=== PATIENT | male | born 1935 | race Caucasian/White ===

== ENCOUNTER 2018-07-09 02:19 | Observation (INO) | payer MEDICARE, SELFPAY ==
[2018-07-09] VITALS (10 sets, daily range): BP systolic 135–204; BP diastolic 61–99; PULSE 63–78; RESP 15–20; TEMP 36.3–36.6; O2SAT 95–98; BMI 25.8
--- NOTE | 2018-07-09 02:23 | DI.RAD.S_ITS ---
PROCEDURE: XR CHEST 1V INDICATIONS: chest pain TECHNIQUE: One view of the chest was acquired. COMPARISON: [facility], , CHEST 2 VIEW, 03/12/2016, 10:52. FINDINGS: Surgical changes and devices: Multiple surgical clips are again seen in left lower neck soft tissue in the region of thyroid bed. Lungs and pleura: No pleural effusions or pneumothorax. Lungs are clear. Mediastinum: Mediastinal contours appear normal. Heart size is normal. Bones and chest wall: No suspicious bony lesions. Overlying soft tissues appear unremarkable. IMPRESSION: No acute cardiopulmonary pathology. No significant changes from previous study. Dictated by: Ranjit Sims M.D. on 07/09/2018 at 8:16 Approved by: Ranjit Sims M.D. on 07/09/2018 at 8:17
--- NOTE | 2018-07-09 02:25 | ED_ITS ---
HPI - Chest Pain General Chief Complaint: Chest Pain Stated Complaint: Chest Pain Time Seen by Provider: 07/09/18 02:23 Source: patient Mode of arrival: ambulatory Limitations: no limitations History of Present Illness HPI narrative: 82-year-old male with history of hypertension hyperlipidemia here for evaluation of left axillary pain. Patient states that it woke him from his sleep approximately 2.5 hr prior to arrival here in the emergency department. Has improved since then but is still having the pain. states that he also did feel the pain in his back. He states that was sent achy pain. Not worse with palpation or movement or deep breaths. No prior cardiac history. Has not tried anything for prior to arrival. Related Data Home Medications Medication Instructions Recorded Confirmed hydrochlorothiazide 25 mg PO Q DAY #0 03/26/11 ASPIRIN (Aspirin) #0 01/29/12 Coenzyme Q10 (#COQ10) 30 mg PO Q DAY #0 01/29/12 Fish Oil (#FISH OIL) 1 iu PO Q DAY #0 01/29/12 atorvastatin [Lipitor] 40 mg PO HS #0 01/29/12 cyanocobalamin (vitamin B-12) 50 mcg PO Q DAY #0 01/29/12 [Vitamin B-12] ASCORBIC ACID (VITAMIN C) 1,000 mg PO QDAY #0 04/17/13 VITAMIN D (Vitamin D3) 1,000 unit PO QDAY #0 04/17/13 Previous Rx's Medication Instructions Recorded LEVOTHYROXINE SODIUM (LEVOTHROID) 0.2 mg PO QDAY #90 01/28/12 lisinopril [Prinivil] 20 mg PO Q DAY #30 07/25/12 Allergies Allergy/AdvReac Type Severity Reaction Status Date / Time INGREDIENT: NKDA - NO KNOWN Allergy Unknown Uncoded 02/05/18 12:07 DRUG ALLERGIES Review of Systems Constitutional Denies fatigue and Denies fever(s) ENT Ears, Nose, Mouth, and Throat: Denies vertigo and Denies dizziness Cardiovascular Reports chest pain, Denies diaphoresis, Denies rapid heart rate, Denies pedal edema, Denies edema and Denies dyspnea Respiratory Denies dyspnea Gastrointestinal Gastrointestinal: Denies diarrhea and Denies vomiting Genitourinary Denies dysuria Musculoskeletal Denies myalgias and Denies arthralgias Integumentary/Breasts Denies lesions and Denies rash Neurologic Denies vertigo and Denies dizziness Endocrine Denies fatigue Hematologic/Lymphatic Denies easy bleeding and Denies easy bruising [facility] Medical History Hyperlipidemia (Acute) Hypertension (Acute) Hypothyroid (Acute) Surgical History History of knee replacement History of thyroidectomy History of vasectomy Status post appendectomy Status post laminectomy Status post tonsillectomy and adenoidectomy Family History Father Family history of [place] (myocardial infarction) Mother Family history of cerebrovascular accident (CVA) Exam Initial Vital Signs Initial Vital Signs: Vital Signs Temperature 97.8 F 07/09/18 02:27 Pulse Rate 76 07/09/18 02:27 Respiratory Rate 20 07/09/18 02:27 Blood Pressure 204/98 H 07/09/18 02:27 Pulse Oximetry 98 07/09/18 02:27 Const General: cooperative, healthy appearing, comfortable, well developed, well groomed and No acute distress Orientation: alert, awake and oriented x3 HENMT Head: normal to inspection and normocephalic Resp Effort & Inspection: normal respiratory effort Auscultation: clear to auscultation bilaterally Cardio Rate: regular rate Rhythm: regular rhythm GI Inspection: non-distended Palpation: soft, No firm and No tender Skin Rashes: rash noted Wounds: wound noted Neuro General: alert, awake and oriented x3 Cognition: normal cognition Speech: speech normal Extrem General: normal to inspection and capillary refill normal Psych Appearance: grossly normal and well kempt Scores HEART Score Heart Score history: Moderately Suspicious Heart Score EKG: Non-Specific repolarization disturbance Heart Score Age: > or = 65 years old Heart Score risk factors: 1-2 risk factors Heart Score troponin: < or = to normal limit Heart Score Total: 5 Course Orders Ordered: ED Orders 07/09/18 02:23 XR chest 1V Stat EKG-12 Lead Stat 07/09/18 02:24 Complete Blood Count AUTO DIFF Stat Comprehensive Metabolic Panel Stat Lipase Stat Troponin & CK Cardiac Panel Stat 07/09/18 03:25 Consult to Physician Routine 07/09/18 06:00 Troponin I Stat Morphine Sulfate (Morphine) 2 mg IV Q4HR PRN PRN Reason: Pain, Mild (1-3) Nitroglycerin (Nitrostat) 0.4 mg SL [id number] PRN PRN Reason: Chest Pain Last Admin: 07/09/18 02:55 Dose: 0.4 mg Admin: 07/09/18 02:50 Dose: 0.4 mg Ondansetron HCl (Zofran) 4 mg IV Q4HR PRN PRN Reason: Nausea And Vomiting Discontinued Medications Aspirin (Aspirin Chew) 324 mg PO NOW ONE Stop: 07/09/18 02:24 Last Admin: 07/09/18 02:31 Dose: 324 mg Vital Signs - 8 hr 07/09/18 02:27 07/09/18 02:50 07/09/18 02:55 Temperature 97.8 F Pulse Rate 76 77 76 Respiratory Rate 20 Blood Pressure 204/98 H 168/99 H 196/97 H Blood Pressure [Right Arm] Pulse Oximetry 98 07/09/18 03:00 07/09/18 03:08 07/09/18 03:27 Temperature 97.8 F Pulse Rate 78 78 67 Respiratory Rate 16 16 18 Blood Pressure 196/97 H Blood Pressure [Right Arm] 135/77 137/88 Pulse Oximetry 95 95 98 MDM - Chest Pain Lab Data Attestation: I reviewed the patient's lab results. Result diagrams: 07/09/18 02:24 07/09/18 02:24 Lab Results 07/09/18 07/09/18 Range/Units 02:24 02:24 WBC 6.1 (4.5-11.0) X10^3/uL RBC 5.12 (4.5-5.9) X10^6/uL Hgb 15.6 (13.5-17.5) g/dL Hct 46.1 (41-53) % MCV 90.0 (80-100) fL MCH 30.4 (26-34) PG MCHC 33.8 (30-36) % RDW 13.5 (11.6-14.8) % Plt Count 158 (150-400) X10^3/uL Neut % (Auto) 68.4 (50-75) % Lymph % (Auto) 18.0 L (25-40) % [place] % (Auto) 8.4 (3-14) % Eos % (Auto) 4.7 H (2-4) % Baso % (Auto) 0.5 (0-2) % Neut # (Auto) 4100 (5138-1743) /uL Sodium 146 H (137-145) mmol/L Potassium 4.9 (3.4-5.1) mmol/L Chloride 110 H (98-107) mmol/L Carbon Dioxide 27 (22-32) mmol/L BUN 25 H (9-20) mg/dL Creatinine 0.90 (0.66-1.25) mg/dL Estimated GFR > 60.0 (>60) mL/min BUN/Creatinine Ratio 27.8 H (6-22) Glucose 93 (80-110) mg/dL Calcium 9.4 (8.4-10.2) mg/dL Total Bilirubin 0.9 (0.2-1.3) mg/dL AST 36 (17-59) IU/L ALT 25 (21-72) IU/L Alkaline Phosphatase 54 (38-126) U/L Total Creatine Kinase 62 (55-170) U/L Troponin I < 0.012 (0.01-0.034) ng/mL Total Protein 6.5 (6.3-8.2) g/dL Albumin 3.9 (3.5-5.0) g/dL Globulin 2.6 (1.7-4.1) g/dL Albumin/Globulin Ratio 1.5 (1.0-2.8) Lipase 69 (23-300) U/L Imaging Data Chest x-ray: Attestation: I personally reviewed and interpreted this imaging study as follows: My impression: No pneumonia no pneumothorax Bilateral patchy disease ECG Data Attestation: I personally reviewed and interpreted this ECG as follows: Prior ECG tracings: not available for review Interpretation: Sinus rhythm rate is 63 left axis deviation right bundle branch block Normal QTC No ST T wave changes MDM Narrative Medical decision making narrative: initial troponin was negative. Hypertension and chest pain resolved after 2 doses of nitroglycerin here in the emergency department. Chest x-ray is unremarkable. Nonischemic EKG. He was given aspirin here in the ER. Patient has a heart score of 5 which puts him at moderate risk. Had a discussion with him and his regarding his options to include being discharged now, staying here in the emergency department for another troponin in 3 hr or being admitted to the hospital. after this discussion the patient opted to be admitted to the hospital. I discussed the case with Dr. Osullivan who accepts the patient for observation for continued evaluation and treatment. Discharge Plan Departure Patient Disposition: Admitted as Observation Clinical Impression: Atypical chest pain, Hypertension
[2018-07-09] MEDS: ASPIRIN 81 MG TAB 324 MG PO (02:31)
[2018-07-09 02:41] LABS: Add Manual Diff / Slide Review NO; Basophils Percent Auto 0.5 % (0-2); Eosinophils Percent Auto 4.7 % (2-4); Hematocrit 46.1 % (41-53); Hemoglobin 15.6 g/dL (13.5-17.5); Mean Corpuscular HGB Conc 33.8 % (30-36); Mean Corpuscular Hemoglobin 30.4 PG (26-34); Monocytes Percent Auto 8.4 % (3-14); Neutrophils Absolute Auto 4100 /uL (3000-5900); Neutrophils Percent Auto 68.4 % (50-75); Platelet Count 158 X10^3/uL (150-400); Red Blood Cell Count 5.12 X10^6/uL (4.5-5.9); Red Cell Distribution Width 13.5 % (11.6-14.8); White Blood Cell Count 6.1 X10^3/uL (4.5-11.0)
[2018-07-09 02:46] LABS: Alanine Aminotransferase 25 IU/L (21-72); Albumin 3.9 g/dL (3.5-5.0); Albumin Globulin Ratio 1.5 (1.0-2.8); Alkaline Phosphatase 54 U/L (38-126); Aspartate Aminotransferase 36 IU/L (17-59); BUN Creatinine Ratio 27.8 (6-22); Bilirubin Total 0.9 mg/dL (0.2-1.3); Blood Urea Nitrogen 25 mg/dL (9-20); Calcium 9.4 mg/dL (8.4-10.2); Carbon Dioxide 27 mmol/L (22-32); Chloride 110 mmol/L (98-107); Creatine Kinase 62 U/L (55-170); Estimated Glomerular Filt Rate > 60.0 mL/min (>60); Globulin 2.6 g/dL (1.7-4.1); Glucose 93 mg/dL (80-110); Lipase 69 U/L (23-300); Sodium 146 mmol/L (137-145); Total Protein 6.5 g/dL (6.3-8.2)
[2018-07-09] MEDS: NITROGLYCERIN 0.4 MG SL TAB SL ×2 (02:50→02:55)
[2018-07-09 02:54] LABS: HEMOLYSIS 110 (0-50)
[2018-07-09 02:55] LABS: Potassium 4.9 mmol/L (3.4-5.1)
[2018-07-09 02:59] LABS: Troponin I < 0.012 ng/mL (0.01-0.034)
--- NOTE | 2018-07-09 04:13 | PC.ADMIT ---
[facility] Admission Note: The patient,Adolfo Gutierrez,82 y/o, was given written information regarding hospital policies, unit procedures and contact persons. Patient's smoking status: Never smoker. Vital Signs - 8 hr 07/09/18 02:27 07/09/18 02:50 07/09/18 02:55 Temperature 97.8 F Pulse Rate 76 77 76 Respiratory Rate 20 Blood Pressure 204/98 H 168/99 H 196/97 H Blood Pressure [Right Arm] Pulse Oximetry 98 07/09/18 03:00 07/09/18 03:08 07/09/18 03:27 Temperature 97.8 F Pulse Rate 78 78 67 Respiratory Rate 16 16 18 Blood Pressure 196/97 H Blood Pressure [Right Arm] 135/77 137/88 Pulse Oximetry 95 95 98 07/09/18 03:29 07/09/18 03:35 07/09/18 03:56 Temperature 97.8 F Pulse Rate 69 63 Respiratory Rate 15 18 Blood Pressure 137/88 168/99 H 159/61 H Blood Pressure [Right Arm] Pulse Oximetry 97 97 Pt arrived via WC in NAD. , Natty, accompanied him. Denies CP/SOB. VSS, afebrile. Tele SR. Sp02 98% RA. Oriented to room, call light and plan of care.
[2018-07-09 07:26] LABS: Troponin I < 0.012 ng/mL (0.01-0.034)
--- NOTE | 2018-07-09 09:23 | PM.HP.1 ---
History of Present Illness Date Patient Seen: 07/09/18 Time Patient Seen: 08:00 Chief complaint: Chest Pain Narrative: The pt is a 82yo man with hypertension, hyperlipidemia, and post-surgical hypothyroidism who presented with chest pain. The pt reports that around midnight last night he woke with left axillary chest pain that felt like a dull ache. It was very painful, 8/10 on the pain scale. At that point, it did radiate to his back. He got up and went to the bathroom, thinking it was due to laying on his left side while sleeping. The pain did not resolve. Gradually, the pain started to improved, however due to its severity he decided to come to the ED for evaluation. At the time of presentation to the ED, the pt states the pain had localized to his axilla without radiation. In the ER, the pt received Nitroglycerin which he states caused the pain to nearly stop. He continues to feel a slight ache in his left axilla. With the pain, the pt denies any associated SOB, nausea, radiation to the jaw or arm, palpitations. He has been in good health recently without any concerns. He denies any recent injury or straining with activity. The pt has never had similar symptoms in the past. Patient History Medical History Hyperlipidemia (Acute) Hypertension (Acute) Hypothyroid (Acute) Surgical History History of knee replacement History of thyroidectomy History of vasectomy Status post appendectomy Status post laminectomy Status post tonsillectomy and adenoidectomy Family & Social History Family History: Reviewed 07/09/18 by Pastora Ragland MD Social History: household members spouse Prior Living Arrangements House Safety & Behavioral: Feels Safe in Current Yes Environment Been Physically Hurt or No Threatened By a Person Suicidal Ideation Description None Suicide Plan Description No Plan Tobacco & Substance use: Smoking Status Never smoker alcohol intake current alcohol intake frequency 0-2 drinks per day Meds Home Medications Medication Instructions Recorded Confirmed Type hydrochlorothiazide 25 mg PO Q DAY #0 03/26/11 07/09/18 History LEVOTHYROXINE SODIUM (LEVOTHROID) 0.2 mg PO QDAY #90 01/28/12 07/09/18 Rx Coenzyme Q10 (#COQ10) 30 mg PO Q DAY #0 01/29/12 07/09/18 History Fish Oil (#FISH OIL) 1 iu PO Q DAY #0 01/29/12 07/09/18 History atorvastatin [Lipitor] 40 mg PO HS #0 01/29/12 07/09/18 History cyanocobalamin (vitamin B-12) 50 mcg PO Q DAY #0 01/29/12 07/09/18 History [Vitamin B-12] ASCORBIC ACID (VITAMIN C) 1,000 mg PO QDAY #0 04/17/13 07/09/18 History VITAMIN D (Vitamin D3) 1,000 unit PO QDAY #0 04/17/13 07/09/18 History fenofibrate micronized 134 mg PO DAILY 07/09/18 07/09/18 History lisinopril 40 mg PO DAILY #30 tab 07/09/18 Rx Allergies Allergy/AdvReac Type Severity Reaction Status Date / Time INGREDIENT: NKDA - NO KNOWN Allergy Unknown Uncoded 02/05/18 12:07 DRUG ALLERGIES Review of Systems Cardiovascular Cardiovascular: Reports chest pain, Denies fainting, Denies fast heart rate, Denies irregular heart rhythm, Denies leg swelling, Denies lightheadedness and Denies shortness of breath Respiratory Respiratory: Denies cough, Reports pain on inspiration and Denies dyspnea Gastrointestinal Gastrointestinal: Denies abdominal pain, Denies melena, Denies change in bowel habits and Denies heartburn Genitourinary Genitourinary: Denies hematuria and Denies dysuria Neurologic Neurologic: Denies syncope Exam Vital Signs (past 8 hours): - 07/09/18 02:27 07/09/18 02:50 07/09/18 02:55 Temperature 97.8 F Pulse Rate 76 77 76 Respiratory Rate 20 Blood Pressure 204/98 H 168/99 H 196/97 H Blood Pressure [Right Arm] Pulse Oximetry 98 07/09/18 03:00 07/09/18 03:08 07/09/18 03:27 Temperature 97.8 F Pulse Rate 78 78 67 Respiratory Rate 16 16 18 Blood Pressure 196/97 H Blood Pressure [Right Arm] 135/77 137/88 Pulse Oximetry 95 95 98 07/09/18 03:29 07/09/18 03:35 07/09/18 03:56 Temperature 97.8 F Pulse Rate 69 63 Respiratory Rate 15 18 Blood Pressure 137/88 168/99 H 159/61 H Blood Pressure [Right Arm] Pulse Oximetry 97 97 07/09/18 08:33 Temperature 97.3 F L Pulse Rate 68 Respiratory Rate 18 Blood Pressure 160/88 H Blood Pressure [Right Arm] Pulse Oximetry 98 Oxygen Delivery Method Room Air Narrative Exam Narrative: GEN - alert, cooperative and no distress HEENT - normocephalic and atraumatic, sclera white, moist mucus membranes, throat non-erythematous and tonsils not enlarged NECK - FROM, no adenopathy, no JVD HEART - RRR, S1, S2 normal, no S3 or S4, no murmurs LUNGS - symmetric chest rise, no accessory muscles, clear to auscultation bilaterally ABD - flat, nondistended, normal bowel sounds, soft, nontender and no hepatomegaly, splenomegaly or masses EXT - no cyanosis, clubbing or edema SKIN - no rashes or suspicious lesions NEURO - no gross deficits Objective Labs Result Diagrams: 07/09/18 02:24 07/09/18 02:24 Labs: Laboratory Results - last 24 hr 07/09/18 07/09/18 07/09/18 02:24 02:24 03:55 WBC 6.1 RBC 5.12 Hgb 15.6 Hct 46.1 MCV 90.0 MCH 30.4 MCHC 33.8 RDW 13.5 Plt Count 158 Neut % (Auto) 68.4 Lymph % (Auto) 18.0 L [place] % (Auto) 8.4 Eos % (Auto) 4.7 H Baso % (Auto) 0.5 Neut # (Auto) 4100 Sodium 146 H Potassium 4.9 Chloride 110 H Carbon Dioxide 27 BUN 25 H Creatinine 0.90 Estimated GFR > 60.0 BUN/Creatinine Ratio 27.8 H Glucose 93 Calcium 9.4 Total Bilirubin 0.9 AST 36 ALT 25 Alkaline Phosphatase 54 Total Creatine Kinase 62 Troponin I < 0.012 Total Protein 6.5 Albumin 3.9 Globulin 2.6 Albumin/Globulin Ratio 1.5 Lipase 69 Nasal Screen MRSA (PCR) Negative for mrsa 07/09/18 06:15 WBC RBC Hgb Hct MCV MCH MCHC RDW Plt Count Neut % (Auto) Lymph % (Auto) [place] % (Auto) Eos % (Auto) Baso % (Auto) Neut # (Auto) Sodium Potassium Chloride Carbon Dioxide BUN Creatinine Estimated GFR BUN/Creatinine Ratio Glucose Calcium Total Bilirubin AST ALT Alkaline Phosphatase Total Creatine Kinase Troponin I < 0.012 Total Protein Albumin Globulin Albumin/Globulin Ratio Lipase Nasal Screen MRSA (PCR) Assessment & Plan (1) Chest pain: Qualifiers: Chest pain type: unspecified Qualified Code(s): R07.9 - Chest pain, unspecified Current visit: No Status: Acute (2) Hypertension: Qualifiers: Hypertension type: unspecified Qualified Code(s): I10 - Essential (primary) hypertension Current visit: No Status: Acute Plan: Assessment/Plan Narrative: 82 year old man with hypertension, hyperlipidemia, and hypothyroidism who presented with chest pain. Pain is concerning for cardiac etiology due to description and relief with nitroglycerin, however negative EKG and troponins x2. Possibly due to hypertensive urgency with pt having significantly elevated BP at presentation. No recurrence of pain since in the hospital. 1) Chest pain with known HTN: BP improved, however remains elevated - Increase Losartan to 40mg daily - Pt to check BP regularly at home, will notify us if remaining elevated - Appt scheduled for outpatient stress test tomorrow, as unable to complete today in the hospital - Continue statin Dispo: Pt to discharge home today with plans for stress test tomorrow. Will have f/u with Dr Quintana within 2 weeks as well. Quality VTE Deep Vein Thrombosis/Pulmonary Embolism Present on Admission: No
[2018-07-09] MEDS: FENOFIBRATE 145 MG TABLET PO (09:42)
[2018-07-09] MEDS: LISINOPRIL 20 MG TABLET 40 MG PO (09:42)
[2018-07-09] MEDS: LEVOTHYROXINE 100 MCG TABLET 200 MCG PO (09:42)
[2018-07-09] MEDS: hydroCHLOROthiazide 25 MG TABLET PO (09:43)
--- NOTE | 2018-07-09 11:15 | CM.DANOTE ---
Discharge Planning/Care Management DCP: assessment: case received, EMR reviewed, conferred with HELEN Leach and then met with pt. Introduced self and role. Pt is an 82 year old male who is functionally independent and lives with . He admitted to care of [facility] early this morning. PCP: Dr. Quintana. [facility] pt this morning and will be returning later today to finalize the d/c. Pt expects to have further testing in the outpt setting. Says his will be picking him up. No d/c needs are identified at this time but will follow prn. CM Discharge Assessment Start: 07/09/18 11:13 Freq: Status: Active Protocol: Document 07/09/18 11:13 ITV (Rec: 07/09/18 11:15 ITV [id number]) Discharge Planning Assessment Advance Directives? No History Provided By Patient Medical Record Prior Living Arrangements House Household Members spouse Barriers to Discharge No Whiteboard Updated in Patient Room with Yes name and ext. # of Laser [employer]
== END 2018-07-09 11:31 | disposition home or self-care (01) ==
LOC: ED 03:24 → ICU 03:31
PROVIDERS: Admitting Provider Family Medicine; Emergency Provider Emergency Medicine; PCP Internal Medicine; Visit Provider Family Medicine
DX: R07.9 Chest pain, unspecified (principal); I10 Essential (primary) hypertension; E78.5 Hyperlipidemia, unspecified; E03.9 Hypothyroidism, unspecified
CPT/HCPCS: 71045; 80053; 82550; 82553; 83690; 84484; 85025; 87797; 93005; 99235; 99282; 99285; G0378

== ENCOUNTER 2019-09-24 14:26 | Emergency (ER) | payer MEDICARE, SELFPAY ==
[2019-02-12 13:45] VITALS: BMI 25.8
[2019-09-24 14:35] VITALS: BP 113/60; PULSE 68; RESP 19; TEMP 36.7; O2SAT 97; BMI 27.4
--- NOTE | 2019-09-24 14:37 | DI.RAD.S_ITS ---
PROCEDURE: XR CHEST 1V INDICATIONS: syncope TECHNIQUE: One view of the chest was acquired. COMPARISON: [facility], CR, XR CHEST 1V, 07/09/2018, 2:29. [facility], CR, CHEST 2 VIEW, 03/12/2016, 10:52. [facility], CR, CHEST 2 VIEW, 03/26/2011, 9:46. [facility], CT, PE STUDY (CTA CHEST), 03/25/2011, 11:38. FINDINGS: Surgical changes and devices: Neck several clips are seen. Lungs and pleura: Lungs are clear. No pleural effusions or pneumothorax. Mediastinum: The cardiac contours are within normal limits. The aorta demonstrates calcification and tortuosity. Bones and chest wall: Age-appropriate bony degenerative changes are seen. No suspicious bony lesions. Overlying soft tissues appear unremarkable. IMPRESSION: Unremarkable imaging examination for age. Postoperative and degenerative changes are seen. Dictated by: Carlos Mauricio M.D. on 09/24/2019 at 14:02 Approved by: Carlos Mauricio M.D. on 09/24/2019 at 14:03
[2019-09-24 14:59] LABS: Add Manual Diff / Slide Review NO; Basophils Absolute Auto 100 /uL (0-100); Basophils Percent Auto 1.4 % (0-2); Eosinophils Absolute Auto 200 /uL (0-450); Eosinophils Percent Auto 3.1 % (2-4); Hematocrit 44.3 % (41-53); Hemoglobin 15.1 g/dL (13.5-17.5); Lymphocytes Absolute Auto 800 /uL (1100-4500); Lymphocytes Percent Auto 14.9 % (25-40); Mean Corpuscular Hemoglobin 30.6 PG (26-34); Mean Corpuscular Volume 89.8 fL (80-100); Monocytes Absolute Auto 300 /uL (0-900); Neutrophils Absolute Auto 4200 /uL (1500-7000); Neutrophils Percent Auto 74.6 % (50-75); Platelet Count 160 X10^3/uL (150-400); Red Blood Cell Count 4.93 X10^6/uL (4.5-5.9); Red Cell Distribution Width 13.7 % (11.6-14.8); White Blood Cell Count 5.7 X10^3/uL (4.5-11.0)
[2019-09-24 15:04] LABS: INR 1.1 (0.9-1.3); Prothrombin Time 12.2 SECONDS (10.1-12.7)
[2019-09-24 15:08] LABS: Alanine Aminotransferase 16 IU/L (<50); Albumin 3.8 g/dL (3.5-5.0); Albumin Globulin Ratio 1.7 (1.0-2.8); Alkaline Phosphatase 53 U/L (38-126); Aspartate Aminotransferase 24 IU/L (17-59); BUN Creatinine Ratio 28.5 (6-22); Bilirubin Total 0.6 mg/dL (0.2-1.3); Blood Urea Nitrogen 37 mg/dL (9-20); Calcium 9.4 mg/dL (8.4-10.2); Carbon Dioxide 26 mmol/L (22-32); Chloride 107 mmol/L (98-107); Creatine Kinase 80 U/L (55-170); Estimated Glomerular Filt Rate 52.7 mL/min (>60); Globulin 2.3 g/dL (1.7-4.1); Glucose 119 mg/dL (80-110); HEMOLYSIS < 15 (0-50); Magnesium 1.9 mg/dL (1.6-2.3); Potassium 4.2 mmol/L (3.4-5.1); Sodium 140 mmol/L (137-145); Total Protein 6.1 g/dL (6.3-8.2)
[2019-09-24 15:10] VITALS: BP 127/60; BP 150/79
--- NOTE | 2019-09-24 15:13 | ED_ITS ---
HPI - Syncope General Chief Complaint: Syncope Stated Complaint: Syncope Time Seen by Provider: 09/24/19 14:26 Source: patient, family and EMS Mode of arrival: EMS Limitations: no limitations History of Present Illness HPI narrative: Patient is brought to the emergency department by EMS after experiencing a syncopal episode after eating Thanksgiving dinner this afternoon. Patient states that he had just finished eating was feeling fine but started to feel somewhat lightheaded. Patient states that he wanted to put his head down on the table, but his plate was in front of him and he did not want to get food in his face and hair. Patient's states that she looked over noticed that her 's head was slumped forward and so she in the family got him out of the chair in laid him down on the floor. Patient states he woke up and found himself on the floor and was not sure how he got there. states that the patient was unconscious for approximately 15 seconds. The patient states once he woke up he was feeling ?fine?. The patient does admit to not drinking very much water over the last few days. Patient denies any chest pain, shortness of breath, nausea, vomiting, abdominal pain, headache, or focal neurologic deficits either before or after the episode. He states he has never fainted before. Patient states he has not been ill with anything recently. No cough or fever. No other complaints at this time. Related Data Home Medications Medication Instructions Recorded Confirmed hydrochlorothiazide 25 mg PO Q DAY #0 03/26/11 02/12/19 Coenzyme Q10 (#COQ10) 30 mg PO Q DAY #0 01/29/12 02/12/19 Fish Oil (#FISH OIL) 1 iu PO Q DAY #0 01/29/12 02/12/19 cyanocobalamin (vitamin B-12) 50 mcg PO Q DAY #0 01/29/12 02/12/19 [Vitamin B-12] ASCORBIC ACID (VITAMIN C) 1,000 mg PO QDAY #0 04/17/13 02/12/19 VITAMIN D (Vitamin D3) 1,000 unit PO QDAY #0 04/17/13 02/12/19 fenofibrate micronized 134 mg PO DAILY 07/09/18 02/12/19 aspirin 81 mg tablet,delayed 81 mg PO 2XW tab 02/12/19 02/12/19 release atorvastatin 40 mg tablet 40 mg PO 2XW #0 tab 02/12/19 02/12/19 Previous Rx's Medication Instructions Recorded lisinopril 40 mg PO DAILY #30 tab 07/09/18 levothyroxine 175 mcg tablet 175 mcg PO DAILY #90 tab 02/12/19 Allergies Allergy/AdvReac Type Severity Reaction Status Date / Time INGREDIENT: NKDA - NO KNOWN Allergy Unknown Uncoded 02/12/19 15:29 DRUG ALLERGIES Review of Systems Constitutional Constitutional: Denies chills, Denies fatigue, Denies fever(s), Denies frequent falls, Denies lethargy and Denies weakness Eyes Eyes: Denies change in vision, Denies eye discharge, Denies irritation and Denies loss of vision ENT Ears, Nose, Mouth, and Throat: Denies change in voice, Denies dizziness, Denies neck pain, Denies sore throat and Denies throat swelling Cardiovascular Cardiovascular: Denies chest pain, Reports syncope, Denies irregular heart rhythm, Denies lightheadedness, Denies palpitations, Denies dyspnea, Denies dyspnea on exertion and Denies orthopnea Respiratory Respiratory: Denies cough, Denies dyspnea, Denies dyspnea on exertion and Denies wheezing Gastrointestinal Gastrointestinal: Denies abdominal pain, Denies change in bowel habits, Denies diarrhea, Denies nausea and Denies vomiting Genitourinary Genitourinary: Denies hematuria, Denies flank pain, Denies urinary incontinence and Denies urinary urgency Musculoskeletal Musculoskeletal: Denies back pain, Denies muscle weakness, Denies neck pain, Denies numbness and Denies tingling Integumentary/Breasts Skin/Breast: Denies pruritus, Denies erythema, Denies rash and Denies wounds Neurologic Neurologic: Denies behavioral changes, Denies confusion, Denies dizziness, Reports syncope, Denies frequent falls, Denies loss of vision, Denies numbness, Denies tingling and Denies weakness Psychiatric Psychiatric: Denies anxiety, Denies behavioral changes, Denies confusion, Denies depression, Denies homicidal ideation and Denies suicidal ideation Endocrine Endocrine: Denies fatigue, Denies flushing and Denies palpitations Hematologic/Lymphatic Hematologic/Lymphatic: Denies easy bruising Allergic/Immunologic Allergic/Immunologic: Denies urticaria, Denies throat swelling and Denies wheezing Patient History Medical History Hyperlipidemia, unspecified (Chronic 01/29/12) Hypertension (Chronic) Hypothyroidism (Chronic) LAFB (left anterior fascicular block) (Inactive) RBBB (Inactive) Surgical History History of knee replacement History of thyroidectomy History of vasectomy Status post appendectomy Status post laminectomy Status post tonsillectomy and adenoidectomy Family History Father Family history of [place] (myocardial infarction) Mother Family history of cerebrovascular accident (CVA) Social History household members: spouse Smoking Status: Never smoker alcohol intake: current alcohol intake frequency: 0-2 drinks per day Exam Initial Vital Signs Initial Vital Signs: Vital Signs Temperature 98.0 F 09/24/19 14:35 Pulse Rate 68 09/24/19 14:35 Respiratory Rate 19 09/24/19 14:35 Blood Pressure 113/60 09/24/19 14:35 Pulse Oximetry 97 09/24/19 14:35 Const General: cooperative and well developed Nutritional Appearance: well nourished Orientation: alert, awake, oriented x3 and not confused [facility] Head: normocephalic and atraumatic Ears: external ears normal Nose: external nose normal and No nasal discharge Face and sinus: face symmetric and No dry mucous membranes Mouth: oral mucosae normal and moist mucous membranes Teeth and gingiva: dentition normal Eyes General: appearance normal, both eyes and all related structures Eyelids: eyelids normal Conjunctivae: conjunctivae normal Sclera: sclerae normal Pupils: PERRL EOM: EOM intact bilaterally Neck Neck: normal visual inspection, trachea midline, No lymphadenopathy, No midline deformity and No JVD Lymphatic: No lymphedema Chest Chest: normal inspection of the chest Resp Effort & Inspection: normal respiratory effort, able to speak in complete sentences, no respiratory distress and no use of accessory muscles Auscultation: clear to auscultation bilaterally, no rales, no rhonchi and no wheezes Cardio Rate: regular rate Rhythm: regular rhythm Heart Sounds: no click, no gallops, no murmurs and no rubs Pulses: normal peripheral pulses GI Inspection: non-distended Palpation: soft, no hepatosplenomegaly, No guarding, No pulsatile mass and No tender Back/Spine/Pelvis Back: No CVA tenderness Cervical Spine: cervical ROM normal and No pain with cervical ROM Thoracic/Lumbar Spine: thoracic and lumbar spine normal to inspection Skin General: no rashes or lesions noted, No jaundice and No petechiae Neuro General: alert, awake, oriented x3, no focal motor deficits and CN's II-XI intact bilaterally Cognition: normal cognition Speech: speech normal Motor: muscle tone normal throughout and strength 5/5 throughout Sensory Exam: no sensory deficits noted Extrem General: full ROM, no clubbing, cyanosis or edema, no pedal edema and no calf tenderness Psych Appearance: well kempt Mental Status: mental status grossly normal Attitude: cooperative Thought Content: normal and suicidality Judgment: judgment good Course Course Course Narrative: The patient was very well-appearing in the emergency department, and his 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 His blood pressure, heart rate, and oxygen saturation were all normal, as well. His fingerstick glucose was 117. The patient was worked up with labs and EKG, and given a 1 L bolus 0.9 normal saline. Patient was found to be doing very well and was without complaints on re-evaluation. His workup was unremarkable. I felt he was stable for discharge home. We have discussed getting plenty of fluids to drink and having the rest for the remainder of the day. Patient's family is present and very supportive. Orders Ordered: Discontinued Medications Sodium Chloride (Normal Saline 0.9%) 1,000 mls @ 1,000 mls/hr IV BOLUS ONE Stop: 09/24/19 16:11 Vital Signs Vital signs: Vital Signs - 8 hr 09/24/19 14:35 Temperature 98.0 F Pulse Rate 68 Respiratory Rate 19 Blood Pressure 113/60 Pulse Oximetry 97 MDM - Syncope Medical Records Attestation: I reviewed the patient's medical records. Lab Data Attestation: I reviewed the patient's lab results. Result diagrams: 09/24/19 14:49 09/24/19 14:49 Labs: Lab Results 09/24/19 09/24/19 09/24/19 Range/Units 14:49 14:49 14:49 WBC 5.7 (4.5-11.0) X10^3/uL RBC 4.93 (4.5-5.9) X10^6/uL Hgb 15.1 (13.5-17.5) g/dL Hct 44.3 (41-53) % MCV 89.8 (80-100) fL MCH 30.6 (26-34) PG MCHC 34.0 (30-36) % RDW 13.7 (11.6-14.8) % Plt Count 160 (150-400) X10^3/uL Neut % (Auto) 74.6 (50-75) % Lymph % (Auto) 14.9 L (25-40) % [place] % (Auto) 6.0 (3-14) % Eos % (Auto) 3.1 (2-4) % Baso % (Auto) 1.4 (0-2) % Neut # (Auto) 4200 (1070-8075) /uL Lymph # (Auto) 800 L (0031-9686) /uL [place] # (Auto) 300 (0-900) /uL Eos # (Auto) 200 (0-450) /uL Baso # (Auto) 100 (0-100) /uL PT 12.2 (10.1-12.7) SECONDS INR 1.1 (0.9-1.3) Sodium 140 (137-145) mmol/L Potassium 4.2 (3.4-5.1) mmol/L Chloride 107 (98-107) mmol/L Carbon Dioxide 26 (22-32) mmol/L BUN 37 H (9-20) mg/dL Creatinine 1.30 H (0.66-1.25) mg/dL Estimated GFR 52.7 L (>60) mL/min BUN/Creatinine Ratio 28.5 H (6-22) Glucose 119 H (80-110) mg/dL Calcium 9.4 (8.4-10.2) mg/dL Magnesium 1.9 (1.6-2.3) mg/dL Total Bilirubin 0.6 (0.2-1.3) mg/dL AST 24 (17-59) IU/L ALT 16 (<50) IU/L Alkaline Phosphatase 53 (38-126) U/L Total Creatine Kinase 80 (55-170) U/L CK-MB (CK-2) TNP CK-MB (CK-2) Rel Index TNP Troponin I < 0.012 (0.01-0.034) ng/mL B-Natriuretic Peptide < 100 (<100) Total Protein 6.1 L (6.3-8.2) g/dL Albumin 3.8 (3.5-5.0) g/dL Globulin 2.3 (1.7-4.1) g/dL Albumin/Globulin Ratio 1.7 (1.0-2.8) Point of Care Testing Glucose POC 117 Imaging Data Chest x-ray: Radiologist's impression: PROCEDURE: XR CHEST 1V INDICATIONS: syncope TECHNIQUE: One view of the chest was acquired. COMPARISON: [facility], CR, XR CHEST 1V, 07/09/2018, 2:29. [facility], CR, CHEST 2 VIEW, 03/12/2016, 10:52. [facility], CR, CHEST 2 VIEW, 03/26/2011, 9:46. [facility], CT, PE STUDY (CTA CHEST), 03/25/2011, 11:38. FINDINGS: Surgical changes and devices: Neck several clips are seen. Lungs and pleura: Lungs are clear. No pleural effusions or pneumothorax. Mediastinum: The cardiac contours are within normal limits. The aorta demonstrates calcification and tortuosity. Bones and chest wall: Age-appropriate bony degenerative changes are seen. No suspicious bony lesions. Overlying soft tissues appear unremarkable. IMPRESSION: Unremarkable imaging examination for age. Postoperative and degenerative changes are seen. Dictated by: Carlos Mauricio M.D. on 09/24/2019 at 14:02 Approved by: Carlos Mauricio M.D. on 09/24/2019 at 14:03 ECG Data Attestation: I personally reviewed and interpreted this ECG as follows: (See below) Interpretation: Twelve lead EKG performed September 24, 2019 at 2:36 p.m., as follows: Irregular ventricular rhythm with a rate of 62 beats per minute QRS duration 149 millisecond WA interval 180 millisecond QTC interval [address] T wave changes No ectopy Interpretation: Normal sinus rhythm; marked left axis deviation; right bundle- branch block; no signs of acute ischemia; abnormal EKG as interpreted by ED MD. Discharge Plan Departure Patient Disposition: Home Clinical Impression: Syncope Qualifiers: Syncope type: unspecified Qualified Code(s): R55 - Syncope and collapse Discharge Date/Time: 09/24/19 16:42 Instructions: DI for Syncope in Adults (Fainting) Activity Restrictions/Additional Instructions: Your labs look good, overall. Your kidney labs do show evidence dehydration, for which you have been treated here the emergency department. This has almost certainly contributed at least impart to your fainting episode today. Be sure to drink plenty of water, especially with holiday meals which tend to be saltier. If you develop chest pain or shortness of breath, you will need to return immediately to the emergency department. If you have repeated fainting episodes, you will need to talk to her doctor about wearing an event monitor to figure out why you are having the recurrent fainting episodes. Prescriptions: No Action hydrochlorothiazide 25 MG tablet 25 mg PO Q DAY Qty: 0 RF: 0 Fish Oil (#FISH OIL) 1 iu PO Q DAY Qty: 0 RF: 0 cyanocobalamin (vitamin B-12) [Vitamin B-12] 50 MCG lozenge 50 mcg PO Q DAY Qty: 0 RF: 0 Coenzyme Q10 (#COQ10) 30 mg PO Q DAY Qty: 0 RF: 0 ASCORBIC ACID (VITAMIN C) 1,000 mg PO QDAY Qty: 0 RF: 0 VITAMIN D (Vitamin D3) 1,000 unit PO QDAY Qty: 0 RF: 0 atorvastatin [Lipitor] 40 mg tablet 40 mg PO 2XW Qty: 0 RF: 0 aspirin 81 mg tablet,delayed release (DR/EC) 81 mg PO 2XW RF: 0 levothyroxine 175 mcg tablet 175 mcg PO DAILY Qty: 90 RF: 3 fenofibrate micronized 134 mg capsule 134 mg PO DAILY RF: 0 lisinopril 20 mg Tablet 40 mg PO DAILY Qty: 30 RF: 0 Referrals: Carlos Quintana MD [Primary Care Provider] -
[2019-09-24 15:19] LABS: Troponin I < 0.012 ng/mL (0.01-0.034)
[2019-09-24 15:38] LABS: B Type Natriuretic Peptide < 100 (<100)
[2019-09-24 16:09] VITALS: BP 126/54; PULSE 65; RESP 12; O2SAT 98
--- NOTE | 2019-09-24 16:23 | PC.NURSE ---
patient not feeling lightheaded at all. Says earlier after eating his dinner he became lightheaded. Put his head down but then proceeded to pass out. Says he thinks he was dehydrated. Had had a small shot of alcohol. prior to dinner
[2019-09-24 16:39] VITALS: BP 139/65; PULSE 68; RESP 15
== END 2019-09-24 16:42 | disposition home or self-care (01) ==
PROVIDERS: Nurse Practitioner Family; Emergency Provider Emergency Medicine; PCP Internal Medicine
DX: R55 Syncope and collapse (principal); E86.0 Dehydration
CPT/HCPCS: 36415; 71045; 80053; 82550; 82962; 83735; 83880; 84484; 85025; 85610; 93005; 93041; 99283; 99285

== ENCOUNTER → 2020-01-29 10:01 | Outpatient (CLI) | payer MEDICARE, SELFPAY ==
[2019-02-12 13:45] VITALS: BMI 25.8
[2020-01-29 13:18] LABS: Free T4, Direct Thyroxine 1.79 ng/dL (0.78-2.19)
[2020-01-29 13:29] LABS: Alanine Aminotransferase 18 IU/L (<50); Albumin 4.2 g/dL (3.5-5.0); Albumin Globulin Ratio 1.6 (1.0-2.8); Alkaline Phosphatase 69 U/L (38-126); Aspartate Aminotransferase 26 IU/L (17-59); BUN Creatinine Ratio 23.8 (6-22); Bilirubin Total 0.6 mg/dL (0.2-1.3); Blood Urea Nitrogen 30 mg/dL (9-20); Calcium 10.3 mg/dL (8.4-10.2); Carbon Dioxide 27 mmol/L (22-32); Chloride 108 mmol/L (98-107); Estimated Glomerular Filt Rate 54.5 mL/min (>60); Globulin 2.7 g/dL (1.7-4.1); Glucose 76 mg/dL (80-110); HEMOLYSIS < 15 (0-50); Potassium 5.1 mmol/L (3.4-5.1); Sodium 143 mmol/L (137-145); Total Protein 6.9 g/dL (6.3-8.2)
[2020-01-29 13:32] LABS: Thyroid Stimulating Hormone 0.02 uIU/mL (0.47-4.68)
== END ==
PROVIDERS: PCP Internal Medicine; Referring Provider Internal Medicine; Visit Provider Internal Medicine
DX: E03.9 Hypothyroidism, unspecified (principal); I10 Essential (primary) hypertension
CPT/HCPCS: 36415; 80053; 84439; 84443

== ENCOUNTER 2020-04-24 23:59 | Emergency (ER) | payer MEDICARE, SELFPAY ==
[2019-02-12 13:45] VITALS: BMI 25.8
[2020-04-25 00:04] VITALS: BP 133/83; PULSE 85; RESP 20; TEMP 37; O2SAT 98
--- NOTE | 2020-04-25 00:06 | ED.ARRPALP ---
HPI - Arrhythmia/Palpitations General Chief Complaint: Arrhythmia/Palpitations Stated Complaint: heart palpitations skipping a beat hbp Time Seen by Provider: 04/25/20 00:00 Source: patient Mode of arrival: Ambulatory Limitations: no limitations History of Present Illness HPI narrative: 84-year-old male non smoker with history of hyperlipidemia and hypothyroidism presents with a chief complaint of palpitations and a sensation of skipped beats over the past day or 2. He denies any chest pain is not dizzy nor weak or lightheaded but does say the occasionally feels a bit short of breath when he is having frequent palpitations. He denies any changes medications or diet. He denies any recent illness such as nausea, vomiting or diarrhea. He denies any provocation or palliation. He denies any significant external stressors, use of caffeine, nicotine or alcohol. Related Data Home Medications Medication Instructions Recorded Confirmed Coenzyme Q10 (#COQ10) 30 mg PO Q DAY #0 01/29/12 01/29/20 Fish Oil (#FISH OIL) 1 iu PO Q DAY #0 01/29/12 01/29/20 cyanocobalamin (vitamin B-12) 50 mcg PO Q DAY #0 01/29/12 01/29/20 [Vitamin B-12] ASCORBIC ACID (VITAMIN C) 1,000 mg PO QDAY #0 04/17/13 01/29/20 VITAMIN D (Vitamin D3) 1,000 unit PO QDAY #0 04/17/13 01/29/20 fenofibrate micronized 134 mg PO DAILY 07/09/18 01/29/20 atorvastatin 40 mg tablet 40 mg PO 2XW #0 tab 02/12/19 01/29/20 Previous Rx's Medication Instructions Recorded lisinopril 40 mg PO DAILY #30 tab 07/09/18 hydrochlorothiazide 25 mg tablet 25 mg PO DAILY #90 tab 01/29/20 levothyroxine 175 mcg tablet 175 mcg PO DAILY #90 tab 01/29/20 Allergies Allergy/AdvReac Type Severity Reaction Status Date / Time INGREDIENT: NKDA - NO KNOWN Allergy Unknown Uncoded 01/29/20 09:32 DRUG ALLERGIES Review of Systems Constitutional Constitutional: Denies chills, Denies fatigue, Denies fever(s), Denies frequent falls, Denies lethargy and Denies weakness Eyes Eyes: Denies change in vision, Denies eye discharge, Denies irritation and Denies loss of vision ENT Ears, Nose, Mouth, and Throat: Denies change in voice, Denies dizziness, Denies neck pain, Denies sore throat and Denies throat swelling Cardiovascular Cardiovascular: Denies chest pain, Denies irregular heart rhythm, Denies lightheadedness, Denies palpitations, Denies dyspnea, Denies dyspnea on exertion and Denies orthopnea Comments: palpitations Respiratory Respiratory: Denies cough, Denies dyspnea, Denies dyspnea on exertion and Denies wheezing Gastrointestinal Gastrointestinal: Denies abdominal pain, Denies change in bowel habits, Denies diarrhea, Denies nausea and Denies vomiting Musculoskeletal Musculoskeletal: Denies neck pain and Denies numbness Integumentary/Breasts Skin/Breast: Denies pruritus, Denies erythema, Denies rash and Denies wounds Neurologic Neurologic: Denies behavioral changes, Denies confusion, Denies dizziness, Denies frequent falls, Denies loss of vision, Denies numbness and Denies weakness Psychiatric Psychiatric: Denies anxiety, Denies behavioral changes, Denies confusion, Denies depression, Denies homicidal ideation and Denies suicidal ideation Endocrine Endocrine: Denies fatigue, Denies flushing and Denies palpitations Hematologic/Lymphatic Hematologic/Lymphatic: Denies easy bruising Allergic/Immunologic Allergic/Immunologic: Denies urticaria, Denies throat swelling and Denies wheezing Patient History Medical History Hyperlipidemia, unspecified (Chronic 01/29/12) Hypertension (Chronic) Hypothyroidism (Chronic) LAFB (left anterior fascicular block) (Inactive) RBBB (Inactive) Surgical History History of knee replacement History of thyroidectomy History of vasectomy Status post appendectomy Status post laminectomy Status post tonsillectomy and adenoidectomy Family History Father Family history of [place] (myocardial infarction) Mother Family history of cerebrovascular accident (CVA) Social History household members: spouse Smoking Status: Never smoker alcohol intake: current Smoking Status: Never smoker alcohol intake frequency: 0-2 drinks per day Exam Narrative Exam Narrative: GENERAL: [84] year old patient appears stated age. Well-nourished, well-developed patient, in mild distress. HEAD: Atraumatic. Normocephalic. EYES: Pupils equal round and reactive. Extraocular motions intact. No scleral icterus. No injection or drainage. ENT: Nose without bleeding, purulent drainage. Throat without erythema, tonsillar hypertrophy or exudate. Airway patent. NECK: Trachea midline. Non tender CARDIOVASCULAR: Regular rate and rhythm without murmurs, gallops, or rubs. Occasional palpitation (PVC) RESPIRATORY: Clear to auscultation. Breath sounds equal bilaterally. No wheezes, rales, or rhonchi. GASTROINTESTINAL: Abdomen soft, non-tender, nondistended. EXTREMITIES: No edema or joint tenderness. BACK: Nontender without deformity or crepitance. No flank tenderness. NEURO: AOx3. SKIN: No rash or erythema of visible areas Initial Vital Signs Initial Vital Signs: Vital Signs Temperature 98.6 F 04/25/20 00:04 Pulse Rate 85 04/25/20 00:04 Respiratory Rate 20 04/25/20 00:04 Blood Pressure 133/83 04/25/20 00:04 Pulse Oximetry 98 04/25/20 00:04 Course Orders Ordered: ED Orders 04/25/20 00:07 EKG-12 Lead Stat 04/25/20 00:12 Basic Metabolic Panel Stat Complete Blood Count AUTO DIFF Stat D Dimer Stat Magnesium Stat Thyroid Stimulating Hormone Stat Troponin & CK Cardiac Panel Stat 04/25/20 01:24 CT angio chest PE protocol Stat Sodium Chloride (Normal Saline 0.9%) 1,000 mls @ 150 mls/hr IV CONT ANA Last Infusion: 04/25/20 02:49 Dose: 150 mls/hr Documented by: Admin: 04/25/20 02:07 Dose: 150 mls/hr Documented by: VIRY Vital Signs Vital signs: Vital Signs - 8 hr 04/25/20 00:04 04/25/20 02:02 04/25/20 02:35 Temperature 98.6 F Pulse Rate 85 87 90 Respiratory Rate 20 25 H 24 Blood Pressure 133/83 Blood Pressure [Right Arm] 133/83 147/86 H Pulse Oximetry 98 99 97 MDM - Arrhythmia/Palpitations Lab Data Result diagrams: 04/25/20 00:12 04/25/20 00:12 Labs: Lab Results 04/25/20 04/25/20 04/25/20 Range/Units 00:12 00:12 00:12 WBC 6.9 (4.5-11.0) X10^3/uL RBC 5.23 (4.5-5.9) X10^6/uL Hgb 16.2 (13.5-17.5) g/dL Hct 47.7 (41-53) % MCV 91.1 (80-100) fL MCH 31.0 (26-34) PG MCHC 34.0 (30-36) % RDW 13.6 (11.6-14.8) % Plt Count 169 (150-400) X10^3/uL Neut % (Auto) 69.4 (50-75) % Lymph % (Auto) 18.9 L (25-40) % [place] % (Auto) 7.4 (3-14) % Eos % (Auto) 3.6 (2-4) % Baso % (Auto) 0.7 (0-2) % Neut # (Auto) 4800 (1509-4107) /uL Lymph # (Auto) 1300 (3035-9237) /uL [place] # (Auto) 500 (0-900) /uL Eos # (Auto) 200 (0-450) /uL Baso # (Auto) 0 (0-100) /uL D-Dimer (<230) ng/mL Sodium 139 (137-145) mmol/L Potassium 3.9 (3.4-5.1) mmol/L Chloride 107 (98-107) mmol/L Carbon Dioxide 27 (22-32) mmol/L BUN 36 H (9-20) mg/dL Creatinine 1.07 (0.66-1.25) mg/dL Estimated GFR > 60.0 (>60) mL/min BUN/Creatinine Ratio 33.6 H (6-22) Glucose 107 (80-110) mg/dL Calcium 9.8 (8.4-10.2) mg/dL Magnesium 1.9 (1.6-2.3) mg/dL Total Creatine Kinase 67 (55-170) U/L CK-MB (CK-2) TNP CK-MB (CK-2) Rel Index TNP Troponin I < 0.012 (0.01-0.034) ng/mL TSH < 0.015 L (0.47-4.68) uIU/mL 04/25/20 Range/Units 00:12 WBC (4.5-11.0) X10^3/uL RBC (4.5-5.9) X10^6/uL Hgb (13.5-17.5) g/dL Hct (41-53) % MCV (80-100) fL MCH (26-34) PG MCHC (30-36) % RDW (11.6-14.8) % Plt Count (150-400) X10^3/uL Neut % (Auto) (50-75) % Lymph % (Auto) (25-40) % [place] % (Auto) (3-14) % Eos % (Auto) (2-4) % Baso % (Auto) (0-2) % Neut # (Auto) (1664-1846) /uL Lymph # (Auto) (6586-3373) /uL [place] # (Auto) (0-900) /uL Eos # (Auto) (0-450) /uL Baso # (Auto) (0-100) /uL D-Dimer 1774 H (<230) ng/mL Sodium (137-145) mmol/L Potassium (3.4-5.1) mmol/L Chloride (98-107) mmol/L Carbon Dioxide (22-32) mmol/L BUN (9-20) mg/dL Creatinine (0.66-1.25) mg/dL Estimated GFR (>60) mL/min BUN/Creatinine Ratio (6-22) Glucose (80-110) mg/dL Calcium (8.4-10.2) mg/dL Magnesium (1.6-2.3) mg/dL Total Creatine Kinase (55-170) U/L CK-MB (CK-2) CK-MB (CK-2) Rel Index Troponin I (0.01-0.034) ng/mL TSH (0.47-4.68) uIU/mL Imaging Data CT scan - chest: Radiologist's Impresson: CTA - No PE. No PNA. Cholelithiasis MDM Narrative Medical decision making narrative: Patient with frequent PVCs on monitor. Trigeminy on EKG. He is sensitive to the PVCs, no electrolyte abnormality. Non ischemic EKG. Normal troponin. Elevated D dimer, but no pE, no leg pain or swelling. No pain, pressure, fullness, at any point. Patient does mention some increased fatigue over weeks and will likely need echo and or stress test, but there is no indication that this needs to happen as an inpatient. Return precautions discussed with patient and his , all questions answered to their apparent satisfaction. They not only understand, but agree with the plan and will call Dr. Quintana' office later in the morning Discharge Plan Departure Patient Disposition: Home Clinical Impression: Palpitations Discharge Date/Time: 04/25/20 02:52 Instructions: Premature Ventricular Beats Activity Restrictions/Additional Instructions: *You have been diagnosed with [palpitations, likely frequent PVCs] *What to do: *Take medications as directed *Follow up with your primary care provider in 2-3 days, call for an appointment. Let them know you were seen in the Emergency Department and that we ask that you be seen in follow up *Return to ER if you should have any new, worsening or concerning symptoms Prescriptions: No Action Fish Oil (#FISH OIL) 1 iu PO Q DAY Qty: 0 RF: 0 cyanocobalamin (vitamin B-12) [Vitamin B-12] 50 MCG lozenge 50 mcg PO Q DAY Qty: 0 RF: 0 Coenzyme Q10 (#COQ10) 30 mg PO Q DAY Qty: 0 RF: 0 ASCORBIC ACID (VITAMIN C) 1,000 mg PO QDAY Qty: 0 RF: 0 VITAMIN D (Vitamin D3) 1,000 unit PO QDAY Qty: 0 RF: 0 atorvastatin [Lipitor] 40 mg tablet 40 mg PO 2XW Qty: 0 RF: 0 hydrochlorothiazide 25 mg tablet 25 mg PO DAILY Qty: 90 RF: 3 levothyroxine 175 mcg tablet 175 mcg PO DAILY Qty: 90 RF: 3 fenofibrate micronized 134 mg capsule 134 mg PO DAILY RF: 0 lisinopril 20 mg Tablet 40 mg PO DAILY Qty: 30 RF: 0 Referrals: Carlos Quintana MD [Primary Care Provider] -
[2020-04-25 00:22] LABS: Add Manual Diff / Slide Review NO; Basophils Absolute Auto 0 /uL (0-100); Basophils Percent Auto 0.7 % (0-2); Eosinophils Absolute Auto 200 /uL (0-450); Eosinophils Percent Auto 3.6 % (2-4); Hematocrit 47.7 % (41-53); Hemoglobin 16.2 g/dL (13.5-17.5); Lymphocytes Absolute Auto 1300 /uL (1100-4500); Lymphocytes Percent Auto 18.9 % (25-40); Mean Corpuscular Volume 91.1 fL (80-100); Monocytes Absolute Auto 500 /uL (0-900); Monocytes Percent Auto 7.4 % (3-14); Neutrophils Absolute Auto 4800 /uL (1500-7000); Neutrophils Percent Auto 69.4 % (50-75); Platelet Count 169 X10^3/uL (150-400); Red Blood Cell Count 5.23 X10^6/uL (4.5-5.9); Red Cell Distribution Width 13.6 % (11.6-14.8); White Blood Cell Count 6.9 X10^3/uL (4.5-11.0)
[2020-04-25 00:31] LABS: BUN Creatinine Ratio 33.6 (6-22); Blood Urea Nitrogen 36 mg/dL (9-20); Calcium 9.8 mg/dL (8.4-10.2); Carbon Dioxide 27 mmol/L (22-32); Chloride 107 mmol/L (98-107); Creatine Kinase 67 U/L (55-170); Estimated Glomerular Filt Rate > 60.0 mL/min (>60); Glucose 107 mg/dL (80-110); HEMOLYSIS 25 (0-50); Magnesium 1.9 mg/dL (1.6-2.3); Potassium 3.9 mmol/L (3.4-5.1); Sodium 139 mmol/L (137-145)
[2020-04-25 00:43] LABS: Troponin I < 0.012 ng/mL (0.01-0.034)
[2020-04-25 01:06] LABS: D Dimer 1774 ng/mL (<230)
[2020-04-25 01:14] LABS: Thyroid Stimulating Hormone < 0.015 uIU/mL (0.47-4.68)
--- NOTE | 2020-04-25 01:24 | DI.CT.S_ITS ---
PROCEDURE: CT ANGIO CHEST PE PROTOCOL INDICATIONS: SOB, increased fatigue, palpitations, critical D dimer TECHNIQUE: After the administration of intravenous contrast, 2 mm thick sections acquired from the pulmonary apices to the posterior costophrenic angles. 3-dimensional maximum intensity projection (MIP) coronal and sagittal reformats were then acquired through the thorax. For radiation dose reduction, the following was used: automated exposure control, adjustment of mA and/or kV according to patient size. COMPARISON: None. FINDINGS: Image quality: Excellent. Pulmonary arteries: Pulmonary arteries are normal in size, and demonstrate no intraluminal filling defects to suggest central pulmonary embolism. Lungs and pleura: Atelectasis noted in the dependent portion lung bases. No pleural effusions or pneumothorax. Central and peripheral airways are patent. Mediastinum: Heart size is normal, without pericardial effusion. Atherosclerotic calcifications are noted in the aorta, great vessels and the coronary vasculature. No mediastinal or hilar adenopathy. Thoracic aorta is normal in caliber and enhancement. Esophagus is normal in caliber, without hiatal hernia. Bones and chest wall: No suspicious bony lesions. Spine degenerative disc disease and facet arthropathy.Ribs and thoracic spine appear intact throughout. Thyroid gland is surgically absent. No axillary or supraclavicular adenopathy. Abdomen: Small hiatal hernia. Multiple gallstones noted in the gallbladder. Visualized upper abdominal solid organs appear normal in the early arterial phase of enhancement. IMPRESSION: 1. No pulmonary embolus. 2. No lung consolidation or pleural effusions. 3. Atherosclerosis including dense atherosclerotic calcifications in the left coronary vasculature. 4. Cholelithiasis. Dictated by: Patrica Oneill MD, PhD on 04/25/2020 at 7:26 Approved by: Patrica Oneill MD, PhD on 04/25/2020 at 7:29
[2020-04-25 02:02] VITALS: BP 133/83; PULSE 87; RESP 25; O2SAT 99
[2020-04-25] MEDS: SODIUM CHLORIDE 0.9% 1,000 ML 150 ML IV (02:07)
[2020-04-25 02:35] VITALS: BP 147/86; PULSE 90; RESP 24; O2SAT 97
== END 2020-04-25 02:52 | disposition home or self-care (01) ==
PROVIDERS: Emergency Provider Emergency Medicine; PCP Internal Medicine
DX: R00.2 Palpitations (principal); E78.5 Hyperlipidemia, unspecified; E03.9 Hypothyroidism, unspecified; R06.02 Shortness of breath
CPT/HCPCS: 36415; 71275; 80048; 82550; 83735; 84443; 84484; 85025; 85379; 93005; 96360; 99284; Q9967

== ENCOUNTER 2020-04-27 23:23 | Observation (INO) | payer MEDICARE, SELFPAY ==
[2019-02-12 13:45] VITALS: BMI 25.8
[2020-04-27 23:28] VITALS: BP 195/91; PULSE 89; RESP 19; O2SAT 97
[2020-04-27 23:30] VITALS: BP 175/92; BP 195/91; PULSE 83; PULSE 90; RESP 15; RESP 22; TEMP 36.6; O2SAT 97; O2SAT 98; BMI 25.8
--- NOTE | 2020-04-27 23:30 | DI.RAD.S_ITS ---
PROCEDURE: XR CHEST 1V INDICATIONS: chest pain TECHNIQUE: One view of the chest was acquired. COMPARISON: [facility], , XR CHEST 1V, 09/24/2019, 14:41. FINDINGS: Surgical changes and devices: Surgical clips in the lower neck redemonstrated. Lungs and pleura: Lungs are clear. No pleural effusions or pneumothorax. Mediastinum: Mediastinal contours appear normal. Heart size is normal. Bones and chest wall: No suspicious bony lesions. Overlying soft tissues appear unremarkable. IMPRESSION: Stable radiographic evaluation of the chest without acute cardiopulmonary abnormalities or focal airspace disease. Dictated by: Ruslan Ocasio M.D. on 04/28/2020 at 8:59 Approved by: Ruslan Ocasio M.D. on 04/28/2020 at 9:01
[2020-04-27 23:36] LABS: Add Manual Diff / Slide Review NO; Basophils Absolute Auto 0 /uL (0-100); Basophils Percent Auto 0.7 % (0-2); Eosinophils Absolute Auto 200 /uL (0-450); Eosinophils Percent Auto 2.9 % (2-4); Hematocrit 45.6 % (41-53); Hemoglobin 15.9 g/dL (13.5-17.5); Lymphocytes Absolute Auto 1300 /uL (1100-4500); Lymphocytes Percent Auto 22.2 % (25-40); Mean Corpuscular HGB Conc 34.8 % (30-36); Mean Corpuscular Hemoglobin 31.6 PG (26-34); Mean Corpuscular Volume 90.6 fL (80-100); Monocytes Absolute Auto 600 /uL (0-900); Monocytes Percent Auto 10.1 % (3-14); Neutrophils Absolute Auto 3700 /uL (1500-7000); Neutrophils Percent Auto 64.1 % (50-75); Platelet Count 150 X10^3/uL (150-400); Red Blood Cell Count 5.03 X10^6/uL (4.5-5.9); Red Cell Distribution Width 13.4 % (11.6-14.8); White Blood Cell Count 5.8 X10^3/uL (4.5-11.0)
[2020-04-27 23:40] LABS: INR 0.9 (0.9-1.3); Prothrombin Time 10.8 SECONDS (10.1-12.7)
--- NOTE | 2020-04-27 23:42 | ED_ITS ---
HPI - Chest Pain General Chief Complaint: Chest Pain Stated Complaint: Palpatations Time Seen by Provider: 04/27/20 23:26 Source: patient, family and EMS Mode of arrival: EMS Limitations: no limitations History of Present Illness HPI narrative: 84-year-old male nonsmoker with history of hypertension and hyperlipidemia presents by EMS for evaluation of chest pain. Patient went to bed in his normal state of health and awoke at about 10:30 p.m. and developed retrosternal chest pressure with minimal exertion, just walking to and from the bathroom. At maximum his pressure was an 8/10 and he denies any radiation. He denies associated symptoms such as dizziness, weakness or lightheadedness. Does state that it started improving with rest and by the time EMS arrived it got significantly better with the administration of nitro and aspirin. He states that over the past few weeks to months he has had decreased exercise tolerance but today seems to be the 1st time he has developed pain. He was seen a few days ago and had a full workup, for palpitations in the absence of any discomfort or shortness of breath. He did have an elevated D-dimer and a CTA of his chest was obtained which was negative for PE or other abnormal finding. MD complaint: chest pain Onset (ago): hour(s) Duration: now resolved Onset: during exertion Pain location: substernal Severity: moderate Quality: tightness Pain radiation: none Relieving factors: nitroglycerin and rest Exacerbating factors: exertion Treatments prior to arrival chest pain: aspirin and nitroglycerin Related Data Home Medications Medication Instructions Recorded Confirmed Coenzyme Q10 (#COQ10) 30 mg PO Q DAY #0 01/29/12 01/29/20 Fish Oil (#FISH OIL) 1 iu PO Q DAY #0 01/29/12 01/29/20 cyanocobalamin (vitamin B-12) 50 mcg PO Q DAY #0 01/29/12 01/29/20 [Vitamin B-12] ASCORBIC ACID (VITAMIN C) 1,000 mg PO QDAY #0 04/17/13 01/29/20 VITAMIN D (Vitamin D3) 1,000 unit PO QDAY #0 04/17/13 01/29/20 fenofibrate micronized 134 mg PO DAILY 07/09/18 01/29/20 atorvastatin 40 mg tablet 40 mg PO 2XW #0 tab 02/12/19 01/29/20 Previous Rx's Medication Instructions Recorded lisinopril 40 mg PO DAILY #30 tab 07/09/18 hydrochlorothiazide 25 mg tablet 25 mg PO DAILY #90 tab 01/29/20 levothyroxine 175 mcg tablet 175 mcg PO DAILY #90 tab 01/29/20 Allergies Allergy/AdvReac Type Severity Reaction Status Date / Time No Known Drug Allergies Allergy Verified 04/27/20 23:31 Review of Systems Constitutional Constitutional: Denies chills, Reports fatigue, Denies fever(s), Denies frequent falls, Denies lethargy and Reports weakness Eyes Eyes: Denies change in vision, Denies eye discharge, Denies irritation and Denies loss of vision ENT Ears, Nose, Mouth, and Throat: Denies change in voice, Denies dizziness, Denies neck pain, Denies sore throat and Denies throat swelling Cardiovascular Cardiovascular: Reports chest pain, Denies irregular heart rhythm, Denies lightheadedness, Denies palpitations, Denies dyspnea on exertion and Denies orthopnea Comments: palpitations Respiratory Respiratory: Denies dyspnea on exertion and Denies wheezing Gastrointestinal Gastrointestinal: Denies abdominal pain, Denies change in bowel habits, Denies diarrhea, Denies nausea and Denies vomiting Musculoskeletal Musculoskeletal: Denies neck pain and Denies numbness Integumentary/Breasts Skin/Breast: Denies pruritus, Denies erythema, Denies rash and Denies wounds Neurologic Neurologic: Denies behavioral changes, Denies confusion, Denies dizziness, Denies frequent falls, Denies loss of vision, Denies numbness and Reports weakness Psychiatric Psychiatric: Denies anxiety, Denies behavioral changes, Denies confusion, Denies depression, Denies homicidal ideation and Denies suicidal ideation Endocrine Endocrine: Reports fatigue, Denies flushing and Denies palpitations Hematologic/Lymphatic Hematologic/Lymphatic: Denies easy bruising Allergic/Immunologic Allergic/Immunologic: Denies urticaria, Denies throat swelling and Denies wheezing Patient History Medical History Hyperlipidemia, unspecified (Chronic 01/29/12) Hypertension (Chronic) Hypothyroidism (Chronic) LAFB (left anterior fascicular block) (Inactive) RBBB (Inactive) Surgical History History of knee replacement History of thyroidectomy History of vasectomy Status post appendectomy Status post laminectomy Status post tonsillectomy and adenoidectomy Family History Father Family history of RI (myocardial infarction) Mother Family history of cerebrovascular accident (CVA) Social History household members: spouse Smoking Status: Never smoker alcohol intake: current Smoking Status: Never smoker alcohol intake frequency: 0-2 drinks per day Exam Narrative Exam Narrative: GENERAL: [84] year old patient appears stated age. Well- nourished, well-developed patient, in mild distress. HEAD: Atraumatic. Normocephalic. EYES: Pupils equal round and reactive. Extraocular motions intact. No scleral icterus. No injection or drainage. ENT: Nose without bleeding, purulent drainage. Throat without erythema, tonsillar hypertrophy or exudate. Airway patent. NECK: Trachea midline. Non tender CARDIOVASCULAR: Regular rate and rhythm without murmurs, gallops, or rubs. RESPIRATORY: Clear to auscultation. Breath sounds equal bilaterally. No wheezes, rales, or rhonchi. GASTROINTESTINAL: Abdomen soft, non-tender, nondistended. EXTREMITIES: No edema or joint tenderness. BACK: Nontender without deformity or crepitance. No flank tenderness. NEURO: AOx3. SKIN: No rash or erythema of visible areas Initial Vital Signs Initial Vital Signs: Vital Signs Pulse Rate 89 04/27/20 23:28 Respiratory Rate 19 04/27/20 23:28 Blood Pressure 195/91 H 04/27/20 23:28 Pulse Oximetry 97 04/27/20 23:28 Course Course Course Narrative: patient with a few weeks of gradual difficulty with exertion, patient becomes more fatigued. First episode of pain tonight, troponin negative x2. Discussion with Dr. Ragland on behalf of Dr. Quintana, will admit here and likely get provocative testing . Orders Ordered: ED Orders 04/27/20 23:10 Complete Blood Count AUTO DIFF Stat Comprehensive Metabolic Panel Stat Lipase Stat NT-proBNP (BNP-Adult 18+) Stat Prothrombin Time INR Stat Troponin & CK Cardiac Panel Stat 04/27/20 23:30 XR chest 1V Stat 04/27/20 23:32 EKG-12 Lead Stat 04/28/20 01:18 Troponin I Stat Nitroglycerin (Nitrostat) 0.4 mg SL [id number] PRN PRN Reason: Chest Pain Discontinued Medications Aspirin (Aspirin Chew) 324 mg PO NOW ONE Stop: 04/27/20 23:31 Last Admin: 04/28/20 00:23 Dose: Not Given Documented by: PETRA Sodium Chloride (Normal Saline 0.9%) 1,000 mls @ 150 mls/hr IV CONT ANA Last Admin: 04/28/20 00:19 Dose: 150 mls/hr Documented by: PETRA Vital Signs Vital signs: Vital Signs - 8 hr 04/27/20 23:28 04/27/20 23:30 04/28/20 00:00 Temperature 98 F Pulse Rate 89 83 85 Respiratory Rate 19 15 22 Blood Pressure 195/91 H 175/92 H Pulse Oximetry 97 98 97 04/28/20 00:01 04/28/20 00:30 04/28/20 01:00 Temperature Pulse Rate 80 76 72 Respiratory Rate 23 19 16 Blood Pressure 143/73 H 140/77 141/77 H Pulse Oximetry 97 98 98 04/28/20 01:30 04/28/20 02:30 Temperature Pulse Rate 67 69 Respiratory Rate 15 15 Blood Pressure 141/73 H 177/91 H Pulse Oximetry 98 98 MDM - Chest Pain Lab Data Result diagrams: 04/27/20 23:10 04/27/20 23:10 Labs: Lab Results 04/27/20 04/27/20 04/27/20 Range/Units 23:10 23:10 23:10 WBC 5.8 (4.5-11.0) X10^3/uL RBC 5.03 (4.5-5.9) X10^6/uL Hgb 15.9 (13.5-17.5) g/dL Hct 45.6 (41-53) % MCV 90.6 (80-100) fL MCH 31.6 (26-34) PG MCHC 34.8 (30-36) % RDW 13.4 (11.6-14.8) % Plt Count 150 (150-400) X10^3/uL Neut % (Auto) 64.1 (50-75) % Lymph % (Auto) 22.2 L (25-40) % [place] % (Auto) 10.1 (3-14) % Eos % (Auto) 2.9 (2-4) % Baso % (Auto) 0.7 (0-2) % Neut # (Auto) 3700 (9103-5211) /uL Lymph # (Auto) 1300 (6031-8616) /uL [place] # (Auto) 600 (0-900) /uL Eos # (Auto) 200 (0-450) /uL Baso # (Auto) 0 (0-100) /uL PT 10.8 (10.1-12.7) SECONDS INR 0.9 (0.9-1.3) Sodium 138 (137-145) mmol/L Potassium 4.2 (3.4-5.1) mmol/L Chloride 109 H (98-107) mmol/L Carbon Dioxide 24 (22-32) mmol/L BUN 36 H (9-20) mg/dL Creatinine 0.86 (0.66-1.25) mg/dL Estimated GFR > 60.0 (>60) mL/min BUN/Creatinine Ratio 41.9 H (6-22) Glucose 126 H (80-110) mg/dL Calcium 9.6 (8.4-10.2) mg/dL Total Bilirubin 0.5 (0.2-1.3) mg/dL AST 23 (17-59) IU/L ALT 15 (<50) IU/L Alkaline Phosphatase 72 (38-126) U/L Total Creatine Kinase 70 (55-170) U/L CK-MB (CK-2) TNP CK-MB (CK-2) Rel Index TNP Troponin I < 0.012 (0.01-0.034) ng/mL NT-Pro-B Natriuret Pep 148 (<450) pg/mL Total Protein 6.6 (6.3-8.2) g/dL Albumin 4.0 (3.5-5.0) g/dL Globulin 2.6 (1.7-4.1) g/dL Albumin/Globulin Ratio 1.5 (1.0-2.8) Lipase 77 (23-300) U/L 04/28/20 Range/Units 01:18 WBC (4.5-11.0) X10^3/uL RBC (4.5-5.9) X10^6/uL Hgb (13.5-17.5) g/dL Hct (41-53) % MCV (80-100) fL MCH (26-34) PG MCHC (30-36) % RDW (11.6-14.8) % Plt Count (150-400) X10^3/uL Neut % (Auto) (50-75) % Lymph % (Auto) (25-40) % Columbia % (Auto) (3-14) % Eos % (Auto) (2-4) % Baso % (Auto) (0-2) % Neut # (Auto) (2767-6281) /uL Lymph # (Auto) (2980-7846) /uL Columbia # (Auto) (0-900) /uL Eos # (Auto) (0-450) /uL Baso # (Auto) (0-100) /uL PT (10.1-12.7) SECONDS INR (0.9-1.3) Sodium (137-145) mmol/L Potassium (3.4-5.1) mmol/L Chloride (98-107) mmol/L Carbon Dioxide (22-32) mmol/L BUN (9-20) mg/dL Creatinine (0.66-1.25) mg/dL Estimated GFR (>60) mL/min BUN/Creatinine Ratio (6-22) Glucose (80-110) mg/dL Calcium (8.4-10.2) mg/dL Total Bilirubin (0.2-1.3) mg/dL AST (17-59) IU/L ALT (<50) IU/L Alkaline Phosphatase (38-126) U/L Total Creatine Kinase (55-170) U/L CK-MB (CK-2) CK-MB (CK-2) Rel Index Troponin I < 0.012 (0.01-0.034) ng/mL NT-Pro-B Natriuret Pep (<450) pg/mL Total Protein (6.3-8.2) g/dL Albumin (3.5-5.0) g/dL Globulin (1.7-4.1) g/dL Albumin/Globulin Ratio (1.0-2.8) Lipase (23-300) U/L ECG Data Attestation: I personally reviewed and interpreted this ECG as follows: Interpretation: Normal sinus rhythm with frequent PVCs, rate 84 beats per minut e. No ST segmental elevations or depressions. No T-wave inversions Discharge Plan Departure Patient Disposition: Admitted as Observation Clinical Impression: Chest pain Qualifiers: Chest pain type: other chest pain Qualified Code(s): R07.89 - Other chest pain Referrals: Carlos Quintana MD [Primary Care Provider] - Admit Date/Time: 04/28/20 02:59 Admit Provider: Pastora Ragland
[2020-04-27 23:44] LABS: Alanine Aminotransferase 15 IU/L (<50); Albumin Globulin Ratio 1.5 (1.0-2.8); Alkaline Phosphatase 72 U/L (38-126); Aspartate Aminotransferase 23 IU/L (17-59); BUN Creatinine Ratio 41.9 (6-22); Bilirubin Total 0.5 mg/dL (0.2-1.3); Blood Urea Nitrogen 36 mg/dL (9-20); Calcium 9.6 mg/dL (8.4-10.2); Carbon Dioxide 24 mmol/L (22-32); Chloride 109 mmol/L (98-107); Creatine Kinase 70 U/L (55-170); Estimated Glomerular Filt Rate > 60.0 mL/min (>60); Globulin 2.6 g/dL (1.7-4.1); Glucose 126 mg/dL (80-110); HEMOLYSIS 23 (0-50); Lipase 77 U/L (23-300); Potassium 4.2 mmol/L (3.4-5.1); Sodium 138 mmol/L (137-145); Total Protein 6.6 g/dL (6.3-8.2)
[2020-04-27 23:56] LABS: NT-proBNP (BNP-Adult 18+) 148 pg/mL (<450); Troponin I < 0.012 ng/mL (0.01-0.034)
[2020-04-28] VITALS (11 sets, daily range): BP systolic 140–181; BP diastolic 67–97; PULSE 61–85; RESP 15–23; TEMP 36.2–36.8; O2SAT 96–99; BMI 25.8
--- NOTE | 2020-04-28 | DI.NM.S_ITS ---
PROCEDURE: NM MIESHA PERF SPECT REST & STR Rest and exercise myocardial perfusion SPECT with gated imaging and ejection fraction RADIOPHARMACEUTICAL: 25.8 mCi Tc-99m sestamibi IV at rest and 18.1 mCi Tc-99m sestamibi IV at peak exercise. A two day-protocol was performed. INDICATIONS: chest pain TECHNIQUE: Radiopharmaceutical was injected at peak stress test, and also at rest. SPECT images were obtained. SPECT myocardial perfusion images were displayed in short axis, horizontal long axis, and vertical long axis views. Gated images were reviewed using [employer] software. COMPARISON: None. CARDIAC STRESS: A standard Mendoza treadmill exercise tolerance test was performed by the patient under the supervision of an attending staff. The patient exercised for 3 minutes and 43 seconds; functional aerobic impairment (SÁNCHEZ) is +9%. Hemodynamic data: There is normal blood pressure and heart rate response to exercise stress. Patient achieved 103% of maximum predicted heart rate at peak exercise. Symptoms: Patient denied chest pain during exercise. EKG: No diagnostic EKG changes of ischemia. Frequent PVCs during exercise and recovery. FINDINGS: Raw data: There is good myocardial labeling by radiotracer. No significant motion artifacts. Zqmv-vq-fulki ratio is 0.3 (normal is less than 0.38 for sestamibi tracer, and less than 0.50 for thallium tracer). Left ventricle function: Gated images demonstrate normal left ventricle wall thickening. No segmental wall motion abnormality. No transient ischemic dilation; TID is 1.44 (normal less than 1.3). The left ventricle resting end-diastolic volume is 99 mL. Left ventricle stress ejection fraction is 65%; normal values are above 45%. Myocardial perfusion: There is a moderately intense reversible defect of the entire inferior wall consistent with ischemia. No infarction. SSS 6, SRS 0. IMPRESSION: Abnormal nuclear stress test concerning for ischemia. 1) There is a moderately intense reversible defect of the entire inferior wall consistent with ischemia. No infarction. SSS 6, SRS 0. 2) Elevated transient ischemic dilatation (tid) ratio of 1.44 that can be consistent with 3 vessel coronary artery disease. 3) Normal left ventricular size, wall motion, and systolic function (EF post stress 65%). 4) No ECG evidence of ischemia. 5) No angina during the study. 6) Hypertension at rest (170/90mmHg) and appropriate response to exercise. 7) Mildly reduced exercise tolerance (4.6 METs, SÁNCHEZ +9%). Target heart rate achieved. 8) No prior nuclear stress test available for comparison. Dictated by: Lashonda Phelps MD on 05/02/2020 at 12:42 Approved by: Lashonda Phelps MD on 05/02/2020 at 12:49
[2020-04-28] MEDS: SODIUM CHLORIDE 0.9% 1,000 ML 150 ML IV (00:19)
[2020-04-28 01:52] LABS: Troponin I < 0.012 ng/mL (0.01-0.034)
--- NOTE | 2020-04-28 06:03 | PC.ADMIT ---
[id number] Admission Note:Pt admitted at 0315, from ED. Safe hand off from Libra RN. Patient arrived via portable and was able to transfer to bed. Patient has no complaints of chest pain. Pt hypertensive. Tele was placed. Lung sounds clear. Patient is alert and oriented. Patient was educated about the use of call light, bed is low and locked and call light is within reach, bed alarm active. Patient does not know medication dosages, will bring in the morning. The patient,Adolfo Gutierrez,84 y/o, was given written information regarding hospital policies, unit procedures and contact persons. Patient's smoking status: Never smoker. Vital Signs - 8 hr 04/27/20 23:28 04/27/20 23:30 04/28/20 00:00 Temperature 98 F Pulse Rate 89 83 85 Respiratory Rate 19 15 22 Blood Pressure 195/91 H 175/92 H Pulse Oximetry 97 98 97 04/28/20 00:01 04/28/20 00:30 04/28/20 01:00 Temperature Pulse Rate 80 76 72 Respiratory Rate 23 19 16 Blood Pressure 143/73 H 140/77 141/77 H Pulse Oximetry 97 98 98 04/28/20 01:30 04/28/20 02:30 04/28/20 03:15 Temperature 97.5 F L Pulse Rate 67 69 71 Respiratory Rate 15 15 18 Blood Pressure 141/73 H 177/91 H 162/67 H Pulse Oximetry 98 98 99
--- NOTE | 2020-04-28 07:05 | P.HP_ITS ---
History of Present Illness History of Present Illness Date Patient Seen: 04/28/20 Chief complaint: Palpatations Narrative: Patient with several weeks of persistent chest pain. Was seen in the clinic in early January and was not felt to be ischemic based on nature of symptoms. However this is persisted and on day of admission awoke with retrosternal chest pressure that seem to increase with activity when he got up walk to the bathroom. Maximum he described at about 8/10. It seem to resolve with rest or at least began to period by time EMS arrived he was asymptomatic. Patient also reports there was dyspnea associated with this although no radiation of his pain. Did not get diaphoretic. He was transported to [facility] Emergency Department for evaluation where workup was essentially negative. Patient has baseline abnormal ECG with right bundle branch block and left anterior fascicular block Patient's risk factors include hyperlipidemia and hypertension. Has had a pr evious cardiac workup because of his right bundle branch block that was reportedly negative Patient History Medical History Hyperlipidemia, unspecified (Chronic 01/29/12) Hypertension (Chronic) Hypothyroidism (Chronic) LAFB (left anterior fascicular block) (Inactive) RBBB (Inactive) Surgical History History of knee replacement History of thyroidectomy History of vasectomy Status post appendectomy Status post laminectomy Status post tonsillectomy and adenoidectomy Family & Social History Family History Father Family history of NV (myocardial infarction) Mother Family history of cerebrovascular accident (CVA) Social History: household members spouse Prior Living Arrangements House Safety & Behavioral: Feels Safe in Current Yes Environment Been Physically Hurt or No Threatened By a Person Suicidal Ideation Description None Suicide Plan Description No Plan Tobacco & Substance use: Smoking Status Never smoker alcohol intake current alcohol intake frequency 0-2 drinks per day Substance Use Type does not use Meds Home Medications and Allergies Home Medications Medication Instructions Recorded Confirmed Type Coenzyme Q10 (#COQ10) 30 mg PO Q DAY #0 01/29/12 01/29/20 History Fish Oil (#FISH OIL) 1 iu PO Q DAY #0 01/29/12 01/29/20 History cyanocobalamin (vitamin B-12) 50 mcg PO Q DAY #0 01/29/12 01/29/20 History [Vitamin B-12] ASCORBIC ACID (VITAMIN C) 1,000 mg PO QDAY #0 04/17/13 01/29/20 History VITAMIN D (Vitamin D3) 1,000 unit PO QDAY #0 04/17/13 01/29/20 History fenofibrate micronized 134 mg PO DAILY 07/09/18 01/29/20 History lisinopril 40 mg PO DAILY #30 tab 07/09/18 01/29/20 Rx atorvastatin 40 mg tablet 40 mg PO 2XW #0 tab 02/12/19 01/29/20 History hydrochlorothiazide 25 mg tablet 25 mg PO DAILY #90 tab 01/29/20 01/29/20 Rx levothyroxine 175 mcg tablet 175 mcg PO DAILY #90 tab 01/29/20 01/29/20 Rx Allergies Allergy/AdvReac Type Severity Reaction Status Date / Time No Known Drug Allergies Allergy Verified 04/27/20 23:31 Review of Systems Constitutional Constitutional: Denies excessive sweating, Denies fever(s), Denies headache(s), Denies weakness, Denies weight gain and Denies weight loss Eyes Eyes: Denies change in vision, Denies itchy eyes, Denies loss of vision and Denies other visual disturbances ENT Ears, Nose, Mouth, and Throat: No change in voice, No dysphagia, No dizziness, No otalgia, No headache(s), No hoarseness, No lip swelling, No neck pain, No sore throat, No throat swelling and No tongue swelling Cardiovascular Cardiovascular: Denies syncope, Denies palpitations, Denies dyspnea and Denies dyspnea on exertion Respiratory Respiratory: Denies chest congestion, Denies cough, Denies hemoptysis, Denies dyspnea, Denies dyspnea on exertion, Denies stridor and Denies wheezing Gastrointestinal Gastrointestinal: Denies abdominal pain, Denies bloating, Denies change in bowel habits, Denies change in stool character, Denies dysphagia, Denies nausea, Denies vomiting and Denies hematemesis Genitourinary Genitourinary: Denies hematuria, Denies difficulty urinating and Denies urinary frequency Musculoskeletal Musculoskeletal: Denies abnormal gait, Denies myalgias, Denies arthralgias, Denies limited range of motion and Denies neck pain Integumentary/Breasts Skin/Breast: Denies bleeding lesions, Denies change in pigmentation, Denies changing lesions, Denies new lesions, Denies rash, Denies skin swelling, Denies sores and Denies jaundice Neurologic Neurologic: Denies abnormal speech, Denies abnormal gait, Denies behavioral changes, Denies confusion, Denies dizziness, Denies syncope, Denies headache(s), Denies loss of vision, Denies memory loss, Denies seizure-like activity, Denies paresthesias and Denies weakness Psychiatric Psychiatric: Denies behavioral changes, Denies change in appetite, Denies confusion, Denies difficulty concentrating, Denies auditory hallucinations, Denies memory loss, Denies mood swings and Denies suicidal ideation Endocrine Endocrine: Denies excessive sweating, Denies flushing, Denies polyuria and Denies palpitations Hematologic/Lymphatic Hematologic/Lymphatic: Denies easy bleeding, Denies easy bruising and Denies lymphadenopathy Allergic/Immunologic Allergic/Immunologic: Denies urticaria, Denies itchy eyes, Denies lip swelling, Denies throat swelling, Denies tongue swelling and Denies wheezing Exam Vital Signs (past 8 hours): - 04/27/20 23:28 04/27/20 23:30 04/28/20 00:00 Temperature 98 F Pulse Rate 89 83 85 Respiratory Rate 19 15 22 Blood Pressure 195/91 H 175/92 H Pulse Oximetry 97 98 97 04/28/20 00:01 04/28/20 00:30 04/28/20 01:00 Temperature Pulse Rate 80 76 72 Respiratory Rate 23 19 16 Blood Pressure 143/73 H 140/77 141/77 H Pulse Oximetry 97 98 98 04/28/20 01:30 04/28/20 02:30 04/28/20 03:15 Temperature 97.5 F L Pulse Rate 67 69 71 Respiratory Rate 15 15 18 Blood Pressure 141/73 H 177/91 H 162/67 H Pulse Oximetry 98 98 99 Oxygen Delivery Method Room Air Oxygen Flow Rate 0 Narrative Exam Narrative: HEENT-unremarkable, normocephalic atraumatic Neck-no lymphadenopathy no bruits Lungs-clear anteriorly and posteriorly no wheezes no crackles good breath sounds Heart-regular rate and rhythm, no murmur, rub, or gallop. normal S1-S2 Abdomen-positive bowel tones, soft, nontender, nondistended, no hepatosplenomegaly, no masses palpable Neuro-normal to screening exam, gait not tested Extremities-no cyanosis clubbing or edema Objective Labs Result Diagrams: 04/27/20 23:10 04/27/20 23:10 Labs: Laboratory Results - last 24 hr 04/27/20 04/27/20 04/27/20 23:10 23:10 23:10 WBC 5.8 RBC 5.03 Hgb 15.9 Hct 45.6 MCV 90.6 MCH 31.6 MCHC 34.8 RDW 13.4 Plt Count 150 Neut % (Auto) 64.1 Lymph % (Auto) 22.2 L [place] % (Auto) 10.1 Eos % (Auto) 2.9 Baso % (Auto) 0.7 Neut # (Auto) 3700 Lymph # (Auto) 1300 [place] # (Auto) 600 Eos # (Auto) 200 Baso # (Auto) 0 PT 10.8 INR 0.9 Sodium 138 Potassium 4.2 Chloride 109 H Carbon Dioxide 24 BUN 36 H Creatinine 0.86 Estimated GFR > 60.0 BUN/Creatinine Ratio 41.9 H Glucose 126 H Calcium 9.6 Total Bilirubin 0.5 AST 23 ALT 15 Alkaline Phosphatase 72 Total Creatine Kinase 70 CK-MB (CK-2) TNP CK-MB (CK-2) Rel Index TNP Troponin I < 0.012 NT-Pro-B Natriuret Pep 148 Total Protein 6.6 Albumin 4.0 Globulin 2.6 Albumin/Globulin Ratio 1.5 Lipase 77 04/28/20 01:18 WBC RBC Hgb Hct MCV MCH MCHC RDW Plt Count Neut % (Auto) Lymph % (Auto) [place] % (Auto) Eos % (Auto) Baso % (Auto) Neut # (Auto) Lymph # (Auto) [place] # (Auto) Eos # (Auto) Baso # (Auto) PT INR Sodium Potassium Chloride Carbon Dioxide BUN Creatinine Estimated GFR BUN/Creatinine Ratio Glucose Calcium Total Bilirubin AST ALT Alkaline Phosphatase Total Creatine Kinase CK-MB (CK-2) CK-MB (CK-2) Rel Index Troponin I < 0.012 NT-Pro-B Natriuret Pep Total Protein Albumin Globulin Albumin/Globulin Ratio Lipase Assessment & Plan Assessment & Plan narrative: 1. Chest pain-patient's symptoms now seem much more suspicious for ischemic based chest pain. Patient will need stress testing, with nuclear medicine perfusion imaging given the abnormal nature of his baseline ECG. Fortunately his troponins been negative x2 and there is no obvious evidence of ischemia on ECG. Patient's not convinced he can do exercise stress test but will start with that if need be we can convert this to a Lexiscan. 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 2. Hypertension-continue patient's usual medications here thus far will continue him on his lisinopril 3. Hyperlipidemia-continue atorvastatin 4. DVT prophylaxis-continue with sequential compression devices for now, will institute low molecular weight heparin if patient in hospital longer than 48 hours 5. Code status-patient should be full code in the event of a sudden cardiac event which is not anticipated of course. Quality VTE Deep Vein Thrombosis/Pulmonary Embolism Present on Admission: No
[2020-04-28] MEDS: LEVOTHYROXINE 150 MCG TABLET PO (08:28)
[2020-04-28] MEDS: LEVOTHYROXINE 25 MCG TABLET PO (08:28)
[2020-04-28] MEDS: lisinopriL 20 MG TABLET 40 MG PO (08:28)
[2020-04-28 09:03] LABS: Troponin I 0.015 ng/mL (0.01-0.034)
[2020-04-28 10:35] LABS: COVID19 -Nasal RAPID Negative (Negative)
--- NOTE | 2020-04-28 12:07 | PC.NURSE ---
Pt to Nuc. Med for stress test via w/c by [facility].
--- NOTE | 2020-04-28 14:08 | PC.NURSE ---
Pt's Spouse brought Pt's home meds in and Pt reports that he took his levothryoxine. Pt states he forgot that he took it this morning. Pt reminded that he is to have no home meds here at the hospital unless it is approved by his physician. Pt agreed to send meds back home with his Spouse. Will report dosage to Dr. Quintana-awaiting his return call.
--- NOTE | 2020-04-28 14:23 | CM.IDA ---
Initial DCP Assessment Note: Patient is an 84 yo male, resident of [place]. Patient is admitted observation after presenting w/chest pain, scheduled for a stress test today PCP: Carlos Quintana Payer: BASIM/WAQAR Reviewed chart. Met w/patient and his Natty. Patient is sitting up in bed, explains he is indp and active at baseline and so is his . Patient expects to have no needs from this [facility] but pleasant and appreciative for the visit. This [facility] will remain available in case DC needs or concerns arise. 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 Yes Advance Directives on File No History Provided By Patient,Significant Other Prior Living Arrangements House Household Members spouse Type of transporation used prior to Drives own vehicle admit Independent with ADL's Yes Is patient alert and oriented? Yes Barriers to Discharge No Discharge Plan Home Transportation Arrangement Family Referrals Initiated None needed
--- NOTE | 2020-04-28 16:07 | PM.DS.1 ---
History of Present Illness History of Present Illness Chief complaint: Palpatations Narrative: Patient with several weeks of persistent chest pain. Was seen in the clinic in early January and was not felt to be ischemic based on nature of symptoms. However this is persisted and on day of admission awoke with retrosternal chest pressure that seem to increase with activity when he got up walk to the bathroom. Maximum he described at about 8/10. It seem to resolve with rest or at least began to period by time EMS arrived he was asymptomatic. Patient also reports there was dyspnea associated with this although no radiation of his pain. Did not get diaphoretic. He was transported to [facility] Emergency Department for evaluation where workup was essentially negative. Patient has baseline abnormal ECG with right bundle branch block and left anterior fascicular block Patient's risk factors include hyperlipidemia and hypertension. Has had a previous cardiac workup because of his right bundle branch block that was reportedly negative {from H&P 04/28/20} Discharge Providers Provider Date of admission: 04/28/20 02:59 Discharge Date: 04/28/20 Primary care physician: Carlos Quintana MD Discharge provider: Carlos Quintana MD Summary Hospital Course Discharge Diagnosis: 1. Chest pain, etiology not determined 2. Hypertension 3. Right bundle branch block on EKG 4. Left anterior fascicular block on EKG 5. Hypothyroidism 6. Hypertension 7. PVCs Hospital Course: Patient had persistent chest pain at home was admitted to the hospital after presenting to the ED where he had no change in ECG although baseline ECGs quite abnormal with both left anterior fascicular block and right bundle branch block. Troponin was negative x2. He had no additional symptoms during his hospitalization. He was somewhat hypertensive. On the day of admission and discharge patient underwent cardiac stress testing with myocardial perfusion imaging. Stop the stress test portion was essentially unremarkable. Patient had modestly frequent PVCs that seem to diminished in frequency with exercise Perfusion imaging was not entirely normal did show small area of limited isotope uptake consistent with possible ischemia versus artifact verses scar. Resting study to was not performed prior to discharge given the relatively limited nature of the abnormality seen on active perfusion imaging Patient was started on beta-angel therapy in effort to reduce his hypertension as well as potentially treat possible ischemia. Patient will return for his resting study to help determine whether not the abnormality seen on his active study represents reversible ischemia or not Otherwise patient will continue all of his other usual medications without change Status at Discharge Cognitive/behavioral status at discharge: oriented Functional status at discharge: independent ambulation Overall status at discharge: patient is back to baseline Time Spent with Patient Time spent: Less than 30 minutes Exam Vital Signs (past 8 hours): - 04/28/20 08:28 04/28/20 11:30 Temperature 97.5 F L Pulse Rate 61 Respiratory Rate 16 Blood Pressure 181/87 H 155/97 H Pulse Oximetry 98 Oxygen Delivery Method Room Air Oxygen Flow Rate 0 Objective Labs Result Diagrams: 04/27/20 23:10 04/27/20 23:10 Labs: Laboratory Results - last 24 hr 04/27/20 04/27/20 04/27/20 23:10 23:10 23:10 WBC 5.8 RBC 5.03 Hgb 15.9 Hct 45.6 MCV 90.6 MCH 31.6 MCHC 34.8 RDW 13.4 Plt Count 150 Neut % (Auto) 64.1 Lymph % (Auto) 22.2 L [place] % (Auto) 10.1 Eos % (Auto) 2.9 Baso % (Auto) 0.7 Neut # (Auto) 3700 Lymph # (Auto) 1300 [place] # (Auto) 600 Eos # (Auto) 200 Baso # (Auto) 0 PT 10.8 INR 0.9 Sodium 138 Potassium 4.2 Chloride 109 H Carbon Dioxide 24 BUN 36 H Creatinine 0.86 Estimated GFR > 60.0 BUN/Creatinine Ratio 41.9 H Glucose 126 H Calcium 9.6 Total Bilirubin 0.5 AST 23 ALT 15 Alkaline Phosphatase 72 Total Creatine Kinase 70 CK-MB (CK-2) TNP CK-MB (CK-2) Rel Index TNP Troponin I < 0.012 NT-Pro-B Natriuret Pep 148 Total Protein 6.6 Albumin 4.0 Globulin 2.6 Albumin/Globulin Ratio 1.5 Lipase 77 COVID-19 PCR 04/28/20 04/28/20 04/28/20 01:18 08:30 09:10 WBC RBC Hgb Hct MCV MCH MCHC RDW Plt Count Neut % (Auto) Lymph % (Auto) [place] % (Auto) Eos % (Auto) Baso % (Auto) Neut # (Auto) Lymph # (Auto) [place] # (Auto) Eos # (Auto) Baso # (Auto) PT INR Sodium Potassium Chloride Carbon Dioxide BUN Creatinine Estimated GFR BUN/Creatinine Ratio Glucose Calcium Total Bilirubin AST ALT Alkaline Phosphatase Total Creatine Kinase CK-MB (CK-2) CK-MB (CK-2) Rel Index Troponin I < 0.012 0.015 NT-Pro-B Natriuret Pep Total Protein Albumin Globulin Albumin/Globulin Ratio Lipase COVID-19 PCR Negative Discharge Plan Discharge Plan Patient Disposition: Home Discharge comment: New Rx sent to [facility] Discharge orders & Medications Prescriptions: New metoprolol tartrate 25 mg tablet 25 mg PO BID Qty: 60 RF: 3 Continued Fish Oil (#FISH OIL) 1 iu PO Q DAY Qty: 0 RF: 0 Vitamin B-12 50 MCG lozenge 50 mcg PO Q DAY Qty: 0 RF: 0 Coenzyme Q10 (#COQ10) 30 mg PO PRN PRN (Reason: Muscle Pain) Qty: 0 RF: 0 ASCORBIC ACID (VITAMIN C) 1,000 mg PO QDAY Qty: 0 RF: 0 VITAMIN D (Vitamin D3) 1,000 unit PO QDAY Qty: 0 RF: 0 atorvastatin [Lipitor] 40 mg tablet 40 mg PO 2XW Qty: 0 RF: 0 hydrochlorothiazide 25 mg tablet 25 mg PO DAILY Qty: 90 RF: 3 levothyroxine 175 mcg tablet 175 mcg PO DAILY Qty: 90 RF: 3 fenofibrate micronized 134 mg capsule 134 mg PO DAILY RF: 0 lisinopril 20 mg Tablet 40 mg PO DAILY Qty: 30 RF: 0 Follow up/Referrals: Carlos Quintana MD [Primary Care Provider] - 1 Week Discharge Health Status Multidrug resistant organism: No MDRO Diet/Activity/Treatments Diet: Diet as Tolerated Visit Report/Discharge Packet Visit Report Forms: Patient Portal/API, Stroke Signs & Symptoms Discharge Data Primary Care Provider: Carlos Quintana Attending Provider: Carlos Quintana Admit Date/Time: 04/28/20 02:59 Discharges patient from system. Discharge Date/Time: 04/28/20 17:05 Quality VTE Deep Vein Thrombosis/Pulmonary Embolism Present on Admission: No
[2020-04-28 17:03] LABS: Troponin I 0.021 ng/mL (0.01-0.034)
--- NOTE | 2020-04-28 17:06 | PC.NURSE ---
Addendum entered by Desi Jarrell R.N. 04/28/20 17:08: IV and tele removed and Pt wheeled to private vehicle. Original Note: Nursing Assumed care of Pt @ 1500. Dr Quintana into see Pt and d/c home @ 1700. New rx, inadvertently sent to [facility]. Pt requesting [facility] in [place]. Call into [facility] and [facility] to remedy Rx.
== END 2020-04-28 17:05 | disposition home or self-care (01) ==
LOC: ED 04-28 02:59 → AC 04-28 03:00
PROVIDERS: Admitting Provider Family Medicine; Emergency Provider Emergency Medicine; PCP Internal Medicine; Referring Provider Emergency Medicine; Visit Provider Internal Medicine
DX: I45.10 Unspecified right bundle-branch block (principal); R07.9 Chest pain, unspecified; Z11.59 Encounter for screening for other viral diseases; E78.5 Hyperlipidemia, unspecified; I10 Essential (primary) hypertension; E03.9 Hypothyroidism, unspecified; I45.5 Other specified heart block
CPT/HCPCS: 36415; 71045; 78452; 80053; 82550; 83690; 83880; 84484; 85025; 85610; 87635; 93005; 93010; 93017; 99219; 99284; G0378; A9502

== ENCOUNTER → 2020-06-25 11:08 | Outpatient (CLI) | payer MEDICARE, SELFPAY ==
[2020-04-28 03:07] VITALS: BMI 25.8
[2020-06-26 09:32] LABS: COVID19 Sendout Not Detected (Not Detect)
== END ==
PROVIDERS: PCP Internal Medicine; Visit Provider Physician Assistant
DX: Z11.59 Encounter for screening for other viral diseases (principal)
CPT/HCPCS: 87635

== ENCOUNTER 2020-07-25 09:32 | Emergency (ER) | payer MEDICARE, SELFPAY ==
[2020-04-28 03:07] VITALS: BMI 25.8
[2020-07-25] VITALS (9 sets, daily range): BP systolic 107–141; BP diastolic 62–76; PULSE 68–81; RESP 19–37; O2SAT 97–100; BMI 25.1
--- NOTE | 2020-07-25 09:39 | DI.RAD.S_ITS ---
PROCEDURE: XR CHEST 1V INDICATIONS: syncope TECHNIQUE: One view of the chest was acquired. COMPARISON: [facility], CR, XR CHEST 1V, 04/27/2020, 23:37. FINDINGS: Surgical changes and devices: Surgical clips are noted in lower neck soft tissues bilaterally. Lungs and pleura: Lungs are clear. No pleural effusions or pneumothorax. Mediastinum: Mildly tortuous thoracic aorta with aortic arch calcification is seen. Heart size is enlarged. Bones and chest wall: No suspicious bony lesions. Overlying soft tissues appear unremarkable. IMPRESSION: No acute cardiopulmonary pathology. Dictated by: Ranjit Sims M.D. on 07/25/2020 at 8:54 Approved by: Ranjit Sims M.D. on 07/25/2020 at 8:55
[2020-07-25] MEDS: SODIUM CHLORIDE 0.9% 1,000 ML 1000 ML IV (09:41)
[2020-07-25 09:45] LABS: Add Manual Diff / Slide Review NO; Basophils Absolute Auto 100 /uL (0-100); Basophils Percent Auto 0.9 % (0-2); Eosinophils Absolute Auto 200 /uL (0-450); Eosinophils Percent Auto 3.4 % (2-4); Hematocrit 45.6 % (41-53); Hemoglobin 15.5 g/dL (13.5-17.5); Lymphocytes Absolute Auto 1300 /uL (1100-4500); Lymphocytes Percent Auto 19.5 % (25-40); Mean Corpuscular HGB Conc 33.9 % (30-36); Mean Corpuscular Hemoglobin 30.4 PG (26-34); Mean Corpuscular Volume 89.6 fL (80-100); Monocytes Absolute Auto 700 /uL (0-900); Monocytes Percent Auto 10.3 % (3-14); Neutrophils Absolute Auto 4300 /uL (1500-7000); Neutrophils Percent Auto 65.9 % (50-75); Platelet Count 182 X10^3/uL (150-400); Red Blood Cell Count 5.09 X10^6/uL (4.5-5.9); Red Cell Distribution Width 12.7 % (11.6-14.8); White Blood Cell Count 6.6 X10^3/uL (4.5-11.0)
[2020-07-25 09:56] LABS: Alanine Aminotransferase 28 IU/L (<50); Albumin 4.2 g/dL (3.5-5.0); Albumin Globulin Ratio 1.4 (1.0-2.8); Alkaline Phosphatase 68 U/L (38-126); Aspartate Aminotransferase 33 IU/L (17-59); BUN Creatinine Ratio 26.3 (6-22); Bilirubin Total 0.7 mg/dL (0.2-1.3); Blood Urea Nitrogen 35 mg/dL (9-20); Calcium 9.8 mg/dL (8.4-10.2); Carbon Dioxide 24 mmol/L (22-32); Chloride 109 mmol/L (98-107); Creatine Kinase 72 U/L (55-170); Estimated Glomerular Filt Rate 51.2 mL/min (>60); Globulin 2.9 g/dL (1.7-4.1); Glucose 96 mg/dL (80-110); HEMOLYSIS 22 (0-50); Potassium 4.5 mmol/L (3.4-5.1); Sodium 141 mmol/L (137-145); Total Protein 7.1 g/dL (6.3-8.2)
--- NOTE | 2020-07-25 09:56 | ED_ITS ---
HPI - Syncope General Chief Complaint: Syncope Stated Complaint: syncope Time Seen by Provider: 07/25/20 09:38 Source: patient Mode of arrival: other Limitations: no limitations History of Present Illness HPI narrative: Patient is an 84-year-old male who presents from cardiac rehab with a syncopal episode. He says he thinks he is dehydrated that he typically drinks a glass of water to before or during his exercise routine but did not do so today. He had just finished his exercise routine got extremely dizzy li ghtheaded he felt like he was going to pass out which he did briefly at that time his blood pressure was taken it was 80/40. He was immediately brought to the ER he is awake alert oriented now. He has no focal deficits. He is asking for something to drink feels like he is just dehydrated. He denies any chest pain or heart palpitations. MD complaint: collapsed Prodromal symptoms: lightheaded Related Data Home Medications Medication Instructions Recorded Confirmed Coenzyme Q10 (#COQ10) 30 mg PO PRN PRN #0 01/29/12 04/28/20 Fish Oil (#FISH OIL) 1 iu PO Q DAY #0 01/29/12 04/28/20 Vitamin B-12 50 mcg PO Q DAY #0 01/29/12 04/28/20 ASCORBIC ACID (VITAMIN C) 1,000 mg PO QDAY #0 04/17/13 04/28/20 VITAMIN D (Vitamin D3) 1,000 unit PO QDAY #0 04/17/13 04/28/20 fenofibrate micronized 134 mg PO DAILY 07/09/18 04/28/20 atorvastatin 40 mg tablet 40 mg PO 2XW #0 tab 02/12/19 04/28/20 Previous Rx's Medication Instructions Recorded lisinopril 40 mg PO DAILY #30 tab 07/09/18 hydrochlorothiazide 25 mg tablet 25 mg PO DAILY #90 tab 01/29/20 levothyroxine 175 mcg tablet 175 mcg PO DAILY #90 tab 01/29/20 metoprolol tartrate 25 mg tablet 25 mg PO BID #180 tab 05/19/20 Allergies Allergy/AdvReac Type Severity Reaction Status Date / Time No Known Drug Allergies Allergy Verified 07/25/20 10:02 Review of Systems Review of Systems ROS Unobtainable: All systems reviewed & are unremarkable except as noted in HPI and below Constitutional Constitutional: Denies chills, Denies fever(s), Denies lethargy and Denies weakness ENT Ears, Nose, Mouth, and Throat: Denies vertigo and Denies dizziness Cardiovascular Cardiovascular: Reports as per HPI, Denies chest pain, Reports syncope, Denies edema, Reports lightheadedness, Denies dyspnea and Denies dyspnea on exertion Respiratory Respiratory: Denies cough, Denies dyspnea, Denies dyspnea on exertion and Denies wheezing Gastrointestinal Gastrointestinal: Denies abdominal pain, Denies change in bowel habits, Denies diarrhea, Denies nausea and Denies vomiting Musculoskeletal Musculoskeletal: Denies back pain, Denies myalgias and Denies numbness Neurologic Neurologic: Denies abnormal speech, Denies confusion, Denies vertigo, Denies dizziness, Reports syncope, Denies memory loss, Denies numbness and Denies weakness Psychiatric Psychiatric: Denies confusion and Denies memory loss Allergic/Immunologic Allergic/Immunologic: Denies wheezing Patient History Medical History (Updated 07/25/20 @ 11:00 by Amy Hendrickson DO) Hyperlipidemia, unspecified (Chronic 01/29/12) Hypertension (Chronic) Hypothyroidism (Chronic) LAFB (left anterior fascicular block) (Inactive) RBBB (Inactive) Surgical History (System 07/25/20 @ 10:02 by Jigna Martino) History of knee replacement History of thyroidectomy History of vasectomy Status post appendectomy Status post laminectomy Status post tonsillectomy and adenoidectomy Family History (System 07/25/20 @ 10:02 by Jigna Martino) Father Family history of DC (myocardial infarction) Mother Family history of cerebrovascular accident (CVA) Social History (System 07/25/20 @ 10:02 by Jigna Martino) household members: spouse Smoking Status: Never smoker alcohol intake: current Smoking Status: Never smoker alcohol intake frequency: 0-2 drinks per day Substance Use Type: does not use Exam Initial Vital Signs Initial Vital Signs: Vital Signs Pulse Rate 73 07/25/20 09:34 Respiratory Rate 20 07/25/20 09:34 Blood Pressure 107/72 07/25/20 09:34 Pulse Oximetry 97 07/25/20 09:34 GENERAL: Alert well-appearing male appears younger than stated age and in no acute distress. HEENT: Head atraumatic,EOMI, pupils reactive, face symmetric, moist mucous membranes CARDIOVASCULAR: Regular rate and rhythm without murmurs, rubs or gallops. RESPIRATORY: Breath sounds equal bilaterally, no wheezes rales or rhonchi. ABDOMEN: Soft, nontender. Normoactive bowel sounds all 4 quadrants. No guarding or rebound. EXTREMITIES: Normal range of motion, no clubbing or edema. Neurovascularly intact NEUROLOGICAL: Alert and oriented x4.Normal gait and speech. Cranial nerves II through XII grossly intact. Good fwyayz-ya-nasr, good ntlj-pj-rkga, strength equal bilaterally, no dysarthria or aphasia, sensation in tact to soft touch bilaterally, no visual changes, no facial droop SKIN: Warm, dry, no laceration, no petechiae, no rashes or lesions. Scores NIH Stroke Scale Level of Conciousness: Alert, keenly responsive Ask month/age: Answers both questions correctly. Open/close eyes, close hand: Performs both tasks correctly Best gaze horizontal: Normal Visual casanova: No visual loss Facial palsy: Normal symetrical movement Left arm drift: No drift for full 10 sec Right arm drift: No drift for full 10 sec Left leg drift: No drift for full 5 sec Right leg drift: No drift for full 5 sec Limb ataxia: Absent Sensory on face/arms/legs: Normal, no sensory loss Best language: No aphasia, normal Dysarthria: Normal Extinction or inattention: No abnormality Total NIH Stroke scale score: 0 Course Orders Ordered: ED Orders 07/25/20 09:35 Complete Blood Count AUTO DIFF Stat Comprehensive Metabolic Panel Stat Troponin & CK Cardiac Panel Stat 07/25/20 09:38 EKG-12 Lead Stat 07/25/20 09:39 XR chest 1V Stat Discontinued Medications Sodium Chloride (Normal Saline 0.9%) 1,000 mls @ 1,000 mls/hr IV CONT ANA Last Infusion: 07/25/20 10:43 Dose: 0 mls/hr Documented by: Admin: 07/25/20 09:41 Dose: 1,000 mls/hr Documented by: PEARL Vital Signs Vital signs: Vital Signs - 8 hr 07/25/20 09:34 07/25/20 09:45 07/25/20 09:50 Pulse Rate 74 73 71 Pulse Rate [Orthostatic Lying] 72 Pulse Rate [Orthostatic Sitting] 77 Pulse Rate [Orthostatic Standing] 81 Respiratory Rate 26 H 28 H 28 H Blood Pressure 107/72 127/76 130/65 Blood Pressure [Orthostatic Lying] 130/65 Blood Pressure [Orthostatic Sitting] 130/69 Blood Pressure [Orthostatic Standing] 141/69 H Pulse Oximetry 98 97 98 07/25/20 09:52 07/25/20 09:53 07/25/20 10:00 Pulse Rate 79 81 76 Pulse Rate [Orthostatic Lying] Pulse Rate [Orthostatic Sitting] Pulse Rate [Orthostatic Standing] Respiratory Rate 32 H 34 H 37 H Blood Pressure 130/69 141/69 H Blood Pressure [Orthostatic Lying] Blood Pressure [Orthostatic Sitting] Blood Pressure [Orthostatic Standing] Pulse Oximetry 97 97 98 07/25/20 10:02 07/25/20 10:30 07/25/20 11:00 Pulse Rate 70 68 69 Pulse Rate [Orthostatic Lying] Pulse Rate [Orthostatic Sitting] Pulse Rate [Orthostatic Standing] Respiratory Rate 35 H 19 21 Blood Pressure 128/62 Blood Pressure [Orthostatic Lying] Blood Pressure [Orthostatic Sitting] Blood Pressure [Orthostatic Standing] Pulse Oximetry 98 100 100 MDM - Syncope Lab Data Attestation: I reviewed the patient's lab results. Result diagrams: 07/25/20 09:35 07/25/20 09:35 Labs: Lab Results 07/25/20 07/25/20 Range/Units 09:35 09:35 WBC 6.6 (4.5-11.0) X10^3/uL RBC 5.09 (4.5-5.9) X10^6/uL Hgb 15.5 (13.5-17.5) g/dL Hct 45.6 (41-53) % MCV 89.6 (80-100) fL MCH 30.4 (26-34) PG MCHC 33.9 (30-36) % RDW 12.7 (11.6-14.8) % Plt Count 182 (150-400) X10^3/uL Neut % (Auto) 65.9 (50-75) % Lymph % (Auto) 19.5 L (25-40) % [place] % (Auto) 10.3 (3-14) % Eos % (Auto) 3.4 (2-4) % Baso % (Auto) 0.9 (0-2) % Neut # (Auto) 4300 (8797-2744) /uL Lymph # (Auto) 1300 (4053-0406) /uL [place] # (Auto) 700 (0-900) /uL Eos # (Auto) 200 (0-450) /uL Baso # (Auto) 100 (0-100) /uL Sodium 141 (137-145) mmol/L Potassium 4.5 (3.4-5.1) mmol/L Chloride 109 H (98-107) mmol/L Carbon Dioxide 24 (22-32) mmol/L BUN 35 H (9-20) mg/dL Creatinine 1.33 H (0.66-1.25) mg/dL Estimated GFR 51.2 L (>60) mL/min BUN/Creatinine Ratio 26.3 H (6-22) Glucose 96 (80-110) mg/dL Calcium 9.8 (8.4-10.2) mg/dL Total Bilirubin 0.7 (0.2-1.3) mg/dL AST 33 (17-59) IU/L ALT 28 (<50) IU/L Alkaline Phosphatase 68 (38-126) U/L Total Creatine Kinase 72 (55-170) U/L CK-MB (CK-2) TNP CK-MB (CK-2) Rel Index TNP Troponin I < 0.012 (0.01-0.034) ng/mL Total Protein 7.1 (6.3-8.2) g/dL Albumin 4.2 (3.5-5.0) g/dL Globulin 2.9 (1.7-4.1) g/dL Albumin/Globulin Ratio 1.4 (1.0-2.8) ECG Data Attestation: I personally reviewed and interpreted this ECG as follows: Prior ECG tracings: available for review Interpretation: Normal sinus rhythm rate [address] changes p.r. interval 174 QRS 140 QTC 440 artifact noted no T-wave inversion or ischemic changes right bundle- branch block noted similar to previous EKG MDM Narrative Medical decision making narrative: The patient creatinine is a little elevated previously below 1. He is given 1 L of fluid tolerating oral fluids overall is feeling much better. Orthostatics are now negative. He likely vasovagal and had a near syncopal episode secondary to dehydration. He has no focal deficits, or chest pain. Discharge Plan Departure Patient Disposition: Home Clinical Impression: Dehydration, Vasovagal syncope Discharge Date/Time: 07/25/20 12:52 Instructions: DI for Syncope in Adults (Fainting) Activity Restrictions/Additional Instructions: *You have been diagnosed with fainting episode secondary to dehydration *What to do: Your labs do show that you are slightly dehydrated recommend you increase your water intake today. *Continue to take medications as directed *Follow up with your primary care provider in 2-3 days *Return to ER if you should have recurrent episode of passing out, dizziness, lightheadedness, shortness of breath or any new, worsening or concerning symptoms Prescriptions: No Action Fish Oil (#FISH OIL) 1 iu PO Q DAY Qty: 0 RF: 0 Vitamin B-12 50 MCG lozenge 50 mcg PO Q DAY Qty: 0 RF: 0 Coenzyme Q10 (#COQ10) 30 mg PO PRN PRN (Reason: Muscle Pain) Qty: 0 RF: 0 ASCORBIC ACID (VITAMIN C) 1,000 mg PO QDAY Qty: 0 RF: 0 VITAMIN D (Vitamin D3) 1,000 unit PO QDAY Qty: 0 RF: 0 atorvastatin [Lipitor] 40 mg tablet 40 mg PO 2XW Qty: 0 RF: 0 metoprolol tartrate 25 mg tablet 25 mg PO BID Qty: 180 RF: 1 hydrochlorothiazide 25 mg tablet 25 mg PO DAILY Qty: 90 RF: 3 levothyroxine 175 mcg tablet 175 mcg PO DAILY Qty: 90 RF: 3 fenofibrate micronized 134 mg capsule 134 mg PO DAILY RF: 0 lisinopril 20 mg Tablet 40 mg PO DAILY Qty: 30 RF: 0 Referrals: Carlos Quintana MD [Primary Care Provider] -
[2020-07-25 10:08] LABS: Troponin I < 0.012 ng/mL (0.01-0.034)
== END 2020-07-25 12:52 | disposition home or self-care (01) ==
PROVIDERS: Emergency Provider Emergency Medicine; PCP Internal Medicine
DX: E86.0 Dehydration (principal); R55 Syncope and collapse
CPT/HCPCS: 36415; 71045; 80053; 82550; 84484; 85025; 93005; 96360; 99284

== ENCOUNTER → 2020-09-06 07:55 | Outpatient (CLI) | payer MEDICARE, SELFPAY ==
[2020-04-28 03:07] VITALS: BMI 25.8
[2020-09-06 09:27] LABS: Add Manual Diff / Slide Review NO; Basophils Absolute Auto 0 /uL (0-100); Basophils Percent Auto 0.7 % (0-2); Eosinophils Absolute Auto 100 /uL (0-450); Eosinophils Percent Auto 2.5 % (2-4); Hematocrit 43.8 % (41-53); Hemoglobin 14.6 g/dL (13.5-17.5); Lymphocytes Absolute Auto 1200 /uL (1100-4500); Lymphocytes Percent Auto 20.3 % (25-40); Mean Corpuscular HGB Conc 33.3 % (30-36); Mean Corpuscular Hemoglobin 29.8 PG (26-34); Mean Corpuscular Volume 89.5 fL (80-100); Monocytes Absolute Auto 500 /uL (0-900); Monocytes Percent Auto 9.1 % (3-14); Neutrophils Absolute Auto 3900 /uL (1500-7000); Neutrophils Percent Auto 67.4 % (50-75); Platelet Count 170 X10^3/uL (150-400); Red Cell Distribution Width 13.4 % (11.6-14.8); White Blood Cell Count 5.7 X10^3/uL (4.5-11.0)
[2020-09-06 09:53] LABS: BUN Creatinine Ratio 35.7 (6-22); Blood Urea Nitrogen 45 mg/dL (9-20); Calcium 9.7 mg/dL (8.4-10.2); Carbon Dioxide 31 mmol/L (22-32); Chloride 106 mmol/L (98-107); Cholesterol 122 mg/dL (140-199); Estimated Glomerular Filt Rate 54.5 mL/min (>60); Glucose 85 mg/dL (80-110); HDL Cholesterol 31 mg/dL (40-60); HEMOLYSIS < 15 (0-50); LDL Cholesterol Calculated 69 mg/dL (<100); Potassium 4.2 mmol/L (3.4-5.1); Sodium 140 mmol/L (137-145); Triglycerides 108 mg/dL (35-150)
== END ==
PROVIDERS: Family Provider Internal Medicine Cardiovascular Disease; PCP Internal Medicine; Referring Provider Internal Medicine; Visit Provider Internal Medicine Cardiovascular Disease
DX: I25.10 Atherosclerotic heart disease of native coronary artery without angina pectoris (principal); E78.5 Hyperlipidemia, unspecified
CPT/HCPCS: 36415; 80048; 80061; 85025

== ENCOUNTER 2020-09-19 08:30 | Outpatient (RCR) | payer MEDICARE, SELFPAY ==
[2020-04-28 03:07] VITALS: BMI 25.8
== END 2020-09-19 10:30 ==
LOC: CAR 08:30
PROVIDERS: Family Provider Internal Medicine Cardiovascular Disease; PCP Internal Medicine; Referring Provider Internal Medicine Cardiovascular Disease; Visit Provider Internal Medicine Cardiovascular Disease
DX: Z95.5 Presence of coronary angioplasty implant and graft (principal)
CPT/HCPCS: 93798

== ENCOUNTER 2020-10-11 20:05 | Emergency (ER) | payer MEDICARE, SELFPAY ==
[2020-04-28 03:07] VITALS: BMI 25.8
[2020-10-11 20:13] VITALS: BP 187/88; PULSE 86; RESP 17; TEMP 36.9; O2SAT 98; BMI 25.8
--- NOTE | 2020-10-11 20:26 | ED.WOUNDLAC ---
HPI - Wound/Laceration General Chief Complaint: Wound/Laceration Stated Complaint: HIT LEFT ARM LACERATION ON BLOOD THINNERS Time Seen by Provider: 10/11/20 20:11 Source: patient Mode of arrival: Ambulatory Limitations: no limitations History of Present Illness HPI narrative: Who was on anticoagulation here for evaluation of a skin tear to his left arm. He states he was carrying an object in his arm trying to get something off a shelf when his arm was hit. He covered with a bandage but because it was oozing for several hours he decided to come the emergency department have it evaluated. He does not know when his last tetanus shot was. Related Data Home Medications Medication Instructions Recorded Confirmed Coenzyme Q10 (#COQ10) 30 mg PO PRN PRN #0 01/29/12 04/28/20 Fish Oil (#FISH OIL) 1 iu PO Q DAY #0 01/29/12 04/28/20 Vitamin B-12 50 mcg PO Q DAY #0 01/29/12 04/28/20 ASCORBIC ACID (VITAMIN C) 1,000 mg PO QDAY #0 04/17/13 04/28/20 VITAMIN D (Vitamin D3) 1,000 unit PO QDAY #0 04/17/13 04/28/20 fenofibrate micronized 134 mg PO DAILY 07/09/18 04/28/20 atorvastatin 40 mg tablet 40 mg PO 2XW #0 tab 02/12/19 04/28/20 Previous Rx's Medication Instructions Recorded lisinopril 40 mg PO DAILY #30 tab 07/09/18 hydrochlorothiazide 25 mg tablet 25 mg PO DAILY #90 tab 01/29/20 levothyroxine 175 mcg tablet 175 mcg PO DAILY #90 tab 01/29/20 metoprolol tartrate 25 mg tablet 25 mg PO BID #180 tab 05/19/20 Allergies Allergy/AdvReac Type Severity Reaction Status Date / Time No Known Drug Allergies Allergy Verified 07/25/20 10:02 Review of Systems Constitutional Constitutional: Denies fever(s) and Denies weakness Musculoskeletal Musculoskeletal: Denies arthralgias, Denies myalgias and Denies tingling Integumentary/Breasts Comments: Skin tear to left forearm Neurologic Neurologic: Denies tingling and Denies weakness Hematologic/Lymphatic Comments: On anticoagulation Allergic/Immunologic Allergic/Immunologic: Denies urticaria Patient History Medical History (Updated 10/11/20 @ 20:29 by Patricio Hines DO) Hyperlipidemia, unspecified (01/29/12) Hypertension Hypothyroidism LAFB (left anterior fascicular block) RBBB Surgical History (System 07/25/20 @ 10:02 by Jigna Martino) History of knee replacement History of thyroidectomy History of vasectomy Status post appendectomy Status post laminectomy Status post tonsillectomy and adenoidectomy Family History (System 07/25/20 @ 10:02 by Jigna Martino) Father Family history of [place] (myocardial infarction) Mother Family history of cerebrovascular accident (CVA) Social History (System 07/25/20 @ 10:02 by Jigna Martino) household members: spouse Smoking Status: Never smoker alcohol intake: current Smoking Status: Never smoker alcohol intake frequency: a few times a week Substance Use Type: does not use Exam Initial Vital Signs Initial Vital Signs: Vital Signs Temperature 98.5 F 10/11/20 20:13 Pulse Rate 86 10/11/20 20:13 Respiratory Rate 17 10/11/20 20:13 Blood Pressure 187/88 H 10/11/20 20:13 Pulse Oximetry 98 10/11/20 20:13 Cardio Pulses: radial pulses present on the left Skin Other: Patient with a irregular 4 cm total length skin tear to the left forearm. Losing but no active bleeding. Extrem Other: Full range of motion of left elbow left wrist. Able to pronate and supinate without problems left upper extremity. Course Orders Ordered: Discontinued Medications Bacitracin (Bacitracin Oint 0.9 Gm Pckt) 1 applic TOP NOW ONE Stop: 10/11/20 20:16 Last Admin: 10/11/20 20:43 Dose: Not Given Documented by: Diphtheria/Tetanus/Acell Pertussis (Tet,Diph,Pertuss(Acell),Vac/Pf 0.5 Ml Syringe) 0.5 ml IM .ONCE ONE Stop: 10/11/20 20:16 Last Admin: 10/11/20 20:32 Dose: 0.5 ml Documented by: Vital Signs Vital signs: Vital Signs - 8 hr 10/11/20 20:13 10/11/20 20:43 Temperature 98.5 F Pulse Rate 86 85 Respiratory Rate 17 16 Blood Pressure 187/88 H 137/65 Pulse Oximetry 98 98 MDM - Wound/Laceration MDM Narrative Medical decision making narrative: Patient's tetanus was updated. Unfortunately this skin tear was not amendable to suturing here in the ER. Steri-Strips were placed to try to approximate the edges as best as possible. He was covered with a pressure bandage. Patient was given care instructions and return precautions. He expressed understanding and agreement. Discharge Plan Departure Patient Disposition: Home Clinical Impression: Skin tear of forearm without complication Qualifiers: Encounter type: initial encounter Laterality: left Qualified Code(s): S51.812A - Laceration without foreign body of left forearm, initial encounter Instructions: Skin Wound Activity Restrictions/Additional Instructions: I would leave the bandage on until tomorrow morning. That you can change the outer bandage. Leave the Steri-Strips on for as long as they stick. Contact your primary provider for follow-up. Your tetanus shot was updated today. Return to the emergency department for any new or worsening symptoms Prescriptions: No Action Fish Oil (#FISH OIL) 1 iu PO Q DAY Qty: 0 RF: 0 Vitamin B-12 50 MCG lozenge 50 mcg PO Q DAY Qty: 0 RF: 0 Coenzyme Q10 (#COQ10) 30 mg PO PRN PRN (Reason: Muscle Pain) Qty: 0 RF: 0 ASCORBIC ACID (VITAMIN C) 1,000 mg PO QDAY Qty: 0 RF: 0 VITAMIN D (Vitamin D3) 1,000 unit PO QDAY Qty: 0 RF: 0 atorvastatin [Lipitor] 40 mg tablet 40 mg PO 2XW Qty: 0 RF: 0 metoprolol tartrate 25 mg tablet 25 mg PO BID Qty: 180 RF: 1 hydrochlorothiazide 25 mg tablet 25 mg PO DAILY Qty: 90 RF: 3 levothyroxine 175 mcg tablet 175 mcg PO DAILY Qty: 90 RF: 3 fenofibrate micronized 134 mg capsule 134 mg PO DAILY RF: 0 lisinopril 20 mg Tablet 40 mg PO DAILY Qty: 30 RF: 0 Referrals: Carlos Quintana MD [Primary Care Provider] -
[2020-10-11] MEDS: TET,DIPH,PERTUSS(ACELL),VAC/PF 0.5 ML SYRINGE IM (20:32)
[2020-10-11 20:43] VITALS: BP 137/65; PULSE 85; RESP 16; O2SAT 98
== END 2020-10-11 20:43 | disposition home or self-care (01) ==
PROVIDERS: Emergency Provider Emergency Medicine; Family Provider Internal Medicine Cardiovascular Disease; PCP Internal Medicine
DX: S51.812A Laceration without foreign body of left forearm, initial encounter (principal); W22.8XXA Striking against or struck by other objects, initial encounter; Z23 Encounter for immunization; Z79.01 Long term (current) use of anticoagulants; I10 Essential (primary) hypertension
CPT/HCPCS: 90471; 99282; 99283; 90715

== ENCOUNTER → 2020-11-18 10:24 | Outpatient (CLI) | payer MEDICARE, SELFPAY ==
[2020-04-28 03:07] VITALS: BMI 25.8
[2020-11-18 11:16] LABS: Alanine Aminotransferase 24 IU/L (<50); Albumin 4.2 g/dL (3.5-5.0); Albumin Globulin Ratio 1.6 (1.0-2.8); Alkaline Phosphatase 67 U/L (38-126); Aspartate Aminotransferase 31 IU/L (17-59); BUN Creatinine Ratio 19.3 (6-22); Bilirubin Total 0.5 mg/dL (0.2-1.3); Blood Urea Nitrogen 31 mg/dL (9-20); Calcium 9.6 mg/dL (8.4-10.2); Carbon Dioxide 30 mmol/L (22-32); Chloride 108 mmol/L (98-107); Globulin 2.7 g/dL (1.7-4.1); Glucose 92 mg/dL (80-110); HEMOLYSIS < 15 (0-50); Potassium 4.7 mmol/L (3.4-5.1); Sodium 141 mmol/L (137-145); Total Protein 6.9 g/dL (6.3-8.2)
[2020-11-18 12:11] LABS: Free T4, Direct Thyroxine 2.36 ng/dL (0.78-2.19)
[2020-11-18 12:25] LABS: Thyroid Stimulating Hormone < 0.015 uIU/mL (0.47-4.68)
== END ==
PROVIDERS: Family Provider Internal Medicine Cardiovascular Disease; PCP Internal Medicine; Referring Provider Internal Medicine; Visit Provider Internal Medicine
DX: E89.0 Postprocedural hypothyroidism (principal); I10 Essential (primary) hypertension; I25.10 Atherosclerotic heart disease of native coronary artery without angina pectoris
CPT/HCPCS: 36415; 80053; 84439; 84443

== ENCOUNTER → 2021-02-13 09:16 | Outpatient (CLI) | payer MEDICARE, SELFPAY ==
[2020-04-28 03:07] VITALS: BMI 25.8
--- NOTE | 2021-02-13 09:17 | DI.US.S_ITS ---
PROCEDURE: US RENAL COMPLETE INDICATIONS: Chronic kidney disease. TECHNIQUE: Real-time scanning was performed of the kidneys and bladder, with image documentation. COMPARISON: None. FINDINGS: Kidneys: Kidneys are normal in size. Right kidney measures 11.6 cm long; left kidney measures 12.4 cm long. Right renal cortical thickness is 1.6 cm; left renal cortical thickness is 1.3 cm. Renal cortical echotexture is normal. No hydronephrosis or nephrolithiasis on the left. There is a nonobstructive 7 mm stone at the middle 3rd collecting system of the right kidney. No suspicious solid mass lesions. Bladder: Pre-void bladder volume is 370 mL. Post-void residual is 39 mL. Pre-void images demonstrate no intraluminal masses or stones. On pre-void images, neither ureteral jets are noted with color Doppler interrogation. (Of note, ureteral jets may not be detectable in up to 25% of cases due to insufficient differences in specific gravity between ureteral and bladder urine). Miscellaneous: No free pelvic fluid. IMPRESSION: No hydronephrosis or nephrolithiasis is found. No renal lesion is identified. Normal bladder function. Dictated by: Rhett Gorman M.D. on 02/13/2021 at 14:36 Approved by: Rhett Gorman M.D. on 02/13/2021 at 14:38
== END ==
PROVIDERS: Family Provider Internal Medicine Cardiovascular Disease; PCP Internal Medicine; Referring Provider Specialist; Visit Provider Specialist
DX: N18.9 Chronic kidney disease, unspecified (principal)
CPT/HCPCS: 76770

== ENCOUNTER → 2021-04-20 09:03 | Outpatient (CLI) | payer MEDICARE, SELFPAY ==
[2020-04-28 03:07] VITALS: BMI 25.8
[2021-04-20 10:28] LABS: Add Manual Diff / Slide Review NO; Basophils Absolute Auto 0 /uL (0-100); Basophils Percent Auto 0.7 % (0-2); Eosinophils Absolute Auto 200 /uL (0-450); Eosinophils Percent Auto 3.4 % (2-4); Hematocrit 43.6 % (41-53); Hemoglobin 14.8 g/dL (13.5-17.5); Lymphocytes Absolute Auto 1000 /uL (1100-4500); Lymphocytes Percent Auto 19.7 % (25-40); Mean Corpuscular Hemoglobin 30.3 PG (26-34); Mean Corpuscular Volume 89.3 fL (80-100); Monocytes Absolute Auto 400 /uL (0-900); Monocytes Percent Auto 8.4 % (3-14); Neutrophils Absolute Auto 3500 /uL (1500-7000); Neutrophils Percent Auto 67.8 % (50-75); Platelet Count 194 X10^3/uL (150-400); Red Blood Cell Count 4.88 X10^6/uL (4.5-5.9); Red Cell Distribution Width 13.3 % (11.6-14.8); White Blood Cell Count 5.1 X10^3/uL (4.5-11.0)
[2021-04-20 11:33] LABS: BUN Creatinine Ratio 18.3 (6-22); Blood Urea Nitrogen 21 mg/dL (9-20); Calcium 9.9 mg/dL (8.4-10.2); Carbon Dioxide 29 mmol/L (22-32); Chloride 106 mmol/L (98-107); Cholesterol 141 mg/dL (140-199); Estimated Glomerular Filt Rate > 60.0 mL/min (>60); Glucose 84 mg/dL (80-110); HDL Cholesterol 34 mg/dL (40-60); HEMOLYSIS < 15 (0-50); LDL Cholesterol Calculated 73 mg/dL (<100); Potassium 4.7 mmol/L (3.4-5.1); Sodium 141 mmol/L (137-145); Triglycerides 169 mg/dL (35-150)
[2021-04-20 11:46] LABS: Free T4, Direct Thyroxine 2.06 ng/dL (0.78-2.19)
[2021-04-20 12:02] LABS: Thyroid Stimulating Hormone < 0.015 uIU/mL (0.47-4.68)
== END ==
PROVIDERS: Family Provider Internal Medicine Cardiovascular Disease; PCP Internal Medicine; Referring Provider Internal Medicine Cardiovascular Disease; Visit Provider Internal Medicine Cardiovascular Disease
DX: I10 Essential (primary) hypertension (principal); E89.0 Postprocedural hypothyroidism
CPT/HCPCS: 36415; 80048; 80061; 84439; 84443; 85025

== ENCOUNTER → 2021-05-17 09:20 | Outpatient (CLI) | payer MEDICARE, SELFPAY ==
[2020-04-28 03:07] VITALS: BMI 25.8
--- NOTE | 2021-05-17 09:21 | DI.RAD.S_ITS ---
PROCEDURE: XR ANKLE LT MIN 3V INDICATIONS: rolled L ankle, swelling/pain TECHNIQUE: 3 views of the ankle were acquired. COMPARISON: [facility], CR, XR ANKLE 3 VIEWS WEIGHT BEARING LEFT, 06/27/2018, 11:42. [facility], CR, XR ANKLE 3 VIEWS WEIGHT BEARING LEFT, 02/26/2019, 9:01. FINDINGS: Bones: No fractures or dislocations. Cortical ossicles around medial and lateral malleoli are likely sequelae of old injury. Ankle mortise is normally aligned. No suspicious bony lesions. Soft tissues: No tibiotalar joint effusion. Achilles tendon appears normal. IMPRESSION: No acute osseous abnormalities. Suspect old injuries. If clinical symptoms persist or clinical suspicion for internal derangement is high, follow-up MRI is suggested for further evaluation. Dictated by: Niki Arroyo M.D. on 05/17/2021 at 10:06 Approved by: Niki Arroyo M.D. on 05/17/2021 at 10:09
== END ==
PROVIDERS: Family Provider Internal Medicine Cardiovascular Disease; PCP Internal Medicine; Referring Provider Physician Assistant; Visit Provider Physician Assistant
DX: M25.572 Pain in left ankle and joints of left foot (principal)
CPT/HCPCS: 73610

== ENCOUNTER → 2021-10-02 08:35 | Outpatient (CLI) | payer MEDICARE, SELFPAY ==
[2020-04-28 03:07] VITALS: BMI 25.8
[2021-10-02 12:13] LABS: COVID19 -Nasal RAPID Negative (Negative)
== END ==
PROVIDERS: Family Provider Internal Medicine Cardiovascular Disease; PCP Internal Medicine; Visit Provider Nurse Practitioner Family
DX: Z20.822 Contact with and (suspected) exposure to COVID-19 (principal)
CPT/HCPCS: 87635; C9803

== ENCOUNTER 2021-10-04 12:11 | Day surgery (SDC) | payer MEDICARE, SELFPAY ==
[2020-04-28 03:07] VITALS: BMI 25.8
--- NOTE | 2021-10-03 19:48 | PM.PREOP ---
Pre-operative Note COVID-19 COVID-19 status: Negative Interval Note History & Physical reviewed/Exam performed by Physician: Yes Changes to H&P: No
--- NOTE | 2021-10-03 19:49 | PM.OP.1 ---
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 Postoperative diagnosis: Status post ectropion repair with horizontal lid shortening and punctal surgery. Removal of a right lateral canthal cyst which was sent for pathology. Appeared benign. 3. Anesthesia local with monitored standby. 4. Blood loss: Less than 3 cc 5. Specimen: None Operative summary: Patient presents with excessive irritation and tearing from exposure due to bilateral lower lid laxity malposition the of the lacrimal puncta which were are also closed left eye and narrowed right eye. The patient has failed conservative measures including lubrication and antibiotic ointment and desires surgery to improve these symptoms. The patient is taken to the operating room and positioned. Monitoring is performed. Local anesthetic consisting 1% xylocaine mixed with BSS and 1 cc of hyulronidase is placed through the inferior lid both medial inferior and laterally. To have cc is given to each lid. This is then supplemented with 2% xylocaine with epinephrine mixed half and half with 0.5% Marcaine with 1 cc of hyulronidase for pain relief and hemostasis. Good anesthesia was obtained. Attention was placed to the right lower lid. A punctal dilator was used to enlarge the punctum. It was then probed to the nose. the provcedure was repteated left eye and a Tenotomy scissors was used to make a 3 snip procedure to enlarge the punctum permanently. Attention was placed to the lateral canthus. A 15. Bard-Valerio blade was used to make an incision for 1 cm. On the right a granulomatous type lesion was found at the canthus. It was excised and is there was no previous surgery he desired to be sent to the lab for analysis. The periosteum was then exposed. Cautery was used as needed. The inferior canthal tendon was lysed with scissors. A tarsal strip was formed with clearance of the anterior and posterior lamella and any exposed lashes. Minimal shortening was performed. The strip was then transected with 4.0 Mersilene type suture which was placed double-armed through the periosteum and tied with multiple knots at the orbital rim. The outer tarsus and lid was then closed with 6 0 interrupted sutures. The procedure was repeated on the left side in identical fashion. However, on this side 3 additional quicker style sutures were placed through full-thickness through the lower lid due to more severe entropion. There was minimal bleeding. The patient returned to the recovery room in good condition. Sutures will be removed in the office in approximately 10 days. The specimen of incidental granulomatous type cyst in the right lateral canthus was then sent to the laboratory. Same procedure as scheduled: No
--- NOTE | 2021-10-04 | PATH_ITS ---
[facility] Accession Number: [id number] . 01 Material submitted: . canthus - RIGHT LOWER LATERAL CANTHUS GRANULOMA . 01 Diagnosis: Right Lower Lateral Canthus, Biopsy: Hidrocystoma. . Note: Granulomatous inflammation is not identified in initial and deeper levels examined in an effort to better define this process. Clinicopathological correlation is advised. [facility] 10/10/2021 1652 Local . 01 Electronically signed: . Anh Gupta MD, Dermatopathologist NPI- [id number] . 01 Gross description: . The specimen is received in formalin labeled granuloma right lower lateral canthus and consists of a 0.2 x 0.2 x 0.2 cm cochran skin. The margin is inked blue. The specimen is entirely submitted in cassette A1. ([id number]) /[facility] 10/05/2021 1836 Local . 01 Pathologist provided ICD-10: D23.9 . 01 CPT . 684867 Performed at: 01 [facility] [address] [place] [address], [place], [place] [id number] MD Eddie Duke MD Phone: [phone]
[2021-10-04 12:31] VITALS: BP 152/79; PULSE 61; RESP 14; TEMP 36.2; O2SAT 99
[2021-10-04 12:33] VITALS: BMI 25.1
[2021-10-04] MEDS: LIDOCAINE 1% W/EPI 3 ML, SODIUM CHLORIDE 0.9% 2 ML, HYALURONIDASE 150 UNIT INJ (13:50)
[2021-10-04] MEDS: PROPARACAINE 0.5% OPHTH SOL 2 DROPS EYE-LEFT (14:30)
[2021-10-04] MEDS: LIDOCAINE 1% W/EPI 20 ML INJ (14:32)
[2021-10-04] MEDS: HYALURONIDASE INJ (14:55)
[2021-10-04] MEDS: BUPIVACAINE 0.5% INJ (14:55)
[2021-10-04] MEDS: LIDOCAINE 2% INJ (14:55)
[2021-10-04] MEDS: NEOMYCIN/POLY/DEX OPHTH OINT 1 APPLIC EYE-BOTH (15:09)
[2021-10-04 15:16] VITALS: BP 146/76; PULSE 71; TEMP 36.3; O2SAT 98
[2021-10-04 15:31] VITALS: BP 140/80; PULSE 85; RESP 14; TEMP 36.5; O2SAT 97
--- NOTE | 2021-10-04 15:57 | SUR.PHASEII ---
Phase 2: 1511-Recieved from OR via wheelchair. vss. denied pain. light eye pack bilateral eyes applied with light cloth between ice/eyes. no dressings. no drainage. mild blurry vision from eye ointment. denies nausea. given po fluids. 1520-Reinforced discharge home care instructions ,especially specific home instruction sheet given to patient by Dr Mackey, and stressed protecting skin from ice/cold compresses. Highlighted emergency phone number of Dr Mackey if needed. addition information reguarding aspirin written-no aspirin for one week added to paperwork. Patient verbalized understanding of information and readyh to go home. 1535-iv discontinued. Dressed self without problem. 1540- located and moving car now. 1545-Discharged by wheelchair home to 's care/car with all paperwork, belongings and ointment from Dr Mackey. no changes with pain level or with appearence of eyes.
== END 2021-10-04 15:45 | disposition home or self-care (01) ==
LOC: OR 12:12
PROVIDERS: Family Provider Internal Medicine Cardiovascular Disease; PCP Internal Medicine; Referring Provider Ophthalmology; Visit Provider Ophthalmology
PROC: (CPT 67924; principal; 2021-10-04 13:15)
DX: H02.005 Unspecified entropion of left lower eyelid (principal); H02.002 Unspecified entropion of right lower eyelid; D23.9 Other benign neoplasm of skin, unspecified
CPT/HCPCS: 67924; J2704; J3470

== ENCOUNTER → 2022-04-12 16:32 | Outpatient (CLI) | payer MEDICARE, SELFPAY ==
[2020-04-28 03:07] VITALS: BMI 25.8
== END ==
PROVIDERS: Family Provider Internal Medicine Cardiovascular Disease; PCP Family Medicine; Visit Provider Nurse Practitioner Family
DX: R10.9 Unspecified abdominal pain (principal)
CPT/HCPCS: 87086

== ENCOUNTER → 2022-04-23 08:00 | Outpatient (CLI) | payer MEDICARE, SELFPAY ==
[2020-04-28 03:07] VITALS: BMI 25.8
[2022-04-23 09:22] LABS: Add Manual Diff / Slide Review NO; Basophils Absolute Auto 0 /uL (0-100); Basophils Percent Auto 0.5 % (0-2); Eosinophils Absolute Auto 300 /uL (0-450); Eosinophils Percent Auto 4.2 % (2-4); Hematocrit 46.9 % (41-53); Hemoglobin 16.1 g/dL (13.5-17.5); Lymphocytes Absolute Auto 1300 /uL (1100-4500); Lymphocytes Percent Auto 19.9 % (25-40); Mean Corpuscular HGB Conc 34.4 % (30-36); Mean Corpuscular Hemoglobin 30.5 PG (26-34); Mean Corpuscular Volume 88.4 fL (80-100); Monocytes Absolute Auto 400 /uL (0-900); Monocytes Percent Auto 6.8 % (3-14); Neutrophils Absolute Auto 4400 /uL (1500-7000); Neutrophils Percent Auto 68.6 % (50-75); Platelet Count 160 X10^3/uL (150-400); Red Cell Distribution Width 13.8 % (11.6-14.8); White Blood Cell Count 6.4 X10^3/uL (4.5-11.0)
[2022-04-23 09:41] LABS: Alanine Aminotransferase 31 IU/L (<50); Albumin 4.4 g/dL (3.5-5.0); Albumin Globulin Ratio 1.8 (1.0-2.8); Alkaline Phosphatase 67 U/L (38-126); Aspartate Aminotransferase 35 IU/L (17-59); BUN Creatinine Ratio 26.6 (6-22); Bilirubin Total 0.9 mg/dL (0.2-1.3); Blood Urea Nitrogen 29 mg/dL (9-20); Calcium 9.8 mg/dL (8.4-10.2); Carbon Dioxide 27 mmol/L (22-32); Chloride 108 mmol/L (98-107); Cholesterol 161 mg/dL (140-199); Estimated Glomerular Filt Rate > 60 mL/min (>60); Globulin 2.5 g/dL (1.7-4.1); Glucose 97 mg/dL (80-110); HDL Cholesterol 43 mg/dL (40-60); HEMOLYSIS < 15 (0-50); LDL Cholesterol Calculated 91 mg/dL (<100); Potassium 4.3 mmol/L (3.4-5.1); Sodium 144 mmol/L (137-145); Total Protein 6.9 g/dL (6.3-8.2); Triglycerides 135 mg/dL (35-150)
[2022-04-23 10:12] LABS: TSH w/ Reflex to FT4 < 0.02 uIU/mL (0.47-4.68)
[2022-04-23 11:32] LABS: Creatinine Urine Random 59.4 mg/dL
[2022-04-23 11:36] LABS: Microalbumi Creatinin Ratio Ur 21.8 ug/mg CR (<30); Microalbumin Urine Random 1.3 mg/dL (0-1.6)
== END ==
PROVIDERS: Family Provider Internal Medicine Cardiovascular Disease; PCP Family Medicine; Referring Provider Family Medicine; Visit Provider Family Medicine
DX: E78.2 Mixed hyperlipidemia (principal); E89.0 Postprocedural hypothyroidism; G89.29 Other chronic pain; I10 Essential (primary) hypertension; I25.10 Atherosclerotic heart disease of native coronary artery without angina pectoris; M54.50 Low back pain, unspecified
CPT/HCPCS: 36415; 80053; 80061; 82043; 82570; 84439; 84443; 85025

== ENCOUNTER → 2022-05-25 07:42 | Outpatient (CLI) | payer MEDICARE, SELFPAY ==
[2020-04-28 03:07] VITALS: BMI 25.8
[2022-05-25 08:34] LABS: Add Manual Diff / Slide Review NO; Basophils Absolute Auto 0 /uL (0-100); Basophils Percent Auto 0.5 % (0-2); Eosinophils Absolute Auto 200 /uL (0-450); Eosinophils Percent Auto 2.7 % (2-4); Hemoglobin 15.2 g/dL (13.5-17.5); Lymphocytes Absolute Auto 1100 /uL (1100-4500); Lymphocytes Percent Auto 14.8 % (25-40); Mean Corpuscular HGB Conc 33.8 % (30-36); Mean Corpuscular Hemoglobin 30.2 PG (26-34); Mean Corpuscular Volume 89.3 fL (80-100); Monocytes Absolute Auto 500 /uL (0-900); Monocytes Percent Auto 7.5 % (3-14); Neutrophils Absolute Auto 5500 /uL (1500-7000); Neutrophils Percent Auto 74.5 % (50-75); Platelet Count 147 X10^3/uL (150-400); Red Blood Cell Count 5.04 X10^6/uL (4.5-5.9); Red Cell Distribution Width 13.5 % (11.6-14.8); White Blood Cell Count 7.4 X10^3/uL (4.5-11.0)
[2022-05-25 09:29] LABS: BUN Creatinine Ratio 28.8 (6-22); Blood Urea Nitrogen 32 mg/dL (9-20); Calcium 9.1 mg/dL (8.4-10.2); Carbon Dioxide 27 mmol/L (22-32); Chloride 105 mmol/L (98-107); Cholesterol 120 mg/dL (140-199); Estimated Glomerular Filt Rate > 60 mL/min (>60); Glucose 117 mg/dL (80-110); HDL Cholesterol 33 mg/dL (40-60); HEMOLYSIS < 15 (0-50); LDL Cholesterol Calculated 69 mg/dL (<100); Sodium 142 mmol/L (137-145); Triglycerides 90 mg/dL (35-150)
== END ==
PROVIDERS: Family Provider Internal Medicine Cardiovascular Disease; PCP Family Medicine; Referring Provider Internal Medicine Cardiovascular Disease; Visit Provider Internal Medicine Cardiovascular Disease
DX: E78.5 Hyperlipidemia, unspecified (principal); I25.10 Atherosclerotic heart disease of native coronary artery without angina pectoris
CPT/HCPCS: 36415; 80048; 80061; 85025

== ENCOUNTER → 2023-01-14 09:41 | Outpatient (CLI) | payer MEDICARE, SELFPAY ==
[2020-04-28 03:07] VITALS: BMI 25.8
[2023-01-14 12:06] LABS: TSH w/ Reflex to FT4 < 0.02 uIU/mL (0.47-4.68)
[2023-01-14 16:57] LABS: Free T4, Direct Thyroxine 2.71 ng/dL (0.78-2.19)
== END ==
PROVIDERS: Family Provider Internal Medicine Cardiovascular Disease; PCP Family Medicine; Referring Provider Family Medicine; Visit Provider Family Medicine
DX: E04.1 Nontoxic single thyroid nodule (principal); E89.0 Postprocedural hypothyroidism
CPT/HCPCS: 36415; 84439; 84443

== ENCOUNTER → 2023-06-14 10:19 | Outpatient (CLI) | payer MEDICARE, SELFPAY ==
[2020-04-28 03:07] VITALS: BMI 25.8
[2023-06-14 10:58] LABS: BUN Creatinine Ratio 27.3 (6-22); Blood Urea Nitrogen 33 mg/dL (9-20); Calcium 9.5 mg/dL (8.4-10.2); Carbon Dioxide 25 mmol/L (22-32); Chloride 108 mmol/L (98-107); Estimated Glomerular Filt Rate 58 mL/min (>60); Glucose 97 mg/dL (80-110); HEMOLYSIS < 15 (0-50); Potassium 4.7 mmol/L (3.4-5.1); Sodium 140 mmol/L (137-145)
[2023-06-14 11:28] LABS: TSH w/ Reflex to FT4 < 0.02 uIU/mL (0.47-4.68)
[2023-06-14 11:52] LABS: Free T4, Direct Thyroxine 2.65 ng/dL (0.78-2.19)
== END ==
PROVIDERS: Family Provider Internal Medicine Cardiovascular Disease; PCP Family Medicine; Referring Provider Internal Medicine Cardiovascular Disease; Visit Provider Internal Medicine Cardiovascular Disease
DX: E78.5 Hyperlipidemia, unspecified (principal); E03.9 Hypothyroidism, unspecified; E04.1 Nontoxic single thyroid nodule; I10 Essential (primary) hypertension
CPT/HCPCS: 36415; 80048; 84439; 84443

== ENCOUNTER 2023-07-07 20:55 | Emergency (ER) | payer MEDICARE, SELFPAY ==
[2020-04-28 03:07] VITALS: BMI 25.8
[2023-07-07 21:00] VITALS: BP 176/86; PULSE 91; RESP 18; TEMP 36.9; O2SAT 98; BMI 23.6
[2023-07-07 21:03] VITALS: PULSE 91; RESP 25; O2SAT 96
--- NOTE | 2023-07-07 21:03 | DI.RAD.S_ITS ---
PROCEDURE: XR CHEST 1V INDICATIONS: Chest pain. TECHNIQUE: One view of the chest was acquired. COMPARISON: [facility], CR, XR CHEST 1V, 04/27/2020, 23:37. FINDINGS: Surgical changes and devices: There are surgical clips redemonstrated in the neck. Lungs and pleura: Lungs are clear. No pleural effusions or pneumothorax. Mediastinum: Mediastinal contours appear normal. Heart size is normal. Bones and chest wall: No suspicious bony lesions. Overlying soft tissues appear unremarkable. IMPRESSION: 1. No acute cardiopulmonary disease. Dictated by: Eddie Mauricio M.D. on 07/07/2023 at 22:20 Approved by: Eddie Mauricio M.D. on 07/07/2023 at 22:21
[2023-07-07 21:30] VITALS: PULSE 90; O2SAT 95
--- NOTE | 2023-07-07 21:33 | ED.ARRPALP ---
HPI - Arrhythmia/Palpitations General Chief Complaint: Arrhythmia/Palpitations Stated Complaint: Irregular BPM Time Seen by Provider: 07/07/23 21:05 Source: patient and family Mode of arrival: Ambulatory History of Present Illness HPI narrative: 87-year-old male. Does have a history of coronary artery disease. Is here for evaluation of episodes that he was having this evening when he lays down to go to sleep. He states that he felt like his heart was skipping beats. He was not having any chest pain. Some mild shortness of breath but that particularly is not new for him. No headache or lightheadedness. Has never felt anything like this before. He states that his symptoms have greatly improved since the onset. He took his pulse at home and it stated that it was irregular. He is never had an irregular heartbeat in the past. Related Data Home Medications Medication Instructions Recorded Confirmed Coenzyme Q10 (#COQ10) 30 mg PO PRN PRN Muscle Pain ##0 01/29/12 01/31/23 Fish Oil (#FISH OIL) 1 iu PO Q DAY ##0 01/29/12 01/31/23 cyanocobalamin (vitamin B-12) 50 50 mcg PO Q DAY ##0 01/29/12 01/31/23 mcg lozenges (Vitamin B-12) ASCORBIC ACID (VITAMIN C) 1,000 mg PO QDAY ##0 04/17/13 01/31/23 VITAMIN D (Vitamin D3) 1,000 unit PO QDAY ##0 04/17/13 01/31/23 fenofibrate micronized 134 mg 134 mg PO DAILY 07/09/18 01/31/23 capsule amlodipine 10 mg tablet 10 mg PO .QOTHERDAY 11/18/20 01/31/23 aspirin 81 mg chewable tablet 81 mg PO DAILY 11/18/20 01/31/23 clopidogrel 75 mg tablet 75 mg PO DAILY 11/18/20 01/31/23 cyclobenzaprine 5 mg tablet 5 mg PO .daily - bid 11/18/20 01/31/23 lisinopril 20 mg tablet 20 mg PO DAILY 11/18/20 01/31/23 metoprolol tartrate 25 mg tablet 12.5 mg PO DAILY 11/18/20 01/31/23 rosuvastatin 40 mg tablet 40 mg PO BEDTIME 11/18/20 01/31/23 Previous Rx's Medication Instructions Recorded hydrochlorothiazide 25 mg tablet 25 mg PO DAILY #90 tabs 01/29/20 levothyroxine 125 mcg tablet 125 mcg PO DAILY #90 tabs 01/31/23 Allergies Allergy/AdvReac Type Severity Reaction Status Date / Time No Known Drug Allergies Allergy Verified 07/07/23 21:00 Review of Systems Cardiovascular Cardiovascular: Reports system reviewed and no additional complaints, except as documented Respiratory Respiratory: Reports system reviewed and no additional complaints, except as documented Integumentary/Breasts Skin/Breast: Reports system reviewed and no additional complaints, except as documented Neurologic Neurologic: Reports system reviewed and no additional complaints, except as documented Hematologic/Lymphatic On Anticoagulants: No Patient History Medical History BPH without obstruction/lower urinary tract symptoms Chronic back pain (~1958) Coronary artery disease Hyperlipidemia, unspecified (01/29/12) Hypertension Hypothyroidism LAFB (left anterior fascicular block) RBBB Subconjunctival hemorrhage of left eye Thyroid cancer (~1964) Thyroid nodule Surgical History (Updated 02/11/22 @ 20:48 by Dulce Morin) Anesthesia History of knee replacement History of thyroidectomy (~1964) History of vasectomy S/P coronary artery stent placement (~05/2020) Status post appendectomy (~1969) Status post laminectomy Status post tonsillectomy and adenoidectomy Family History (Updated 02/11/22 @ 20:49 by Dulce Morin) Father Family history of AR (myocardial infarction) Hypertension Mother Family history of cerebrovascular accident (CVA) History of heart disease Hypertension Social History marital status: number of children: 2 household members: spouse occupational status: previously employed Smoking Status: Never smoker alcohol intake: current caffeine: No Smoking Status: Never smoker alcohol intake frequency: 0-2 drinks per day Alcohol type: hard liquor Substance Use Type: does not use Exam Initial Vital Signs Initial Vital Signs: Vital Signs Temperature 98.4 F 07/07/23 21:00 Pulse Rate 91 H 07/07/23 21:00 Respiratory Rate 18 07/07/23 21:00 Blood Pressure 176/86 H 07/07/23 21:00 Pulse Oximetry 98 07/07/23 21:00 Oxygen Delivery Method Room Air 07/07/23 21:00 HENMT Head: normal to inspection and normocephalic Eyes General: Yes appearance normal, both eyes and all related structures Resp Effort & Inspection: normal respiratory effort Auscultation: clear to auscultation bilaterally Cardio Rate: regular rate Rhythm: abnormal rhythm GI Inspection: normal to inspection Palpation: soft Skin General: no rashes or lesions noted Neuro General: patient alert and moves all extremities Course Orders Ordered: ED Orders 07/07/23 21:03 XR chest 1V Stat Complete Blood Count AUTO DIFF Stat Comprehensive Metabolic Panel Stat Lipase Stat Magnesium Stat PTT Partial Thromboplastin Donald Stat Prothrombin Time INR Stat Troponin & CK Cardiac Panel Stat EKG-12 Lead Stat Discontinued Medications Aspirin (Aspirin 81 Mg Chew Tab) 324 mg PO NOW ONE Stop: 07/07/23 21:04 Last Admin: 07/07/23 21:35 Dose: Not Given Vital Signs Vital signs: Vital Signs - 8 hr 07/07/23 21:00 07/07/23 21:03 07/07/23 21:30 Temperature 98.4 F Pulse Rate 91 H 91 H 90 Respiratory Rate 18 25 H Blood Pressure 176/86 H Pulse Oximetry 98 96 95 Oxygen Delivery Method Room Air Room Air MDM - Arrhythmia/Palpitations Lab Data 07/07/23 21:30 07/07/23 21:30 Labs: Lab Results 07/07/23 07/07/23 07/07/23 Range/Units 21:30 21:30 21:30 WBC 6.7 (4.5-11.0) X10^3/uL RBC 4.83 (4.5-5.9) X10^6/uL Hgb 14.8 (13.5-17.5) g/dL Hct 43.7 (41-53) % MCV 90.4 (80-100) fL MCH 30.6 (26-34) PG MCHC 33.8 (30-36) % RDW 13.9 (11.6-14.8) % Plt Count 169 (150-400) X10^3/uL Neut % (Auto) 65.7 (50-75) % Lymph % (Auto) 20.3 L (25-40) % [place] % (Auto) 7.9 (3-14) % Eos % (Auto) 5.6 H (2-4) % Baso % (Auto) 0.5 (0-2) % Neut # (Auto) 4400 (3440-0688) /uL Lymph # (Auto) 1400 (7035-5564) /uL [place] # (Auto) 500 (0-900) /uL Eos # (Auto) 400 (0-450) /uL Baso # (Auto) 0 (0-100) /uL PT 11.1 (10.1-12.7) SECONDS INR 1.0 (0.9-1.3) APTT 29 (26-36) SECONDS Sodium 139 (137-145) mmol/L Potassium 4.1 (3.4-5.1) mmol/L Chloride 109 H (98-107) mmol/L Carbon Dioxide 22 (22-32) mmol/L BUN 38 H (9-20) mg/dL Creatinine 1.30 H (0.66-1.25) mg/dL Estimated GFR 53 L (>60) mL/min BUN/Creatinine Ratio 29.2 H (6-22) Glucose 145 H (80-110) mg/dL Calcium 8.9 (8.4-10.2) mg/dL Magnesium 1.8 (1.6-2.3) mg/dL Total Bilirubin 0.6 (0.2-1.3) mg/dL AST 26 (17-59) IU/L ALT 18 (<50) IU/L Alkaline Phosphatase 72 (38-126) U/L Total Creatine Kinase 57 (55-170) U/L Troponin I < 0.012 (0.01-0.034) ng/mL Total Protein 6.5 (6.3-8.2) g/dL Albumin 3.7 (3.5-5.0) g/dL Globulin 2.8 (1.7-4.1) g/dL Albumin/Globulin Ratio 1.3 (1.0-2.8) Lipase 80 (23-300) U/L Imaging Data Chest x-ray: My Impression: No acute changes ECG Data Attestation: I personally reviewed and interpreted this ECG as follows: Interpretation: Sinus rhythm Ventricular rate 86 Frequent PVCs in a trigeminy pattern Right bundle-branch block Normal QTC No ST T wave changes MDM Narrative Medical decision making narrative: Patient is not having chest pain no lightheadedness. He is having frequent PVCs on the monitor which I suspect is the cause of his symptoms. His blood work is unremarkable. Clinic does not have pneumonia. Not in heart failure. Low suspicion for ACS. Discussed all this with the patient. Will have him contact his farmer vegetable to discuss the indications for a Holter monitor. He was given return precautions. He expressed understanding and agreement. Discharge Plan Departure Patient Disposition: Home Clinical Impression: Frequent PVCs Instructions: Premature Ventricular Beats Activity Restrictions/Additional Instructions: I recommend that you continue to take all of your medications as directed. Has a recommend you contact your primary doctor and also your farmer vegetable to discuss the indications for a Holter monitor. Return in the emergency department for new or worsening symptoms. Prescriptions: No Action Fish Oil (#FISH OIL) 1 iu PO Q DAY Qty: 0 Vitamin B-12 50 MCG lozenge 50 mcg PO Q DAY Qty: 0 Coenzyme Q10 (#COQ10) 30 mg PO PRN PRN (Reason: Muscle Pain) Qty: 0 ASCORBIC ACID (VITAMIN C) 1,000 mg PO QDAY Qty: 0 VITAMIN D (Vitamin D3) 1,000 unit PO QDAY Qty: 0 hydrochlorothiazide 25 mg tablet 25 mg PO DAILY Qty: 90 3RF aspirin 81 mg tablet,chewable 81 mg PO DAILY rosuvastatin 40 mg tablet 40 mg PO BEDTIME clopidogrel 75 mg tablet 75 mg PO DAILY lisinopril 20 mg tablet 20 mg PO DAILY metoprolol tartrate 25 mg tablet 12.5 mg PO DAILY Patient Comments: thinks it may be yesterday or today cyclobenzaprine 5 mg tablet 5 mg PO .daily - bid amlodipine 10 mg tablet 10 mg PO .QOTHERDAY Rx Instructions: at bedtime levothyroxine 125 mcg tablet 125 mcg PO DAILY Qty: 90 1RF fenofibrate micronized 134 mg capsule 134 mg PO DAILY Referrals: Ulices Wallace MD [Primary Care Provider] - Stand Alone Forms: Patient Portal/API
[2023-07-07 21:45] LABS: Prothrombin Time 11.1 SECONDS (10.1-12.7)
[2023-07-07 21:48] LABS: PTT Partial Thromboplastin Tim 29 SECONDS (26-36)
[2023-07-07 21:51] LABS: Add Manual Diff / Slide Review NO; Alanine Aminotransferase 18 IU/L (<50); Albumin 3.7 g/dL (3.5-5.0); Albumin Globulin Ratio 1.3 (1.0-2.8); Alkaline Phosphatase 72 U/L (38-126); Aspartate Aminotransferase 26 IU/L (17-59); BUN Creatinine Ratio 29.2 (6-22); Basophils Absolute Auto 0 /uL (0-100); Basophils Percent Auto 0.5 % (0-2); Bilirubin Total 0.6 mg/dL (0.2-1.3); Blood Urea Nitrogen 38 mg/dL (9-20); Calcium 8.9 mg/dL (8.4-10.2); Carbon Dioxide 22 mmol/L (22-32); Chloride 109 mmol/L (98-107); Creatine Kinase 57 U/L (55-170); Eosinophils Absolute Auto 400 /uL (0-450); Eosinophils Percent Auto 5.6 % (2-4); Estimated Glomerular Filt Rate 53 mL/min (>60); Globulin 2.8 g/dL (1.7-4.1); Glucose 145 mg/dL (80-110); HEMOLYSIS 28 (0-50); Hematocrit 43.7 % (41-53); Hemoglobin 14.8 g/dL (13.5-17.5); Lipase 80 U/L (23-300); Lymphocytes Absolute Auto 1400 /uL (1100-4500); Lymphocytes Percent Auto 20.3 % (25-40); Magnesium 1.8 mg/dL (1.6-2.3); Mean Corpuscular HGB Conc 33.8 % (30-36); Mean Corpuscular Hemoglobin 30.6 PG (26-34); Mean Corpuscular Volume 90.4 fL (80-100); Monocytes Absolute Auto 500 /uL (0-900); Monocytes Percent Auto 7.9 % (3-14); Neutrophils Absolute Auto 4400 /uL (1500-7000); Neutrophils Percent Auto 65.7 % (50-75); Platelet Count 169 X10^3/uL (150-400); Potassium 4.1 mmol/L (3.4-5.1); Red Blood Cell Count 4.83 X10^6/uL (4.5-5.9); Red Cell Distribution Width 13.9 % (11.6-14.8); Sodium 139 mmol/L (137-145); Total Protein 6.5 g/dL (6.3-8.2); White Blood Cell Count 6.7 X10^3/uL (4.5-11.0)
[2023-07-07 22:00] VITALS: PULSE 84; RESP 30; O2SAT 94
[2023-07-07 22:01] VITALS: BP 130/62; PULSE 83; RESP 21; O2SAT 94
[2023-07-07 22:03] LABS: Troponin I < 0.012 ng/mL (0.01-0.034)
== END 2023-07-07 22:22 | disposition home or self-care (01) ==
PROVIDERS: Emergency Provider Emergency Medicine; Family Provider Internal Medicine Cardiovascular Disease; PCP Family Medicine
DX: I49.3 Ventricular premature depolarization (principal)
CPT/HCPCS: 36415; 71045; 80053; 82550; 83690; 83735; 84484; 85025; 85610; 85730; 93005; 93010; 99283; 99284

== ENCOUNTER 2023-11-01 21:24 | Observation (INO) | payer MEDICARE, SELFPAY ==
[2020-04-28 03:07] VITALS: BMI 25.8
[2023-11-01] VITALS (10 sets, daily range): BP systolic 121–163; BP diastolic 60–87; PULSE 77–89; RESP 13–27; TEMP 36.9; O2SAT 87–97; BMI 25.1
--- NOTE | 2023-11-01 21:26 | DI.CT.S_ITS ---
PROCEDURE: CT HEAD/BRAIN WO CON INDICATIONS: Syncope TECHNIQUE: Noncontrast 4.5 mm thick angled axial sections acquired from the foramen magnum to the vertex, with coronal and sagittal reformats. For radiation dose reduction, the following was used: automated exposure control, adjustment of mA and/or kV according to patient size. COMPARISON: None. FINDINGS: Image quality: Diagnostic. CSF spaces: Basal cisterns are patent. No extra-axial fluid collections. The ventricles are symmetric in size and shape. Brain: No intracranial bleeds or masses. There is cerebral volume loss for age, with resultant ventricular and sulcal prominence. There are periventricular and deep white matter chronic small vessel ischemic changes. There is intracranial internal carotid artery atherosclerosis. Skull and face: Calvarium and visualized facial bones appear intact, without suspicious lesions. Sinuses: Visualized sinuses and mastoids are clear. IMPRESSION: No acute intracranial pathology. Dictated by: Srinivasa Hebert M.D. on 11/01/2023 at 22:09 Approved by: Srinivasa Hebert M.D. on 11/01/2023 at 22:10
[2023-11-01 21:38] LABS: Add Manual Diff / Slide Review NO; Basophils Absolute Auto 100 /uL (0-100); Basophils Percent Auto 0.6 % (0-2); Eosinophils Absolute Auto 200 /uL (0-450); Hematocrit 47.4 % (41-53); Lymphocytes Absolute Auto 1000 /uL (1100-4500); Lymphocytes Percent Auto 11.4 % (25-40); Mean Corpuscular HGB Conc 33.7 % (30-36); Mean Corpuscular Hemoglobin 30.4 PG (26-34); Mean Corpuscular Volume 90.1 fL (80-100); Monocytes Absolute Auto 200 /uL (0-900); Monocytes Percent Auto 2.3 % (3-14); Neutrophils Absolute Auto 7600 /uL (1500-7000); Neutrophils Percent Auto 83.7 % (50-75); Platelet Count 167 X10^3/uL (150-400); Red Blood Cell Count 5.26 X10^6/uL (4.5-5.9); Red Cell Distribution Width 13.9 % (11.6-14.8); White Blood Cell Count 9.1 X10^3/uL (4.5-11.0)
--- NOTE | 2023-11-01 21:39 | ED.SYNCOPE ---
HPI - Syncope General Chief Complaint: Syncope Stated Complaint: syncope Time Seen by Provider: 11/01/23 21:26 Source: patient Mode of arrival: EMS History of Present Illness HPI narrative: 87-year-old male who presents with unwitnessed fall occurring just prior to arrival after returning to bed after urinating. Patient reports feeling lightheaded and collapsed to the ground. Patient denies loss of consciousness and head injury. No acute complaints or other injuries reported. Patient's reports that patient was unable to stand without significant assistance, prompting her to contact EMS. Patient was asymptomatic upon arrival per EMS that showed significant orthostatic hypotension imported systolic blood pressure of 55. Patient arrives via ambulance awake, alert, in no apparent distress and maintaining his own airway. Related Data Home Medications Medication Instructions Recorded Confirmed Coenzyme Q10 (#COQ10) 30 mg PO PRN PRN Muscle Pain ##0 01/29/12 10/05/23 Fish Oil (#FISH OIL) 1 iu PO Q DAY ##0 01/29/12 10/05/23 cyanocobalamin (vitamin B-12) 50 50 mcg PO Q DAY ##0 01/29/12 10/05/23 mcg lozenges (Vitamin B-12) ASCORBIC ACID (VITAMIN C) 1,000 mg PO QDAY ##0 04/17/13 10/05/23 VITAMIN D (Vitamin D3) 1,000 unit PO QDAY ##0 04/17/13 10/05/23 fenofibrate micronized 134 mg 134 mg PO DAILY 07/09/18 10/05/23 capsule amlodipine 10 mg tablet 10 mg PO .QOTHERDAY 11/18/20 10/05/23 aspirin 81 mg chewable tablet 81 mg PO DAILY 11/18/20 10/05/23 clopidogrel 75 mg tablet 75 mg PO DAILY 11/18/20 10/05/23 cyclobenzaprine 5 mg tablet 5 mg PO .daily - bid 11/18/20 10/05/23 metoprolol tartrate 25 mg tablet 12.5 mg PO DAILY 11/18/20 10/05/23 rosuvastatin 40 mg tablet 40 mg PO BEDTIME 11/18/20 10/05/23 Previous Rx's Medication Instructions Recorded hydrochlorothiazide 25 mg tablet 25 mg PO DAILY #90 tabs 01/29/20 lisinopril 20 mg tablet 20 mg PO DAILY #90 tabs 07/08/23 levothyroxine 125 mcg tablet 125 mcg PO DAILY #90 tabs 08/12/23 Allergies Allergy/AdvReac Type Severity Reaction Status Date / Time No Known Drug Allergies Allergy Verified 10/05/23 12:34 Patient History Medical History Chronic back pain (~1958) Thyroid nodule Thyroid cancer (~1964) BPH without obstruction/lower urinary tract symptoms Subconjunctival hemorrhage of left eye Coronary artery disease LAFB (left anterior fascicular block) RBBB Hyperlipidemia, unspecified (01/29/12) Hypothyroidism Hypertension Surgical History Anesthesia S/P coronary artery stent placement (~05/2020) History of vasectomy History of thyroidectomy (~1964) Status post laminectomy Status post tonsillectomy and adenoidectomy History of knee replacement Status post appendectomy (~1969) Family History Father Family history of MS (myocardial infarction) Hypertension Mother Family history of cerebrovascular accident (CVA) History of heart disease Hypertension Social History marital status: number of children: 2 household members: spouse occupational status: previously employed Smoking Status: Never smoker alcohol intake: current caffeine: No Smoking Status: Never smoker alcohol intake frequency: 0-2 drinks per day Alcohol type: hard liquor Substance Use Type: does not use Exam Initial Vital Signs Initial Vital Signs: Vital Signs Pulse Rate 80 11/01/23 21:20 Respiratory Rate 27 H 11/01/23 21:20 Blood Pressure 137/74 11/01/23 21:20 Pulse Oximetry 87 L 11/01/23 21:20 Oxygen Delivery Method Room Air 11/01/23 21:20 Course Course Course Narrative: See MDM Decision to Admit Date: 11/01/23 Decision to Admit time: 23:16 Orders Ordered: ED Orders 11/01/23 21:26 CT head/brain wo con Stat Urinalysis and Microscopic Stat EKG-12 Lead Stat 11/01/23 21:30 CBC Auto Diff [Complete Blood Count AUTO DIFF] Stat 11/01/23 22:07 CMP [Comprehensive Metabolic Panel] Stat NT-proBNP (BNP-Adult 18+) Stat Troponin I Stat 11/01/23 22:16 XR clavicle RT Stat XR shoulder RT 1V Stat Sodium Chloride (Normal Saline 0.9%) 1,000 mls @ 1,000 mls/hr IV BOLUS PRN PRN Reason: Fluid replacement Vital Signs Vital signs: Vital Signs - 8 hr 11/01/23 21:20 11/01/23 21:20 11/01/23 21:25 Temperature 98.5 F Pulse Rate 80 78 Respiratory Rate 27 H 18 Blood Pressure 137/74 137/74 Pulse Oximetry 87 L 96 Oxygen Delivery Method Room Air Room Air 11/01/23 21:30 11/01/23 21:30 11/01/23 22:00 Temperature Pulse Rate 77 80 Respiratory Rate 25 H 15 Blood Pressure 121/60 157/76 H Pulse Oximetry 95 97 Oxygen Delivery Method Room Air 11/01/23 22:15 11/01/23 22:53 11/01/23 22:59 Temperature Pulse Rate 78 85 80 Respiratory Rate 14 Blood Pressure 129/60 157/76 H Pulse Oximetry 94 97 Oxygen Delivery Method Room Air Room Air 11/01/23 23:00 11/01/23 23:00 11/01/23 23:07 Temperature Pulse Rate 87 79 Respiratory Rate 13 27 H Blood Pressure 163/87 H 157/66 H Pulse Oximetry 96 97 Oxygen Delivery Method Room Air 11/01/23 23:30 11/01/23 23:30 Temperature Pulse Rate 89 Respiratory Rate 15 Blood Pressure 152/74 H Pulse Oximetry 97 Oxygen Delivery Method MDM - Syncope Differential Diagnosis Differential diagnosis: Likely syncope due to orthostatic hypotension, vasovagal syncope, complete atrioventricular block, subarachnoid hemorrhage, dehydration and other (CVA, dysrhythmia) Lab Data Lab results narrative: BUN elevated, but consistent with prior findings, otherwise diagnostic laboratory testing within normal limits/non actionable. 11/01/23 21:30 11/01/23 22:07 Labs: Lab Results 11/01/23 11/01/23 Range/Units 21:30 22:07 WBC 9.1 (4.5-11.0) X10^3/uL RBC 5.26 (4.5-5.9) X10^6/uL Hgb 16.0 (13.5-17.5) g/dL Hct 47.4 (41-53) % MCV 90.1 (80-100) fL MCH 30.4 (26-34) PG MCHC 33.7 (30-36) % RDW 13.9 (11.6-14.8) % Plt Count 167 (150-400) X10^3/uL Neut % (Auto) 83.7 H (50-75) % Lymph % (Auto) 11.4 L (25-40) % [place] % (Auto) 2.3 L (3-14) % Eos % (Auto) 2.0 (2-4) % Baso % (Auto) 0.6 (0-2) % Neut # (Auto) 7600 H (5192-4958) /uL Lymph # (Auto) 1000 L (4561-7589) /uL [place] # (Auto) 200 (0-900) /uL Eos # (Auto) 200 (0-450) /uL Baso # (Auto) 100 (0-100) /uL Sodium 141 (137-145) mmol/L Potassium 4.7 (3.4-5.1) mmol/L Chloride 107 (98-107) mmol/L Carbon Dioxide 27 (22-32) mmol/L BUN 34 H (9-20) mg/dL Creatinine 1.12 (0.66-1.25) mg/dL Estimated GFR > 60 (>60) mL/min BUN/Creatinine Ratio 30.4 H (6-22) Glucose 110 (80-110) mg/dL Calcium 9.7 (8.4-10.2) mg/dL Total Bilirubin 0.8 (0.2-1.3) mg/dL AST 31 (17-59) IU/L ALT 30 (<50) IU/L Alkaline Phosphatase 68 (38-126) U/L Troponin I < 0.012 (0.01-0.034) ng/mL NT-Pro-B Natriuret Pep 109 (<450) pg/mL Total Protein 6.6 (6.3-8.2) g/dL Albumin 3.9 (3.5-5.0) g/dL Globulin 2.7 (1.7-4.1) g/dL Albumin/Globulin Ratio 1.4 (1.0-2.8) ECG Data Interpretation: at 21:25: Normal sinus rhythm at 81 beats per minute, left axis deviation, NM interval 192 milliseconds, no acute ST changes. Left anterior fascicular block, right bundle-branch block, abnormal EKG MDM Narrative Medical decision making narrative: Patient presents with unwitnessed fall/collapse at home with orthostatic hypotension noted by EMS. Patient arrives awake, alert and normotensive. Patient is afebrile and pulse oximetry within normal limits/non actionable. Diagnostic laboratory testing within normal limits/non actionable. EKG not suggestive of ACS or significant conduction disturbance. IV fluids given. CT head without contrast is not suggestive of acute disease, calvarium fracture, intracerebral hemorrhage mass or midline shift. Patient began having diarrhea here in the emergency department with presyncopal episode after being taken to the bathroom. Patient complaining of right shoulder pain with injury likely occurring at home. Imaging shows no acute fracture but shows right AC separation. Patient stable but warrants admission for observation patient stable at the time of transfer to the floor. Discharge Plan Departure Patient Disposition: Admitted as Observation Clinical Impression: Syncope and collapse, Orthostatic hypotension Acromioclavicular separation Qualifiers: Encounter type: initial encounter Laterality: right Qualified Code(s): S43.101A - Unspecified dislocation of right acromioclavicular joint, initial encounter Diarrhea Qualifiers: Diarrhea type: unspecified type Qualified Code(s): R19.7 - Diarrhea, unspecified Admit Date/Time: 11/01/23 23:43 Admit Provider: Xander Aviles
--- NOTE | 2023-11-01 22:16 | DI.RAD.S_ITS ---
PROCEDURE: XR SHOULDER RT 1V INDICATIONS: fall with deformity to right shoulder TECHNIQUE: 2 views of the shoulder were acquired. COMPARISON: None. FINDINGS: Bones: No acute fractures. Superior elevation of the clavicle with regard to the coracoid, consistent with AC separation. No suspicious bony lesions. Visualized ribs appear intact. Soft tissues: No suspicious soft tissue calcifications. IMPRESSION: No acute fractures. Acromioclavicular separation consistent with [place]imfield classification type 3. Dictated by: Srinivasa Hebert M.D. on 11/01/2023 at 23:19 Approved by: Srinivasa Hebert M.D. on 11/01/2023 at 23:20
--- NOTE | 2023-11-01 22:16 | DI.RAD.S_ITS ---
PROCEDURE: XR CLAVICLE RT INDICATIONS: fall with deformity to right shoulder TECHNIQUE: 2 views of the clavicle were acquired. COMPARISON: None. FINDINGS: Bones: No acute fracture seen. Redemonstration of AC separation. No suspicious bony lesions. Soft tissues: No suspicious soft tissue calcifications. IMPRESSION: AC separation consistent with rocker classification type 3. No acute fractures are seen. Dictated by: Srinivasa Hebert M.D. on 11/01/2023 at 23:21 Approved by: Srinivasa Hebert M.D. on 11/01/2023 at 23:21
[2023-11-01 22:26] LABS: Alanine Aminotransferase 30 IU/L (<50); Albumin 3.9 g/dL (3.5-5.0); Albumin Globulin Ratio 1.4 (1.0-2.8); Alkaline Phosphatase 68 U/L (38-126); Aspartate Aminotransferase 31 IU/L (17-59); BUN Creatinine Ratio 30.4 (6-22); Bilirubin Total 0.8 mg/dL (0.2-1.3); Blood Urea Nitrogen 34 mg/dL (9-20); Calcium 9.7 mg/dL (8.4-10.2); Carbon Dioxide 27 mmol/L (22-32); Chloride 107 mmol/L (98-107); Estimated Glomerular Filt Rate > 60 mL/min (>60); Globulin 2.7 g/dL (1.7-4.1); Glucose 110 mg/dL (80-110); HEMOLYSIS 28 (0-50); Potassium 4.7 mmol/L (3.4-5.1); Sodium 141 mmol/L (137-145); Total Protein 6.6 g/dL (6.3-8.2)
[2023-11-01 22:37] LABS: NT-proBNP (BNP-Adult 18+) 109 pg/mL (<450); Troponin I < 0.012 ng/mL (0.01-0.034)
--- NOTE | 2023-11-01 22:51 | PC.NURSE ---
Pt was assisted to the BR for a BM, was unable to get to toilet due to decreased LOC while in the BR, taken back to his room and he was incont. of liquid stool while being assisted back to bed. Pt also c/o of rt shoulder pain with visible deformity when getting up from bed. It took pt about 15 min to return to baseline mentation.
[2023-11-02] VITALS: BP 158/71; PULSE 95; RESP 18; TEMP 36.9; O2SAT 97
[2023-11-02 00:08] VITALS: BMI 25.4
--- NOTE | 2023-11-02 00:18 | PM.HP.1 ---
History of Present Illness History of Present Illness Chief complaint: syncope Narrative: 87 y/o with PMH of CAD, LAD LIBIA, PVCs, HTN, felt lightheaded after he urinated and collapsed to the ground. He did not lose consciousness. His reported that he was unable to stand without significant assistance, prompting her to contact EMS. Patient was asymptomatic upon arrival per EMS that showed significant orthostatic hypotension with systolic blood pressure of 55. In the ED his vital signs were were stable and labs were unremarkable. Then he had presyncopal episode in the bathroom, following 2 loose stools. Placed in observation [facility] Medical History Chronic back pain (~1958) Thyroid nodule Thyroid cancer (~1964) BPH without obstruction/lower urinary tract symptoms Subconjunctival hemorrhage of left eye Coronary artery disease LAFB (left anterior fascicular block) RBBB Hyperlipidemia, unspecified (01/29/12) Hypothyroidism Hypertension Surgical History Anesthesia S/P coronary artery stent placement (~05/2020) History of vasectomy History of thyroidectomy (~1964) Status post laminectomy Status post tonsillectomy and adenoidectomy History of knee replacement Status post appendectomy (~1969) Family History Father Family history of IA (myocardial infarction) Hypertension Mother Family history of cerebrovascular accident (CVA) History of heart disease Hypertension Social History marital status: number of children: 2 household members: spouse occupational status: previously employed Smoking Status: Former smoker alcohol intake: current caffeine: No Meds Home Medications and Allergies Home Medications Medication Instructions Recorded Confirmed Type Coenzyme Q10 (#COQ10) 30 mg PO PRN PRN Muscle Pain ##0 01/29/12 10/05/23 History Fish Oil (#FISH OIL) 1 iu PO Q DAY ##0 01/29/12 10/05/23 History cyanocobalamin (vitamin B-12) 50 50 mcg PO Q DAY ##0 01/29/12 10/05/23 History mcg lozenges (Vitamin B-12) ASCORBIC ACID (VITAMIN C) 1,000 mg PO QDAY ##0 04/17/13 10/05/23 History VITAMIN D (Vitamin D3) 1,000 unit PO QDAY ##0 04/17/13 10/05/23 History fenofibrate micronized 134 mg 134 mg PO DAILY 07/09/18 10/05/23 History capsule hydrochlorothiazide 25 mg tablet 25 mg PO DAILY #90 tabs 01/29/20 10/05/23 Rx amlodipine 10 mg tablet 10 mg PO .QOTHERDAY 11/18/20 10/05/23 History aspirin 81 mg chewable tablet 81 mg PO DAILY 11/18/20 10/05/23 History clopidogrel 75 mg tablet 75 mg PO DAILY 11/18/20 10/05/23 History cyclobenzaprine 5 mg tablet 5 mg PO .daily - bid 11/18/20 10/05/23 History metoprolol tartrate 25 mg tablet 12.5 mg PO DAILY 11/18/20 10/05/23 History rosuvastatin 40 mg tablet 40 mg PO BEDTIME 11/18/20 10/05/23 History lisinopril 20 mg tablet 20 mg PO DAILY #90 tabs 07/08/23 10/05/23 Rx levothyroxine 125 mcg tablet 125 mcg PO DAILY #90 tabs 08/12/23 10/05/23 Rx Allergies Allergy/AdvReac Type Severity Reaction Status Date / Time No Known Drug Allergies Allergy Verified 10/05/23 12:34 Review of Systems Constitutional Comments: Denies fever, chills, night swats, generalized weakness Eyes Comments: w/o recent vision changes ENT Comments: w/o nasal congestion, hearing loss, vertigo Cardiovascular Comments: w/o palpitations or chest pain Respiratory Comments: w/o shortness of breath Gastrointestinal Comments: he was constipated and took laxative yesterday He thinks 2 loose BMs in the ED are result of that Denies nausea, vomiting, dark or bloody stool, heartburn, dyspepsia Genitourinary Comments: Denies voiding difficulties Neurologic Comments: w/o headache, muscle weakness or numbness Exam Vital Signs (past 8 hours): - 11/01/23 21:20 11/01/23 21:20 11/01/23 21:25 Temperature 98.5 F Pulse Rate 80 78 Respiratory Rate 27 H 18 Blood Pressure 137/74 137/74 Pulse Oximetry 87 L 96 Oxygen Delivery Method Room Air Room Air Oxygen Flow Rate 11/01/23 21:30 11/01/23 21:30 11/01/23 22:00 Temperature Pulse Rate 77 80 Respiratory Rate 25 H 15 Blood Pressure 121/60 157/76 H Pulse Oximetry 95 97 Oxygen Delivery Method Room Air Oxygen Flow Rate 11/01/23 22:15 11/01/23 22:53 11/01/23 22:59 Temperature Pulse Rate 78 85 80 Respiratory Rate 14 Blood Pressure 129/60 157/76 H Pulse Oximetry 94 97 Oxygen Delivery Method Room Air Room Air Oxygen Flow Rate 11/01/23 23:00 11/01/23 23:00 11/01/23 23:07 Temperature Pulse Rate 87 79 Respiratory Rate 13 27 H Blood Pressure 163/87 H 157/66 H Pulse Oximetry 96 97 Oxygen Delivery Method Room Air Oxygen Flow Rate 11/01/23 23:30 11/01/23 23:30 11/02/23 00:00 Temperature 98.5 F Pulse Rate 89 95 H Respiratory Rate 15 18 Blood Pressure 152/74 H 158/71 H Pulse Oximetry 97 97 Oxygen Delivery Method Oxygen Flow Rate 0 Oxygen Delivery Method Room Air Oxygen Flow Rate 0 Const Other: Sitting in bed in no distress HENMT Other: Normocephalic, atraumatic Eyes Other: Glasses, EOMI Neck Other: supple Resp Other: Normal respiratory effort Cardio Other: RRR GI Other: abdomen not distended Skin Other: w/o rashes Neuro Other: w/o deficits Extrem Other: Rt ACJ separation Objective Labs 11/01/23 21:30 11/01/23 22:07 Labs: Laboratory Results - last 24 hr 11/01/23 11/01/23 21:30 22:07 WBC 9.1 RBC 5.26 Hgb 16.0 Hct 47.4 MCV 90.1 MCH 30.4 MCHC 33.7 RDW 13.9 Plt Count 167 Neut % (Auto) 83.7 H Lymph % (Auto) 11.4 L [place] % (Auto) 2.3 L Eos % (Auto) 2.0 Baso % (Auto) 0.6 Neut # (Auto) 7600 H Lymph # (Auto) 1000 L [place] # (Auto) 200 Eos # (Auto) 200 Baso # (Auto) 100 Sodium 141 Potassium 4.7 Chloride 107 Carbon Dioxide 27 BUN 34 H Creatinine 1.12 Estimated GFR > 60 BUN/Creatinine Ratio 30.4 H Glucose 110 Calcium 9.7 Total Bilirubin 0.8 AST 31 ALT 30 Alkaline Phosphatase 68 Troponin I < 0.012 NT-Pro-B Natriuret Pep 109 Total Protein 6.6 Albumin 3.9 Globulin 2.7 Albumin/Globulin Ratio 1.4 Assessment & Plan Assessment and plan (1) Syncope and collapse: Status: Acute Plan: He only felt lightheaded prior to fall. Denied difficulties with voiding, preceding the fall and recent palpitations. Denied chest pain or any other symptom. 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 Without chest pain. Initial w/u negative for ACS. Monitored on telemetry. (2) Orthostatic hypotension: Status: Acute Plan: At home, by EMS, SBP was 55 Not repeated in the ED Not dehydrated Monitored on telemetry (3) Acromioclavicular separation: Qualifiers: Encounter type: initial encounter Laterality: right Qualified Code(s): S43.101A - Unspecified dislocation of right acromioclavicular joint, initial encounter Status: Acute Plan: Acute, after the GLF at home earlier today Grade 3 separation Sling, pain management, hot/cold compresses - Referral to ortho if not improved in couple of weeks - PT, OT evaluation (4) Diarrhea: Qualifiers: Diarrhea type: unspecified type Qualified Code(s): R19.7 - Diarrhea, unspecified Status: Acute Plan: Just happened in the ED, x 2 He thinks it's a result of laxative he took yesterday DD - viral gastroenteritis - repeating CBC and BMP in am (5) Chronic back pain: Qualifiers: Back pain location: low back pain Back pain laterality: unspecified Sciatica presence: unspecified whether sciatica present Qualified Code(s): M54.50 - Low back pain, unspecified; G89.29 - Other chronic pain Status: Acute Plan: Takes prn Flexeril Apparently did not take it today (6) BPH without obstruction/lower urinary tract symptoms: Status: Acute (7) Coronary artery disease: Qualifiers: Coronary Disease-Associated Artery/Lesion type: [place] artery [place] vs. transplanted heart: [place] heart Associated angina: without angina Qualified Code(s): I25.10 - Atherosclerotic heart disease of [place] coronary artery without angina pectoris Status: Chronic Plan: Follows with Dr Phelps. Without angina or exertional dyspnea. LIBIA in LAD. ASA, Plavix, statin, fenofibrate, BB (8) Hypertension: Qualifiers: Hypertension type: unspecified Qualified Code(s): I10 - Essential (primary) hypertension Status: Chronic Plan: Lisinopril 20 mg daily, metoprolol 12.5 mg daily, holding HCTZ (had 2 loose BMs) (9) Hypothyroidism: Qualifiers: Hypothyroidism type: postoperative Qualified Code(s): E89.0 - Postprocedural hypothyroidism Status: Chronic Plan: levothyroxine (10) Hyperlipidemia, unspecified: Qualifiers: Hyperlipidemia type: mixed hyperlipidemia Qualified Code(s): E78.2 - Mixed hyperlipidemia Status: Chronic Plan: statin, fenofibrate
--- NOTE | 2023-11-02 01:29 | PC.NURSE ---
Addendum entered by Natty Bell R.N. 11/02/23 05:56: Patient continuing to have frequent episodes of diarrhea. Stool sample sent to lab, cdiff detected. MD Pretty notified, new orders placed. 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 Patient is alert and accurately stated name, birthday, place, month/year; however had no recollection of falling or why he is being hospitalized. Difficult to obtain answers regarding home medications d/t confusion. Vital signs are stable, lungs are CTA. Denies chest pain, nausea, SOB. Has complaints of mild dizziness & 1/10 right shoulder pain. Right arm placed in sling per order, patient declining pain medications currently. IV in right wrist is saline locked. Tele placed. Patient experiencing frequent loose stools & is incontinent of stool currently. Denies incontinence at baseline. Patient stated he took 2 laxatives yesterday after 3 days of constipation. Denies abdominal pain. MD Pretty aware. Patient is oriented to room & call-light, fall precautions in place.
[2023-11-02 03:59] LABS: Appearance Urine UA CLEAR; Bilirubin Urine UA NEGATIVE (NEGATIVE); Color Urine UA YELLOW; Glucose Urine UA NEGATIVE (Negative); Ketones Urine UA TRACE (NEGATIVE); Leukocyte Esterase Urine UA NEGATIVE (NEGATIVE); Nitrite Urine UA NEGATIVE (Negative); Occult Blood Urine UA TRACE-INTACT (Negative); Protein Urine UA 1+ (Negative); Specific Gravity Urine UA 1.015 (1.000-1.035); pH Urine UA 6.5 (4.5-8.0)
[2023-11-02 04:00] VITALS: BP 125/66; PULSE 91; RESP 17; TEMP 36.9; O2SAT 95
[2023-11-02 04:10] LABS: Bacteria Urine Moderate (10-30); Culture Indicated Urine Cult Not Indicated; RBC Urine 0-1/HPF (0-5/HPF); Squamous Epithelial Cell Urine 0-1 /HPF (0-5/HPF); WBC Urine None Seen (0-5/HPF)
[2023-11-02 05:16] LABS: Adenovirus F 40/41 Not Detected (Not Detect); Astrovirus Not Detected (Not Detect); Campylobacter Not Detected (Not Detect); Clostridium difficile toxin AB Detected (Not Detect); Cryptosporidium Not Detected (Not Detect); Cyclospora cayetanensis Not Detected (Not Detect); Entamoeba histolytica Not Detected (Not Detect); Enteroaggregative E.coli Not Detected (Not Detect); Enteropathogenic E.coli Not Detected (Not Detect); Enterotoxigenic E.coli It/st Not Detected (Not Detect); Giardia lamblia Not Detected (Not Detect); Norovirus GI/GII Not Detected (Not Detect); Plesiomonsa shigelloides Not Detected (Not Detect); Rotavirus A Not Detected (Not Detect); Salmonella Not Detected (Not Detect); Sapovirus Not Detected (Not Detect); Shiga-like toxin-prod E.coli Not Detected (Not Detect); Shigella/Enteroinvasive E.coli Not Detected (Not Detect); Vibrio Not Detected (Not Detect); Vibrio cholerae Not Detected (Not Detect); Yersinia enterocolitica Not Detected (Not Detect)
[2023-11-02] MEDS: VANCOMYCIN 125 MG CAPSULE PO ×2 (06:12→13:17)
[2023-11-02 08:30] VITALS: BP 132/62; PULSE 82; RESP 16; TEMP 37.3; O2SAT 95
[2023-11-02 08:31] VITALS: BP 132/62; PULSE 82
[2023-11-02] MEDS: lisinopriL 20 MG TABLET PO (08:31)
[2023-11-02] MEDS: ASPIRIN 81 MG CHEW TAB PO (08:31)
[2023-11-02] MEDS: FENOFIBRATE, MICRONIZED 67 MG CAPSULE 134 MG PO (08:31)
[2023-11-02] MEDS: METOPROLOL IR 25 MG TABLET 12.5 MG PO (08:33)
[2023-11-02] MEDS: LEVOTHYROXINE 125 MCG TABLET PO (08:33)
[2023-11-02] MEDS: CLOPIDOGREL 75 MG TABLET PO (08:34)
[2023-11-02] MEDS: SODIUM CHLORIDE 0.9% FLUSH 10 ML IV (08:34)
[2023-11-02 08:39] LABS: Add Manual Diff / Slide Review NO; Basophils Absolute Auto 0 /uL (0-100); Basophils Percent Auto 0.6 % (0-2); Eosinophils Absolute Auto 100 /uL (0-450); Hematocrit 41.9 % (41-53); Hemoglobin 14.2 g/dL (13.5-17.5); Lymphocytes Absolute Auto 1000 /uL (1100-4500); Lymphocytes Percent Auto 13.8 % (25-40); Mean Corpuscular Hemoglobin 30.4 PG (26-34); Mean Corpuscular Volume 89.4 fL (80-100); Monocytes Absolute Auto 600 /uL (0-900); Neutrophils Absolute Auto 5700 /uL (1500-7000); Neutrophils Percent Auto 76.6 % (50-75); Platelet Count 141 X10^3/uL (150-400); Red Blood Cell Count 4.69 X10^6/uL (4.5-5.9); Red Cell Distribution Width 13.8 % (11.6-14.8); White Blood Cell Count 7.5 X10^3/uL (4.5-11.0)
[2023-11-02 08:50] LABS: Chloride 108 mmol/L (98-107); HEMOLYSIS < 15 (0-50)
[2023-11-02 08:52] LABS: BUN Creatinine Ratio 32.3 (6-22); Blood Urea Nitrogen 30 mg/dL (9-20); Calcium 9.4 mg/dL (8.4-10.2); Carbon Dioxide 24 mmol/L (22-32); Estimated Glomerular Filt Rate > 60 mL/min (>60); Glucose 95 mg/dL (80-110); Potassium 4.1 mmol/L (3.4-5.1); Sodium 137 mmol/L (137-145)
--- NOTE | 2023-11-02 09:32 | CM.DANOTE ---
Initial DCP Assessment Note Pt is a 87 yo male, resident [facility], arrives after syncopal event at home. Patient found to be Cdiff+ PCP: Ulices Wallace Payer: MCR/GEORGEP Reviewed chart, met w/patient to introduce self, role and review discharge plan. Patient lives w/spouse, indp in all aspects, drives, no use of AD. Patient denies hx of HH or SNF. Patient has two adult sons that live in [facility]. Patient denies needs from this CM team currently, appreciative for the visit. No barriers identified at this time to patient's safe discharge home w/family to assist; close outpatient f/u recommended. CM team will plan to follow closely in case any DC needs or concerns arise. TANIA Fraser Discharge Planning/Care Management CM Discharge Assessment Start: 11/02/23 09:29 Freq: Status: Active Protocol: Document 11/02/23 09:29 KERRIE (Rec: 11/02/23 09:32 KERRIE [id number]) Discharge Planning Assessment Assigned Senior Research Fellow TANIA Nation DPOA/Assigned Designee Name Natty Gutierrez, spouse Contact Information [phone] Advance Directives? Yes Advance Directives on File No History Provided By Patient,Medical Record Prior Living Arrangements House Household Members spouse Type of transporation used prior to Drives own vehicle admit Independent with ADL's Yes Is patient alert and oriented? Yes Barriers to Discharge No Comment Anticipate return home w/ spouse upon discharge Discharge Plan Home Transportation Arrangement Family Referrals Initiated None needed
--- NOTE | 2023-11-02 10:51 | PT.IIE ---
Current Diagnoses Mixed hyperlipidemia (11/01/23) Postprocedural hypothyroidism (11/01/23) Other chronic pain (11/01/23) Essential (primary) hypertension (11/01/23) Atherosclerotic heart disease of [place] coronary artery without angina pectoris (11/01/23) Orthostatic hypotension (11/01/23) Low back pain, unspecified (11/01/23) Benign prostatic hyperplasia without lower urinary tract symptoms (11/01/23) Diarrhea, unspecified (11/01/23) Syncope and collapse (11/01/23) Unspecified dislocation of right acromioclavicular joint, initial encounter (11/01/23) Surgical History (Last Reviewed 10/05/23 @ 12:50 by RUEL Knott) Anesthesia History of knee replacement History of thyroidectomy (~1964) History of vasectomy S/P coronary artery stent placement (~05/2020) Status post appendectomy (~1969) Status post laminectomy Status post tonsillectomy and adenoidectomy Medical History (Last Reviewed 10/05/23 @ 12:50 by RUEL Knott) BPH without obstruction/lower urinary tract symptoms Chronic back pain (~1958) Coronary artery disease Hyperlipidemia, unspecified (01/29/12) Hypertension Hypothyroidism LAFB (left anterior fascicular block) RBBB Subconjunctival hemorrhage of left eye Thyroid cancer (~1964) Thyroid nodule Physical Therapy Inpatient Evaluation/Re-Eval M1 PT/OT-IP Prior Functional Status Start: 11/02/23 12:44 Freq: NEEDED Status: Active Protocol: Document 11/02/23 10:51 AB (Rec: 11/02/23 13:02 AB [id number]) Medical Review Prior Functional Status Medical History Reviewed Yes Communication able to tanmay eneeds known Mobility and Gait pt stated that he s indpeendent with all mobilties and ambulation without AD Social History Household Members spouse Living Arrangements House Number of Floors (Floors) Two Floors Number of Stairs To Enter/Railing? has 12 steps wide B rails to get to bedroom level: but if needed, pt can stay on main level bedroom no steps to enter the house Home Environment Standard Height Toilet,Walk in Shower,Built-In Shower Seat Home Equipment Straight Cane,Hand Held Shower ,Grab Bars In Shower M2 PT-IP Current Condition Start: 11/02/23 12:44 Freq: NEEDED Status: Active Protocol: Document 11/02/23 10:51 AB (Rec: 11/02/23 13:02 AB [email or web address]) Physical Therapy Current Condition Current Condition Evaluation Date 11/02/23 Treatment Diagnosis syncope; s/p fall; acromioclavicular separation; difficulty in walking Onset Date 11/01/22 M3 PT-IP Subjective Start: 11/02/23 12:44 Freq: NEEDED Status: Active Protocol: Document 11/02/23 10:51 AB (Rec: 11/02/23 13:02 AB [email or web address]) Subjective Physical Therapy Visit Type Type Initial Evaluation Visit Start Time 10:51 Visit Stop Time 11:37 Total Visit Minutes 46 Number of BILLET CUTTER Visits 0 Physical Therapy Visit Comments Patient Comments pt is agreeable to do PT Therapy Pain Assessment Pain Present Pain Present Denied Pain M4 PT-IP Mobility and Gait Start: 11/02/23 12:44 Freq: NEEDED Status: Active Protocol: Document 11/02/23 10:51 AB (Rec: 11/02/23 13:02 AB [id number]) PT-Bed Mobility Assessment Supine to Sit Supine to Sit Maximum Assistance,1 Person Assistance PT-Transfer Assessment Sit to and From Stand Sit to and from Stand Standby Assistance,Contact Guard Assistance,1 Person Assistance,Use of Upper Extremities Equipment Transfer Assistive Device None,Gait Belt Orthotic/Prosthetic Devices or Brace: Yes Transfers Transfer Destination Chair Transfer Technique ambulated Transfer Ability Level of Assist Standby Assistance,Contact Guard Assistance,1 Person Assistance,Use of Upper Extremities Comments Mobility Comments pt supine in bed and agreeable to do PT. obtained PLOF and home set up info. Orthostatics conducted. BP in supine: 128/71 O2 sat: 96% CO: 70 bpm. pt completed supine to sit max A and max cues. able to sit on EOB SBA. no c/o dizziness. BP: 134/63. assisted pt with sling management and educated on R shoulder precautions and NWB. pt sat on EOB for a minutes and BP checked again: 125/58. checked BP again after 2 more mintues of sittin/60. pt completed sit to stand SBA to CGA. BP in standin/65. no c/o dizziness. pt agreed to ambulate and completed ~ 40 ft in room without AD SBA to CGA . pt presents with an antalgic gait with forward head posture but without LOB. pt agreed to sit up on the chair. postioned on the chair . BP checked after ambulation : 118/61. call light and table placed within pt's reach . Gait Assessment Gait Gait Assistance Required: Standby Assistance,Contact Guard Assist Distance (Feet) 40 Able to Maintain Weight Bearing Status Yes During Gait Assistive Devices Assistive Device None,Gait Belt Orthotic/Prosthetic Devices or Brace: Yes Gait Deviations General Gait Pattern Antalgic,Decreased Stride Length,Decreased Feet Clearance Factors Limiting Gait Function Factors Limiting Gait Function Decreased Activity Tolerance, Decreased Strength,Limited Range of Motion,Pain,Poor Balance,Poor Safety Awareness PT-Balance Assessment Sitting Balance and Reactions Static Sitting Balance Ability Normal Dynamic Sitting Balance Ability Good Standing Balance and Reactions Static Standing Balance Ability Good Dynamic Standing Balance Ability Fair Device Used without AD M5 PT-IP Objective Assessments Start: 11/02/23 12:44 Freq: NEEDED Status: Active Protocol: Document 11/02/23 10:51 AB (Rec: 11/02/23 13:02 AB [id number]) Orientation Orientation/Cognition Level of Alertness Alert Orientation Name,Place,Situation Language Function Ability No Deficits Noted Safety Awareness Decreased Safety Awareness Memory Description No Deficits Noted Gross Range of Motion Lower Extremity ROM Assessment Within Functional Limits Strength Lower Extremity Strength Assessment Within Functional Limits Sensation Assessment Sensation Gross Sensation WNL Muscle Tone Muscle Tone WNL Yes M6 PT-IP Treatment Start: 11/02/23 12:44 Freq: NEEDED Status: Active Protocol: Document 11/02/23 10:51 AB (Rec: 11/02/23 13:02 AB [email or web address]) Physical Therapy Treatment Education Education Provided Precautions,Weight Bearing Status,Safety M7 PT-IP Assessment and Plan Start: 11/02/23 12:44 Freq: NEEDED Status: Active Protocol: Document 11/02/23 10:51 AB (Rec: 11/02/23 13:02 AB [email or web address]) PT Summary Assessment and Plan Potential Rehabilitation Potential Fair Status of Condition at Evaluation Evolving Summary Impairments Pain,ROM,Strength,Balance, Coordination,Sensation,Tone, Cognition,Bed Mobility, Transfers,Gait,Activity Tolerance Assessment Summary pt is an 87 y/o M who presented to the ED after a fall. pt also has syncopal episodes in the ED. pt found to have a R acromioclavicular separation stage III per imaging and now has sling on. pt also tested (+) for C-diff colitis and has contact precautions. pt requiring max A for supine to sit, SBA to CGA for transfers and ambulation without AD. pt stated that his spouse will be able to assist him if needed. pt may go home when medically stable. will continue to assess. Goals Bed Mobility Goal Independent Transfer Goal Independent Gait Goal Independent Gait Distance 200 Other Goals up/down 12 steps 1 rail SBA Days to Meet Goals 10 Frequency of Treatment Frequency Of Treatment Once a Day Treatment Plan Physical Therapy Treatment Plan Bed Mobility Training,Transfer Training,Gait Training, Therapeutic Exercise,Balance Retraining,Discharge Planning, Hot or Cold Pack,Neuromuscular Re-ed,Coordination Retraining Precautions Shoulder Precautions Sling Other Precautions BP; contact precautions: C- diff Weight Bearing Status Weight Bearing Status Non-Weight Bearing Allowed Weight Bearing Amount (enter % RUE NWB or #) (%) Recommendations To Nursing Amount of Assist Needed 1 Person Assist Discharge Recommendations PT Discharge Recommendations Home with Assistance,Home Health Transportation Needs at Discharge Private Vehicle
[2023-11-02 12:00] VITALS: BP 118/61; PULSE 82; RESP 18; TEMP 36.7; O2SAT 96
--- NOTE | 2023-11-02 12:44 | P.DS_ITS ---
History of Present Illness History of Present Illness Date Patient Seen: 11/02/23 Time Patient Seen: 12:45 Chief complaint: syncope Narrative: Per admitting provider, 87 y/o with PMH of CAD, LAD LIBIA, PVCs, HTN, felt lightheaded after he urinated and collapsed to the ground. He did not lose consciousness. His reported that he was unable to stand without significant assistance, prompting her to contact EMS. Patient was asymptomatic upon arrival per EMS that showed significant orthostatic hypotension with systolic blood pressure of 55. In the ED his vital signs were were stable and labs were unremarkable. Then he had presyncopal episode in the bathroom, following 2 loose stools. Placed in observation Discharge Providers Provider Date of admission: 11/01/23 23:43 Discharge Date: 11/02/23 Primary care physician: Ulices Wallace MD Consults: 11/02/23 00:07 Consult to Occupational Therapy Evaluate & Treat Comment: Rt AC separation Physician Instructions: Evaluate and treat Consult to Physical Therapy Evaluate & Treat Comment: 2 falls Physician Instructions: Evaluate and Treat Discharge provider: Milton Barrett DO Summary Hospital Course Discharge Diagnosis: #C. diff colitis, present on admission, acute #Orthostatic hypotension: # Acromioclavicular separation: #Chronic back pain: #BPH without obstruction/lower urinary tract symptoms: #Coronary artery disease: #Hypertension: #Hypothyroidism: #Hyperlipidemia, unspecified: Hospital Course: This is an 87 year old male who presented after a fall in his bathroom. He was orthostatic with EMS with a SBP in the 50s. He was asymptomatic in the ER, but did have another episode of presyncope in the bathroom with some loose stools and was admitted for further evaluation. He was noted to have an AC joint separation, grade 3 per radiology, and outpatient follow up is recommended with orthopedics in 2 weeks should symptoms persist. C. diff testing was positive. He was started on oral vancomycin. He was seen by therapies the following morning, and had no further orthostasis. He was discharged home with complete course of oral vancomycin (10 days) and given precautions for orthostatic hypotension. His home BP medications were recommended to be held until his SBP is >160 at home or if all of his diarrhea has resolved. Time Spent with Patient Time spent: Greater than 30 minutes Exam Vital Signs (past 8 hours): - 11/02/23 07:45 11/02/23 08:30 11/02/23 08:31 Temperature 99.1 F Pulse Rate 82 82 Respiratory Rate 16 Blood Pressure 132/62 132/62 Pulse Oximetry 95 Oxygen Delivery Method Room Air Oxygen Delivery Method Room Air Oxygen Flow Rate 0 Const Other: Sitting in bed in no distress HENMT Other: Normocephalic, atraumatic Eyes Other: Glasses, EOMI Neck Other: supple Resp Other: Normal respiratory effort Cardio Other: RRR GI Other: abdomen not distended Skin Other: w/o rashes Neuro Other: w/o deficits Extrem Other: Rt ACJ separation Objective Labs 11/02/23 08:30 11/02/23 08:30 Labs: Laboratory Results - last 24 hr 11/01/23 11/01/23 11/02/23 21:30 22:07 03:15 WBC 9.1 RBC 5.26 Hgb 16.0 Hct 47.4 MCV 90.1 MCH 30.4 MCHC 33.7 RDW 13.9 Plt Count 167 Neut % (Auto) 83.7 H Lymph % (Auto) 11.4 L Ocean % (Auto) 2.3 L Eos % (Auto) 2.0 Baso % (Auto) 0.6 Neut # (Auto) 7600 H Lymph # (Auto) 1000 L Ocean # (Auto) 200 Eos # (Auto) 200 Baso # (Auto) 100 Sodium 141 Potassium 4.7 Chloride 107 Carbon Dioxide 27 BUN 34 H Creatinine 1.12 Estimated GFR > 60 BUN/Creatinine Ratio 30.4 H Glucose 110 Calcium 9.7 Total Bilirubin 0.8 AST 31 ALT 30 Alkaline Phosphatase 68 Troponin I < 0.012 NT-Pro-B Natriuret Pep 109 Total Protein 6.6 Albumin 3.9 Globulin 2.7 Albumin/Globulin Ratio 1.4 Urine Color Urine Appearance Urine pH Ur Specific [place] Urine Protein Urine Glucose (UA) Urine Ketones Urine Occult Blood Urine Nitrate Urine Bilirubin Urine Urobilinogen Ur Leukocyte Esterase Urine RBC Urine WBC Ur Squamous Epith Cells Urine Bacteria Ur Culture Indicated? Stl C. cayetanensis PCR Not detected Stool Rotavirus (PCR) Not detected Stool Adenovirus (PCR) Not detected Stool Astrovirus (PCR) Not detected Stool Cryptosporidium PCR Not detected Stl E.coli Shiga Tox PCR Not detected St Sh/Enteroin Ecoli PCR Not detected Stl Enterotoxigenic E PCR Not detected Stool EPEC (PCR) Not detected Stl E. histolytica PCR Not detected Stool Giardia Lamblia PCR Not detected Stool Sapovirus (PCR) Not detected Stl P. shigelloides PCR Not detected St Y.enterocolitica PCR Not detected Stool Vibrio (PCR) Not detected Stl Vibrio cholerae PCR Not detected Stl Enteroaggr Ecoli PCR Not detected Stl Norovirus GI/GII PCR Not detected Campylobacter (PCR) Not detected C. difficile Tox (PCR) Detected Salmonella (PCR) Not detected 11/02/23 11/02/23 03:45 08:30 WBC 7.5 RBC 4.69 Hgb 14.2 Hct 41.9 MCV 89.4 MCH 30.4 MCHC 34.0 RDW 13.8 Plt Count 141 L Neut % (Auto) 76.6 H Lymph % (Auto) 13.8 L Ocean % (Auto) 8.0 Eos % (Auto) 1.0 L Baso % (Auto) 0.6 Neut # (Auto) 5700 Lymph # (Auto) 1000 L Ocean # (Auto) 600 Eos # (Auto) 100 Baso # (Auto) 0 Sodium 137 Potassium 4.1 Chloride 108 H Carbon Dioxide 24 BUN 30 H Creatinine 0.93 Estimated GFR > 60 BUN/Creatinine Ratio 32.3 H Glucose 95 Calcium 9.4 Total Bilirubin AST ALT Alkaline Phosphatase Troponin I NT-Pro-B Natriuret Pep Total Protein Albumin Globulin Albumin/Globulin Ratio Urine Color Yellow Urine Appearance Clear Urine pH 6.5 Ur Specific [place] 1.015 Urine Protein 1+ H Urine Glucose (UA) Negative Urine Ketones Trace H Urine Occult Blood Trace-intact Urine Nitrate Negative Urine Bilirubin Negative Urine Urobilinogen 1.0 Ur Leukocyte Esterase Negative Urine RBC 0-1/hpf Urine WBC None seen Ur Squamous Epith Cells 0-1 /hpf Urine Bacteria Moderate (10-30) H Ur Culture Indicated? Cult not indicated Stl C. cayetanensis PCR Stool Rotavirus (PCR) Stool Adenovirus (PCR) Stool Astrovirus (PCR) Stool Cryptosporidium PCR Stl E.coli Shiga Tox PCR St Sh/Enteroin Ecoli PCR Stl Enterotoxigenic E PCR Stool EPEC (PCR) Stl E. histolytica PCR Stool Giardia Lamblia PCR Stool Sapovirus (PCR) Stl P. shigelloides PCR St Y.enterocolitica PCR Stool Vibrio (PCR) Stl Vibrio cholerae PCR Stl Enteroaggr Ecoli PCR Stl Norovirus GI/GII PCR Campylobacter (PCR) C. difficile Tox (PCR) Salmonella (PCR) PFSH Medical History Chronic back pain (~1958) Thyroid nodule Thyroid cancer (~1964) BPH without obstruction/lower urinary tract symptoms Subconjunctival hemorrhage of left eye Coronary artery disease LAFB (left anterior fascicular block) RBBB Hyperlipidemia, unspecified (01/29/12) Hypothyroidism Hypertension Surgical History Anesthesia S/P coronary artery stent placement (~05/2020) History of vasectomy History of thyroidectomy (~1964) Status post laminectomy Status post tonsillectomy and adenoidectomy History of knee replacement Status post appendectomy (~1969) Family History Father Family history of OR (myocardial infarction) Hypertension Mother Family history of cerebrovascular accident (CVA) History of heart disease Hypertension Social History marital status: number of children: 2 household members: spouse occupational status: previously employed Smoking Status: Former smoker alcohol intake: current caffeine: No Discharge Plan Discharge Plan Patient Disposition: Home Provider Discharge Comment: You were admitted to the hospital with orthostasis (drop in BP with standing). This was likely due to diarrhea and you were found to have C. difficile. This is easily treated with oral antibiotics. Seen by therapy and returned to normal. Please complete the entire course of antibiotics at home. I recommend holding your BP medications at home until diarrhea resolves, or if at home your SBP is >160 at home. Please check BP at least daily for the time being until resolved when you can resume all of your usual medications. If your AC (shoulder joint) joint continues to bother you in a couple of weeks, referral to orthopedic surgery recommended at that time. Discharge orders & Medications Prescriptions: New vancomycin 125 mg capsule 125 mg PO QID 10 Days Qty: 40 0RF Continued Fish Oil (#FISH OIL) 1 iu PO Q DAY Qty: 0 Vitamin B-12 50 MCG lozenge 50 mcg PO Q DAY Qty: 0 Coenzyme Q10 (#COQ10) 30 mg PO PRN PRN (Reason: Muscle Pain) Qty: 0 ASCORBIC ACID (VITAMIN C) 1,000 mg PO QDAY Qty: 0 VITAMIN D (Vitamin D3) 1,000 unit PO QDAY Qty: 0 lisinopril 20 mg tablet 20 mg PO DAILY Qty: 90 3RF levothyroxine 125 mcg tablet 125 mcg PO DAILY Qty: 90 1RF aspirin 81 mg tablet,chewable 81 mg PO DAILY rosuvastatin 40 mg tablet 40 mg PO BEDTIME clopidogrel 75 mg tablet 75 mg PO DAILY metoprolol tartrate 25 mg tablet 12.5 mg PO DAILY Patient Comments: thinks it may be yesterday or today cyclobenzaprine 5 mg tablet 5 mg PO .daily - bid amlodipine 10 mg tablet 10 mg PO .QOTHERDAY Rx Instructions: at bedtime fenofibrate micronized 134 mg capsule 134 mg PO DAILY Discontinued hydrochlorothiazide 25 mg tablet 25 mg PO DAILY Qty: 90 3RF Follow up/Referrals: Ulices Wallace MD [Primary Care Provider] - Diet/Activity/Treatments Diet: Diet as Tolerated and Regular Activity: As tolerated, no restrictions. Visit Report/Discharge Packet Instructions: DI for Orthostatic Hypotension Stand Alone Forms: Patient Portal/API, Stroke Signs & Symptoms Discharge Data Primary Care Provider: Ulices Wallace Attending Provider: Xander Aviles Admit Date/Time: 11/01/23 23:43
--- NOTE | 2023-11-02 13:28 | CM.DPNOTE ---
DC Note Patient discharge home today w/spouse, close outpatient follow up recommended. Dr Barrett has prescribed po vancomycin. Patient back to functional baseline. Fax received from Amando Mckeon asking that DR Barrett sign in to covermymeds to complete prior authorization. Placed call to [facility] pharmacy, urged them to send any prior auth requests to patient's PCP Dr Wallace. Pharmacist tech explains they cannot manually send a prior auth request to a provider that did not write the Rx. Patient's Rx coverage is through [employer]. Out of pocket cost of vanco would be $939 This GROUT MACHINE OPERATOR attempted login to covermymeds, not available to this GROUT MACHINE OPERATOR. Discussed above with Dr Barrett who kindly agreed to follow the faxed instructions from Mike to send prior auth request to [employer] for this medication. KERRIE
--- NOTE | 2023-11-02 14:38 | PC.NURSE ---
Pt discharged home at 1210, escorted off floor in wheelchair accompanied by spouse and hospital staff. IV removed, tele d/c'd, discharge teaching completed including C-diff education, worsening symptoms, and new medications. All belongings left with patient.
[2023-11-05 13:37] LABS: C difficie Toxins A and B, EIA Negative (Negative)
== END 2023-11-02 14:42 | disposition home or self-care (01) ==
LOC: ED 23:23 → AC 23:45
PROVIDERS: Admitting Provider Internal Medicine; Emergency Provider Emergency Medicine; Family Provider Internal Medicine Cardiovascular Disease; PCP Family Medicine; Visit Provider Internal Medicine
DX: I95.1 Orthostatic hypotension (principal); A04.72 Enterocolitis due to Clostridium difficile, not specified as recurrent; S43.101A Unspecified dislocation of right acromioclavicular joint, initial encounter; W18.30XA Fall on same level, unspecified, initial encounter; Y92.003 Bedroom of unspecified non-institutional (private) residence as the place of occurrence of the external cause; M54.50 Low back pain, unspecified; G89.29 Other chronic pain; N40.0 Benign prostatic hyperplasia without lower urinary tract symptoms; I25.10 Atherosclerotic heart disease of native coronary artery without angina pectoris; I10 Essential (primary) hypertension; E89.0 Postprocedural hypothyroidism; E78.2 Mixed hyperlipidemia
CPT/HCPCS: 36415; 70450; 73000; 73020; 80048; 80053; 81001; 83880; 84484; 85025; 87324; 87507; 93005; 97162; 99284; G0378

== ENCOUNTER → 2023-12-06 16:20 | Outpatient (CLI) | payer MEDICARE, SELFPAY ==
[2023-12-06 18:02] LABS: TSH w/ Reflex to FT4 0.09 uIU/mL (0.47-4.68)
[2023-12-06 18:59] LABS: Free T4, Direct Thyroxine 2.73 ng/dL (0.78-2.19)
== END ==
LOC: LAB 16:23
PROVIDERS: Family Provider Internal Medicine Cardiovascular Disease; PCP Family Medicine; Referring Provider Family Medicine; Visit Provider Family Medicine
DX: E78.5 Hyperlipidemia, unspecified (principal); R55 Syncope and collapse; I10 Essential (primary) hypertension; E03.9 Hypothyroidism, unspecified
CPT/HCPCS: 36415; 84439; 84443

== ENCOUNTER → 2023-12-11 06:34 | Outpatient (CLI) | payer MEDICARE, SELFPAY ==
--- NOTE | 2023-12-11 06:36 | DI.US.S_ITS ---
PROCEDURE: US CAROTID DOPPLER BI INDICATIONS: Stenosis TECHNIQUE: Color and pulse Doppler interrogation was performed of both carotid systems, with image documentation and velocity measurements. COMPARISON: None. FINDINGS: Stenosis calculations are based on SRU (Society of Radiologists in Ultrasound) criteria. Right side: Brachial blood pressure: 141/71 mm Hg. Common carotid artery peak systolic velocity: 67 cm/sec. Internal carotid artery peak systolic velocity: 74 cm/sec. Internal carotid artery end diastolic velocity: 9 cm/sec. External carotid artery peak systolic velocity: 119 cm/sec. ICA/CCA peak systolic ratio: 1.1. Vo scale imaging description: There are moderate calcified plaques at the bifurcation. Percent internal carotid artery stenosis: Less than 50%. Vertebral artery: Flow direction is antegrade. Left side: Brachial blood pressure: 127/73 mm Hg. Common carotid artery peak systolic velocity: 77 cm/sec. Internal carotid artery peak systolic velocity: 69 cm/sec. Internal carotid artery end diastolic velocity: 16 cm/sec. External carotid artery peak systolic velocity: 78 cm/sec. ICA/CCA peak systolic ratio: 0.9. Vo scale imaging description: Moderate calcified plaques at the bifurcation. Percent internal carotid artery stenosis: Less than 50%. Vertebral artery: Flow direction is antegrade. IMPRESSION: 1. Less than 50% internal carotid artery stenosis bilaterally. 2. Antegrade vertebral artery flow bilaterally. Dictated by: Niki Arroyo M.D. on 12/11/2023 at 12:30 Approved by: Niki Arroyo M.D. on 12/11/2023 at 12:34
== END ==
PROVIDERS: Family Provider Internal Medicine Cardiovascular Disease; PCP Family Medicine; Referring Provider Family Medicine; Visit Provider Family Medicine
DX: I65.23 Occlusion and stenosis of bilateral carotid arteries (principal); I25.10 Atherosclerotic heart disease of native coronary artery without angina pectoris; R55 Syncope and collapse; I10 Essential (primary) hypertension; E78.5 Hyperlipidemia, unspecified; E03.9 Hypothyroidism, unspecified
CPT/HCPCS: 93880

== ENCOUNTER → 2024-06-01 15:11 | Outpatient (CLI) | payer MEDICARE, SELFPAY ==
--- NOTE | 2024-06-01 15:12 | DI.RAD.S_ITS ---
PROCEDURE: XR HIP W PEL IF DONE RT 2V INDICATIONS: fall and right groin pain TECHNIQUE: AP pelvis with lateral view(s) of the right hip(s). COMPARISON: None. FINDINGS: Bones: No fractures or dislocations. Pelvic ring appears intact. No suspicious bony lesions. Moderate right hip osteoarthritis. Soft tissues: The visualized bowel gas pattern is normal. No suspicious soft tissue calcifications. IMPRESSION: No acute bony abnormality. Dictated by: Patrica Oneill MD, PhD on 06/01/2024 at 16:20 Approved by: Patrica Oneill MD, PhD on 06/01/2024 at 16:21
== END ==
PROVIDERS: Family Provider Internal Medicine Cardiovascular Disease; PCP Family Medicine; Referring Provider Family Medicine; Visit Provider Family Medicine
DX: R10.31 Right lower quadrant pain (principal)
CPT/HCPCS: 73502

== ENCOUNTER → 2024-07-28 16:58 | Outpatient (CLI) | payer MEDICARE, SELFPAY ==
[2024-06-01 21:09] VITALS: BMI 22.9
== END ==
PROVIDERS: Family Provider Internal Medicine Cardiovascular Disease; PCP Family Medicine; Visit Provider Physician Assistant Surgical
DX: R32 Unspecified urinary incontinence (principal)
CPT/HCPCS: 87086

== ENCOUNTER 2024-07-30 16:52 | Emergency (ER) | payer MEDICARE, SELFPAY ==
[2024-06-01 21:09] VITALS: BMI 22.9
[2024-07-30] VITALS (11 sets, daily range): BP systolic 129–175; BP diastolic 66–84; PULSE 60–68; RESP 14–18; TEMP 36.5; O2SAT 95–98; BMI 22.9
--- NOTE | 2024-07-30 17:01 | DI.RAD.S_ITS ---
PROCEDURE: XR CHEST 1V INDICATIONS: chest pain TECHNIQUE: One view of the chest was acquired. COMPARISON: [facility], CR, XR CHEST 1V, 07/07/2023, 21:00. FINDINGS: Surgical changes and devices: Surgical clips in the lower neck. Lungs and pleura: Chronic scarring in the left lower lung. No focal consolidation, effusion, or pneumothorax. Mediastinum: Mediastinal contours appear normal. Heart size is normal. Bones and chest wall: No suspicious bony lesions. Overlying soft tissues appear unremarkable. IMPRESSION: No acute cardiopulmonary abnormality is seen. Dictated by: Amena Hopkins M.D. on 07/30/2024 at 17:47 Approved by: Amena Hopkins M.D. on 07/30/2024 at 17:52
[2024-07-30 17:45] LABS: Add Manual Diff / Slide Review NO; Basophils Absolute Auto 0 /uL (0-100); Basophils Percent Auto 0.7 % (0-2); Eosinophils Absolute Auto 300 /uL (0-450); Eosinophils Percent Auto 6.1 % (2-4); Hemoglobin 13.4 g/dL (13.5-17.5); Lymphocytes Absolute Auto 900 /uL (1100-4500); Lymphocytes Percent Auto 16.9 % (25-40); Mean Corpuscular HGB Conc 32.8 % (30-36); Mean Corpuscular Hemoglobin 30.6 PG (26-34); Mean Corpuscular Volume 93.3 fL (80-100); Monocytes Absolute Auto 400 /uL (0-900); Monocytes Percent Auto 8.2 % (3-14); Neutrophils Absolute Auto 3600 /uL (1500-7000); Neutrophils Percent Auto 68.1 % (50-75); Platelet Count 210 X10^3/uL (150-400); Red Blood Cell Count 4.39 X10^6/uL (4.5-5.9); Red Cell Distribution Width 14.3 % (11.6-14.8); White Blood Cell Count 5.3 X10^3/uL (4.5-11.0)
[2024-07-30 17:54] LABS: Prothrombin Time 11.6 SECONDS (9.4-12.5)
[2024-07-30 17:56] LABS: PTT Partial Thromboplastin Tim 31 SECONDS (25.1-36.5)
[2024-07-30 17:59] LABS: Alanine Aminotransferase 5 IU/L (<50); Albumin 3.8 g/dL (3.5-5.0); Albumin Globulin Ratio 1.5 (1.0-2.8); Alkaline Phosphatase 85 U/L (38-126); Aspartate Aminotransferase 21 IU/L (17-59); BUN Creatinine Ratio 22.9 (6-22); Bilirubin Total 0.6 mg/dL (0.2-1.3); Blood Urea Nitrogen 25 mg/dL (9-20); Calcium 9.2 mg/dL (8.4-10.2); Carbon Dioxide 26 mmol/L (22-32); Chloride 107 mmol/L (98-107); Creatine Kinase 54 U/L (55-170); Estimated Glomerular Filt Rate > 60 mL/min (>60); Globulin 2.6 g/dL (1.7-4.1); Glucose 94 mg/dL (80-110); HEMOLYSIS < 15 (0-50); Lipase 42 U/L (23-300); Magnesium 1.7 mg/dL (1.6-2.3); Potassium 4.2 mmol/L (3.4-5.1); Sodium 137 mmol/L (137-145); Total Protein 6.4 g/dL (6.3-8.2)
[2024-07-30 18:09] LABS: NT-proBNP (BNP-Adult 18+) 229 pg/mL (<450); Troponin I < 0.012 ng/mL (0.01-0.034)
--- NOTE | 2024-07-30 19:13 | ED.SYNCOPE ---
HPI - Syncope General Chief Complaint: Syncope Stated Complaint: heart problem Time Seen by Provider: 07/30/24 17:59 Source: patient and family Mode of arrival: Ambulatory Limitations: no limitations History of Present Illness HPI narrative: 88-year-old male with history Parkinson's disease, hypertension, coronary disease, BPH presents by private vehicle from home for medical evaluation. Most history obtained from at bedside as patient has poor recollection of the events. states that over the last 6 months patient has had increased falling, reporting approximately 10 falls in the last 6 months. This morning while the patient was urinating she heard a thump and found the patient on the floor. Patient states he does not remember what happened when he fell. Patient was in the process of undergoing physical therapy following right hip replacement after femoral neck fracture Patient takes a daily baby aspirin, denies use of other blood thinners. No other blood thinners per . Related Data Home Medications Medication Instructions Recorded Confirmed ascorbic acid (vitamin C) 1,000 mg 1,000 mg PO DAILY ##0 04/17/13 07/30/24 tablet cholecalciferol (vitamin D3) 25 25 mcg PO DAILY ##0 04/17/13 07/30/24 mcg (1,000 unit) tablet rosuvastatin 40 mg tablet 40 mg PO BEDTIME 11/18/20 07/30/24 cyanocobalamin (vitamin B-12) 50 50 mcg PO DAILY 11/02/23 07/30/24 mcg tablet amlodipine 10 mg tablet 5 mg PO BEDTIME 05/05/24 07/30/24 carbidopa 25 mg-levodopa 100 mg 1 tab PO TID 05/05/24 07/30/24 tablet metoprolol tartrate 25 mg tablet 25 mg PO BID 05/05/24 07/30/24 cyclobenzaprine 5 mg tablet 5 mg PO BID 06/01/24 07/30/24 aspirin 81 mg tablet,delayed 81 mg PO QAM 07/30/24 07/30/24 release fenofibrate micronized 134 mg 134 mg PO QAM 07/30/24 07/30/24 capsule levothyroxine 112 mcg tablet 112 mcg PO QAM 07/30/24 07/30/24 Previous Rx's Medication Instructions Recorded lisinopril 20 mg tablet 20 mg PO DAILY #90 tabs 07/08/23 acetaminophen 325 mg tablet 650 mg (2 x 325 mg) PO Q6H PRN 06/05/24 Fever/Mild Pain (1-3) #30 tabs Allergies Allergy/AdvReac Type Severity Reaction Status Date / Time No Known Drug Allergies Allergy Verified 07/28/24 16:19 Patient History Medical History Dementia Carotid artery stenosis Chronic back pain (~1958) Thyroid nodule Thyroid cancer (~1964) BPH without obstruction/lower urinary tract symptoms Subconjunctival hemorrhage of left eye Coronary artery disease LAFB (left anterior fascicular block) RBBB Hyperlipidemia, unspecified (01/29/12) Hypothyroidism Hypertension Surgical History Anesthesia S/P coronary artery stent placement (~05/2020) History of vasectomy History of thyroidectomy (~1964) Status post laminectomy Status post tonsillectomy and adenoidectomy History of knee replacement Status post appendectomy (~1969) Family History Father Family history of [place] (myocardial infarction) Hypertension Mother Family history of cerebrovascular accident (CVA) History of heart disease Hypertension Social History marital status: number of children: 2 household members: spouse occupational status: previously employed Smoking Status: Former smoker alcohol intake: current caffeine: No Smoking Status: Former smoker alcohol intake frequency: 0-2 drinks per day Alcohol type: hard liquor Substance Use Type: does not use Exam Initial Vital Signs Initial Vital Signs: Vital Signs Temperature 97.7 F 07/30/24 16:56 Pulse Rate 64 07/30/24 16:56 Respiratory Rate 18 07/30/24 16:56 Blood Pressure 161/74 H 07/30/24 16:56 Pulse Oximetry 98 07/30/24 16:56 Oxygen Delivery Method Room Air 07/30/24 16:56 Const: Awake, alert, no acute distress, debilitated, frail Cardiac: regular rate, regular rhythm RESP: unlabored, clear bilaterally, no wheezing Skin: Warm, Dry, intact, no rashes Neuro: AO x2, CN II-XII grossly intact, moves all extremities, at baseline per at bedside Course Orders Ordered: ED Orders 07/30/24 17:01 XR chest 1V Stat EKG-12 Lead Stat 07/30/24 17:36 Complete Blood Count AUTO DIFF Stat Comprehensive Metabolic Panel Stat Lipase Stat Magnesium Stat NT-proBNP (BNP-Adult 18+) Stat PTT Partial Thromboplastin Donald Stat Prothrombin Time INR Stat Troponin & CK Cardiac Panel Stat 07/30/24 19:14 CT head/brain wo con Stat Discontinued Medications Labetalol HCl (Labetalol 20 Mg/4 Ml Syringe) 5 mg IV NOW ONE Stop: 07/30/24 19:53 Last Admin: 07/30/24 20:04 Dose: 5 mg Documented By: JASEN Vital Signs Vital signs: Vital Signs - 8 hr 07/30/24 16:56 07/30/24 18:02 07/30/24 18:30 Temperature 97.7 F Pulse Rate 64 61 60 Respiratory Rate 18 15 15 Blood Pressure 161/74 H Pulse Oximetry 98 97 97 Oxygen Delivery Method Room Air 07/30/24 18:30 07/30/24 19:00 07/30/24 19:00 Temperature Pulse Rate 63 Respiratory Rate Blood Pressure 129/74 170/78 H Pulse Oximetry 98 Oxygen Delivery Method 07/30/24 20:04 07/30/24 20:05 07/30/24 20:07 Temperature Pulse Rate 64 68 65 Respiratory Rate 18 Blood Pressure 175/84 H Pulse Oximetry 95 97 Oxygen Delivery Method 07/30/24 20:07 07/30/24 20:15 07/30/24 20:15 Temperature Pulse Rate 66 Respiratory Rate 15 Blood Pressure 175/84 H 146/67 H Pulse Oximetry 98 Oxygen Delivery Method 07/30/24 20:20 07/30/24 20:20 07/30/24 20:25 Temperature Pulse Rate 66 Respiratory Rate 17 Blood Pressure 140/67 135/66 Pulse Oximetry 96 Oxygen Delivery Method 07/30/24 20:25 07/30/24 20:30 07/30/24 20:30 Temperature Pulse Rate 66 66 Respiratory Rate 14 15 Blood Pressure 138/72 Pulse Oximetry 96 95 Oxygen Delivery Method MDM - Syncope Differential Diagnosis Differential diagnosis: Likely syncope due to orthostatic hypotension, vasovagal syncope and dehydration Lab Data 07/30/24 17:36 07/30/24 17:36 Labs: Lab Results 07/30/24 Range/Units 17:36 WBC 5.3 (4.5-11.0) X10^3/uL RBC 4.39 L (4.5-5.9) X10^6/uL Hgb 13.4 L (13.5-17.5) g/dL Hct 41.0 (41-53) % MCV 93.3 (80-100) fL MCH 30.6 (26-34) PG MCHC 32.8 (30-36) % RDW 14.3 (11.6-14.8) % Plt Count 210 (150-400) X10^3/uL Neut % (Auto) 68.1 (50-75) % Lymph % (Auto) 16.9 L (25-40) % Jess[place] % (Auto) 8.2 (3-14) % Eos % (Auto) 6.1 H (2-4) % Baso % (Auto) 0.7 (0-2) % Neut # (Auto) 3600 (0256-3462) /uL Lymph # (Auto) 900 L (4437-8805) /uL Jess[place] # (Auto) 400 (0-900) /uL Eos # (Auto) 300 (0-450) /uL Baso # (Auto) 0 (0-100) /uL PT 11.6 (9.4-12.5) SECONDS INR 1.0 (0.9-1.3) APTT 31 (25.1-36.5) SECONDS Sodium 137 (137-145) mmol/L Potassium 4.2 (3.4-5.1) mmol/L Chloride 107 (98-107) mmol/L Carbon Dioxide 26 (22-32) mmol/L BUN 25 H (9-20) mg/dL Creatinine 1.09 (0.66-1.25) mg/dL Estimated GFR > 60 (>60) mL/min BUN/Creatinine Ratio 22.9 H (6-22) Glucose 94 (80-110) mg/dL Calcium 9.2 (8.4-10.2) mg/dL Magnesium 1.7 (1.6-2.3) mg/dL Total Bilirubin 0.6 (0.2-1.3) mg/dL AST 21 (17-59) IU/L ALT 5 (<50) IU/L Alkaline Phosphatase 85 (38-126) U/L Total Creatine Kinase 54 L (55-170) U/L Troponin I < 0.012 (0.01-0.034) ng/mL NT-Pro-B Natriuret Pep 229 (<450) pg/mL Total Protein 6.4 (6.3-8.2) g/dL Albumin 3.8 (3.5-5.0) g/dL Globulin 2.6 (1.7-4.1) g/dL Albumin/Globulin Ratio 1.5 (1.0-2.8) Lipase 42 (23-300) U/L Imaging Data CT scan - head: Radiologist's Impression: PROCEDURE: CT HEAD/BRAIN WO CON INDICATIONS: GLF, HEAD INJURY TECHNIQUE: Noncontrast 4.5 mm thick angled axial sections acquired from the foramen magnum to the vertex, with coronal and sagittal reformats. For radiation dose reduction, the following was used: automated exposure control, adjustment of mA and/or kV according to patient size. COMPARISON: [facility], CT, CT HEAD/BRAIN WO CON, 03/24/2024, 12:19. FINDINGS: Image quality: Diagnostic. CSF spaces: Basal cisterns are patent. No extra-axial fluid collections. There is effacement of the right frontal ventricular horn. Brain: Isodense collection is present measuring 2.4 cm in transverse dimension. Portions particularly along the posterior medial aspect demonstrate superimposed hyperdensity. It is producing right to left midline shift measuring 3 mm. There is cerebral volume loss for age, with resultant ventricular and sulcal prominence. There are periventricular and deep white matter chronic small vessel ischemic changes. There is intracranial internal carotid artery atherosclerosis. Skull and face: Calvarium and visualized facial bones appear intact, without suspicious lesions. Sinuses: Visualized sinuses and mastoids are clear. IMPRESSION: Acute on subacute right frontal subdural hematoma with minimal mass effect and effacement of the right ventricular frontal horn. The above findings were discussed with Dr. Celia Stewart on 07/30/2024 at 7:42 p.m. Dictated by: Indira Serra M.D. on 07/30/2024 at 19:42 Approved by: Indira Serra M.D. on 07/30/2024 at 19:47 MDM Narrative Medical decision making narrative: Patient with fall while urinating. Possible syncopal episode. Patient was not remember the event. Possible micturition syncope. Patient currently does not have any complaints, resting comfortably in bed. brings patient in for general evaluation. Laboratory work reviewed, WBC count 5.3, hemoglobin 13.4, platelets 210, sodium 137, potassium 4.2, creatinine 1.09, troponin undetectable, BNP 229. Chest x-ray negative for acute findings. CT brain shows acute on subacute right frontal subdural hematoma with 3 mm of midline shift. The amount of acute subdural seems very minimal. Images pushed to [facility] neurosurgery. Discussed patient's case with Dr. Maier of neurosurgical services. She reviewed case. Since patient has no deficits and is at his baseline, based on age and history of rather severe Parkinson's disease the risk of surgery is quite great and should be avoided if possible. She recommends stopping aspirin, following up with primary care doctor for repeat head CT in 2 weeks. If there is a large change then neurosurgery could be possibly reconsulted to see if intervention is needed at that time, however observation is preferable. Neurosurgery recommendations discussed with patient and at bedside. They state that they would not want to undergo brain surgery unless absolutely necessary and they prefer to go home at this time. Patient was strongly advised to stop taking aspirin, if he falls again or has a change in his mental status then he should come back for repeat evaluation, otherwise he should follow up in 2 weeks with his primary care doctor for repeat imaging. Discharge Plan Departure Patient Disposition: Home Clinical Impression: Acute subdural hematoma Instructions: DI for Subdural Hematoma Activity Restrictions/Additional Instructions: Your blood work today is normal. On CT, however you do have blood on the right side of your brain called a ?subdural hematoma?. Neurosurgery at [facility] reviewed your images in case, they are saying that since you have no new deficits or changes in mental status the risks of surgery far outweigh the risks of observation. Stop taking aspirin. They recommend following up with your primary care doctor in 2 weeks for a repeat head CT scan. If there are changes at that next scan then neurosurgery should be reconsulted for their advice. If you have another fall or if you notice a change in your mental status please come back to the emergency department immediately for repeat evaluation. Prescriptions: No Action ascorbic acid (vitamin C) 1,000 mg Tablet 1,000 mg PO DAILY Qty: 0 cholecalciferol (vitamin D3) 25 mcg (1,000 unit) Tablet 25 mcg PO DAILY Qty: 0 lisinopril 20 mg tablet 20 mg PO DAILY Qty: 90 3RF rosuvastatin 40 mg tablet 40 mg PO BEDTIME metoprolol tartrate 25 mg tablet 25 mg PO BID Patient Comments: Takes at 0900 and 1500 amlodipine 10 mg tablet 5 mg PO BEDTIME carbidopa-levodopa 25-100 mg tablet 1 tab PO TID Patient Comments: Takes at 0900, 1500, 2100 cyanocobalamin (vitamin B-12) 50 mcg Tablet 50 mcg PO DAILY cyclobenzaprine 5 mg tablet 5 mg PO BID Patient Comments: Takes at 0900 and 1500 acetaminophen 325 mg Tablet 650 mg PO Q6H PRN (Reason: Fever/Mild Pain (1-3)) Qty: 30 0RF aspirin 81 mg tablet,delayed release (DR/EC) 81 mg PO QAM fenofibrate micronized 134 mg capsule 134 mg PO QAM levothyroxine 112 mcg tablet 112 mcg PO QAM Referrals: Ulices Wallace MD [Primary Care Provider] - Stand Alone Forms: Patient Portal/API
[2024-07-30] MEDS: LABETALOL 20 MG/4 ML SYRINGE 5 MG IV (20:04)
== END 2024-07-30 21:01 | disposition home or self-care (01) ==
PROVIDERS: Student in an Organized Health Care Education/Training Program; Emergency Provider Emergency Medicine; Family Provider Internal Medicine Cardiovascular Disease; PCP Family Medicine
DX: S06.5X9A Traumatic subdural hemorrhage with loss of consciousness of unspecified duration, initial encounter (principal); R55 Syncope and collapse; G20.A1 Parkinson's disease without dyskinesia, without mention of fluctuations; R29.6 Repeated falls; I10 Essential (primary) hypertension; I25.10 Atherosclerotic heart disease of native coronary artery without angina pectoris; Z79.82 Long term (current) use of aspirin
CPT/HCPCS: 36415; 70450; 71045; 80053; 82550; 83690; 83735; 83880; 84484; 85025; 85610; 85730; 96374; 99284

== ENCOUNTER 2024-08-01 16:16 | Emergency (ER) | payer MEDICARE, SELFPAY ==
[2024-06-01 21:09] VITALS: BMI 22.9
[2024-08-01] VITALS (14 sets, daily range): BP systolic 142–189; BP diastolic 65–88; PULSE 91–104; RESP 12–29; TEMP 37.6–39.3; O2SAT 95–98; BMI 23.6
--- NOTE | 2024-08-01 16:29 | DI.RAD.S_ITS ---
PROCEDURE: XR CHEST 1V INDICATIONS: suspected sepsis TECHNIQUE: One view of the chest was acquired. COMPARISON: [facility], , XR CHEST 1V, 07/30/2024, 17:11. FINDINGS: Surgical changes and devices: Surgical clips in the thyroid bed Lungs and pleura: Lungs are clear. No pleural effusions or pneumothorax. Mediastinum: Mediastinal contours appear normal. Heart size is normal. Atherosclerotic vascular calcification noted in the aortic arch. Bones and chest wall: No suspicious bony lesions. Overlying soft tissues appear unremarkable. IMPRESSION: No acute cardiopulmonary abnormality is seen. Approved by: Abraham Michaels M.D. on 08/01/2024 at 16:21
--- NOTE | 2024-08-01 16:32 | DI.CT.S_ITS ---
PROCEDURE: CT HEAD/BRAIN WO CON INDICATIONS: subdural hematoma TECHNIQUE: Noncontrast 4.5 mm thick angled axial sections acquired from the foramen magnum to the vertex, with coronal and sagittal reformats. For radiation dose reduction, the following was used: automated exposure control, adjustment of mA and/or kV according to patient size. COMPARISON: [facility], CT, CT HEAD/BRAIN WO CON, 07/30/2024, 19:20. FINDINGS: CSF spaces: No hydrocephalus Brain: Right-sided subdural hematoma remains unchanged from the prior exam. Minimal 2-3 mm midline shift. Underlying atrophy and white matter chronic ischemic change. Atherosclerotic vascular calcification noted in the cavernous segments of both internal carotid arteries Skull and face: Normal Sinuses: Visualized sinuses and mastoids are clear. IMPRESSION: Stable right frontal subdural hematoma Approved by: Abraham Michaels M.D. on 08/01/2024 at 16:24
--- NOTE | 2024-08-01 16:35 | EKG_ITS ---
[facility] [id number] [place] [address] Test Date: 2024-08-01 Pat Name: Adolfo s Department: [facility] Room: Gender: Male Wad Lubricator: GENO : 1935 Requested By: Order Number: [id number] Reading MD: Carlos Quintana MD Measurements Intervals [place] Rate: 102 P: 56 [place]: 204 QRS: -68 QRSD: 142 T: 53 QT: 352 QTc: 458 Interpretive Statements Sinus tachycardia Right bundle branch block Left anterior fascicular block Bifascicular block Minimal voltage criteria for LVH, may be normal variant ( R in aVL ) Septal infarct , age undetermined NO SIGNIFICANT CHANGE FROM PRIOR TRACING Electronically Signed On 08-02-2024 8:35:51 PDT by Carlos Quintana MD
[2024-08-01] MEDS: SODIUM CHLORIDE 0.9% 1,000 ML 1000 ML IV (16:58)
[2024-08-01] MEDS: ACETAMINOPHEN 325 MG TABLET 975 MG PO (16:58)
[2024-08-01 17:00] LABS: Add Manual Diff / Slide Review NO; Basophils Absolute Auto 100 /uL (0-100); Basophils Percent Auto 0.5 % (0-2); Eosinophils Absolute Auto 100 /uL (0-450); Eosinophils Percent Auto 0.6 % (2-4); Hematocrit 41.2 % (41-53); Hemoglobin 13.6 g/dL (13.5-17.5); Lymphocytes Absolute Auto 700 /uL (1100-4500); Lymphocytes Percent Auto 4.8 % (25-40); Mean Corpuscular HGB Conc 33.1 % (30-36); Mean Corpuscular Hemoglobin 30.8 PG (26-34); Monocytes Absolute Auto 700 /uL (0-900); Neutrophils Absolute Auto 12600 /uL (1500-7000); Neutrophils Percent Auto 89.1 % (50-75); Platelet Count 233 X10^3/uL (150-400); Red Blood Cell Count 4.43 X10^6/uL (4.5-5.9); Red Cell Distribution Width 14.1 % (11.6-14.8); White Blood Cell Count 14.2 X10^3/uL (4.5-11.0)
[2024-08-01 17:07] LABS: Lactate (Lactic Acid) 1.1 mmol/L (0.7-2.1)
[2024-08-01 17:30] LABS: Adenovirus Not Detected (Not Detect); B. parapertussis Not Detected (Not Detecte); Bordetella pertussis Not Detected (Not Detect); Chlamydophila pneumoniae Not Detected (Not Detect); Coronavirus 229E Not Detected (Not Detect); Coronavirus HKU1 Not Detected (Not Detect); Coronavirus NL 63 Not Detected (Not Detect); Coronavirus OC43 Not Detected (Not Detect); Human Metapneumovirus Not Detected (Not Detect); Human Rhinovirus/Enterovirus Not Detected (Not Detect); Influenza A Not Detected (Not Detect); Influenza B Not Detected (Not Detect); Mycoplasma pneumoniae Not Detected (Not Detect); Parainfluenza Virus 1 Not Detected (Not Detect); Parainfluenza Virus 2 Not Detected (Not Detect); Parainfluenza Virus 3 Not Detected (Not Detect); Parainfluenza Virus 4 Not Detected (Not Detect); Respiratory Syncytial Virus Not Detected (Not Detect); SARS- CoV-2 Not Detected (Not Detecte)
[2024-08-01 17:36] LABS: INR 1.1 (0.9-1.3); Prothrombin Time 12.3 SECONDS (9.4-12.5)
[2024-08-01 17:38] LABS: PTT Partial Thromboplastin Tim 32 SECONDS (25.1-36.5)
[2024-08-01 17:40] LABS: Alanine Aminotransferase 9 IU/L (<50); Albumin 3.9 g/dL (3.5-5.0); Albumin Globulin Ratio 1.5 (1.0-2.8); Alkaline Phosphatase 86 U/L (38-126); Aspartate Aminotransferase 20 IU/L (17-59); Bilirubin Total 0.8 mg/dL (0.2-1.3); Blood Urea Nitrogen 25 mg/dL (9-20); Calcium 9.3 mg/dL (8.4-10.2); Carbon Dioxide 24 mmol/L (22-32); Chloride 106 mmol/L (98-107); Estimated Glomerular Filt Rate 59 mL/min (>60); Globulin 2.6 g/dL (1.7-4.1); Glucose 117 mg/dL (80-110); HEMOLYSIS < 15 (0-50); Lipase 30 U/L (23-300); Potassium 3.8 mmol/L (3.4-5.1); Sodium 137 mmol/L (137-145); Total Protein 6.5 g/dL (6.3-8.2)
[2024-08-01] MEDS: cefTRIAXone 1,000 MG in SODIUM CHLORIDE 0.9% 100 ML 200 MG IV ×2 (19:07→21:24)
--- NOTE | 2024-08-01 19:35 | PC.NURSE ---
Persistent generalized weakness; recently seen in ER and d/c. states pt has not moved around much today. Pt somewhat incontinent at baseline. Condom cath placed around 1800 w/ DISABILITY AIDE help. Pt alert and oriented x3. Pt states he did not know he had a fever today. Pt does not states nausea or vomiting--pt states main complaint is generalized weakness. Recent fall this past week x3.
[2024-08-01] MEDS: CARBIDOPA-LEVODOPA 25/100 TABLET 1 EACH PO (19:41)
[2024-08-01 20:00] LABS: Bacteria Urine Moderate (10-30); Culture Indicated Urine Specimen Cultured; RBC Urine 1-5/HPF (0-5/HPF); Squamous Epithelial Cell Urine 0-1 /HPF (0-5/HPF); Urine Volume 10mL (spun); WBC Urine 10-30/HPF (0-5/HPF)
--- NOTE | 2024-08-01 20:24 | ED.GENADULT ---
HPI - General Adult General Chief complaint: Weakness Stated complaint: weakness Time Seen by Provider: 08/01/24 16:31 Source: patient, family and EMS Mode of arrival: EMS History of Present Illness HPI narrative: Patient is an 80-year-old male. Has a history of Parkinson's disease. Has had several falls over the past several days. He was actually seen here in the emergency department a couple days ago after having a fall and was diagnosed with a subdural hematoma. Was subsequently discharged home. He was here with his . Apparently the patient was at his normal state of health. He was not to eat with his son. After they returned home he went to go lay down. He stated that he then developed a fairly sudden generalized weakness. His states that she thought that he was very stiff and could not get up and move and could not move on his own. He denies headache, chest pain, shortness of breath, sore throat, sinus congestion, cough, abdominal pain, diarrhea, skin rashes. He does urinate frequently but this is baseline apparently has become more frequent over the past couple days. No reported fevers. At the time of my evaluation he stated that he was feeling much better than what he was earlier today. Related Data Home Medications Medication Instructions Recorded Confirmed ascorbic acid (vitamin C) 1,000 mg 1,000 mg PO DAILY ##0 04/17/13 07/30/24 tablet cholecalciferol (vitamin D3) 25 25 mcg PO DAILY ##0 04/17/13 07/30/24 mcg (1,000 unit) tablet rosuvastatin 40 mg tablet 40 mg PO BEDTIME 11/18/20 07/30/24 cyanocobalamin (vitamin B-12) 50 50 mcg PO DAILY 11/02/23 07/30/24 mcg tablet amlodipine 10 mg tablet 5 mg PO BEDTIME 05/05/24 07/30/24 carbidopa 25 mg-levodopa 100 mg 1 tab PO TID 05/05/24 07/30/24 tablet metoprolol tartrate 25 mg tablet 25 mg PO BID 05/05/24 07/30/24 cyclobenzaprine 5 mg tablet 5 mg PO BID 06/01/24 07/30/24 aspirin 81 mg tablet,delayed 81 mg PO QAM 07/30/24 07/30/24 release fenofibrate micronized 134 mg 134 mg PO QAM 07/30/24 07/30/24 capsule levothyroxine 112 mcg tablet 112 mcg PO QAM 07/30/24 07/30/24 Previous Rx's Medication Instructions Recorded lisinopril 20 mg tablet 20 mg PO DAILY #90 tabs 07/08/23 acetaminophen 325 mg tablet 650 mg (2 x 325 mg) PO Q6H PRN 06/05/24 Fever/Mild Pain (1-3) #30 tabs cephalexin 500 mg capsule 500 mg PO BID 7 days #14 caps 08/01/24 Allergies Allergy/AdvReac Type Severity Reaction Status Date / Time No Known Drug Allergies Allergy Verified 08/01/24 16:26 Review of Systems Review of Systems ROS Unobtainable: All systems reviewed & are unremarkable except as noted in HPI and below Patient History Medical History Dementia Carotid artery stenosis Chronic back pain (~1958) Thyroid nodule Thyroid cancer (~1964) BPH without obstruction/lower urinary tract symptoms Subconjunctival hemorrhage of left eye Coronary artery disease LAFB (left anterior fascicular block) RBBB Hyperlipidemia, unspecified (01/29/12) Hypothyroidism Hypertension Surgical History Anesthesia S/P coronary artery stent placement (~05/2020) History of vasectomy History of thyroidectomy (~1964) Status post laminectomy Status post tonsillectomy and adenoidectomy History of knee replacement Status post appendectomy (~1969) Family History Father Family history of [place] (myocardial infarction) Hypertension Mother Family history of cerebrovascular accident (CVA) History of heart disease Hypertension Social History marital status: number of children: 2 household members: spouse occupational status: previously employed Smoking Status: Former smoker alcohol intake: current caffeine: No Smoking Status: Former smoker alcohol intake frequency: 0-2 drinks per day Alcohol type: hard liquor Substance Use Type: does not use Exam Initial Vital Signs Initial Vital Signs: Vital Signs Temperature 102.8 F H 08/01/24 16:26 Pulse Rate 102 H 08/01/24 16:26 Respiratory Rate 20 08/01/24 16:26 Blood Pressure 167/74 H 10/05/24 16:26 Pulse Oximetry 97 08/01/24 16:26 Oxygen Delivery Method Room Air 08/01/24 16:26 Const General: cooperative, comfortable and No ill appearing HENNV Head: normal to inspection and normocephalic Resp Effort & Inspection: normal respiratory effort Auscultation: clear to auscultation bilaterally Cardio Rate: regular rate Rhythm: regular rhythm GI Inspection: normal to inspection and non-distended Skin General: no rashes or lesions noted Neuro General: patient alert, patient awake and moves all extremities Extrem General: normal to inspection and capillary refill normal Course Orders Ordered: ED Orders 08/01/24 16:29 XR chest 1V Stat EKG-12 Lead Stat RT Consult Eval and Treat NOW 08/01/24 16:32 CT head/brain wo con Stat 08/01/24 16:37 Respiratory Panel (Film Array) Stat 08/01/24 16:45 Complete Blood Count AUTO DIFF Stat Lactate (Lactic Acid) Stat 08/01/24 17:15 Blood Culture Stat Comprehensive Metabolic Panel Stat Lipase Stat PTT Partial Thromboplastin Donald Stat Procalcitonin Stat Prothrombin Time INR Stat 08/01/24 19:11 Urine Culture Stat Urine Microscopic Stat Discontinued Medications Acetaminophen (Acetaminophen 325 Mg Tablet) 975 mg PO NOW ONE Stop: 08/01/24 16:54 Last Admin: 08/01/24 16:58 Dose: 975 mg Documented By: JJ Acetaminophen (Acetaminophen 650 Mg Supp) 650 mg CO NOW ONE Stop: 08/01/24 16:54 Last Admin: 08/01/24 16:58 Dose: Not Given Documented By: JJ Carbidopa/Levodopa (Carbidopa-Levodopa 25/100 Tablet) 1 each PO NOW ONE Stop: 08/01/24 19:12 Last Admin: 08/01/24 19:41 Dose: 1 each Documented By: JJ Sodium Chloride (Normal Saline 0.9%) 1,000 mls @ 1,000 mls/hr IV BOLUS ONE Stop: 08/01/24 17:28 Last Infusion: 08/01/24 19:14 Dose: Infused Documented By: Admin: 08/01/24 16:58 Dose: 1,000 mls/hr Documented By: JJ Ceftriaxone Sodium 1,000 mg/ (Sodium Chloride) 100 mls @ 200 mls/hr IV NOW ONE Stop: 08/01/24 18:11 Last Infusion: 08/01/24 19:41 Dose: Infused Documented By: Admin: 08/01/24 19:07 Dose: 200 mls/hr Documented By: JJ Ceftriaxone Sodium 1,000 mg/ (Sodium Chloride) 100 mls @ 200 mls/hr IV NOW ONE Stop: 08/01/24 21:16 Last Infusion: 08/01/24 22:02 Dose: Infused Documented By: Admin: 08/01/24 21:24 Dose: 200 mls/hr Documented By: ADAM Ibuprofen (Ibuprofen 400 Mg Tablet) 800 mg PO NOW ONE Stop: 08/01/24 16:54 Last Admin: 08/01/24 19:07 Dose: Not Given Documented By: JJ Ondansetron HCl (Ondansetron 4 Mg/2 Ml Inj) 4 mg IV NOW PRN PRN Reason: Nausea And Vomiting Ondansetron HCl (Ondansetron 4 Mg Odt) 4 mg SL NOW PRN PRN Reason: Nausea And Vomiting Vital Signs Vital signs: Vital Signs - 8 hr 08/01/24 16:55 08/01/24 16:55 08/01/24 17:00 Temperature Pulse Rate 103 H 101 H Respiratory Rate 12 22 Blood Pressure 178/81 H Pulse Oximetry 96 97 Oxygen Delivery Method 08/01/24 17:00 08/01/24 17:30 08/01/24 17:30 Temperature Pulse Rate 104 H Respiratory Rate 21 Blood Pressure 170/78 H 189/88 H Pulse Oximetry 98 Oxygen Delivery Method 08/01/24 17:39 08/01/24 17:39 08/01/24 18:00 Temperature Pulse Rate 103 H 101 H Respiratory Rate 19 29 H Blood Pressure 177/83 H Pulse Oximetry 97 96 Oxygen Delivery Method 08/01/24 18:01 08/01/24 18:01 08/01/24 19:01 Temperature 99.6 F Pulse Rate 101 H Respiratory Rate 15 Blood Pressure 178/72 H Pulse Oximetry 96 Oxygen Delivery Method 08/01/24 19:30 08/01/24 20:00 08/01/24 20:30 Temperature Pulse Rate 93 H 91 H 96 H Respiratory Rate 15 13 24 Blood Pressure Pulse Oximetry 96 96 95 Oxygen Delivery Method 08/01/24 20:46 Temperature Pulse Rate 92 H Respiratory Rate 15 Blood Pressure 142/65 H Pulse Oximetry 96 Oxygen Delivery Method Room Air Medical Decision Making Medical Records Medical records reviewed: Yes I reviewed the patient's medical records. Lab Data Lab results reviewed: Yes I reviewed the patient's lab results. 08/01/24 16:45 08/01/24 17:15 Labs: Lab Results 08/01/24 08/01/24 08/01/24 Range/Units 16:37 16:45 17:15 WBC 14.2 H D (4.5-11.0) X10^3/uL RBC 4.43 L (4.5-5.9) X10^6/uL Hgb 13.6 (13.5-17.5) g/dL Hct 41.2 (41-53) % MCV 93.0 (80-100) fL MCH 30.8 (26-34) PG MCHC 33.1 (30-36) % RDW 14.1 (11.6-14.8) % Plt Count 233 (150-400) X10^3/uL Neut % (Auto) 89.1 H D (50-75) % Lymph % (Auto) 4.8 L (25-40) % [place] % (Auto) 5.0 (3-14) % Eos % (Auto) 0.6 L (2-4) % Baso % (Auto) 0.5 (0-2) % Neut # (Auto) 78102 H (6056-9315) /uL Lymph # (Auto) 700 L (4233-8109) /uL [place] # (Auto) 700 (0-900) /uL Eos # (Auto) 100 (0-450) /uL Baso # (Auto) 100 (0-100) /uL PT 12.3 (9.4-12.5) SECONDS INR 1.1 (0.9-1.3) APTT 32 (25.1-36.5) SECONDS Sodium 137 (137-145) mmol/L Potassium 3.8 (3.4-5.1) mmol/L Chloride 106 (98-107) mmol/L Carbon Dioxide 24 (22-32) mmol/L BUN 25 H (9-20) mg/dL Creatinine 1.19 (0.66-1.25) mg/dL Estimated GFR 59 L (>60) mL/min BUN/Creatinine Ratio 21.0 (6-22) Glucose 117 H (80-110) mg/dL Lactate 1.1 (0.7-2.1) mmol/L Calcium 9.3 (8.4-10.2) mg/dL Total Bilirubin 0.8 (0.2-1.3) mg/dL AST 20 (17-59) IU/L ALT 9 (<50) IU/L Alkaline Phosphatase 86 (38-126) U/L Total Protein 6.5 (6.3-8.2) g/dL Albumin 3.9 (3.5-5.0) g/dL Globulin 2.6 (1.7-4.1) g/dL Albumin/Globulin Ratio 1.5 (1.0-2.8) Lipase 30 (23-300) U/L Procalcitonin 0.120 (<0.5) ng/mL Urine RBC (0-5/HPF) Urine WBC (0-5/HPF) Ur Squamous Epith Cells (0-5/HPF) Urine Bacteria (None) Ur Culture Indicated? Vol Urine Centrifuged Chlamy pneumoniae PCR Not detected (Not Detect) Adenovirus (PCR) Not detected (Not Detect) B. pertussis DNA (PCR) Not detected (Not Detect) B.parapertussis DNA PCR Not detected (Not Detecte) Coronavirus OC43 (PCR) Not detected (Not Detect) Coronavirus HKU1 (PCR) Not detected (Not Detect) Coronavirus 229E (PCR) Not detected (Not Detect) SARS-CoV-2 (PCR) Not detected (Not Detecte) Coronavirus NL63 (PCR) Not detected (Not Detect) Human Metapneumovir PCR Not detected (Not Detect) Influenza Type A (PCR) Not detected (Not Detect) Influenza Type B (PCR) Not detected (Not Detect) M. pneumoniae (PCR) Not detected (Not Detect) Parainfluenza 1 (PCR) Not detected (Not Detect) Parainfluenza 2 (PCR) Not detected (Not Detect) Parainfluenza 3 (PCR) Not detected (Not Detect) Parainfluenza 4 (PCR) Not detected (Not Detect) RSV (PCR) Not detected (Not Detect) Entero/Rhino (PCR) Not detected (Not Detect) 08/01/24 Range/Units 19:11 WBC (4.5-11.0) X10^3/uL RBC (4.5-5.9) X10^6/uL Hgb (13.5-17.5) g/dL Hct (41-53) % MCV (80-100) fL MCH (26-34) PG MCHC (30-36) % RDW (11.6-14.8) % Plt Count (150-400) X10^3/uL Neut % (Auto) (50-75) % Lymph % (Auto) (25-40) % [place] % (Auto) (3-14) % Eos % (Auto) (2-4) % Baso % (Auto) (0-2) % Neut # (Auto) (9785-0726) /uL Lymph # (Auto) (1030-5710) /uL [place] # (Auto) (0-900) /uL Eos # (Auto) (0-450) /uL Baso # (Auto) (0-100) /uL PT (9.4-12.5) SECONDS INR (0.9-1.3) APTT (25.1-36.5) SECONDS Sodium (137-145) mmol/L Potassium (3.4-5.1) mmol/L Chloride (98-107) mmol/L Carbon Dioxide (22-32) mmol/L BUN (9-20) mg/dL Creatinine (0.66-1.25) mg/dL Estimated GFR (>60) mL/min BUN/Creatinine Ratio (6-22) Glucose (80-110) mg/dL Lactate (0.7-2.1) mmol/L Calcium (8.4-10.2) mg/dL Total Bilirubin (0.2-1.3) mg/dL AST (17-59) IU/L ALT (<50) IU/L Alkaline Phosphatase (38-126) U/L Total Protein (6.3-8.2) g/dL Albumin (3.5-5.0) g/dL Globulin (1.7-4.1) g/dL Albumin/Globulin Ratio (1.0-2.8) Lipase (23-300) U/L Procalcitonin (<0.5) ng/mL Urine RBC 1-5/hpf (0-5/HPF) Urine WBC 10-30/hpf H (0-5/HPF) Ur Squamous Epith Cells 0-1 /hpf (0-5/HPF) Urine Bacteria Moderate (10-30) H (None) Ur Culture Indicated? Specimen cultured Vol Urine Centrifuged 10ml (spun) Chlamy pneumoniae PCR (Not Detect) Adenovirus (PCR) (Not Detect) B. pertussis DNA (PCR) (Not Detect) B.parapertussis DNA PCR (Not Detecte) Coronavirus OC43 (PCR) (Not Detect) Coronavirus HKU1 (PCR) (Not Detect) Coronavirus 229E (PCR) (Not Detect) SARS-CoV-2 (PCR) (Not Detecte) Coronavirus NL63 (PCR) (Not Detect) Human Metapneumovir PCR (Not Detect) Influenza Type A (PCR) (Not Detect) Influenza Type B (PCR) (Not Detect) M. pneumoniae (PCR) (Not Detect) Parainfluenza 1 (PCR) (Not Detect) Parainfluenza 2 (PCR) (Not Detect) Parainfluenza 3 (PCR) (Not Detect) Parainfluenza 4 (PCR) (Not Detect) RSV (PCR) (Not Detect) Entero/Rhino (PCR) (Not Detect) Urine Dip Bedside Urine Glucose Negative Bedside Urine Bilirubin - Negative Bedside Urine Ketone - Negative Urine Specific [place] 1.015 Bedside Urine Occult Blood ++ Bedside Urine pH 6.0 Bedside Urine Protein + 30 Bedside Urine Urobilinogen - Negative Bedside Urine Nitrite - Negative Bedside Urine Leukocytes ++ 125 Esterase Point of care testing: Urine Dip Bedside Urine Glucose Negative Bedside Urine Bilirubin - Negative Bedside Urine Ketone - Negative Urine Specific [place] 1.015 Bedside Urine Occult Blood ++ Bedside Urine pH 6.0 Bedside Urine Protein + 30 Bedside Urine Urobilinogen - Negative Bedside Urine Nitrite - Negative Bedside Urine Leukocytes ++ 125 Esterase Imaging Data Chest x-ray: Radiologist's Impression: PROCEDURE: XR CHEST 1V INDICATIONS: suspected sepsis TECHNIQUE: One view of the chest was acquired. COMPARISON: [facility], , XR CHEST 1V, 07/30/2024, 17:11. FINDINGS: Surgical changes and devices: Surgical clips in the thyroid bed Lungs and pleura: Lungs are clear. No pleural effusions or pneumothorax. Mediastinum: Mediastinal contours appear normal. Heart size is normal. Atherosclerotic vascular calcification noted in the aortic arch. Bones and chest wall: No suspicious bony lesions. Overlying soft tissues appear unremarkable. IMPRESSION: No acute cardiopulmonary abnormality is seen. CT scan - head: Radiologist's Impression: PROCEDURE: CT HEAD/BRAIN WO CON INDICATIONS: subdural hematoma TECHNIQUE: Noncontrast 4.5 mm thick angled axial sections acquired from the foramen magnum to the vertex, with coronal and sagittal reformats. For radiation dose reduction, the following was used: automated exposure control, adjustment of mA and/or kV according to patient size. COMPARISON: [facility], CT, CT HEAD/BRAIN WO CON, 07/30/2024, 19:20. FINDINGS: CSF spaces: No hydrocephalus Brain: Right-sided subdural hematoma remains unchanged from the prior exam. Minimal 2-3 mm midline shift. Underlying atrophy and white matter chronic ischemic change. Atherosclerotic vascular calcification noted in the cavernous segments of both internal carotid arteries Skull and face: Normal Sinuses: Visualized sinuses and mastoids are clear. IMPRESSION: Stable right frontal subdural hematoma ECG Data Attestation: I personally reviewed and interpreted this ECG as follows: Interpretation: Sinus tachycardia Ventricular rate of 102 Left axis deviation LVH No ST T wave changes MDM Narrative Medical decision making narrative: Patient is now it is baseline mental status. He states he was feeling much better than what he did earlier. He was febrile upon arrival. Tachycardic. This improved with antipyretics and fluids. He was tolerating oral intake. He is baseline urinary frequency but states this is potentially more than what it has been. His urinalysis today is somewhat consistent with a urinary tract infection. I do not have another source of infection found. He was given antibiotics through the IV. Patient was able to stand and ambulate at baseline with a walker here in the emergency department. Had a discussion with the family regarding options to include admission to the hospital versus discharge home. After this discussion will discharge patient home with oral antibiotics. Urine culture was pending at the time of his discharged in informed him that we would contact if we need to make any changes based on the results of this. Also informed him that there was a possibility that his blood cultures would be positive and if he receives a call from us in a couple days would be to see how his symptoms are improving. He was given very strict return precautions. Both he and his expressed understanding and agreement with the plan. The subdural hematoma from a couple days ago is stable. Discharge Plan Departure Patient Disposition: Home Clinical Impression: Urinary tract infection Instructions: DI for Urinary Tract Infection (UTI) Activity Restrictions/Additional Instructions: There were blood cultures and a urine culture pending at the time of your discharge. We will contact you if we need to change any treatments based on this. Be sure that you were increasing your fluid intake. You can take Tylenol for any fevers. Return to the emergency department for new or worsening symptoms. Prescriptions: New cephalexin 500 mg capsule 500 mg PO BID 7 Days Qty: 14 0RF No Action ascorbic acid (vitamin C) 1,000 mg Tablet 1,000 mg PO DAILY Qty: 0 cholecalciferol (vitamin D3) 25 mcg (1,000 unit) Tablet 25 mcg PO DAILY Qty: 0 lisinopril 20 mg tablet 20 mg PO DAILY Qty: 90 3RF rosuvastatin 40 mg tablet 40 mg PO BEDTIME metoprolol tartrate 25 mg tablet 25 mg PO BID Patient Comments: Takes at 0900 and 1500 amlodipine 10 mg tablet 5 mg PO BEDTIME carbidopa-levodopa 25-100 mg tablet 1 tab PO TID Patient Comments: Takes at 0900, 1500, 2100 cyanocobalamin (vitamin B-12) 50 mcg Tablet 50 mcg PO DAILY cyclobenzaprine 5 mg tablet 5 mg PO BID Patient Comments: Takes at 0900 and 1500 acetaminophen 325 mg Tablet 650 mg PO Q6H PRN (Reason: Fever/Mild Pain (1-3)) Qty: 30 0RF aspirin 81 mg tablet,delayed release (DR/EC) 81 mg PO QAM fenofibrate micronized 134 mg capsule 134 mg PO QAM levothyroxine 112 mcg tablet 112 mcg PO QAM Referrals: Ulices Wallace MD [Primary Care Provider] - Stand Alone Forms: Patient Portal/API
== END 2024-08-01 22:07 | disposition home or self-care (01) ==
PROVIDERS: Emergency Medicine; Emergency Provider Emergency Medicine; Family Provider Internal Medicine Cardiovascular Disease; PCP Family Medicine
DX: N39.0 Urinary tract infection, site not specified (principal); R00.0 Tachycardia, unspecified; S06.5XAD Traumatic subdural hemorrhage with loss of consciousness status unknown, subsequent encounter
CPT/HCPCS: 36415; 70450; 71045; 80053; 81003; 81015; 83605; 83690; 84145; 85025; 85610; 85730; 87040; 87077; 87086; 87186; 87633; 93005; 96361; 96365; 99284; J0696

== ENCOUNTER → 2024-08-13 12:33 | Outpatient (CLI) | payer MEDICARE, SELFPAY ==
[2024-08-04 14:04] VITALS: BMI 27.2
[2024-08-13 13:18] LABS: Add Manual Diff / Slide Review NO; Basophils Absolute Auto 0 /uL (0-100); Basophils Percent Auto 0.7 % (0-2); Eosinophils Absolute Auto 200 /uL (0-450); Eosinophils Percent Auto 3.6 % (2-4); Hematocrit 42.3 % (41-53); Hemoglobin 14.2 g/dL (13.5-17.5); Lymphocytes Absolute Auto 1000 /uL (1100-4500); Lymphocytes Percent Auto 17.3 % (25-40); Mean Corpuscular HGB Conc 33.6 % (30-36); Mean Corpuscular Hemoglobin 30.9 PG (26-34); Mean Corpuscular Volume 92.2 fL (80-100); Monocytes Absolute Auto 400 /uL (0-900); Monocytes Percent Auto 6.1 % (3-14); Neutrophils Absolute Auto 4400 /uL (1500-7000); Neutrophils Percent Auto 72.3 % (50-75); Platelet Count 305 X10^3/uL (150-400); Red Blood Cell Count 4.58 X10^6/uL (4.5-5.9); Red Cell Distribution Width 13.7 % (11.6-14.8); White Blood Cell Count 6.1 X10^3/uL (4.5-11.0)
[2024-08-13 14:22] LABS: Vitamin B12 Reflex MMA if <400 > 1000 pg/mL (239-931)
== END ==
LOC: LAB 12:34
PROVIDERS: Family Provider Internal Medicine Cardiovascular Disease; PCP Family Medicine; Referring Provider Family Medicine; Visit Provider Family Medicine
DX: R53.1 Weakness (principal); I65.29 Occlusion and stenosis of unspecified carotid artery; I25.10 Atherosclerotic heart disease of native coronary artery without angina pectoris; I10 Essential (primary) hypertension; E03.9 Hypothyroidism, unspecified; F03.90 Unspecified dementia, unspecified severity, without behavioral disturbance, psychotic disturbance, mood disturbance, and anxiety; D58.2 Other hemoglobinopathies
CPT/HCPCS: 36415; 82607; 84443; 85025

== ENCOUNTER 2024-10-17 12:51 | Emergency (ER) | payer MEDICARE, SELFPAY ==
[2024-08-04 14:04] VITALS: BMI 27.2
[2024-10-17 12:55] VITALS: BP 137/78; PULSE 76; RESP 18; TEMP 36.9; O2SAT 98; BMI 24.3
--- NOTE | 2024-10-17 13:03 | DI.CT.S_ITS ---
PROCEDURE: CT CERVICAL SPINE WO CON INDICATIONS: fall/head injury/no thinners TECHNIQUE: Noncontrast 3 mm thick sections acquired from the skull base to the T4 level. Sagittal and coronal reformats were then constructed. For radiation dose reduction, the following was used: automated exposure control, adjustment of mA and/or kV according to patient size. COMPARISON: Located [facility], CT, CT ANGIO CHEST PE PROTOCOL, 04/25/2020, 1:35. Located [facility], CT, CT HEAD/BRAIN WO CON, 10/17/2024, 13:13. FINDINGS: Image quality: Excellent. Bones: No fractures or dislocations. Visualized superior ribs are intact. Advanced multilevel degenerative change can be seen throughout the cervical spine. Focal degenerative change is seen involving the C1-C2 interface anteriorly. Anterior bridging anterior osteophytes can be seen at C2-C3 and C3-C4. There is at least moderate disc space narrowing seen at C3-C4, C4-C5, C5-C6, C6-C7, and C7-T1. Multiple levels of facet hypertrophy can be seen. Incidental note is made of a T4 level hemangioma, which is stable from 2019. Soft tissues: Prevertebral soft tissues are normal in thickness. No paravertebral hematomas. No apical pneumothoraces. Postoperative changes are seen of the anterior inferior neck, with prior thyroidectomy. Atherosclerotic calcification is noted. IMPRESSION: No displaced fracture or traumatic subluxation. Advanced multilevel cervical spine degenerative change can be seen. Dictated by: Carlos Mauricio M.D. on 10/17/2024 at 12:52 Approved by: Carlos Mauricio M.D. on 10/17/2024 at 12:59
--- NOTE | 2024-10-17 13:03 | DI.CT.S_ITS ---
PROCEDURE: CT HEAD/BRAIN WO CON INDICATIONS: fall/head injury/no thinners TECHNIQUE: Noncontrast 4.5 mm thick angled axial sections acquired from the foramen magnum to the vertex, with coronal and sagittal reformats. For radiation dose reduction, the following was used: automated exposure control, adjustment of mA and/or kV according to patient size. COMPARISON: [facility], CT, CT CERVICAL SPINE WO CON, 10/17/2024, 13:13. [facility], MR, MR BRAIN WITHOUT CONTRAST, 04/09/2024, 14:29. [facility], CT, CT HEAD/BRAIN WO CON, 07/30/2024, 19:20. [facility], CT, CT HEAD/BRAIN WO CON, 08/01/2024, 16:37. FINDINGS: Image quality: Diagnostic. CSF spaces: Basal cisterns are patent. The ventricles are asymmetric and decreased in size on the right. However, the degree of asymmetry is improved compared to the prior. 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 This is clearly improved compared to the 08/01/2024 examination. No acute component is seen. No intracranial masses. There is cerebral volume loss for age, with resultant ventricular and sulcal prominence. There are periventricular and deep white matter chronic small vessel ischemic changes. There is intracranial internal carotid artery atherosclerosis. Skull and face: Calvarium and visualized facial bones appear intact, without suspicious lesions. Sinuses: Visualized sinuses and mastoids are clear. IMPRESSION: There is a right-sided subdural hematoma seen, which has improved compared to the prior examination and without acute component. Decreased mass effect seen, with improved size of the right lateral ventricle. Dictated by: Carlos Mauricio M.D. on 10/17/2024 at 12:49 Approved by: Carlos Mauricio M.D. on 10/17/2024 at 12:52
--- NOTE | 2024-10-17 14:15 | ED_ITS ---
HPI - Fall <Loraine Coats PA-C - Last Filed: 10/17/24 18:15> General Chief Complaint: Fall Stated Complaint: Had a fall Time Seen by Provider: 10/17/24 13:41 Source: patient Mode of arrival: Ambulatory History of Present Illness HPI Narrative: Mr. Gutierrez is a very pleasant 88-year-old male with a past medical history of 10/3 subdural hematoma managed by neurology, dementia, Parkinson's, hypertension, CAD, BPH who presents to the emergency department with his for a fall versus syncope that occurred at 2:00 a.m. this morning. Patient's reports that she heard a loud thump at 2:00 a.m. and immediately ran to her 's room and found him lying on the ground next to his bed. The back of his head was bleeding. Patient was not unconscious but he did not recall the events of the fall. She subsequently put him back into bed and he went back to sleep however this morning they present to the ER for further evaluation of the event and also the injury. This time patient denies any pain or concerns except for the laceration on the back of his scalp. Of note, the states that yesterday was his last day taking carbidopa-levodopa. Denies any other medication changes recently. Denies dysuria, chest pain, shortness of breath, fevers, chills, abdominal pain, nausea, vomiting, diarrhea. He is often incontinent of urine. Related Data Home Medications Medication Instructions Recorded Confirmed ascorbic acid (vitamin C) 1,000 mg 1,000 mg PO DAILY ##0 04/17/13 09/01/24 tablet cholecalciferol (vitamin D3) 25 25 mcg PO DAILY ##0 04/17/13 09/01/24 mcg (1,000 unit) tablet rosuvastatin 40 mg tablet 40 mg PO BEDTIME 11/18/20 09/01/24 cyanocobalamin (vitamin B-12) 50 50 mcg PO DAILY 11/02/23 09/01/24 mcg tablet amlodipine 10 mg tablet 5 mg PO BEDTIME 05/05/24 09/01/24 carbidopa 25 mg-levodopa 100 mg 1 tab PO TID 05/05/24 09/01/24 tablet metoprolol tartrate 25 mg tablet 25 mg PO BID 05/05/24 09/01/24 cyclobenzaprine 5 mg tablet 5 mg PO BID 06/01/24 09/01/24 fenofibrate micronized 134 mg 134 mg PO QAM 07/30/24 09/01/24 capsule levothyroxine 112 mcg tablet 112 mcg PO QAM 07/30/24 09/01/24 Previous Rx's Medication Instructions Recorded lisinopril 20 mg tablet 20 mg PO DAILY #90 tabs 07/08/23 acetaminophen 325 mg tablet 650 mg (2 x 325 mg) PO Q6H PRN 06/05/24 Fever/Mild Pain (1-3) #30 tabs quetiapine 25 mg tablet (Seroquel) 12.5 mg (1/2 x 25 mg) PO BEDTIME 08/22/24 #45 tabs Disabled Parking Permit #1 ea 09/01/24 Allergies Allergy/AdvReac Type Severity Reaction Status Date / Time No Known Drug Allergies Allergy Verified 09/01/24 10:50 Review of Systems <Loraine Coats PA-C - Last Filed: 10/17/24 18:15> Review of Systems ROS Unobtainable: All systems reviewed & are unremarkable except as noted in HPI and below Patient History <Loraine Coats PA-C - Last Filed: 10/17/24 18:15> Medical History SDH (subdural hematoma) Dementia Carotid artery stenosis Chronic back pain (~1958) Thyroid nodule Thyroid cancer (~1964) BPH without obstruction/lower urinary tract symptoms Subconjunctival hemorrhage of left eye Coronary artery disease LAFB (left anterior fascicular block) RBBB Hyperlipidemia, unspecified (01/29/12) Hypothyroidism Hypertension Surgical History Anesthesia S/P coronary artery stent placement (~05/2020) History of vasectomy History of thyroidectomy (~1964) Status post laminectomy Status post tonsillectomy and adenoidectomy History of knee replacement Status post appendectomy (~1969) Family History Father Family history of NC (myocardial infarction) Hypertension Mother Family history of cerebrovascular accident (CVA) History of heart disease Hypertension Social History marital status: number of children: 2 household members: spouse occupational status: previously employed Smoking Status: Former smoker alcohol intake: current caffeine: No Smoking Status: Former smoker alcohol intake frequency: 0-2 drinks per day Alcohol type: hard liquor Exam <Loraine Coats PA-C - Last Filed: 10/17/24 18:15> Narrative Exam Narrative: GENERAL: 88 year old patient appears stated age. Well-developed patient, in no acute distress. HEAD: Normocephalic. Approximately 1 cm laceration on the occipital scalp, no active bleeding at this time. EYES: PERRL. Extraocular motions intact. No scleral icterus. No injection or drainage. ENT: Nose without bleeding, purulent drainage. Throat without erythema, tonsillar hypertrophy or exudate. Airway patent. NECK: Trachea midline. Cervical ROM intact. No midline cervical tenderness. CARDIOVASCULAR: Regular rate and rhythm. RESPIRATORY: ?Nonlabored respirations. ?Speaking in clear, full sentences. ?Clear to auscultation. Breath sounds equal bilaterally. No wheezes. GASTROINTESTINAL: Abdomen soft, non-tender, nondistended. EXTREMITIES: No edema or joint tenderness. Chronic deformity of right shoulder. BACK: Nontender without deformity or crepitance. No flank tenderness. NEURO: AOx3. ?Clear speech. ?Moves all 4 extremities appropriately. No facial asymmetry. Initial Vital Signs Initial Vital Signs: Vital Signs Temperature 98.4 F 10/17/24 12:55 Pulse Rate 76 10/17/24 12:55 Respiratory Rate 18 10/17/24 12:55 Blood Pressure 137/78 10/17/24 12:55 Pulse Oximetry 98 10/17/24 12:55 Oxygen Delivery Method Room Air 10/17/24 12:55 <Matt Juárez MD - Last Filed: 10/17/24 20:50> Initial Vital Signs Initial Vital Signs: Vital Signs Temperature 98.4 F 10/17/24 12:55 Pulse Rate 76 10/17/24 12:55 Respiratory Rate 18 10/17/24 12:55 Blood Pressure 137/78 10/17/24 12:55 Pulse Oximetry 98 10/17/24 12:55 Oxygen Delivery Method Room Air 10/17/24 12:55 Procedures <Loraine Coats PA-C - Last Filed: 10/17/24 18:15> Laceration Repair Laceration 1: Time of procedure: 16:05 Site: scalp Size (cm): 1 Description: linear Depth: simple, single layer Skin layer closed with: dermabond Course <Loraine Coats PA-C - Last Filed: 10/17/24 18:15> Orders Ordered: ED Orders 10/17/24 13:03 CT cervical spine wo con Stat CT head/brain wo con Stat 10/17/24 14:30 XR chest 1V Stat 10/17/24 14:31 EKG-12 Lead Stat 10/17/24 14:57 COVID19 -Nasal RAPID Stat Complete Blood Count AUTO DIFF Stat Comprehensive Metabolic Panel Stat PTT Partial Thromboplastin Donald Stat Prothrombin Time INR Stat Troponin & CK Cardiac Panel Stat 10/17/24 16:58 Urinalysis and Microscopic Stat Urine Culture Stat Discontinued Medications Acetaminophen (Acetaminophen 325 Mg Tablet) 650 mg PO NOW ONE Stop: 10/17/24 14:31 Last Admin: 10/17/24 15:14 Dose: 650 mg Documented By: JASEN Vital Signs Vital signs: Vital Signs - 8 hr 10/17/24 12:55 Temperature 98.4 F Pulse Rate 76 Respiratory Rate 18 Blood Pressure 137/78 Pulse Oximetry 98 Oxygen Delivery Method Room Air <Matt Juárez MD - Last Filed: 10/17/24 20:50> Orders Ordered: ED Orders 10/17/24 13:03 CT cervical spine wo con Stat CT head/brain wo con Stat 10/17/24 14:30 XR chest 1V Stat 10/17/24 14:31 EKG-12 Lead Stat 10/17/24 14:57 COVID19 -Nasal RAPID Stat Complete Blood Count AUTO DIFF Stat Comprehensive Metabolic Panel Stat PTT Partial Thromboplastin Donald Stat Prothrombin Time INR Stat Troponin & CK Cardiac Panel Stat 10/17/24 16:58 Urinalysis and Microscopic Stat Urine Culture Stat Discontinued Medications Acetaminophen (Acetaminophen 325 Mg Tablet) 650 mg PO NOW ONE Stop: 10/17/24 14:31 Last Admin: 10/17/24 15:14 Dose: 650 mg Documented By: JASEN Vital Signs Vital signs: Vital Signs - 8 hr 10/17/24 12:55 Temperature 98.4 F Pulse Rate 76 Respiratory Rate 18 Blood Pressure 137/78 Pulse Oximetry 98 Oxygen Delivery Method Room Air MDM - Fall <Loraine Sarmientoco, PA-C - Last Filed: 10/17/24 18:15> Medical Records Attestation: I reviewed the patient's medical records. Lab Data 10/17/24 14:57 10/17/24 14:57 Labs: Lab Results 10/17/24 10/17/24 Range/Units 14:57 16:58 WBC 6.3 (4.5-11.0) X10^3/uL RBC 5.16 (4.5-5.9) X10^6/uL Hgb 15.4 (13.5-17.5) g/dL Hct 46.9 (41-53) % MCV 90.8 (80-100) fL MCH 29.8 (26-34) PG MCHC 32.8 (30-36) % RDW 14.6 (11.6-14.8) % Plt Count 151 (150-400) X10^3/uL Neut % (Auto) 72.0 (50-75) % Lymph % (Auto) 15.7 L (25-40) % Bibb % (Auto) 7.4 (3-14) % Eos % (Auto) 4.0 (2-4) % Baso % (Auto) 0.9 (0-2) % Neut # (Auto) 4500 (9604-6128) /uL Lymph # (Auto) 1000 L (7820-7035) /uL Bibb # (Auto) 500 (0-900) /uL Eos # (Auto) 300 (0-450) /uL Baso # (Auto) 100 (0-100) /uL PT 11.5 (9.4-12.5) SECONDS INR 1.0 (0.9-1.3) APTT 33 (25.1-36.5) SECONDS Sodium 142 (137-145) mmol/L Potassium 4.2 (3.4-5.1) mmol/L Chloride 109 H (98-107) mmol/L Carbon Dioxide 27 (22-32) mmol/L BUN 26 H (9-20) mg/dL Creatinine 0.98 (0.66-1.25) mg/dL Estimated GFR > 60 (>60) mL/min BUN/Creatinine Ratio 26.5 H (6-22) Glucose 92 (80-110) mg/dL Calcium 9.6 (8.4-10.2) mg/dL Total Bilirubin 0.8 (0.2-1.3) mg/dL AST 42 (17-59) IU/L ALT 34 (<50) IU/L Alkaline Phosphatase 66 (38-126) U/L Total Creatine Kinase 49 L (55-170) U/L Troponin I < 0.012 (0.01-0.034) ng/mL Total Protein 7.0 (6.3-8.2) g/dL Albumin 4.3 (3.5-5.0) g/dL Globulin 2.7 (1.7-4.1) g/dL Albumin/Globulin Ratio 1.6 (1.0-2.8) Urine Color Yellow Urine Appearance Clear Urine pH 6.0 (4.5-8.0) Ur Specific [place] >=1.030 H (1.000-1.035) Urine Protein Trace H (Negative) Urine Glucose (UA) Negative (Negative) g/dL Urine Ketones Negative (NEGATIVE) Urine Occult Blood Negative (Negative) Urine Nitrate Negative (Negative) Urine Bilirubin Negative (NEGATIVE) Urine Urobilinogen 1.0 (0.2) E.U./dL Ur Leukocyte Esterase Negative (NEGATIVE) Urine RBC None seen (0-5/HPF) Urine WBC 0-1/hpf (0-5/HPF) Ur Squamous Epith Cells 0-1 /hpf (0-5/HPF) Urine Bacteria Moderate (10-30) H (None) Urine Mucus 2+ H (Negative) Ur Culture Indicated? Cult not indicated Vol Urine Centrifuged 10ml (spun) SARS-CoV-2 (PCR) Negative (Negative) Imaging Data CT scan - head: Radiologist's Impression: PROCEDURE: CT HEAD/BRAIN WO CON INDICATIONS: fall/head injury/no thinners TECHNIQUE: Noncontrast 4.5 mm thick angled axial sections acquired from the foramen magnum to the vertex, with coronal and sagittal reformats. For radiation dose reduction, the following was used: automated exposure control, adjustment of mA and/or kV according to patient size. COMPARISON: [facility], CT, CT CERVICAL SPINE WO CON, 10/17/2024, 13:13. [facility], MR, MR BRAIN WITHOUT CONTRAST, 04/09/2024, 14:29. [facility], CT, CT HEAD/BRAIN WO CON, 07/30/2024, 19:20. [facility], CT, CT HEAD/BRAIN WO CON, 08/01/2024, 16:37. FINDINGS: Image quality: Diagnostic. CSF spaces: Basal cisterns are patent. The ventricles are asymmetric and decreased in size on the right. However, the degree of asymmetry is improved compared to the prior. 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 This is clearly improved compared to the 08/01/2024 examination. No acute component is seen. No intracranial masses. There is cerebral volume loss for age, with resultant ventricular and sulcal prominence. There are periventricular and deep white matter chronic small vessel ischemic changes. There is intracranial internal carotid artery atherosclerosis. Skull and face: Calvarium and visualized facial bones appear intact, without suspicious lesions. Sinuses: Visualized sinuses and mastoids are clear. IMPRESSION: There is a right-sided subdural hematoma seen, which has improved compared to the prior examination and without acute component. Decreased mass effect seen, with improved size of the right lateral ventricle. CT - cervical spine: Radiologist's Impression: PROCEDURE: CT CERVICAL SPINE WO CON INDICATIONS: fall/head injury/no thinners TECHNIQUE: Noncontrast 3 mm thick sections acquired from the skull base to the T4 level. Sagittal and coronal reformats were then constructed. For radiation dose reduction, the following was used: automated exposure control, adjustment of mA and/or kV according to patient size. COMPARISON: [facility], CT, CT ANGIO CHEST PE PROTOCOL, 04/25/2020, 1:35. [facility], CT, CT HEAD/BRAIN WO CON, 10/17/2024, 13:13. FINDINGS: Image quality: Excellent. Bones: No fractures or dislocations. Visualized superior ribs are intact. Advanced multilevel degenerative change can be seen throughout the cervical spine. Focal degenerative change is seen involving the C1-C2 interface anteriorly. Anterior bridging anterior osteophytes can be seen at C2-C3 and C3-C4. There is at least moderate disc space narrowing seen at C3-C4, C4-C5, C5-C6, C6-C7, and C7-T1. Multiple levels of facet hypertrophy can be seen. Incidental note is made of a T4 level hemangioma, which is stable from 2019. Soft tissues: Prevertebral soft tissues are normal in thickness. No paravertebral hematomas. No apical pneumothoraces. Postoperative changes are seen of the anterior inferior neck, with prior thyroidectomy. Atherosclerotic calcification is noted. IMPRESSION: No displaced fracture or traumatic subluxation. Advanced multilevel cervical spine degenerative change can be seen. MDM Narrative Medical decision making narrative: 88-year-old male with a past medical history of 07/30/24 subdural hematoma managed by neurology, dementia, Parkinson's, hypertension, CAD, BPH who presents to the emergency department with his for a fall versus syncope that occurred at 2:00 a.m. this morning. Differential diagnosis includes but is not limited to mechanical fall, laceration, syncope, electrolyte abnormality, intracranial abnormality, subdural, UTI, arrhythmia, polypharmacy, medication side effect etc. On exam the patient is in no acute distress, nontoxic-appearing, all vital signs within normal limits. Is alert and oriented at this time. No tremor. Laceration on the occipital scalp with no active bleeding. Otherwise no focal neurologic deficits. is at the bedside. Concern for syncope versus fall out of bed at 2:00 a.m. as it was unwitnessed and patient can not recall the details of the event. reports he is at his baseline mental status right now. She is worried fall was a result of discontinuation of his carbidopa levodopa as today was the 1st day without it. States that neurology discontinued it however they discontinued it once in the past and he had a subsequent fall as well Record review reveals patient's Tdap was updated in 2019. He was here in the ER 07/30/2024 with an acute subdural hematoma. He was also here on 08/04/2024 with an episode of syncope and was admitted to observation at that time and of note patient becomes agitated at night with no memory of these events. ECG at that time showed bifascicular block. He was subsequently discharged home on 08/05/2024 with treatment for UTI. Head and neck CT were ordered in the waiting room. Syncope labs including EKG, chest x-ray, troponin, CBC, CMP and UA ordered at this time. CT cervical spine reveals no displaced fracture or traumatic subluxation. He does have advanced multilevel cervical spine degenerative changes. CT head reveals there is a right-sided subdural hematoma which has improved compared to the prior examination and without acute component. There is decreased mass effect seen with improve size of the right lateral ventricle. Case was discussed with attending ER physician. ECG reviewed and compared with prior 08/04/2024 with no apparent acute changes. 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 Discussed this with the patient and his who understand the importance of following up with PCP for further evaluation however stable at this time. Chest x-ray reveals no acute cardiothoracic process. Labs reveal negative troponin. Fall occurred greater than 12 hours ago and patient is symptom free therefore no repeat troponin warranted. Normal WBC count 6.3, hemoglobin 15.4 hematocrit 46.9. Sodium 142 potassium 4.2. Chloride 109. BUN 26 and creatinine 0.98 much improved from prior however BUN creatinine ratio is slightly elevated at 26.5. Patient provided with water bottle encouraged hydrate. Negative COVID. UA with bacteria but no WBCs, leuks or nitrate. Patient without dysuria. Urine culture sent, we will not treat at this time. Patient remained stable during emergency department stay and him and his are requesting discharge home. They are concerned that his fall as a result of discontinuation of carbidopa levodopa. He was previously taking this 3 times a day. I recommended he call his neurologist for follow up appointment as soon as possible. In the meantime we did discuss that he may resume his carbidopa levodopa as he has only been off of it for 1 day. Recommend that he only take it once daily though rather than resuming full 3 times daily as he did do a taper down to once daily. Very superficial abrasion on posterior scalp was cleansed and repaired using Dermabond. Discussed prompt follow up with PCP, neurology. Discussed ER return precautions. Patient his verbalized understanding of all information. He is stable for discharge home. <Matt Juárez MD - Last Filed: 10/17/24 20:50> Lab Data Labs: Lab Results 10/17/24 10/17/24 Range/Units 14:57 16:58 WBC 6.3 (4.5-11.0) X10^3/uL RBC 5.16 (4.5-5.9) X10^6/uL Hgb 15.4 (13.5-17.5) g/dL Hct 46.9 (41-53) % MCV 90.8 (80-100) fL MCH 29.8 (26-34) PG MCHC 32.8 (30-36) % RDW 14.6 (11.6-14.8) % Plt Count 151 (150-400) X10^3/uL Neut % (Auto) 72.0 (50-75) % Lymph % (Auto) 15.7 L (25-40) % Bibb % (Auto) 7.4 (3-14) % Eos % (Auto) 4.0 (2-4) % Baso % (Auto) 0.9 (0-2) % Neut # (Auto) 4500 (3895-6395) /uL Lymph # (Auto) 1000 L (2345-9362) /uL Bibb # (Auto) 500 (0-900) /uL Eos # (Auto) 300 (0-450) /uL Baso # (Auto) 100 (0-100) /uL PT 11.5 (9.4-12.5) SECONDS INR 1.0 (0.9-1.3) APTT 33 (25.1-36.5) SECONDS Sodium 142 (137-145) mmol/L Potassium 4.2 (3.4-5.1) mmol/L Chloride 109 H (98-107) mmol/L Carbon Dioxide 27 (22-32) mmol/L BUN 26 H (9-20) mg/dL Creatinine 0.98 (0.66-1.25) mg/dL Estimated GFR > 60 (>60) mL/min BUN/Creatinine Ratio 26.5 H (6-22) Glucose 92 (80-110) mg/dL Calcium 9.6 (8.4-10.2) mg/dL Total Bilirubin 0.8 (0.2-1.3) mg/dL AST 42 (17-59) IU/L ALT 34 (<50) IU/L Alkaline Phosphatase 66 (38-126) U/L Total Creatine Kinase 49 L (55-170) U/L Troponin I < 0.012 (0.01-0.034) ng/mL Total Protein 7.0 (6.3-8.2) g/dL Albumin 4.3 (3.5-5.0) g/dL Globulin 2.7 (1.7-4.1) g/dL Albumin/Globulin Ratio 1.6 (1.0-2.8) Urine Color Yellow Urine Appearance Clear Urine pH 6.0 (4.5-8.0) Ur Specific [place] >=1.030 H (1.000-1.035) Urine Protein Trace H (Negative) Urine Glucose (UA) Negative (Negative) g/dL Urine Ketones Negative (NEGATIVE) Urine Occult Blood Negative (Negative) Urine Nitrate Negative (Negative) Urine Bilirubin Negative (NEGATIVE) Urine Urobilinogen 1.0 (0.2) E.U./dL Ur Leukocyte Esterase Negative (NEGATIVE) Urine RBC None seen (0-5/HPF) Urine WBC 0-1/hpf (0-5/HPF) Ur Squamous Epith Cells 0-1 /hpf (0-5/HPF) Urine Bacteria Moderate (10-30) H (None) Urine Mucus 2+ H (Negative) Ur Culture Indicated? Cult not indicated Vol Urine Centrifuged 10ml (spun) SARS-CoV-2 (PCR) Negative (Negative) Discharge Plan Departure Patient Disposition: Home Clinical Impression: Unwitnessed fall, History of subdural hematoma, Bacteriuria Laceration of scalp Qualifiers: Encounter type: initial encounter Qualified Code(s): S01.01XA - Laceration without foreign body of scalp, initial encounter Instructions: DI for Laceration Repair of the Scalp Activity Restrictions/Additional Instructions: Today we completed a workup for an unwitnessed fall. Head CT revealed no new abnormalities. There is a prior subdural hematoma which has improved compared to priors. Lab work is overall reassuring with negative cardiac enzymes. Mr. Gutierrez does have some chronic abnormal EKG changes which it is important he follows up with his primary care doctor for. With a laceration on his scalp, Dermabond or skin glue was applied. Please keep this laceration clean and dry and avoid peeling off the glue. As discussed, please call your neurologist to discuss last night's fall and concernethat it may be related to his change in medication. Do not resume taking carbidopa-levodopa 3 times a day but you may resume taking it once daily until he can be evaluated by his neurologist. Please follow up with your primary care doctor within the next 2-3 days for ER follow-up. (If you do not have a PCP you can call [phone]. ?to schedule an appointment with an [facility] Primary Care Provider) IF YOU DEVELOP ANY NEW OR WORSENING SYMPTOMS, RETURN TO THE ER! Please read the attached instructions, they highlight more specific treatments and interventions for you at home. Thank you for letting me participate in your care, Loraine Coats PA-C Prescriptions: No Action ascorbic acid (vitamin C) 1,000 mg Tablet 1,000 mg PO DAILY Qty: 0 cholecalciferol (vitamin D3) 25 mcg (1,000 unit) Tablet 25 mcg PO DAILY Qty: 0 lisinopril 20 mg tablet 20 mg PO DAILY Qty: 90 3RF Rx Instructions: takes around 1500 quetiapine [Seroquel] 25 mg tablet 12.5 mg PO BEDTIME Qty: 45 1RF rosuvastatin 40 mg tablet 40 mg PO BEDTIME Hold Instructions: patients states shes not aware of this med metoprolol tartrate 25 mg tablet 25 mg PO BID Patient Comments: Takes at 0900 and 1500 amlodipine 10 mg tablet 5 mg PO BEDTIME carbidopa-levodopa 25-100 mg tablet 1 tab PO TID Patient Comments: Takes at 0900, 1500, 2100 (DME) Disabled Parking Permit See Rx Instructions .ROUTE .MEDSUPPLY Qty: 1 0RF Rx Instructions: I find this patient to be medically disabled and qualified for Disabled Parking as indicated and signed on the accompanying Disabled Parking Application for Individuals. cyanocobalamin (vitamin B-12) 50 mcg Tablet 50 mcg PO DAILY cyclobenzaprine 5 mg tablet 5 mg PO BID Patient Comments: Takes at 0900 and 1500 acetaminophen 325 mg Tablet 650 mg PO Q6H PRN (Reason: Fever/Mild Pain (1-3)) Qty: 30 0RF fenofibrate micronized 134 mg capsule 134 mg PO QAM levothyroxine 112 mcg tablet 112 mcg PO QAM Referrals: Ulices Wallace MD [Primary Care Provider] - Stand Alone Forms: Patient Portal/API/Survey ED Sign-out <Matt Juárez MD - Last Filed: 10/17/24 20:50> Cosign ED Attending Cosignature Attestation: I was immediately available in the department for consultation. This documentation has been reviewed and I agree with assessment and plan. Supervised by Matt Juárez MD
--- NOTE | 2024-10-17 14:30 | DI.RAD.S_ITS ---
PROCEDURE: XR CHEST 1V INDICATIONS: syncope TECHNIQUE: One view of the chest was acquired. COMPARISON: [facility], CR, XR CHEST 1V, 08/04/2024, 10:05. [facility], CR, XR CHEST 1V, 08/01/2024, 16:33. [facility], CR, XR CHEST 1V, 07/30/2024, 17:11. [facility], CR, XR CHEST 1V, 07/07/2023, 21:00. FINDINGS: Surgical changes and devices: Supraclavicular surgical clips. Lungs and pleura: Lungs are clear. No pleural effusions or pneumothorax. Mediastinum: Aortic arch calcifications. Mediastinal contours otherwise appear normal. Heart size is normal. Bones and chest wall: No suspicious bony lesions. Overlying soft tissues appear unremarkable. IMPRESSION: No acute cardiothoracic process. Dictated by: Edgar Capone M.D. on 10/17/2024 at 15:27 Approved by: Edgar Capone M.D. on 10/17/2024 at 15:28
--- NOTE | 2024-10-17 14:58 | EKG_ITS ---
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
[2024-10-17 15:10] LABS: Add Manual Diff / Slide Review NO; Basophils Absolute Auto 100 /uL (0-100); Basophils Percent Auto 0.9 % (0-2); Eosinophils Absolute Auto 300 /uL (0-450); Hematocrit 46.9 % (41-53); Hemoglobin 15.4 g/dL (13.5-17.5); Lymphocytes Absolute Auto 1000 /uL (1100-4500); Lymphocytes Percent Auto 15.7 % (25-40); Mean Corpuscular HGB Conc 32.8 % (30-36); Mean Corpuscular Hemoglobin 29.8 PG (26-34); Mean Corpuscular Volume 90.8 fL (80-100); Monocytes Absolute Auto 500 /uL (0-900); Monocytes Percent Auto 7.4 % (3-14); Neutrophils Absolute Auto 4500 /uL (1500-7000); Platelet Count 151 X10^3/uL (150-400); Red Blood Cell Count 5.16 X10^6/uL (4.5-5.9); Red Cell Distribution Width 14.6 % (11.6-14.8); White Blood Cell Count 6.3 X10^3/uL (4.5-11.0)
[2024-10-17] MEDS: ACETAMINOPHEN 325 MG TABLET 650 MG PO (15:14)
[2024-10-17 15:19] LABS: Prothrombin Time 11.5 SECONDS (9.4-12.5)
[2024-10-17 15:21] LABS: COVID19 -Nasal RAPID Negative (Negative); PTT Partial Thromboplastin Tim 33 SECONDS (25.1-36.5)
[2024-10-17 15:26] LABS: Alanine Aminotransferase 34 IU/L (<50); Albumin 4.3 g/dL (3.5-5.0); Albumin Globulin Ratio 1.6 (1.0-2.8); Alkaline Phosphatase 66 U/L (38-126); Aspartate Aminotransferase 42 IU/L (17-59); BUN Creatinine Ratio 26.5 (6-22); Bilirubin Total 0.8 mg/dL (0.2-1.3); Blood Urea Nitrogen 26 mg/dL (9-20); Calcium 9.6 mg/dL (8.4-10.2); Carbon Dioxide 27 mmol/L (22-32); Chloride 109 mmol/L (98-107); Creatine Kinase 49 U/L (55-170); Estimated Glomerular Filt Rate > 60 mL/min (>60); Globulin 2.7 g/dL (1.7-4.1); Glucose 92 mg/dL (80-110); HEMOLYSIS 25 (0-50); Potassium 4.2 mmol/L (3.4-5.1); Sodium 142 mmol/L (137-145)
[2024-10-17 15:37] LABS: Troponin I < 0.012 ng/mL (0.01-0.034)
[2024-10-17 17:13] LABS: Appearance Urine UA CLEAR; Bilirubin Urine UA NEGATIVE (NEGATIVE); Color Urine UA YELLOW; Glucose Urine UA NEGATIVE (Negative); Ketones Urine UA NEGATIVE (NEGATIVE); Leukocyte Esterase Urine UA NEGATIVE (NEGATIVE); Nitrite Urine UA NEGATIVE (Negative); Occult Blood Urine UA NEGATIVE (Negative); Protein Urine UA TRACE (Negative); Specific Gravity Urine UA >=1.030 (1.000-1.035)
[2024-10-17 17:32] LABS: Bacteria Urine Moderate (10-30); Culture Indicated Urine Cult Not Indicated; Mucus Urine 2+ (Negative); RBC Urine None Seen (0-5/HPF); Squamous Epithelial Cell Urine 0-1 /HPF (0-5/HPF); Urine Volume 10mL (spun); WBC Urine 0-1/HPF (0-5/HPF)
== END 2024-10-17 17:54 | disposition home or self-care (01) ==
PROVIDERS: Emergency Provider Physician Assistant; Family Provider Internal Medicine Cardiovascular Disease; PCP Family Medicine
DX: S01.01XA Laceration without foreign body of scalp, initial encounter (principal); W18.30XA Fall on same level, unspecified, initial encounter; R82.71 Bacteriuria; Z86.79 Personal history of other diseases of the circulatory system; Z79.899 Other long term (current) drug therapy
CPT/HCPCS: 12001; 70450; 71045; 72125; 80053; 81001; 82550; 84484; 85025; 85610; 85730; 87086; 87635; 93005; 99283; 99284

== ENCOUNTER → 2024-10-30 12:04 | Outpatient (CLI) | payer MEDICARE, SELFPAY ==
[2024-08-04 14:04] VITALS: BMI 27.2
[2024-10-30 14:27] LABS: Alanine Aminotransferase 31 IU/L (<50); Albumin Globulin Ratio 1.7 (1.0-2.8); Alkaline Phosphatase 52 U/L (38-126); Aspartate Aminotransferase 46 IU/L (17-59); BUN Creatinine Ratio 22.4 (6-22); Bilirubin Total 0.8 mg/dL (0.2-1.3); Blood Urea Nitrogen 32 mg/dL (9-20); Calcium 9.6 mg/dL (8.4-10.2); Carbon Dioxide 22 mmol/L (22-32); Chloride 109 mmol/L (98-107); Estimated Glomerular Filt Rate 47 mL/min (>60); Globulin 2.4 g/dL (1.7-4.1); Glucose 93 mg/dL (80-110); Sodium 140 mmol/L (137-145); Total Protein 6.4 g/dL (6.3-8.2)
[2024-10-30 14:30] LABS: HEMOLYSIS 102 (0-50); Potassium 5.7 mmol/L (3.4-5.1)
[2024-10-30 14:54] LABS: TSH w/ Reflex to FT4 0.42 uIU/mL (0.47-4.68)
[2024-10-30 15:31] LABS: Free T4, Direct Thyroxine 1.61 ng/dL (0.78-2.19)
== END ==
PROVIDERS: Family Provider Internal Medicine Cardiovascular Disease; PCP Family Medicine; Referring Provider Family Medicine; Visit Provider Family Medicine
DX: I10 Essential (primary) hypertension (principal); G91.2 (Idiopathic) normal pressure hydrocephalus; E86.0 Dehydration
CPT/HCPCS: 36415; 80053; 84439; 84443

== ENCOUNTER → 2024-11-02 08:32 | Outpatient (CLI) | payer MEDICARE, SELFPAY ==
[2024-08-04 14:04] VITALS: BMI 27.2
[2024-11-02 10:51] LABS: Alanine Aminotransferase 26 IU/L (<50); Albumin 3.9 g/dL (3.5-5.0); Albumin Globulin Ratio 1.8 (1.0-2.8); Alkaline Phosphatase 58 U/L (38-126); Aspartate Aminotransferase 33 IU/L (17-59); Bilirubin Total 0.6 mg/dL (0.2-1.3); Blood Urea Nitrogen 30 mg/dL (9-20); Calcium 9.9 mg/dL (8.4-10.2); Carbon Dioxide 27 mmol/L (22-32); Chloride 106 mmol/L (98-107); Estimated Glomerular Filt Rate 58 mL/min (>60); Globulin 2.2 g/dL (1.7-4.1); Glucose 93 mg/dL (80-110); HEMOLYSIS < 15 (0-50); Potassium 4.4 mmol/L (3.4-5.1); Sodium 139 mmol/L (137-145); Total Protein 6.1 g/dL (6.3-8.2)
== END ==
PROVIDERS: Family Provider Internal Medicine Cardiovascular Disease; PCP Family Medicine; Referring Provider Family Medicine; Visit Provider Family Medicine
DX: E87.5 Hyperkalemia (principal)
CPT/HCPCS: 36415; 80053

== ENCOUNTER 2024-11-26 09:00 | Outpatient (RCR) | payer MEDICARE, SELFPAY ==
[2024-08-04 14:04] VITALS: BMI 27.2
--- NOTE | 2024-10-07 16:32 | PT.OIE ---
Current Diagnoses Parkinsonism, unspecified (10/07/24) Past Medical History (Last Updated 08/18/24 @ 10:26 by Ulices Wallace MD) BPH without obstruction/lower urinary tract symptoms Carotid artery stenosis Chronic back pain (~1958) Coronary artery disease Dementia Hyperlipidemia, unspecified (01/29/12) Hypertension Hypothyroidism LAFB (left anterior fascicular block) RBBB SDH (subdural hematoma) Subconjunctival hemorrhage of left eye Thyroid cancer (~1964) Thyroid nodule Past Surgical History (Last Reviewed 08/04/24 @ 14:24 by Jose Alas MD) Anesthesia History of knee replacement History of thyroidectomy (~1964) History of vasectomy S/P coronary artery stent placement (~05/2020) Status post appendectomy (~1969) Status post laminectomy Status post tonsillectomy and adenoidectomy Visit Care Team Role Provider Type Ulices Wallace MD Primary Care Provider Physician Specialty: Family Practice Address: [address] [place] [address], [id number] Email: [email or web address] Lashonda Phelps MD Family Provider Physician Specialty: Cardiology Address: [address] [place] [address], [address], [place], [address] Email: [email or web address] Reina Mohan MD Attending Provider Non-Staff Referring Provider Specialty: Psychiatry Address: [address] [place], [address] Fax: Email: Physical Therapy Initial Evaluation PT-OP-A Visit Information Start: 09/24/24 11:32 Freq: Status: Active Protocol: Document 10/07/24 13:45 MB (Rec: 10/07/24 14:23 MB [id number]) Out-Patient Physical Therapy Visit Information Visit Information Visit Type Initial Evaluation Visit Note Pt goes by Jeff is Natty Visit Start Time 13:45 Visit Stop Time 14:25 Visit Number 1 Number of DIRECTOR OF CASEWORK SERVICES Visits 0 Evaluation Information Evaluation Date 10/07/24 PT-OP-B Current Condition Start: 09/24/24 11:32 Freq: Status: Active Protocol: Document 10/07/24 13:45 MB (Rec: 10/07/24 14:23 MB [id number]) Current Condition History of Current Condition Onset Date 05/20, mobility issues for 6 months Current Complaints Cognitive and mobility challenges History of Current Condition provides all history and pt is very hypoverbal. Recent IMAN scan was negative with movement specialist stating pt does not have PD. Pt had a history of falls with several falls and d/c from PT in July of 2024. He was also orthostatic during that time. Pt and report that pt has only had no more falls since July. Pt had one evening of confusion in 09/20 when he was confused, got dressed and was ready to leave the house and called EMT . said HHPT was not that helpful. She no longer has caregiver assistance. She occ has caregivers come in to stay with pt when she goes out to meetings. At some point, pt hit his head and he had a hematoma on testing. This might have been the fall off the toilet. Pt also had fall and right posterior hip hemiarthroplasty after hip fracture. He was WBAT and took him home from the hospital. This was in May 2024. Pt is not using AD. PMH includes B TKRs. They see doctor over Telehealth on the and she will ask about con't carbidopa levodopa. 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 On the report that PT has access to, there is no mention of ventricular enlargement in the report. assists with ADLs. Treatment Goals Patient/Caregiver Goals To be able to walk and move better. PT-OP-C Subjective Start: 09/24/24 11:32 Freq: Status: Active Protocol: Document 10/07/24 13:45 MB (Rec: 10/07/24 14:23 MB [id number]) OP-PT Subjective Patient Comments Patient Comments See history of current condition PT-OP-D Balance Start: 09/24/24 11:32 Freq: Status: Active Protocol: Document 10/07/24 13:45 MB (Rec: 10/07/24 16:29 MB [id number]) Balance Tests Other Other Balance Tests Performed TUG: pt requires four attempts today d/t poor command- following and kicking the cone over, turning too sharply, LOB, or cutting distance short , finally 14 sec to complete test, indicating increased risk for falls PT-OP-G Mobility & Gait Start: 09/24/24 11:32 Freq: Status: Active Protocol: Document 10/07/24 13:45 MB (Rec: 10/07/24 16:29 MB [id number]) OP Gait Assessment Comments Gait Comments Gait without AD: decreased step-length and foot clearance and little arm swing and when cued, can swing arms more and exagerrates bigger steps/ picking up feet. Gait is more festinating and is NOT magnetic in nature at any point during assessment PT-OP-H Neuro Start: 09/24/24 11:32 Freq: Status: Active Protocol: Document 10/07/24 13:45 MB (Rec: 10/07/24 16:29 MB [id number]) Coordination Evaluation Upper Extremity Tests Left Finger to Nose Test Moderate Impairment Pronation/Supination Test Severe Impairment Right Finger to Nose Test Minimal Impairment Pronation/Supination Test Severe Impairment Lower Extremity Tests Left Heel on Arroyo Test Severe Impairment Right Heel on Arroyo Test Severe Impairment Comments Coordination Comments Poor command following ability PT-OP-Q Treatments Start: 09/24/24 11:32 Freq: Status: Active Protocol: Document 10/07/24 13:45 MB (Rec: 10/07/24 16:29 MB [id number]) Therapeutic Exercises Supine Exercises STS Supine Exercise Name 30 sec STS Comments 10 reps with cues for form, to stand up all the way Self-Care/Home Management Treatment Activities Self-Care/Home Management Activities PT discusses findings today and plan and BP and orthostasis, findings that pt has more cognitive changes that affect his ability to participate with testing, PT answers 's question PT-OP-T Assessment and Plan Start: 09/24/24 11:32 Freq: Status: Active Protocol: Document 10/07/24 13:45 MB (Rec: 10/07/24 14:23 MB [id number]) Physical Therapy Assessment Rehab Potential Rehabilitation Potential Fair Evaluation Complexity Number of Personal Factors/Comorbidities 1-2 Number of Body Systems Impaired 3 Clinical Presentation at Evaluation Evolving Impairments Impairments Activity Tolerance,Balance, Coordination,Functional Activities,Functional Mobility ,Gait,Posture,ROM,Soft Tissue Mobility,Transfers Goals 4 Impairment Lack of HEP Dishwasher Busser Goal (LTG) Pt will perform progressive HEP with I including flexiblity, balance, flexibility and gait activities to decrease falls and increase I. LTG Duration 8 weeks 3 Impairment Slow and imbalanced TUG Retirement Goal (LTG) Pt will perform TUG with or without AD in no more than 10 sec to decrease fall risk. LTG Duration 8 weeks 2 Impairment Poor gait Dishwasher Busser Goal (LTG) Pt will gait train at least 1251 feet in 6 minutes to improve community ambulation. LTG Duration 8 weeks 1 Impairment Evidence of imbalance and history of falls Retirement Goal (LTG) Pt will perform WNLs on Tinetti or Stoddard Balance Test to decrease fall risk. LTG Duration 8 weeks Assessment Summary Assessment Pt is am 88 y/o male returning to PT after seeing movement specialist. PT discharged pt from OPPT in July d/t multiple falls and severe orthostasis. Pt and report no falls since that time and that pt has not had any medication change or other change that they can think of . Orthostatic assessment today : BP and HR LUE: supine 165/93 , 78; standing 145/77, 89; standing 1' 154/80, 85. Although orthostatics are positive, pt is not symptomatic. It is possible that this is because BP starts high in supine and is still high with standing (as opposed to dropping to 70s/40s as previously observed by this PT ). His gait and transfers are markedly better than two months ago and if there has been no other change, PT feels this could be d/t his BP not bottoming out. Previously, his fall with likely head injury (hematoma per dxs) was when sitting on commode and it is possible it was syncopal in nature. PT reads PCP and movement specialist notes that there is a concern for NPH. MRI report that PT has access to does not say ventricular enlargement. Also, pt's gait is NOT magnetic. Further, it is much better than two months ago when he nearly fell with transfers and attempting to use AD in the clinic. Pt has not been using AD recently. Coordination testing is challenging as pt has cognitive impairment that make command-following difficult. He requires 4 attempts to perform TUG correctly and he has a poor time following commands for finger to nose, rapid supination and pronation , heel to arroyo and toe tapping tests. His coordination is mildly worse on the left, though he has some decreased right hip movement in setting of hip frature and surgery in May. Pt does have odor of urine and urinary incontinence is a problem, per . Pt is hypoverbal and provides all history today. Pt functional strength is good. His cognitive presentation is biggest deficit today and then balance and gait. He is [facility] but he does not know the name or type of clinic he is in. He is not alert to month, date, day of week or year. PT will perform SLUMS in future treatment and he may benefit from TUBE SKIVER consult. He will benefit from OPPT for balance and gait training. PT will send a copy of this evaluation to Dr. Wallace along with referring neurologist movement specialist. Physical Therapy Plan Frequency and Duration Frequency of Treatment 2x/Week Duration of treatment (weeks) 8 Plan of Care Start Date 10/07/24 Plan of Care End Date 12/08/24 Therapeutic Interventions Therapeutic Interventions Balance Training,Canalithic Repositioning,Coordination Training,Gait Training,Home Exercise Program,Joint Mobilizations,Manual Therapy, Neuromuscular Re-education, Patient/Caregiver Education, Self-Care/Home Management, Sensory Integration,Soft Tissue Mobilization,Taping, Therapeutic Activities, Therapeutic Exercises Modalities Cold Pack/Ice Massage,Electric Stimulation,Hot Packs, Ultrasound Other Referrals/Consults Referrals/Consults Recommended TUBE SKIVER consult Next Visit Focus/Plan Next Note Type Treatment Note Next Visit Plan SLUMS with primary PT With DIRECTOR OF CASEWORK SERVICES: Tinetti or Stoddard for baseline score Initiate HEP: [place] balance exercises For treatment: balance and gait activities around the gym , TUG Practice getting on and off the floor
--- NOTE | 2024-10-13 10:38 | PT.OTN ---
Current Diagnoses Parkinsonism, unspecified (10/13/24) Physical Therapy Treatment Note PT-OP-A Visit Information Start: 09/24/24 11:32 Freq: Status: Active Protocol: Document 10/13/24 09:05 MB (Rec: 10/13/24 10:15 MB [id number]) Out-Patient Physical Therapy Visit Information Visit Information Visit Type Treatment Note Visit Note Pt goes by Jeff is Natty Visit Start Time 09:05 Visit Stop Time 10:15 Visit Number 2 Number of CONCRETE MIXING TRUCK DRIVER Visits 0 Evaluation Information Evaluation Date 10/07/24 PT-OP-B Current Condition Start: 09/24/24 11:32 Freq: Status: Active Protocol: Document 10/07/24 13:45 MB (Rec: 10/07/24 14:23 MB [id number]) Current Condition History of Current Condition Onset Date 05/20, mobility issues for 6 months Current Complaints Cognitive and mobility challenges History of Current Condition provides all history and pt is very hypoverbal. Recent IMAN scan was negative with movement specialist stating pt does not have PD. Pt had a history of falls with several falls and d/c from PT in July of 2024. He was also orthostatic during that time. Pt and report that pt has only had no more falls since July. Pt had one evening of confusion in 09/20 when he was confused, got dressed and was ready to leave the house and called EMT . said HHPT was not that helpful. She no longer has caregiver assistance. She occ has caregivers come in to stay with pt when she goes out to meetings. At some point, pt hit his head and he had a hematoma on testing. This might have been the fall off the toilet. Pt also had fall and right posterior hip hemiarthroplasty after hip fracture. He was WBAT and took him home from the hospital. This was in May 2024. Pt is not using AD. PMH includes B TKRs. They see doctor over Telehealth on the and she will ask about con't carbidopa levodopa. 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 On the report that PT has access to, there is no mention of ventricular enlargement in the report. assists with ADLs. Treatment Goals Patient/Caregiver Goals To be able to walk and move better. PT-OP-C Subjective Start: 09/24/24 11:32 Freq: Status: Active Protocol: Document 10/13/24 09:05 MB (Rec: 10/13/24 10:15 MB [id number]) OP-PT Subjective Patient Comments Patient Comments Natty states that they have a Telehealth visit with Kimberlee tomorrow. They con't to deny falls. PT-OP-D Balance Start: 09/24/24 11:32 Freq: Status: Active Protocol: Document 10/07/24 13:45 MB (Rec: 10/07/24 16:29 MB [id number]) Balance Tests Other Other Balance Tests Performed TUG: pt requires four attempts today d/t poor command- following and kicking the cone over, turning too sharply, LOB, or cutting distance short , finally 14 sec to complete test, indicating increased risk for falls PT-OP-G Mobility & Gait Start: 09/24/24 11:32 Freq: Status: Active Protocol: Document 10/07/24 13:45 MB (Rec: 10/07/24 16:29 MB [id number]) OP Gait Assessment Comments Gait Comments Gait without AD: decreased step-length and foot clearance and little arm swing and when cued, can swing arms more and exagerrates bigger steps/ picking up feet. Gait is more festinating and is NOT magnetic in nature at any point during assessment PT-OP-H Neuro Start: 09/24/24 11:32 Freq: Status: Active Protocol: Document 10/07/24 13:45 MB (Rec: 10/07/24 16:29 MB [id number]) Coordination Evaluation Upper Extremity Tests Left Finger to Nose Test Moderate Impairment Pronation/Supination Test Severe Impairment Right Finger to Nose Test Minimal Impairment Pronation/Supination Test Severe Impairment Lower Extremity Tests Left Heel on Arroyo Test Severe Impairment Right Heel on Arroyo Test Severe Impairment Comments Coordination Comments Poor command following ability PT-OP-Q Treatments Start: 09/24/24 11:32 Freq: Status: Active Protocol: Document 10/13/24 09:05 MB (Rec: 10/13/24 10:15 MB [id number]) Therapeutic Activity Therapeutic Activity STS Comments LOB posteriorly with standing up from chair in lobby today and mod A to prevent fall, LOB posteriorly when moving to sitting today in room and mod A to prevent fall. Training today to ed pt in in safe transfers, stepping fully back to chair and reaching back for it and then leaning forward to push up from chair. Several transfers today during treatment and during UPDRS performance Gait Training Gait Activity Gait assessment with UPDRS Comments LOB with turning, no freezing but many small steps with turning, 10'x4 and CGA to prevent fall, will work on AD training during PT course and will bring in rollator and SPC next treatment date Neuro Re-Education Treatment Other Activities UPDRS Comments UPDRS testing performed today and pt does have dysmetria with B finger tap and opening fists and closing them and tapping feet. Gross movement with leg tapping okay, all scoring on form that will be scanned into chart. Pt has imbalance and mild bradykinesia with movement today, imbalance with activity , falls and requires assistance with pull test Self-Care/Home Management Treatment Activities Self-Care/Home Management Activities SLUMS today, pt with BA. Gave numbers to to share with Dr. Mohan tomorrow, request speech therapy consult MDS UPDRS performed today and score is on handouts that will be scanned in and PT also faxes to Dr. Mohan today PT-OP-T Assessment and Plan Start: 09/24/24 11:32 Freq: Status: Active Protocol: Document 10/13/24 09:05 MB (Rec: 10/13/24 10:15 MB [id number]) Physical Therapy Assessment Rehab Potential Rehabilitation Potential Fair Evaluation Complexity Number of Personal Factors/Comorbidities 1-2 Number of Body Systems Impaired 3 Clinical Presentation at Evaluation Evolving Impairments Impairments Activity Tolerance,Balance, Coordination,Functional Activities,Functional Mobility ,Gait,Posture,ROM,Soft Tissue Mobility,Transfers Goals 4 Impairment Lack of HEP Nursing Home Goal (LTG) Pt will perform progressive HEP with I including flexiblity, balance, flexibility and gait activities to decrease falls and increase I. LTG Duration 8 weeks 3 Impairment Slow and imbalanced TUG [employer] Goal (LTG) Pt will perform TUG with or without AD in no more than 10 sec to decrease fall risk. LTG Duration 8 weeks 2 Impairment Poor gait [employer] Goal (LTG) Pt will gait train at least 1251 feet in 6 minutes to improve community ambulation. LTG Duration 8 weeks 1 Impairment Evidence of imbalance and history of falls [employer] Goal (LTG) Pt will perform WNLs on Tinetti or Stoddard Balance Test to decrease fall risk. LTG Duration 8 weeks Assessment Summary Assessment UPDRS and SLUMS performed today and faxed to movement specialist neurologist. Initiate gait training with LRAD, 6MWT and further transfer training next treatmnet date focusing on BIG stepping and movement, hand placement. Physical Therapy Plan Frequency and Duration Frequency of Treatment 2x/Week Duration of treatment (weeks) 8 Plan of Care Start Date 10/07/24 Plan of Care End Date 12/08/24 Therapeutic Interventions Therapeutic Interventions Balance Training,Canalithic Repositioning,Coordination Training,Gait Training,Home Exercise Program,Joint Mobilizations,Manual Therapy, Neuromuscular Re-education, Patient/Caregiver Education, Self-Care/Home Management, Sensory Integration,Soft Tissue Mobilization,Taping, Therapeutic Activities, Therapeutic Exercises Modalities Cold Pack/Ice Massage,Electric Stimulation,Hot Packs, Ultrasound Other Referrals/Consults Referrals/Consults Recommended DRAGGER OUT consult Next Visit Focus/Plan Next Note Type Treatment Note Next Visit Plan Next treatment, AD training ( to bring in 4WRW and cane ), working on BIG stepping and hand placement for transfers, recommend best LRAD Tinetti or Stoddard for baseline score Initiate HEP: [place] balance exercises For treatment: balance and gait activities around the gym , TUG Practice getting on and off the floor
--- NOTE | 2024-10-15 10:17 | PT.OTN ---
Addendum entered and electronically signed by Susana Motley, PT 10/15/24 13:29: Send to Dr. Wallace Original Note: Current Diagnoses Parkinsonism, unspecified (10/15/24) Physical Therapy Treatment Note PT-OP-A Visit Information Start: 09/24/24 11:32 Freq: Status: Active Protocol: Document 10/15/24 08:59 MB (Rec: 10/15/24 09:45 MB [id number]) Out-Patient Physical Therapy Visit Information Visit Information Visit Type Treatment Note Visit Note Pt goes by Jeff is Natty Visit Start Time 08:59 Visit Stop Time 09:39 Visit Number 3 Number of LEADERSHIP PROGRAM INTERN Visits 0 Evaluation Information Evaluation Date 10/07/24 PT-OP-B Current Condition Start: 09/24/24 11:32 Freq: Status: Active Protocol: Document 10/07/24 13:45 MB (Rec: 10/07/24 14:23 MB [id number]) Current Condition History of Current Condition Onset Date 05/20, mobility issues for 6 months Current Complaints Cognitive and mobility challenges History of Current Condition provides all history and pt is very hypoverbal. Recent IMAN scan was negative with movement specialist stating pt does not have PD. Pt had a history of falls with several falls and d/c from PT in July of 2024. He was also orthostatic during that time. Pt and report that pt has only had no more falls since July. Pt had one evening of confusion in 09/20 when he was confused, got dressed and was ready to leave the house and called EMT . said HHPT was not that helpful. She no longer has caregiver assistance. She occ has caregivers come in to stay with pt when she goes out to meetings. At some point, pt hit his head and he had a hematoma on testing. This might have been the fall off the toilet. Pt also had fall and right posterior hip hemiarthroplasty after hip fracture. He was WBAT and took him home from the hospital. This was in May 2024. Pt is not using AD. PMH includes B TKRs. They see doctor over Telehealth on the and she will ask about con't carbidopa levodopa. 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 On the report that PT has access to, there is no mention of ventricular enlargement in the report. assists with ADLs. Treatment Goals Patient/Caregiver Goals To be able to walk and move better. PT-OP-C Subjective Start: 09/24/24 11:32 Freq: Status: Active Protocol: Document 10/15/24 08:59 MB (Rec: 10/15/24 09:45 MB [id number]) OP-PT Subjective Patient Comments Patient Comments The Telehealth visit with neurologist was quick yesterday. He is supposed to wean off the carbidopa levodopa in two days. PT-OP-D Balance Start: 09/24/24 11:32 Freq: Status: Active Protocol: Document 10/07/24 13:45 MB (Rec: 10/07/24 16:29 MB [id number]) Balance Tests Other Other Balance Tests Performed TUG: pt requires four attempts today d/t poor command- following and kicking the cone over, turning too sharply, LOB, or cutting distance short , finally 14 sec to complete test, indicating increased risk for falls PT-OP-G Mobility & Gait Start: 09/24/24 11:32 Freq: Status: Active Protocol: Document 10/07/24 13:45 MB (Rec: 10/07/24 16:29 MB [id number]) OP Gait Assessment Comments Gait Comments Gait without AD: decreased step-length and foot clearance and little arm swing and when cued, can swing arms more and exagerrates bigger steps/ picking up feet. Gait is more festinating and is NOT magnetic in nature at any point during assessment PT-OP-H Neuro Start: 09/24/24 11:32 Freq: Status: Active Protocol: Document 10/07/24 13:45 MB (Rec: 10/07/24 16:29 MB [id number]) Coordination Evaluation Upper Extremity Tests Left Finger to Nose Test Moderate Impairment Pronation/Supination Test Severe Impairment Right Finger to Nose Test Minimal Impairment Pronation/Supination Test Severe Impairment Lower Extremity Tests Left Heel on [place] Test Severe Impairment Right Heel on [place] Test Severe Impairment Comments Coordination Comments Poor command following ability PT-OP-Q Treatments Start: 09/24/24 11:32 Freq: Status: Active Protocol: Document 10/15/24 08:59 MB (Rec: 10/15/24 09:45 MB [id number]) Therapeutic Activity Therapeutic Activity STS Comments Practiced with 4WRW today, push agains wall and lock and then turn and sit, superv and cues, several reps today Also practiced transfers from BIG chair with arm rests. Here are the VCs pt and will practice: Push up from the chair Hands on walker Unlock walker Step forward Step backward Leg touch chair Lock walker Reach back for the chair Gait Training Gait Activity Gait training with LRAD Comments SPC R hand: demo and cues for gait pattern and pt with step- to pattern, slow dave and decreased foot clearance occ, shorter steps; next, tried gait with 4WRW gait and pt and and PT agree that this is the best option. 6MWT Comments With 4WRW, pt tends to have forward and flexed gait and stands far away from the walker, he has festinating gait and most trouble moving left around corners and he has some scuffing of feet. He gait trains 781 feet, superv to CGA and cues for gait with rollator Self-Care/Home Management Treatment Education Caregiver Education states that neurology office recommended a 2-day taper of carbidopa levodopa and pt has been on medication at least 6 months and had a bad response with tapering before. Encouraged her to contact pharmacist and PCP about this Discussion about various ADs and recommendation, ed how to set up his rollator at home PT-OP-T Assessment and Plan Start: 09/24/24 11:32 Freq: Status: Active Protocol: Document 10/15/24 08:59 MB (Rec: 10/15/24 09:45 MB [id number]) Physical Therapy Assessment Rehab Potential Rehabilitation Potential Fair Evaluation Complexity Number of Personal Factors/Comorbidities 1-2 Number of Body Systems Impaired 3 Clinical Presentation at Evaluation Evolving Impairments Impairments Activity Tolerance,Balance, Coordination,Functional Activities,Functional Mobility ,Gait,Posture,ROM,Soft Tissue Mobility,Transfers Goals 4 Impairment Lack of HEP Wire Wrapping Machine Operator Goal (LTG) Pt will perform progressive HEP with I including flexiblity, balance, flexibility and gait activities to decrease falls and increase I. LTG Duration 8 weeks 3 Impairment Slow and imbalanced TUG Wire Wrapping Machine Operator Goal (LTG) Pt will perform TUG with or without AD in no more than 10 sec to decrease fall risk. LTG Duration 8 weeks 2 Impairment Poor gait Wire Wrapping Machine Operator Goal (LTG) Pt will gait train at least 1251 feet in 6 minutes to improve community ambulation. LTG Duration 8 weeks 1 Impairment Evidence of imbalance and history of falls Wire Wrapping Machine Operator Goal (LTG) Pt will perform WNLs on Tinetti or Stoddard Balance Test to decrease fall risk. LTG Duration 8 weeks Assessment Summary Assessment Gait and transfer training today with pt and and chosen LRAD is 4WRW today as this allows best balance support and gait pattern for pt. Multiple transfer trials from rollator and chair to rollator and back and and pt instructed to practice this at home everyday, 5-10 reps from various surfaces with verbal cues as described above for to say and that therapists will con't in this setting to improve safe transfers, especially sit to stand and stand to sit after backing up. Will use BIG cues as well in treatment sessions. PT is concerned about the recommendation for pt to wean off carbidopa levodopa in 2-3 days and encouraged to talk with pharmacist and let Dr. Wallace know and PT will send this note to Dr. Wallace. and medical records reports one episode of acute confusion when pt tried weaning off the medication before. Physical Therapy Plan Frequency and Duration Frequency of Treatment 2x/Week Duration of treatment (weeks) 8 Plan of Care Start Date 10/07/24 Plan of Care End Date 12/08/24 Therapeutic Interventions Therapeutic Interventions Balance Training,Canalithic Repositioning,Coordination Training,Gait Training,Home Exercise Program,Joint Mobilizations,Manual Therapy, Neuromuscular Re-education, Patient/Caregiver Education, Self-Care/Home Management, Sensory Integration,Soft Tissue Mobilization,Taping, Therapeutic Activities, Therapeutic Exercises Modalities Cold Pack/Ice Massage,Electric Stimulation,Hot Packs, Ultrasound Other Referrals/Consults Referrals/Consults Recommended PRINCIPAL BIOINFORMATICS SPECIALIST consult Next Visit Focus/Plan Next Note Type Treatment Note Next Visit Plan Stoddard for baseline score Initiate further HEP: [place] balance exercises For treatment: balance and gait and transfer activities around the gym with 4WRW and cues for BIG movement as appropriate, TUG Practice getting on and off the floor
--- NOTE | 2024-10-27 08:09 | PT.OTN ---
Current Diagnoses Parkinsonism, unspecified (10/27/24) Physical Therapy Treatment Note PT-OP-A Visit Information Start: 09/24/24 11:32 Freq: Status: Active Protocol: Document 10/27/24 07:27 MB (Rec: 10/27/24 08:09 MB [id number]) Out-Patient Physical Therapy Visit Information Visit Information Visit Type Treatment Note Visit Note Pt goes by Jeff is Natty Visit Start Time 07:27 Visit Stop Time 08:07 Visit Number 4 Number of WATCHER LOOKOUT TOWER Visits 0 Evaluation Information Evaluation Date 10/07/24 PT-OP-B Current Condition Start: 09/24/24 11:32 Freq: Status: Active Protocol: Document 10/07/24 13:45 MB (Rec: 10/07/24 14:23 MB [id number]) Current Condition History of Current Condition Onset Date 05/20, mobility issues for 6 months Current Complaints Cognitive and mobility challenges History of Current Condition provides all history and pt is very hypoverbal. Recent IMAN scan was negative with movement specialist stating pt does not have PD. Pt had a history of falls with several falls and d/c from PT in July of 2024. He was also orthostatic during that time. Pt and report that pt has only had no more falls since July. Pt had one evening of confusion in 09/20 when he was confused, got dressed and was ready to leave the house and called EMT . said HHPT was not that helpful. She no longer has caregiver assistance. She occ has caregivers come in to stay with pt when she goes out to meetings. At some point, pt hit his head and he had a hematoma on testing. This might have been the fall off the toilet. Pt also had fall and right posterior hip hemiarthroplasty after hip fracture. He was WBAT and took him home from the hospital. This was in May 2024. Pt is not using AD. PMH includes B TKRs. They see doctor over Telehealth on the and she will ask about con't carbidopa levodopa. 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 On the report that PT has access to, there is no mention of ventricular enlargement in the report. assists with ADLs. Treatment Goals Patient/Caregiver Goals To be able to walk and move better. PT-OP-C Subjective Start: 09/24/24 11:32 Freq: Status: Active Protocol: Document 10/27/24 07:27 MB (Rec: 10/27/24 08:09 MB [id number]) OP-PT Subjective Patient Comments Patient Comments Pt and arrive without rollator. Natty states that they heard back from the neurologist and he will see Dr Suzanna Sanches at [facility] the beginning of November. They are thinking that fluid on the brain is the issue. Pt had a fall a couple of days after last treatment. Pt is fully off his carbidopa levadopa at this time and Natty feels that pt is more confused since being off medication. PT-OP-D Balance Start: 09/24/24 11:32 Freq: Status: Active Protocol: Document 10/07/24 13:45 MB (Rec: 10/07/24 16:29 [id number]) Balance Tests Other Other Balance Tests Performed TUG: pt requires four attempts today d/t poor command- following and kicking the cone over, turning too sharply, LOB, or cutting distance short , finally 14 sec to complete test, indicating increased risk for falls PT-OP-G Mobility & Gait Start: 09/24/24 11:32 Freq: Status: Active Protocol: Document 10/07/24 13:45 MB (Rec: 10/07/24 16:29 MB [id number]) OP Gait Assessment Comments Gait Comments Gait without AD: decreased step-length and foot clearance and little arm swing and when cued, can swing arms more and exagerrates bigger steps/ picking up feet. Gait is more festinating and is NOT magnetic in nature at any point during assessment PT-OP-H Neuro Start: 09/24/24 11:32 Freq: Status: Active Protocol: Document 10/07/24 13:45 MB (Rec: 10/07/24 16:29 MB [id number]) Coordination Evaluation Upper Extremity Tests Left Finger to Nose Test Moderate Impairment Pronation/Supination Test Severe Impairment Right Finger to Nose Test Minimal Impairment Pronation/Supination Test Severe Impairment Lower Extremity Tests Left Heel on Arroyo Test Severe Impairment Right Heel on Arroyo Test Severe Impairment Comments Coordination Comments Poor command following ability PT-OP-Q Treatments Start: 09/24/24 11:32 Freq: Status: Active Protocol: Document 10/27/24 07:27 MB (Rec: 10/27/24 08:09 MB [id number]) Therapeutic Activity Therapeutic Activity STS Comments Practiced with 4WRW today from chair to rollator and back: BIG chair with arm rests. Here are the VCs pt and will practice: Push up from the chair Hands on walker Unlock walker Step forward Step backward Leg touch chair Lock walker Reach back for the chair Pt requires mod to max A to prevent fall posteriorly x2 when he reaches the chair. Occ tactile assist and ongoing VCs for unlocking walker today Pt is not performing as well as last treatment date over a week ago Self-Care/Home Management Treatment Education Other Education Ongoing education about need to bring in rollator and to practice transfers at home and use rollator and need to practice that here to improve I mobility and to decrease falls. BP and HR right UE in sittin/73, 89; standing 122/68, 89; standing 1' 122/70, 92. Ed pt and in benefits of increasing non-caffeinated fluid intake. Provided handouts about orthostatic hypotension and what he can do to help (PT had provided previously during last PT course). PT-OP-T Assessment and Plan Start: 09/24/24 11:32 Freq: Status: Active Protocol: Document 10/27/24 07:27 MB (Rec: 10/27/24 08:09 MB [id number]) Physical Therapy Assessment Rehab Potential Rehabilitation Potential Fair Evaluation Complexity Number of Personal Factors/Comorbidities 1-2 Number of Body Systems Impaired 3 Clinical Presentation at Evaluation Evolving Impairments Impairments Activity Tolerance,Balance, Coordination,Functional Activities,Functional Mobility ,Gait,Posture,ROM,Soft Tissue Mobility,Transfers Goals 4 Impairment Lack of HEP Nursing Home Goal (LTG) Pt will perform progressive HEP with I including flexiblity, balance, flexibility and gait activities to decrease falls and increase I. LTG Duration 8 weeks 3 Impairment Slow and imbalanced TUG Nursing Home Goal (LTG) Pt will perform TUG with or without AD in no more than 10 sec to decrease fall risk. LTG Duration 8 weeks 2 Impairment Poor gait Inspector Glass Or Mirror Goal (LTG) Pt will gait train at least 1251 feet in 6 minutes to improve community ambulation. LTG Duration 8 weeks 1 Impairment Evidence of imbalance and history of falls Inspector Glass Or Mirror Goal (LTG) Pt will perform WNLs on Tinetti or Stoddard Balance Test to decrease fall risk. LTG Duration 8 weeks Assessment Summary Assessment PT re-ed pt and in need to come in to PT with rollator so that pt can practice with PT and and to decrease falls. PT reviews ED notes and fall was 10/20/24 and he had some changes in EKG: R BBB and left bifasicular block. Pt seeing PCP 10/29/24. PT will send this note to him, Dr. Wallace. Once again, from a functional standpoint, pt does not present as NPH. He does have cognitive changes and urinary incontinence but he does not present with magnetic gait. PT has sent PT eval to referring neurologist at [facility] and to Dr. Wallace. If pt con't falling and and pt do not use the rollator , may have to d/c OPPT again. PT re-ed pt and in need to progress along with LRAD training, mobility and strengthening. Systolic BP drops 11 mmHg sit to stand this morning and so he might be dropping more if arising from supine. Ed to speak with doctor about pt's increased confusion since he has been off carbidopa levadopa. does not appear to remember that PT cued her to speak with pharmacist and doctor about the quick weaning off the medication when re-tells the experience today. This is a bit concerning given that she and pt do not bring in rollator and previously, she stated she did not tell neurologist about PT findings during Telehealth visit (PT asked for TRAFFIC MAINTENANCE SUPERVISOR consult given his cognitive presentation and PT even wrote this down for ). Physical Therapy Plan Frequency and Duration Frequency of Treatment 2x/Week Duration of treatment (weeks) 8 Plan of Care Start Date 10/07/24 Plan of Care End Date 12/08/24 Therapeutic Interventions Therapeutic Interventions Balance Training,Canalithic Repositioning,Coordination Training,Gait Training,Home Exercise Program,Joint Mobilizations,Manual Therapy, Neuromuscular Re-education, Patient/Caregiver Education, Self-Care/Home Management, Sensory Integration,Soft Tissue Mobilization,Taping, Therapeutic Activities, Therapeutic Exercises Modalities Cold Pack/Ice Massage,Electric Stimulation,Hot Packs, Ultrasound Other Referrals/Consults Referrals/Consults Recommended TRAFFIC MAINTENANCE SUPERVISOR consult Next Visit Focus/Plan Next Note Type Treatment Note Next Visit Plan Stoddard for baseline score Initiate further HEP: [place] balance exercises For treatment: balance and gait and transfer activities around the gym with 4WRW and cues for BIG movement as appropriate, TUG Practice getting on and off the floor
--- NOTE | 2024-11-02 08:30 | PT.OTN ---
Current Diagnoses Parkinsonism, unspecified (11/02/24) Physical Therapy Treatment Note PT-OP-A Visit Information Start: 09/24/24 11:32 Freq: Status: Active Protocol: Document 11/02/24 07:28 MB (Rec: 11/02/24 08:30 MB [id number]) Out-Patient Physical Therapy Visit Information Visit Information Visit Type Progress Note Visit Note Pt goes by Jeff is Natty Visit Start Time 07:28 Visit Stop Time 08:08 Visit Number 5 Number of HELP DESK OPERATOR Visits 0 Evaluation Information Evaluation Date 10/07/24 PT-OP-B Current Condition Start: 09/24/24 11:32 Freq: Status: Active Protocol: Document 10/07/24 13:45 MB (Rec: 10/07/24 14:23 MB [id number]) Current Condition History of Current Condition Onset Date 05/20, mobility issues for 6 months Current Complaints Cognitive and mobility challenges History of Current Condition provides all history and pt is very hypoverbal. Recent IMAN scan was negative with movement specialist stating pt does not have PD. Pt had a history of falls with several falls and d/c from PT in July of 2024. He was also orthostatic during that time. Pt and report that pt has only had no more falls since July. Pt had one evening of confusion in 09/20 when he was confused, got dressed and was ready to leave the house and called EMT . said HHPT was not that helpful. She no longer has caregiver assistance. She occ has caregivers come in to stay with pt when she goes out to meetings. At some point, pt hit his head and he had a hematoma on testing. This might have been the fall off the toilet. Pt also had fall and right posterior hip hemiarthroplasty after hip fracture. He was WBAT and took him home from the hospital. This was in May 2024. Pt is not using AD. PMH includes B TKRs. They see doctor over Telehealth on the and she will ask about con't carbidopa levodopa. 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 On the report that PT has access to, there is no mention of ventricular enlargement in the report. assists with ADLs. Treatment Goals Patient/Caregiver Goals To be able to walk and move better. PT-OP-C Subjective Start: 09/24/24 11:32 Freq: Status: Active Protocol: Document 11/02/24 07:28 MB (Rec: 11/02/24 08:30 MB [id number]) OP-PT Subjective Patient Comments Patient Comments Pt is hypoverbal today and reports that he has high potassium and he will get more blood work. The appointment with Dr. Wallace went well. He will go to [facility] for ongoing work-up of NPH. PT-OP-D Balance Start: 09/24/24 11:32 Freq: Status: Active Protocol: Document 10/07/24 13:45 MB (Rec: 10/07/24 16:29 MB [id number]) Balance Tests Other Other Balance Tests Performed TUG: pt requires four attempts today d/t poor command- following and kicking the cone over, turning too sharply, LOB, or cutting distance short , finally 14 sec to complete test, indicating increased risk for falls PT-OP-G Mobility & Gait Start: 09/24/24 11:32 Freq: Status: Active Protocol: Document 10/07/24 13:45 MB (Rec: 10/07/24 16:29 [id number]) OP Gait Assessment Comments Gait Comments Gait without AD: decreased step-length and foot clearance and little arm swing and when cued, can swing arms more and exagerrates bigger steps/ picking up feet. Gait is more festinating and is NOT magnetic in nature at any point during assessment PT-OP-H Neuro Start: 09/24/24 11:32 Freq: Status: Active Protocol: Document 10/07/24 13:45 MB (Rec: 10/07/24 16:29 MB [id number]) Coordination Evaluation Upper Extremity Tests Left Finger to Nose Test Moderate Impairment Pronation/Supination Test Severe Impairment Right Finger to Nose Test Minimal Impairment Pronation/Supination Test Severe Impairment Lower Extremity Tests Left Heel on Arroyo Test Severe Impairment Right Heel on Arroyo Test Severe Impairment Comments Coordination Comments Poor command following ability PT-OP-Q Treatments Start: 09/24/24 11:32 Freq: Status: Active Protocol: Document 11/02/24 07:28 MB (Rec: 11/02/24 08:30 MB [id number]) Therapeutic Activity Therapeutic Activity STS Comments Practiced with 4WRW today from chair to rollator and back: BIG chair with arm rests. Here are the VCs pt and will practice: Push up from the chair Hands on walker Unlock walker Step forward Step backward Leg touch chair Lock walker Reach back for the chair Pt does not remember hand placement with TUG and is 22 sec with rollator Gait Training Gait Activity Gait training with LRAD Comments Gait with his new 4WRW today and pt with shuffling steps that are better with rollator compared to without 6MWT Comments Performed with rollator today: 836 feet and cues for standing up tall, staying close to the walker, picking up feet (BIG feet) and making sure he keeps feet inside walker with turning on the walker: wider turn Neuro Re-Education Treatment Balance Activities Stoddard Comments Score is 30/56, indicating increased risk for falls Tinetti Comments Tinetti balance section 08/12 Tinetti gait section with rollator 07/09 and 06/08 with rollator TUG Comments 22 sec with rollator and superv 16 sec without AD and pt CGA and increased unsteadiness Self-Care/Home Management Treatment Education Other Education Orthostatic assessment in LUE: supine: 163/87, 78 standin/61, 80 standing 1': 137/77, 80 PT-OP-T Assessment and Plan Start: 09/24/24 11:32 Freq: Status: Active Protocol: Document 11/02/24 07:28 MB (Rec: 11/02/24 08:30 MB [id number]) Physical Therapy Assessment Rehab Potential Rehabilitation Potential Fair Evaluation Complexity Number of Personal Factors/Comorbidities 1-2 Number of Body Systems Impaired 3 Clinical Presentation at Evaluation Evolving Impairments Impairments Activity Tolerance,Balance, Coordination,Functional Activities,Functional Mobility ,Gait,Posture,ROM,Soft Tissue Mobility,Transfers Goals 4 Impairment Lack of HEP Group Home Goal (LTG) Pt will perform progressive HEP with I including flexiblity, balance, flexibility and gait activities to decrease falls and increase I. 11/02/24: Pt and have bee working on transfer to rollator and stepping forward and back since he got the rollator last week. LTG Duration 8 weeks 3 Impairment Slow and imbalanced TUG Therapeutic Recreation Leader Goal (LTG) Pt will perform TUG with or without AD in no more than 10 sec to decrease fall risk. 11/02/24: 22 sec with rollator and superv 16 sec without AD and pt CGA and increased unsteadiness LTG Duration 8 weeks 2 Impairment Poor gait Group Home Goal (LTG) Pt will gait train at least 1251 feet in 6 minutes to improve community ambulation. 11/02/24: Performed with rollator today: 836 feet and cues for standing up tall, staying close to the walker, picking up feet (BIG feet) and making sure he keeps feet inside walker with turning on the walker: wider turn LTG Duration 8 weeks 1 Impairment Evidence of imbalance and history of falls Group Home Goal (LTG) Pt will perform WNLs on Tinetti or Stoddard Balance Test to decrease fall risk. 11/02/23: Tinetti balance section 08/12 Tinetti gait section with rollator 07/09 and 06/08 with rollator; Stoddard Score is 30/56, indicating increased risk for falls LTG Duration 8 weeks Assessment Summary Assessment Pt and arrive with rollator for the first visit and it is a good one borrowed from [facility]. Pt and state that they are finally practicing transfers and gait with rollator at home but not all the time and walker fits most places in home but not in all places. Pt presents with imbalance with TUG, Tinetti and Stoddard balance testing today . He is steadier with gait with rollator though his gait speed is not improved with TUG . Cognitive challenges to require him to have cues for locking walker and gait with walker. If he does have NPH that is treated, cognition and gait can improve and this may not be as much of an issue in the long-run, but currently, increased steadiness with rollator. He does require cues not to turn on a dime and to keep feet inside walker to step and turn. 6MWT is slow. Con't per POC as long as therapist, pt and feel pt is progressing. 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 Recommend PLY SPLICER consult for cognition. Physical Therapy Plan Frequency and Duration Frequency of Treatment 2x/Week Duration of treatment (weeks) 8 Plan of Care Start Date 11/02/24 Plan of Care End Date 02/01/25 Therapeutic Interventions Therapeutic Interventions Balance Training,Canalithic Repositioning,Coordination Training,Gait Training,Home Exercise Program,Joint Mobilizations,Manual Therapy, Neuromuscular Re-education, Patient/Caregiver Education, Self-Care/Home Management, Sensory Integration,Soft Tissue Mobilization,Taping, Therapeutic Activities, Therapeutic Exercises Modalities Cold Pack/Ice Massage,Electric Stimulation,Hot Packs, Ultrasound Other Referrals/Consults Referrals/Consults Recommended PLY SPLICER consult Next Visit Focus/Plan Next Note Type Treatment Note Next Visit Plan Initiate further HEP: Kait[place]nn balance exercises For treatment: balance and gait and transfer activities around the gym with 4WRW and cues for BIG movement as appropriate Practice getting on and off the floor if appropriate
--- NOTE | 2024-11-04 14:40 | PT.OTN ---
Current Diagnoses Parkinsonism, unspecified (11/04/24) Physical Therapy Treatment Note PT-OP-A Visit Information Start: 09/24/24 11:32 Freq: Status: Active Protocol: Document 11/04/24 13:37 TS (Rec: 11/04/24 14:40 TS [id number]) Out-Patient Physical Therapy Visit Information Visit Information Visit Type Progress Note Visit Note Pt goes by Jeff is Natty Visit Start Time 13:45 Visit Stop Time 14:30 Visit Number 6 Number of WELDING OPERATOR Visits 1 Evaluation Information Evaluation Date 10/07/24 PT-OP-B Current Condition Start: 09/24/24 11:32 Freq: Status: Active Protocol: Document 10/07/24 13:45 MB (Rec: 10/07/24 14:23 MB [id number]) Current Condition History of Current Condition Onset Date 05/20, mobility issues for 6 months Current Complaints Cognitive and mobility challenges History of Current Condition provides all history and pt is very hypoverbal. Recent IMAN scan was negative with movement specialist stating pt does not have PD. Pt had a history of falls with several falls and d/c from PT in July of 2024. He was also orthostatic during that time. Pt and report that pt has only had no more falls since July. Pt had one evening of confusion in 09/20 when he was confused, got dressed and was ready to leave the house and called EMT . said HHPT was not that helpful. She no longer has caregiver assistance. She occ has caregivers come in to stay with pt when she goes out to meetings. At some point, pt hit his head and he had a hematoma on testing. This might have been the fall off the toilet. Pt also had fall and right posterior hip hemiarthroplasty after hip fracture. He was WBAT and took him home from the hospital. This was in May 2024. Pt is not using AD. PMH includes B TKRs. They see doctor over Telehealth on the and she will ask about con't carbidopa levodopa. 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 On the report that PT has access to, there is no mention of ventricular enlargement in the report. assists with ADLs. Treatment Goals Patient/Caregiver Goals To be able to walk and move better. PT-OP-C Subjective Start: 09/24/24 11:32 Freq: Status: Active Protocol: Document 11/04/24 13:37 TS (Rec: 11/04/24 14:40 TS [id number]) OP-PT Subjective Patient Comments Patient Comments Pt reports having a good day, he is more verbal today. Pt also has cardiac rehab today. Pt is going to go to [facility] on the 4th. PT-OP-D Balance Start: 09/24/24 11:32 Freq: Status: Active Protocol: Document 10/07/24 13:45 MB (Rec: 10/07/24 16:29 MB [id number]) Balance Tests Other Other Balance Tests Performed TUG: pt requires four attempts today d/t poor command- following and kicking the cone over, turning too sharply, LOB, or cutting distance short , finally 14 sec to complete test, indicating increased risk for falls PT-OP-G Mobility & Gait Start: 09/24/24 11:32 Freq: Status: Active Protocol: Document 10/07/24 13:45 MB (Rec: 10/07/24 16:29 MB [id number]) OP Gait Assessment Comments Gait Comments Gait without AD: decreased step-length and foot clearance and little arm swing and when cued, can swing arms more and exagerrates bigger steps/ picking up feet. Gait is more festinating and is NOT magnetic in nature at any point during assessment PT-OP-H Neuro Start: 09/24/24 11:32 Freq: Status: Active Protocol: Document 10/07/24 13:45 MB (Rec: 10/07/24 16:29 MB [id number]) Coordination Evaluation Upper Extremity Tests Left Finger to Nose Test Moderate Impairment Pronation/Supination Test Severe Impairment Right Finger to Nose Test Minimal Impairment Pronation/Supination Test Severe Impairment Lower Extremity Tests Left Heel on Arroyo Test Severe Impairment Right Heel on Arroyo Test Severe Impairment Comments Coordination Comments Poor command following ability PT-OP-Q Treatments Start: 09/24/24 11:32 Freq: Status: Active Protocol: Document 11/04/24 13:37 TS (Rec: 11/04/24 14:40 TS [id number]) Therapeutic Exercises Supine Exercises STS Reps/Minutes x10 Comments cues provided for sequencing Sitting Exercises Hip ABD Side bilateral Resistance LVL 3 Reps/Minutes x20 Knee Ext Side bilateral Equipment Used #2 ankle weights Reps/Minutes x10 Standing Exercises HS Curl Side bilateral Reps/Minutes x10 Heel Raise Side bilateral Reps/Minutes 2x15 Gait Training Gait Activity Gait training with LRAD Comments ~200' with 4WW, requires cues for posture. Neuro Re-Education Treatment Balance Activities Hurdles Details FWD, Sidesteps Reps/Duration 4x10' Comments sidesteps more difficult to coordinate. BWD Walk Reps/Duration 4x10' Comments performs well Balance Details NBOS, NBOS EC, Tandem Stance Comments EC challenging at first, improved with cues for core and glute act. PT-OP-T Assessment and Plan Start: 09/24/24 11:32 Freq: Status: Active Protocol: Document 11/04/24 13:37 TS (Rec: 11/04/24 14:40 TS [id number]) Physical Therapy Assessment Goals 4 Impairment Lack of HEP Care Home Goal (LTG) Pt will perform progressive HEP with I including flexiblity, balance, flexibility and gait activities to decrease falls and increase I. 11/02/24: Pt and have bee working on transfer to rollator and stepping forward and back since he got the rollator last week. LTG Duration 8 weeks 3 Impairment Slow and imbalanced TUG Care Home Goal (LTG) Pt will perform TUG with or without AD in no more than 10 sec to decrease fall risk. 11/02/24: 22 sec with rollator and superv 16 sec without AD and pt CGA and increased unsteadiness LTG Duration 8 weeks 2 Impairment Poor gait Care Home Goal (LTG) Pt will gait train at least 1251 feet in 6 minutes to improve community ambulation. 11/02/24: Performed with rollator today: 836 feet and cues for standing up tall, staying close to the walker, picking up feet (BIG feet) and making sure he keeps feet inside walker with turning on the walker: wider turn LTG Duration 8 weeks 1 Impairment Evidence of imbalance and history of falls Plastic Sewer Goal (LTG) Pt will perform WNLs on Tinetti or Stoddard Balance Test to decrease fall risk. 11/02/23: Tinetti balance section 08/12 Tinetti gait section with rollator 07/09 and 06/08 with rollator; Stoddard Score is 30/56, indicating increased risk for falls LTG Duration 8 weeks Assessment Summary Assessment Progressed balance and ex acts this session. Pt does well with some balance acts, EC NBOS and tandem stance challenging for pt. He demonstrated poor posture with gait act, improved with cues. With increased reps with hurdles pt deonstrated ability to clear more easily. Overall thought pt did well with session today. Physical Therapy Plan Next Visit Focus/Plan Next Note Type Treatment Note Next Visit Plan Continue otago ex(handout was provided to spouse). Continue with gait training, balance and hurdles.
--- NOTE | 2024-11-09 09:05 | PT.OTN ---
Current Diagnoses Parkinsonism, unspecified (11/09/24) Physical Therapy Treatment Note PT-OP-A Visit Information Start: 09/24/24 11:32 Freq: Status: Active Protocol: Document 11/09/24 08:18 MB (Rec: 11/09/24 09:05 MB [id number]) Out-Patient Physical Therapy Visit Information Visit Information Visit Type Treatment Note Visit Note Pt goes by Jeff is Natty Next progress note by 12/08/24 Visit Start Time 08:18 Visit Stop Time 08:58 Visit Number 7 Number of CATERING ASSISTANT Visits 0 Evaluation Information Evaluation Date 10/07/24 Precautions Precautions Pt has orthostasis, , Natty, also has some memory challenges PT-OP-B Current Condition Start: 09/24/24 11:32 Freq: Status: Active Protocol: Document 10/07/24 13:45 MB (Rec: 10/07/24 14:23 MB [id number]) Current Condition History of Current Condition Onset Date 05/20, mobility issues for 6 months Current Complaints Cognitive and mobility challenges History of Current Condition provides all history and pt is very hypoverbal. Recent IMAN scan was negative with movement specialist stating pt does not have PD. Pt had a history of falls with several falls and d/c from PT in July of 2024. He was also orthostatic during that time. Pt and report that pt has only had no more falls since July. Pt had one evening of confusion in 09/20 when he was confused, got dressed and was ready to leave the house and called EMT . said HHPT was not that helpful. She no longer has caregiver assistance. She occ has caregivers come in to stay with pt when she goes out to meetings. At some point, pt hit his head and he had a hematoma on testing. This might have been the fall off the toilet. Pt also had fall and right posterior hip hemiarthroplasty after hip fracture. He was WBAT and took him home from the hospital. This was in May 2024. Pt is not using AD. PMH includes B TKRs. They see doctor over Telehealth on the and she will ask about con't carbidopa levodopa. 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 On the report that PT has access to, there is no mention of ventricular enlargement in the report. assists with ADLs. Treatment Goals Patient/Caregiver Goals To be able to walk and move better. PT-OP-C Subjective Start: 09/24/24 11:32 Freq: Status: Active Protocol: Document 11/09/24 08:18 MB (Rec: 11/09/24 09:05 MB [id number]) OP-PT Subjective Patient Comments Patient Comments PT asks about comment about cardiac rehab from last treatment and and pt do not think that pt is doing cardiac rehab. He sees the neurosurgeon, Dr. Sanches, on Jul 01. They deny falls and light-headedness over the past week. Natty brings up speech therapy and PT reminds her that PT wrote this down for her to ask Dr. Mohan in the past and also, that PT sent over in notes to Dr. Wallace. PT-OP-D Balance Start: 09/24/24 11:32 Freq: Status: Active Protocol: Document 10/07/24 13:45 MB (Rec: 10/07/24 16:29 MB [id number]) Balance Tests Other Other Balance Tests Performed TUG: pt requires four attempts today d/t poor command- following and kicking the cone over, turning too sharply, LOB, or cutting distance short , finally 14 sec to complete test, indicating increased risk for falls PT-OP-G Mobility & Gait Start: 09/24/24 11:32 Freq: Status: Active Protocol: Document 10/07/24 13:45 MB (Rec: 10/07/24 16:29 MB [id number]) OP Gait Assessment Comments Gait Comments Gait without AD: decreased step-length and foot clearance and little arm swing and when cued, can swing arms more and exagerrates bigger steps/ picking up feet. Gait is more festinating and is NOT magnetic in nature at any point during assessment PT-OP-H Neuro Start: 09/24/24 11:32 Freq: Status: Active Protocol: Document 10/07/24 13:45 MB (Rec: 10/07/24 16:29 MB [id number]) Coordination Evaluation Upper Extremity Tests Left Finger to Nose Test Moderate Impairment Pronation/Supination Test Severe Impairment Right Finger to Nose Test Minimal Impairment Pronation/Supination Test Severe Impairment Lower Extremity Tests Left Heel on Arroyo Test Severe Impairment Right Heel on Arroyo Test Severe Impairment Comments Coordination Comments Poor command following ability PT-OP-Q Treatments Start: 09/24/24 11:32 Freq: Status: Active Protocol: Document 11/09/24 08:18 MB (Rec: 11/09/24 09:05 MB [id number]) Therapeutic Exercises Sitting Exercises Knee Ext Sitting Exercise Name Otago knee extension, added to HEP and handout started Side bilateral Equipment Used 2# ankle weights, sit BIG chair Reps/Minutes 30 alternating reps x2 Standing Exercises [place] hip abduction Standing Exercise Name [place] hip abduction, added to HEP and handout started Side bilateral Equipment Used 2# ankle weights, stand behind BIG chair Reps/Minutes 30 alternating reps x2 HS Curl Standing Exercise Name [place] hamstring curl, added to HEP and handout started Side bilateral Equipment Used 2# ankle weights, stand behind BIG chair Reps/Minutes 30 alternating reps x2 Heel Raise Standing Exercise Name [place] heel raises with ankle weights, added to HEP and handout started Side bilateral Equipment Used 2# ankle weights, stand behind BIG chair Reps/Minutes 30 reps, once Therapeutic Activity Therapeutic Activity STS Comments Practiced with 4WRW today from chair to rollator and back: Waiting room chair and BIG chair with arm rests. Here are the VCs pt and will practice: Push up from the chair Hands on walker Unlock walker Step forward Step backward Leg touch chair Lock walker Reach back for the chair Pt con't to require verbal cues each transfer today and he does not have recall from previous treatment sessions Neuro Re-Education Treatment Balance Activities Otago balance Comments For patient, marked out tightrope walk, tightrope backward walk and heel and toe walking (did not give handout for this one) as these will be too hard for pt: would like to con't pushing walk with rollator at all times and he can try the static standing Otago exercises in future treatments PT-OP-T Assessment and Plan Start: 09/24/24 11:32 Freq: Status: Active Protocol: Document 11/09/24 08:18 MB (Rec: 11/09/24 09:05 MB [id number]) Physical Therapy Assessment Rehab Potential Rehabilitation Potential Fair Evaluation Complexity Number of Personal Factors/Comorbidities 1-2 Number of Body Systems Impaired 3 Clinical Presentation at Evaluation Evolving Impairments Impairments Activity Tolerance,Balance, Coordination,Functional Activities,Functional Mobility ,Gait,Posture,ROM,Soft Tissue Mobility,Transfers Goals 4 Impairment Lack of HEP Senior Care Goal (LTG) Pt will perform progressive HEP with I including flexiblity, balance, flexibility and gait activities to decrease falls and increase I. 11/02/24: Pt and have bee working on transfer to rollator and stepping forward and back since he got the rollator last week. LTG Duration 8 weeks 3 Impairment Slow and imbalanced TUG Special Effects Designer Goal (LTG) Pt will perform TUG with or without AD in no more than 10 sec to decrease fall risk. 11/02/24: 22 sec with rollator and superv 16 sec without AD and pt CGA and increased unsteadiness LTG Duration 8 weeks 2 Impairment Poor gait Special Effects Designer Goal (LTG) Pt will gait train at least 1251 feet in 6 minutes to improve community ambulation. 11/02/24: Performed with rollator today: 836 feet and cues for standing up tall, staying close to the walker, picking up feet (BIG feet) and making sure he keeps feet inside walker with turning on the walker: wider turn LTG Duration 8 weeks 1 Impairment Evidence of imbalance and history of falls Senior Care Goal (LTG) Pt will perform WNLs on Tinetti or Stoddard Balance Test to decrease fall risk. 11/02/23: Tinetti balance section 16 Tinetti gait section with rollator 9/12 and 8/ with rollator; Stoddard Score is 30/56, indicating increased risk for falls LTG Duration 8 weeks Assessment Summary Assessment Pt and con't with trouble remembering things discussed in previous treatment sessions (today, a repeated coversation about COAT ROOM ATTENDANT referral ) and pt does not demonstrate proper hand placement for transfers and lock and unlocking rollator and does not step in to remind him with practiced VCs and PT must do this. Extensive time, handout, demo and cues for first Otago exercises for strengthening and performed as well to allow something that she can do with pt at home to help with follow-through. Will monitor progress. Physical Therapy Plan Frequency and Duration Frequency of Treatment 2x/Week Duration of treatment (weeks) 8 Plan of Care Start Date 11/02/24 Plan of Care End Date 02/01/25 Therapeutic Interventions Therapeutic Interventions Balance Training,Canalithic Repositioning,Coordination Training,Gait Training,Home Exercise Program,Joint Mobilizations,Manual Therapy, Neuromuscular Re-education, Patient/Caregiver Education, Self-Care/Home Management, Sensory Integration,Soft Tissue Mobilization,Taping, Therapeutic Activities, Therapeutic Exercises Modalities Cold Pack/Ice Massage,Electric Stimulation,Hot Packs, Ultrasound Other Referrals/Consults Referrals/Consults Recommended COAT ROOM ATTENDANT consult Next Visit Focus/Plan Next Note Type Treatment Note Next Visit Plan Otago balance exercises and this should be the only home program for pt given his and 's cognition, ability to follow-through--don't add exercises like extension to program because will confuse . Remaining to try are STS , tightrope standing right and left, squat and SLS For treatment: balance and gait and transfer activities around the gym with 4WRW and cues for BIG movement as appropriate Practice getting on and off the floor if appropriate
--- NOTE | 2024-11-11 12:14 | PT.OTN ---
Current Diagnoses Parkinsonism, unspecified (11/11/24) Physical Therapy Treatment Note PT-OP-A Visit Information Start: 09/24/24 11:32 Freq: Status: Active Protocol: Document 11/11/24 11:32 MB (Rec: 11/11/24 12:14 MB [id number]) Out-Patient Physical Therapy Visit Information Visit Information Visit Type Treatment Note Visit Note Pt goes by Jeff is Natty Next progress note by 12/08/24 Visit Start Time 11:32 Visit Stop Time 12:12 Visit Number 8 Number of CENTRAL SUPPLY TECHNICIAN Visits 0 Evaluation Information Evaluation Date 10/07/24 Precautions Precautions Pt has orthostasis, , Natty, also has some memory challenges PT-OP-B Current Condition Start: 09/24/24 11:32 Freq: Status: Active Protocol: Document 10/07/24 13:45 MB (Rec: 10/07/24 14:23 MB [id number]) Current Condition History of Current Condition Onset Date 05/20, mobility issues for 6 months Current Complaints Cognitive and mobility challenges History of Current Condition provides all history and pt is very hypoverbal. Recent IMAN scan was negative with movement specialist stating pt does not have PD. Pt had a history of falls with several falls and d/c from PT in July of 2024. He was also orthostatic during that time. Pt and report that pt has only had no more falls since July. Pt had one evening of confusion in 09/20 when he was confused, got dressed and was ready to leave the house and called EMT . said HHPT was not that helpful. She no longer has caregiver assistance. She occ has caregivers come in to stay with pt when she goes out to meetings. At some point, pt hit his head and he had a hematoma on testing. This might have been the fall off the toilet. Pt also had fall and right posterior hip hemiarthroplasty after hip fracture. He was WBAT and took him home from the hospital. This was in May 2024. Pt is not using AD. PMH includes B TKRs. They see doctor over Telehealth on the and she will ask about con't carbidopa levodopa. 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 On the report that PT has access to, there is no mention of ventricular enlargement in the report. assists with ADLs. Treatment Goals Patient/Caregiver Goals To be able to walk and move better. PT-OP-C Subjective Start: 09/24/24 11:32 Freq: Status: Active Protocol: Document 11/11/24 11:32 MB (Rec: 11/11/24 12:14 MB [id number]) OP-PT Subjective Patient Comments Patient Comments Pt did not have any soreness after Otago strengthening exericses and forgets Otago handout. Pt is using walker from the wrong side on arrival. PT-OP-D Balance Start: 09/24/24 11:32 Freq: Status: Active Protocol: Document 10/07/24 13:45 MB (Rec: 10/07/24 16:29 MB [id number]) Balance Tests Other Other Balance Tests Performed TUG: pt requires four attempts today d/t poor command- following and kicking the cone over, turning too sharply, LOB, or cutting distance short , finally 14 sec to complete test, indicating increased risk for falls PT-OP-G Mobility & Gait Start: 09/24/24 11:32 Freq: Status: Active Protocol: Document 10/07/24 13:45 MB (Rec: 10/07/24 16:29 MB [id number]) OP Gait Assessment Comments Gait Comments Gait without AD: decreased step-length and foot clearance and little arm swing and when cued, can swing arms more and exagerrates bigger steps/ picking up feet. Gait is more festinating and is NOT magnetic in nature at any point during assessment PT-OP-H Neuro Start: 09/24/24 11:32 Freq: Status: Active Protocol: Document 10/07/24 13:45 MB (Rec: 10/07/24 16:29 MB [id number]) Coordination Evaluation Upper Extremity Tests Left Finger to Nose Test Moderate Impairment Pronation/Supination Test Severe Impairment Right Finger to Nose Test Minimal Impairment Pronation/Supination Test Severe Impairment Lower Extremity Tests Left Heel on Arroyo Test Severe Impairment Right Heel on Arroyo Test Severe Impairment Comments Coordination Comments Poor command following ability PT-OP-Q Treatments Start: 09/24/24 11:32 Freq: Status: Active Protocol: Document 11/11/24 11:32 MB (Rec: 11/11/24 12:14 MB [id number]) Therapeutic Activity Therapeutic Activity STS Comments Practiced with 4WRW today from chair to rollator and back: Waiting room chair and BIG chair with arm rests. Here are the VCs pt and will practice: Push up from the chair Hands on walker Unlock walker Step forward Step backward Leg touch chair Lock walker Reach back for the chair Pt con't to require verbal cues each transfer today and he does not have recall from previous treatment sessions Gait Training Gait Activity Gait with rollator Comments Performed gait outside today: forward and backwards walking on sidewalk and pt with festinating gait with retropulsion and poorer balance of control requiring min A x1 to prevent fall, worked on stopping and keeping balance from retropulsion and then walking forward, gait on grass. Overall SBA for forward gait and CGA for backwards gait Neuro Re-Education Treatment Balance Activities Otago STS Details Otago HEP Equipment BIG chair Comments Cues to squeeze buns and to stand up tall and pt can only perform 10 reps today and then stops Otago squat Details Otago HEP Equipment BIG chair Comments Both hands on chair and cues for feet apart, shoulders tall , butt back for squat Otago SLS Details Not adding to HEP Comments Pt with some LOB forward and unsafe, even with behind and so did not add to HEP Otago tighrope standing Details Ota HEP Equipment BIG chair Reps/Duration Tried several reps Comments will stand behind, belt donned, goal for 1 rep for 10 sec with each foot in front Otago balance Comments For patient, marked out SLS, tightrope walk, tightrope backward walk and heel and toe walking (did not give handout for last two) as these will be too hard for pt PT-OP-T Assessment and Plan Start: 09/24/24 11:32 Freq: Status: Active Protocol: Document 11/11/24 11:32 MB (Rec: 11/11/24 12:14 MB [id number]) Physical Therapy Assessment Rehab Potential Rehabilitation Potential Fair Evaluation Complexity Number of Personal Factors/Comorbidities 1-2 Number of Body Systems Impaired 3 Clinical Presentation at Evaluation Evolving Impairments Impairments Activity Tolerance,Balance, Coordination,Functional Activities,Functional Mobility ,Gait,Posture,ROM,Soft Tissue Mobility,Transfers Goals 4 Impairment Lack of HEP Skilled Nursing Goal (LTG) Pt will perform progressive HEP with I including flexiblity, balance, flexibility and gait activities to decrease falls and increase I. 11/02/24: Pt and have bee working on transfer to rollator and stepping forward and back since he got the rollator last week. LTG Duration 8 weeks 3 Impairment Slow and imbalanced TUG Marketing Systems Manager Goal (LTG) Pt will perform TUG with or without AD in no more than 10 sec to decrease fall risk. 11/02/24: 22 sec with rollator and superv 16 sec without AD and pt CGA and increased unsteadiness LTG Duration 8 weeks 2 Impairment Poor gait Marketing Systems Manager Goal (LTG) Pt will gait train at least 1251 feet in 6 minutes to improve community ambulation. 11/02/24: Performed with rollator today: 836 feet and cues for standing up tall, staying close to the walker, picking up feet (BIG feet) and making sure he keeps feet inside walker with turning on the walker: wider turn LTG Duration 8 weeks 1 Impairment Evidence of imbalance and history of falls Marketing Systems Manager Goal (LTG) Pt will perform WNLs on Tinetti or Stoddard Balance Test to decrease fall risk. 11/02/23: Tinetti balance section 08/12 Tinetti gait section with rollator 07/09 and 06/08 with rollator; Stoddard Score is 30/56, indicating increased risk for falls LTG Duration 8 weeks Assessment Summary Assessment forgot Otago handout and pt is using rollator from the wrong direction upon arrival to PT. Questionable compliance with instructions, HEP and memory of pt and have been barriers to progression. Pt has 7 or so treatments left and will spend revieweing his Otago HEP several times for safety and recall and ongoing transfer, balance and gait activities. See plan below. Physical Therapy Plan Frequency and Duration Frequency of Treatment 2x/Week Duration of treatment (weeks) 8 Plan of Care Start Date 11/02/24 Plan of Care End Date 02/01/25 Therapeutic Interventions Therapeutic Interventions Balance Training,Canalithic Repositioning,Coordination Training,Gait Training,Home Exercise Program,Joint Mobilizations,Manual Therapy, Neuromuscular Re-education, Patient/Caregiver Education, Self-Care/Home Management, Sensory Integration,Soft Tissue Mobilization,Taping, Therapeutic Activities, Therapeutic Exercises Modalities Cold Pack/Ice Massage,Electric Stimulation,Hot Packs, Ultrasound Other Referrals/Consults Referrals/Consults Recommended SENIOR CAREGIVER consult Next Visit Focus/Plan Next Note Type Treatment Note Next Visit Plan Pt has 7 or so more treatments and may consider to reduce number. Pt and with cognitive challenges so it is appropriate to review prescribed Otago exercises over a few treatments for imprinting and performance and for ongoing walking with rollator including 6MWT, balance tasks like walking backwards and picking things off floor, practicing transfers. Practice getting on and off the floor if appropriate
--- NOTE | 2024-11-17 09:03 | PT.OTN ---
Current Diagnoses Parkinsonism, unspecified (11/17/24) Physical Therapy Treatment Note PT-OP-A Visit Information Start: 09/24/24 11:32 Freq: Status: Active Protocol: Document 11/17/24 08:21 MB (Rec: 11/17/24 09:03 MB [id number]) Out-Patient Physical Therapy Visit Information Visit Information Visit Type Treatment Note Visit Note Pt goes by Jeff is Natty Next progress note by 12/08/24 Visit Start Time 08:21 Visit Stop Time 09:00 Visit Number 9 Number of WELDER APPRENTICE ARC Visits 0 Evaluation Information Evaluation Date 10/07/24 Precautions Precautions Pt has orthostasis, , Natty, also has some memory challenges PT-OP-B Current Condition Start: 09/24/24 11:32 Freq: Status: Active Protocol: Document 10/07/24 13:45 MB (Rec: 10/07/24 14:23 MB [id number]) Current Condition History of Current Condition Onset Date 05/20, mobility issues for 6 months Current Complaints Cognitive and mobility challenges History of Current Condition provides all history and pt is very hypoverbal. Recent IMAN scan was negative with movement specialist stating pt does not have PD. Pt had a history of falls with several falls and d/c from PT in July of 2024. He was also orthostatic during that time. Pt and report that pt has only had no more falls since July. Pt had one evening of confusion in 09/20 when he was confused, got dressed and was ready to leave the house and called EMT . said HHPT was not that helpful. She no longer has caregiver assistance. She occ has caregivers come in to stay with pt when she goes out to meetings. At some point, pt hit his head and he had a hematoma on testing. This might have been the fall off the toilet. Pt also had fall and right posterior hip hemiarthroplasty after hip fracture. He was WBAT and took him home from the hospital. This was in May 2024. Pt is not using AD. PMH includes B TKRs. They see doctor over Telehealth on the and she will ask about con't carbidopa levodopa. 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 On the report that PT has access to, there is no mention of ventricular enlargement in the report. assists with ADLs. Treatment Goals Patient/Caregiver Goals To be able to walk and move better. PT-OP-C Subjective Start: 09/24/24 11:32 Freq: Status: Active Protocol: Document 11/17/24 08:21 MB (Rec: 11/17/24 09:03 MB [id number]) OP-PT Subjective Patient Comments Patient Comments Pt and are late to appointment. Pt and went for a walk outside with rollator yesterday and it went well. Discussed plan and will cancel all appointments except 11/26 and 11/30 and will d /c 11/30. has not yet checked out about ankle weights online. PT-OP-D Balance Start: 09/24/24 11:32 Freq: Status: Active Protocol: Document 10/07/24 13:45 MB (Rec: 10/07/24 16:29 MB [id number]) Balance Tests Other Other Balance Tests Performed TUG: pt requires four attempts today d/t poor command- following and kicking the cone over, turning too sharply, LOB, or cutting distance short , finally 14 sec to complete test, indicating increased risk for falls PT-OP-G Mobility & Gait Start: 09/24/24 11:32 Freq: Status: Active Protocol: Document 10/07/24 13:45 MB (Rec: 10/07/24 16:29 MB [id number]) OP Gait Assessment Comments Gait Comments Gait without AD: decreased step-length and foot clearance and little arm swing and when cued, can swing arms more and exagerrates bigger steps/ picking up feet. Gait is more festinating and is NOT magnetic in nature at any point during assessment PT-OP-H Neuro Start: 09/24/24 11:32 Freq: Status: Active Protocol: Document 10/07/24 13:45 MB (Rec: 10/07/24 16:29 MB [id number]) Coordination Evaluation Upper Extremity Tests Left Finger to Nose Test Moderate Impairment Pronation/Supination Test Severe Impairment Right Finger to Nose Test Minimal Impairment Pronation/Supination Test Severe Impairment Lower Extremity Tests Left Heel on Arroyo Test Severe Impairment Right Heel on Arroyo Test Severe Impairment Comments Coordination Comments Poor command following ability PT-OP-Q Treatments Start: 09/24/24 11:32 Freq: Status: Active Protocol: Document 11/17/24 08:21 MB (Rec: 11/17/24 09:03 MB [id number]) Therapeutic Exercises Sitting Exercises Otago STS Sitting Exercise Name Reviewed from HEP Reps/Minutes 10 reps Comments Reviewed with handout today Knee Ext Sitting Exercise Name Otago HEP reviewed Side bilateral Equipment Used 2# ankle weights, sit BIG chair Reps/Minutes Several alternating reps for review Comments Reviewed with handout today Standing Exercises Otago hip abduction Standing Exercise Name Reviewed from HEP Side bilateral Equipment Used 2# ankle weights, stand behind BIG chair Reps/Minutes Many alternating reps Comments Reviewed with handout HS Curl Standing Exercise Name Reviewed from HEP Side bilateral Equipment Used 2# ankle weights, stand behind BIG chair Reps/Minutes Several alternating reps Comments Reviewed with handout Heel Raise Standing Exercise Name Reviewed for HEP Side bilateral Equipment Used 2# ankle weights, stand behind BIG chair Reps/Minutes 30 reps, once Comments Reviewed with handout Neuro Re-Education Treatment Balance Activities [place] tighrope standing Details Reviewed from handout today Comments beside pt, cues, several sec hold PT-OP-T Assessment and Plan Start: 09/24/24 11:32 Freq: Status: Active Protocol: Document 11/17/24 08:21 MB (Rec: 11/17/24 09:03 [id number]) Physical Therapy Assessment Rehab Potential Rehabilitation Potential Fair Evaluation Complexity Number of Personal Factors/Comorbidities 1-2 Number of Body Systems Impaired 3 Clinical Presentation at Evaluation Evolving Impairments Impairments Activity Tolerance,Balance, Coordination,Functional Activities,Functional Mobility ,Gait,Posture,ROM,Soft Tissue Mobility,Transfers Goals 4 Impairment Lack of HEP Swiss Machinist Goal (LTG) Pt will perform progressive HEP with I including flexiblity, balance, flexibility and gait activities to decrease falls and increase I. 11/02/24: Pt and have bee working on transfer to rollator and stepping forward and back since he got the rollator last week. LTG Duration 8 weeks 3 Impairment Slow and imbalanced TUG Swiss Machinist Goal (LTG) Pt will perform TUG with or without AD in no more than 10 sec to decrease fall risk. 11/02/24: 22 sec with rollator and superv 16 sec without AD and pt CGA and increased unsteadiness LTG Duration 8 weeks 2 Impairment Poor gait [facility] Goal (LTG) Pt will gait train at least 1251 feet in 6 minutes to improve community ambulation. 11/02/24: Performed with rollator today: 836 feet and cues for standing up tall, staying close to the walker, picking up feet (BIG feet) and making sure he keeps feet inside walker with turning on the walker: wider turn LTG Duration 8 weeks 1 Impairment Evidence of imbalance and history of falls [facility] Goal (LTG) Pt will perform WNLs on Tinetti or Stoddard Balance Test to decrease fall risk. 11/02/23: Tinetti balance section /16 Tinetti gait section with rollator / and 06/08 with rollator; Stoddard Score is 30/56, indicating increased risk for falls LTG Duration 8 weeks Assessment Summary Assessment Pt and late to appointment and pt has no follow-through with BIG walking, backing up with walker, locking walker and reaching back for chair. He con't to push walker from the wrong side. Made a sticky note and placed on walker to show him which side to stand on and canceled all appointments but two: will review [facility] exercise program and then d/c. and pt's cognitive challenges have made compliance and carryover challenging. Physical Therapy Plan Frequency and Duration Frequency of Treatment 2x/Week Duration of treatment (weeks) 8 Plan of Care Start Date 11/02/24 Plan of Care End Date 02/01/25 Therapeutic Interventions Therapeutic Interventions Balance Training,Canalithic Repositioning,Coordination Training,Gait Training,Home Exercise Program,Joint Mobilizations,Manual Therapy, Neuromuscular Re-education, Patient/Caregiver Education, Self-Care/Home Management, Sensory Integration,Soft Tissue Mobilization,Taping, Therapeutic Activities, Therapeutic Exercises Modalities Cold Pack/Ice Massage,Electric Stimulation,Hot Packs, Ultrasound Other Referrals/Consults Referrals/Consults Recommended MENTAL HYGIENIST consult Next Visit Focus/Plan Next Note Type Treatment Note Next Visit Plan 2 treatments left, review Otago program
--- NOTE | 2024-11-26 09:48 | PT.OTN ---
Current Diagnoses Parkinsonism, unspecified (11/26/24) Physical Therapy Treatment Note PT-OP-A Visit Information Start: 09/24/24 11:32 Freq: Status: Active Protocol: Document 11/26/24 09:07 SP (Rec: 11/26/24 09:50 SP [id number]) Out-Patient Physical Therapy Visit Information Visit Information Visit Type Treatment Note Visit Note Pt goes by Jeff is Natty and joined PT today with HEP. Next progress note by 12/08/24 Visit Start Time 09:07 Visit Stop Time 09:48 Visit Number 10 Number of STOVE MOUNTER Visits 1 Evaluation Information Evaluation Date 10/07/24 Precautions Precautions Pt has orthostasis, , Natty, also has some memory challenges PT-OP-B Current Condition Start: 09/24/24 11:32 Freq: Status: Active Protocol: Document 10/07/24 13:45 MB (Rec: 10/07/24 14:23 MB [id number]) Current Condition History of Current Condition Onset Date 05/20, mobility issues for 6 months Current Complaints Cognitive and mobility challenges History of Current Condition provides all history and pt is very hypoverbal. Recent IMAN scan was negative with movement specialist stating pt does not have PD. Pt had a history of falls with several falls and d/c from PT in July of 2024. He was also orthostatic during that time. Pt and report that pt has only had no more falls since July. Pt had one evening of confusion in 09/20 when he was confused, got dressed and was ready to leave the house and called EMT . said HHPT was not that helpful. She no longer has caregiver assistance. She occ has caregivers come in to stay with pt when she goes out to meetings. At some point, pt hit his head and he had a hematoma on testing. This might have been the fall off the toilet. Pt also had fall and right posterior hip hemiarthroplasty after hip fracture. He was WBAT and took him home from the hospital. This was in May 2024. Pt is not using AD. PMH includes B TKRs. They see doctor over Telehealth on the and she will ask about con't carbidopa levodopa. 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 On the report that PT has access to, there is no mention of ventricular enlargement in the report. assists with ADLs. Treatment Goals Patient/Caregiver Goals To be able to walk and move better. PT-OP-C Subjective Start: 09/24/24 11:32 Freq: Status: Active Protocol: Document 11/26/24 09:07 SP (Rec: 11/26/24 09:50 SP [id number]) OP-PT Subjective Patient Comments Patient Comments Pt nothing new to report, and pt can't report to doing HEP at home. PT-OP-D Balance Start: 09/24/24 11:32 Freq: Status: Active Protocol: Document 10/07/24 13:45 MB (Rec: 10/07/24 16:29 MB [id number]) Balance Tests Other Other Balance Tests Performed TUG: pt requires four attempts today d/t poor command- following and kicking the cone over, turning too sharply, LOB, or cutting distance short , finally 14 sec to complete test, indicating increased risk for falls PT-OP-G Mobility & Gait Start: 09/24/24 11:32 Freq: Status: Active Protocol: Document 10/07/24 13:45 MB (Rec: 10/07/24 16:29 MB [id number]) OP Gait Assessment Comments Gait Comments Gait without AD: decreased step-length and foot clearance and little arm swing and when cued, can swing arms more and exagerrates bigger steps/ picking up feet. Gait is more festinating and is NOT magnetic in nature at any point during assessment PT-OP-H Neuro Start: 09/24/24 11:32 Freq: Status: Active Protocol: Document 10/07/24 13:45 MB (Rec: 10/07/24 16:29 MB [id number]) Coordination Evaluation Upper Extremity Tests Left Finger to Nose Test Moderate Impairment Pronation/Supination Test Severe Impairment Right Finger to Nose Test Minimal Impairment Pronation/Supination Test Severe Impairment Lower Extremity Tests Left Heel on Arroyo Test Severe Impairment Right Heel on Arroyo Test Severe Impairment Comments Coordination Comments Poor command following ability PT-OP-Q Treatments Start: 09/24/24 11:32 Freq: Status: Active Protocol: Document 11/26/24 09:07 SP (Rec: 11/26/24 09:50 SP [id number]) Therapeutic Exercises Sitting Exercises Otago STS Sitting Exercise Name Reviewed from HEP Reps/Minutes 10 reps Comments Reviewed with handout today Knee Ext Sitting Exercise Name [place] HEP reviewed Side bilateral Equipment Used 2# ankle weights, sit BIG chair Reps/Minutes Several alternating reps for review Comments Reviewed with handout today Standing Exercises [place] hip abduction Standing Exercise Name Reviewed from HEP Side bilateral Equipment Used 2# ankle weights, stand behind BIG chair Reps/Minutes Many alternating reps Comments Reviewed with handout, cued tall posture HS Curl Standing Exercise Name Reviewed from HEP Side bilateral Equipment Used 2# ankle weights, stand behind BIG chair Reps/Minutes Several alternating reps Comments Reviewed with handout-cued tall Heel Raise Standing Exercise Name Reviewed for HEP Side bilateral Equipment Used 2# ankle weights, stand behind BIG chair Reps/Minutes 30 reps, once Comments Reviewed with handout Therapeutic Activity Therapeutic Activity STS Name provided index card help sequencing (STS and transfers) Reps/Minutes multiple reps between chairs Comments Practiced with 4WRW today from chair to rollator and back: Waiting room chair and BIG chair with arm rests. Here are the VCs pt and will practice: Push up from the chair Hands on walker Unlock walker Step forward Step backward Leg touch chair Lock walker Reach back for the chair Pt con't to require max verbal cues each transfer today and he does not have recall from previous treatment sessions Self-Care/Home Management Treatment Education Patient Education Home Exercise Program Caregiver Education Safety discussion with pt and , exchange 4WW from [employer] on Fri for improve brakes and back rest with proper height for pt. stated will stop on Fri and tell them current 4WW not safe brakes and missing/broke back rest confusing for pt sit on correctly. Other Education ed and pt leg wts online ALL Pro Controured foam 2lbs with progression up to 5lbs max, currently 2lbs. PT-OP-T Assessment and Plan Start: 09/24/24 11:32 Freq: Status: Active Protocol: Document 11/26/24 09:07 SP (Rec: 11/26/24 09:50 SP [id number]) Physical Therapy Assessment Goals 4 Impairment Lack of HEP Retirement Goal (LTG) Pt will perform progressive HEP with I including flexiblity, balance, flexibility and gait activities to decrease falls and increase I. 11/02/24: Pt and have bee working on transfer to rollator and stepping forward and back since he got the rollator last week. LTG Duration 8 weeks 3 Impairment Slow and imbalanced TUG Brush Or Broom Cutter Goal (LTG) Pt will perform TUG with or without AD in no more than 10 sec to decrease fall risk. 11/02/24: 22 sec with rollator and superv 16 sec without AD and pt CGA and increased unsteadiness LTG Duration 8 weeks 2 Impairment Poor gait Retirement Goal (LTG) Pt will gait train at least 1251 feet in 6 minutes to improve community ambulation. 11/02/24: Performed with rollator today: 836 feet and cues for standing up tall, staying close to the walker, picking up feet (BIG feet) and making sure he keeps feet inside walker with turning on the walker: wider turn LTG Duration 8 weeks 1 Impairment Evidence of imbalance and history of falls Retirement Goal (LTG) Pt will perform WNLs on Tinetti or Stoddard Balance Test to decrease fall risk. 11/02/23: Tinetti balance section 16 Tinetti gait section with rollator 07/09 and 06/08 with rollator; Stoddard Score is 30/56, indicating increased risk for falls LTG Duration 8 weeks Assessment Summary Assessment Pt has no carryover, time spent safety during transfers using 4WW locking mgt and hand placement on chair for standing and controlled sitting. Provided index card on 4WW for him and to read for potential self reminders. Progressed Otago HEP with 2# leg wts and provided screen shot of similar online can purchase for strengthening can help him get. Pt no adverse affects to, requires someone to count and need to follow. Ed to will need to provide this to pt, she stated can. She performed HEP with pt today while both followed HO. Physical Therapy Plan Frequency and Duration Frequency of Treatment 2x/Week Duration of treatment (weeks) 8 Plan of Care Start Date 11/02/24 Plan of Care End Date 02/01/25 Therapeutic Interventions Therapeutic Interventions Balance Training,Canalithic Repositioning,Coordination Training,Gait Training,Home Exercise Program,Joint Mobilizations,Manual Therapy, Neuromuscular Re-education, Patient/Caregiver Education, Self-Care/Home Management, Sensory Integration,Soft Tissue Mobilization,Taping, Therapeutic Activities, Therapeutic Exercises Modalities Cold Pack/Ice Massage,Electric Stimulation,Hot Packs, Ultrasound Other Referrals/Consults Referrals/Consults Recommended ASSISTANT EDITOR consult Next Visit Focus/Plan Next Note Type Treatment Note Next Visit Plan 1 treatments left plan to DC, review Otago program and check if got new 4WW from [employer] back rest and tall enough.
--- NOTE | 2024-11-30 09:12 | PT.OPDS ---
Current Diagnoses Parkinsonism, unspecified (11/26/24) Visit Care Team Role Provider Type Ulices Wallace MD Primary Care Provider Physician Specialty: Family Practice Address: [address] [place] [address], [id number] Email: [email or web address] Lashonda Phelps MD Family Provider Physician Specialty: Cardiology Address: [address] [place] [address], [address], [place], [address] Email: [email or web address] Reina Mohan MD Attending Provider Non-Staff Referring Provider Specialty: Psychiatry Address: [address] [place], [address] Email: Visit Number Visit Number 10 Discharge Summary PT-OP-B Current Condition Start: 09/24/24 11:32 Freq: Status: Active Protocol: Document 10/07/24 13:45 MB (Rec: 10/07/24 14:23 MB [id number]) Current Condition History of Current Condition Onset Date 05/20, mobility issues for 6 months Current Complaints Cognitive and mobility challenges History of Current Condition provides all history and pt is very hypoverbal. Recent IMAN scan was negative with movement specialist stating pt does not have PD. Pt had a history of falls with several falls and d/c from PT in July of 2024. He was also orthostatic during that time. Pt and report that pt has only had no more falls since July. Pt had one evening of confusion in 09/20 when he was confused, got dressed and was ready to leave the house and called EMT . said HHPT was not that helpful. She no longer has caregiver assistance. She occ has caregivers come in to stay with pt when she goes out to meetings. At some point, pt hit his head and he had a hematoma on testing. This might have been the fall off the toilet. Pt also had fall and right posterior hip hemiarthroplasty after hip fracture. He was WBAT and took him home from the hospital. This was in May 2024. Pt is not using AD. PMH includes B TKRs. They see doctor over Telehealth on the and she will ask about con't carbidopa levodopa. 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 On the report that PT has access to, there is no mention of ventricular enlargement in the report. assists with ADLs. Treatment Goals Patient/Caregiver Goals To be able to walk and move better. PT-OP-C Subjective Start: 09/24/24 11:32 Freq: Status: Active Protocol: Document 11/26/24 09:07 SP (Rec: 11/26/24 09:50 SP [id number]) OP-PT Subjective Patient Comments Patient Comments Pt nothing new to report, and pt can't report to doing HEP at home. PT-OP-D Balance Start: 09/24/24 11:32 Freq: Status: Active Protocol: Document 10/07/24 13:45 MB (Rec: 10/07/24 16:29 MB [id number]) Balance Tests Other Other Balance Tests Performed TUG: pt requires four attempts today d/t poor command- following and kicking the cone over, turning too sharply, LOB, or cutting distance short , finally 14 sec to complete test, indicating increased risk for falls PT-OP-G Mobility & Gait Start: 09/24/24 11:32 Freq: Status: Active Protocol: Document 10/07/24 13:45 MB (Rec: 10/07/24 16:29 MB [id number]) OP Gait Assessment Comments Gait Comments Gait without AD: decreased step-length and foot clearance and little arm swing and when cued, can swing arms more and exagerrates bigger steps/ picking up feet. Gait is more festinating and is NOT magnetic in nature at any point during assessment PT-OP-H Neuro Start: 09/24/24 11:32 Freq: Status: Active Protocol: Document 10/07/24 13:45 MB (Rec: 10/07/24 16:29 MB [id number]) Coordination Evaluation Upper Extremity Tests Left Finger to Nose Test Moderate Impairment Pronation/Supination Test Severe Impairment Right Finger to Nose Test Minimal Impairment Pronation/Supination Test Severe Impairment Lower Extremity Tests Left Heel on Arroyo Test Severe Impairment Right Heel on Arroyo Test Severe Impairment Comments Coordination Comments Poor command following ability PT-OP-T Assessment and Plan Start: 09/24/24 11:32 Freq: Status: Active Protocol: Document 11/30/24 09:09 MB (Rec: 11/30/24 09:12 GLEN [id number]) Physical Therapy Assessment Assessment Summary Assessment Pt and cancel appointment d/t snow. This was last scheduled appointment. He was supposed to go to [place] tomorrow for NPH work-up and she cancelled appointment d/t inclement weather. Will d/c PT . Recommend pt con't with balance and strengthening exercises and use of rollator as instructed. Pt and both have cognitive/memory challenges and this has been a barrier to OPPT.
== END 2024-11-30 14:09 | disposition home or self-care (01) ==
LOC: PHYS 09:00
PROVIDERS: Family Provider Internal Medicine Cardiovascular Disease; PCP Family Medicine; Referring Provider Psychiatry & Neurology Neurology; Visit Provider Psychiatry & Neurology Neurology
DX: G20.C Parkinsonism, unspecified (principal)
CPT/HCPCS: 97110; 97112; 97116; 97162; 97530; 97535

== ENCOUNTER 2025-05-26 14:30 | Outpatient (RCR) | payer MEDICARE, SELFPAY ==
[2024-08-04 14:04] VITALS: BMI 27.2
--- NOTE | 2025-04-28 11:30 | PT.OPPOC ---
Physical, Occupational & Speech Therapy At [facility] Current Diagnoses Unspecified dementia, moderate, without behavioral disturbance, psychotic disturbance, mood disturbance, and anxiety (04/28/25) (Idiopathic) normal pressure hydrocephalus (04/28/25) Other reduced mobility (04/28/25) Other specified health status (04/28/25) Visit Care Team Role Provider Type Lashonda Phelps MD Family Provider Physician Specialty: Cardiology Address: [address] [place] [address], [address], [place], [address] Email: [email or web address] Ulices Wallace MD Attending Provider Physician Primary Care Provider Referring Provider Specialty: Family Practice Address: [address] [place] [address], [phone] Email: [email or web address] Plan Of Care PT-OP-B Current Condition Start: 04/28/25 12:16 Freq: Status: Active Protocol: Document 04/28/25 10:45 DCW (Rec: 04/28/25 15:04 DCW [id number]) Current Condition History of Current Condition Current Complaints Back pain, imbalance History of Current Pt is an 89 year old male presenting with some Condition confusion today. Pt reports his only complaint is that his back hurts. Pt's and pt's referral state that he has been having some difficulty with balance and gait. Pt denies these claims. Pt's notes that she had to wake him up to get in to his appointment today, and that he seems more confused than usual today. Pt was seen in this clinic in November of this year for similar complaints, although pt reports that was a few years ago. Denies AD use. Has no real subjective history of imbalance or falls. Pt's does note that he has been doing better with his balance the past few weeks, but is still ambulating with a slow, cautious gait, and reaching for furniture or brooks. Per prior PT notes, pt was going to be seen down in [place] for potential normal pressure hydrocephalus, pt's reports that testing was performed, and seems to feel everything was okay, because they haven't been contacted further. Personal Factors Other Personal Memory/cognitive impairments, Hx of falls, prior B TKA, Factors That May back pain Effect Therapy/ Recovery PT-OP-T Assessment and Plan Start: 04/28/25 12:16 Freq: Status: Active Protocol: Document 04/28/25 10:45 DCW (Rec: 04/28/25 17:58 DCW [id number]) Physical Therapy Assessment Rehab Potential Rehabilitation Fair Potential Evaluation Complexity Number of Personal 3 or More Factors/ Comorbidities Number of Body 4 or More Systems Impaired Clinical Unstable Presentation at Evaluation Impairments Impairments Activity Tolerance,Balance,Functional Activities, Functional Mobility,Gait,Pain,Strength,Tone Goals Three Impairment Pt scores a 17.24 on the TUG Boat Hoist Operator Goal (LTG) Pt to improve TUG score by at least 5.25 seconds to <12 seconds in order to demonstrate improved activity tolerance LTG Duration 07/29/25 Two Impairment Stoddard Balance score (42/56) indicates increased falls risk Assisted Goal (LTG) Pt to improve Stoddard Balance score by at least four points to 46/56 in order to demonstrate decrease in falls risk LTG Duration 07/29/25 One Impairment Pt does not have an appropriate home exercise program Boat Hoist Operator Goal (LTG) Pt to be independent and compliant LTG Duration 06/29/25 Assessment Summary Assessment Pt presents with signs and symptoms consistent with referring diagnosis. Pt exhibits increased risk of falls, per Stoddard (42/56) and TUG (17.24) scores. Pt limited by cognitive and memory limitations. Pt's notes day of ev was an especially bad day. Pt very focused on current low back pain, denies that he feels there are any concerns regarding balance, and has therefore refused to use assistive devices in the past. Does exhibit a forward flexed posture with decreased lordotic curve in lumbar spine and increased thoracic kyphosis. Will likely benefit from skilled therapy focusing on balance, gait, LE strength, functional mobility, lumbar/core strengthening, and pain management. Physical Therapy Plan Frequency and Duration Frequency of 2x/Week Treatment Plan of Care Start 04/28/25 Date Plan of Care End 06/29/25 Date Therapeutic Interventions Therapeutic Balance Training,Home Exercise Program,Joint Interventions Mobilizations,Manual Therapy,Neuromuscular Re-education ,Patient/Caregiver Education,Self-Care/Home Management, Soft Tissue Mobilization,Therapeutic Activities, Therapeutic Exercises Next Visit Focus/Plan Next Note Type Treatment Note Next Visit Plan LE Strengthening, balance and gait training, low back/ core strengthening Plan of Care Dates Plan of Care Start Date 04/28/25 Plan of Care End Date 06/29/25 Electronically Signed by: Andrew Drew, PT 04/29/25 0944 If you are in agreement with this Plan of Care, please return a signed and dated copy. I have reviewed this Plan of Care and certify that the skilled therapy services above are required to meet the patient?s needs. Physician Signature Date Printed Name and Credentials Clinical Instructor Signature Printed Name and Credentials
--- NOTE | 2025-04-28 11:30 | PT.OIE ---
Current Diagnoses Unspecified dementia, moderate, without behavioral disturbance, psychotic disturbance, mood disturbance, and anxiety (04/28/25) (Idiopathic) normal pressure hydrocephalus (04/28/25) Other reduced mobility (04/28/25) Other specified health status (04/28/25) Past Medical History (Last Updated 10/30/24 @ 11:50 by Ulices Wallace MD) BPH without obstruction/lower urinary tract symptoms Carotid artery stenosis Chronic back pain (~1958) Coronary artery disease Dementia Hyperlipidemia, unspecified (01/29/12) Hypertension Hypothyroidism LAFB (left anterior fascicular block) Normal pressure hydrocephalus RBBB SDH (subdural hematoma) Subconjunctival hemorrhage of left eye Thyroid cancer (~1964) Thyroid nodule Past Surgical History (Last Reviewed 10/21/24 @ 04:06 by Celia Stewart MD) Anesthesia History of knee replacement History of thyroidectomy (~1964) History of vasectomy S/P coronary artery stent placement (~05/2020) Status post appendectomy (~1969) Status post laminectomy Status post tonsillectomy and adenoidectomy Visit Care Team Role Provider Type Lashonda Phelps MD Family Provider Physician Specialty: Cardiology Address: [address] [place] [address], [address], [place], [address] Email: [email or web address] Ulices Wallace MD Attending Provider Physician Primary Care Provider Referring Provider Specialty: Family Practice Address: [address] [place] [address], [address] Email: [email or web address] Physical Therapy Initial Evaluation PT-OP-A Visit Information Start: 04/28/25 12:16 Freq: Status: Active Protocol: Document 04/28/25 10:45 DCW (Rec: 04/28/25 12:20 DCW [id number]) Out-Patient Physical Therapy Visit Information Visit Information Visit Type Initial Evaluation Visit Start Time 10:45 Visit Stop Time 11:30 Visit Number 1 Number of CONTAINER MAKER Visits 0 Evaluation Information Evaluation Date 04/28/25 PT-OP-B Current Condition Start: 04/28/25 12:16 Freq: Status: Active Protocol: Document 04/28/25 10:45 DCW (Rec: 04/28/25 15:04 DCW [id number]) Current Condition History of Current Condition Current Complaints Back pain, imbalance History of Current Pt is an 89 year old male presenting with some Condition confusion today. Pt reports his only complaint is that his back hurts. Pt's and pt's referral state that he has been having some difficulty with balance and gait. Pt denies these claims. Pt's notes that she had to wake him up to get in to his appointment today, and that he seems more confused than usual today. Pt was seen in this clinic in November of this year for similar complaints, although pt reports that was a few years ago. Denies AD use. Has no real subjective history of imbalance or falls. Pt's does note that he has been doing better with his balance the past few weeks, but is still ambulating with a slow, cautious gait, and reaching for furniture or brooks. Per prior PT notes, pt was going to be seen down in [place] for potential normal pressure hydrocephalus, pt's reports that testing was performed, and seems to feel everything was okay, because they haven't been contacted further. Personal Factors Other Personal Memory/cognitive impairments, Hx of falls, prior B TKA, Factors That May back pain Effect Therapy/ Recovery PT-OP-C Subjective Start: 04/28/25 12:16 Freq: Status: Active Protocol: Document 04/28/25 10:45 DCW (Rec: 04/28/25 15:04 DCW [id number]) OP-PT Subjective Patient Comments Patient Comments My back has just been killing me the past two days. Patient Questionnaires Oswestry Low Back Index Oswestry Score 15/50 = 30% PT-OP-D Balance Start: 04/28/25 12:16 Freq: Status: Active Protocol: Document 04/28/25 10:45 DCW (Rec: 04/28/25 12:20 DCW [id number]) Stoddard Balance Assessment Evaluation Sitting to Standing Independent w/Hands Ability Unsupported Stance Safely- 2 minutes Sitting Unsupported, Safely- 2 minutes Feet on Floor Standing to Sitting Assist, Control w/Hands Ability Transfer Ability Safely, Hand Use Unsupported Stance- Supervision, 10 seconds Eyes Closed Unsupported Stance- Supervision to maintain Eyes Open Reaching Forward Safely, 5 inches Standing Pick- Up Object From Supervision Floor Look Behind Shoulder Shifts Weight Well - Standing Turning 360 Degrees Turns slowly, but safely Unsupported Stance, (I)- 8 Steps in > 20 secs Alternating Feet on Stair Unsupported Tandem Holds Tandem- 30 seconds Stance Unilateral Leg Lifts Leg/Unable to Hold Stance Total Score Stoddard Total Score ( 42 out of 56 points) PT-OP-E Functional Tests Start: 04/28/25 12:16 Freq: Status: Active Protocol: Document 04/28/25 10:45 DCW (Rec: 04/28/25 12:20 DCW [id number]) Functional Tests Five Times Sit to Stand Test Score 22.17 Comments required occasional multiple attempts Timed Up and Go (TUG) Score 17.24 Comments Three-trial average (20.27, 15.81, 15.64) PT-OP-M Strength Start: 04/28/25 12:16 Freq: Status: Active Protocol: Document 04/28/25 10:45 DCW (Rec: 04/28/25 14:43 DCW [id number]) Hip Strength Hip Manual Muscle Testing Right Flexion (L2) 3+ Fair+ Abduction 4+ Good+ Adduction 4+ Good+ External Rotation 3 Fair Internal Rotation 4 Good Left Flexion (L2) 4 Good Abduction 4+ Good+ Adduction 4+ Good+ External Rotation 4 Good Internal Rotation 4- Good- Knee Strength Knee Manual Muscle Testing Right Flexion (S2) 4+ Good+ Extension (L3) 4+ Good+ Left Flexion (S2) 4+ Good+ Extension (L3) 4+ Good+ Ankle/Foot Strength Ankle and Foot Manual Muscle Testing Right Dorsiflexion (L4) 3+ Fair+ Left Dorsiflexion (L4) 4 Good PT-OP-T Assessment and Plan Start: 04/28/25 12:16 Freq: Status: Active Protocol: Document 04/28/25 10:45 DCW (Rec: 04/28/25 17:58 DCW [id number]) Physical Therapy Assessment Rehab Potential Rehabilitation Fair Potential Evaluation Complexity Number of Personal 3 or More Factors/ Comorbidities Number of Body 4 or More Systems Impaired Clinical Unstable Presentation at Evaluation Impairments Impairments Activity Tolerance,Balance,Functional Activities, Functional Mobility,Gait,Pain,Strength,Tone Goals Three Impairment Pt scores a 17.24 on the TUG Custodial Goal (LTG) Pt to improve TUG score by at least 5.25 seconds to <12 seconds in order to demonstrate improved activity tolerance LTG Duration 07/29/25 Two Impairment Stoddard Balance score (42/56) indicates increased falls risk Custodial Goal (LTG) Pt to improve Stoddard Balance score by at least four points to 46/56 in order to demonstrate decrease in falls risk LTG Duration 07/29/25 One Impairment Pt does not have an appropriate home exercise program Custodial Goal (LTG) Pt to be independent and compliant LTG Duration 06/29/25 Assessment Summary Assessment Pt presents with signs and symptoms consistent with referring diagnosis. Pt exhibits increased risk of falls, per Stoddard (42/56) and TUG (17.24) scores. Pt limited by cognitive and memory limitations. Pt's notes day of eval was an especially bad day. Pt very focused on current low back pain, denies that he feels there are any concerns regarding balance, and has therefore refused to use assistive devices in the past. Does exhibit a forward flexed posture with decreased lordotic curve in lumbar spine and increased thoracic kyphosis. Will likely benefit from skilled therapy focusing on balance, gait, LE strength, functional mobility, lumbar/core strengthening, and pain management. Physical Therapy Plan Frequency and Duration Frequency of 2x/Week Treatment Plan of Care Start 04/28/25 Date Plan of Care End 06/29/25 Date Therapeutic Interventions Therapeutic Balance Training,Home Exercise Program,Joint Interventions Mobilizations,Manual Therapy,Neuromuscular Re-education ,Patient/Caregiver Education,Self-Care/Home Management, Soft Tissue Mobilization,Therapeutic Activities, Therapeutic Exercises Next Visit Focus/Plan Next Note Type Treatment Note Next Visit Plan LE Strengthening, balance and gait training, low back/ core strengthening
--- NOTE | 2025-05-05 16:48 | PT.OTN ---
Addendum entered and electronically signed by Andrew Drew, PT 05/05/25 16:51: PT direct supervision and direction to student PT Jacoby Tompkins throughout session Original Note: Current Diagnoses Unspecified dementia, moderate, without behavioral disturbance, psychotic disturbance, mood disturbance, and anxiety (05/05/25) (Idiopathic) normal pressure hydrocephalus (05/05/25) Other reduced mobility (05/05/25) Other specified health status (05/05/25) Physical Therapy Treatment Note PT-OP-A Visit Information Start: 04/28/25 12:16 Freq: Status: Active Protocol: Document 05/05/25 15:15 LFG (Rec: 05/05/25 16:13 LFG [id number]) Out-Patient Physical Therapy Visit Information Visit Information Visit Type Treatment Note Visit Start Time 15:15 Visit Stop Time 15:56 Visit Number 2 Number of VASCULAR NURSE Visits 0 Evaluation Information Evaluation Date 04/28/25 PT-OP-B Current Condition Start: 04/28/25 12:16 Freq: Status: Active Protocol: Document 04/28/25 10:45 DCW (Rec: 04/28/25 15:04 DCW [id number]) Current Condition History of Current Condition Current Complaints Back pain, imbalance History of Current Pt is an 89 year old male presenting with some Condition confusion today. Pt reports his only complaint is that his back hurts. Pt's and pt's referral state that he has been having some difficulty with balance and gait. Pt denies these claims. Pt's notes that she had to wake him up to get in to his appointment today, and that he seems more confused than usual today. Pt was seen in this clinic in November of this year for similar complaints, although pt reports that was a few years ago. Denies AD use. Has no real subjective history of imbalance or falls. Pt's does note that he has been doing better with his balance the past few weeks, but is still ambulating with a slow, cautious gait, and reaching for furniture or brooks. Per prior PT notes, pt was going to be seen down in [place] for potential normal pressure hydrocephalus, pt's reports that testing was performed, and seems to feel everything was okay, because they haven't been contacted further. Personal Factors Other Personal Memory/cognitive impairments, Hx of falls, prior B TKA, Factors That May back pain Effect Therapy/ Recovery PT-OP-C Subjective Start: 04/28/25 12:16 Freq: Status: Active Protocol: Document 05/05/25 15:15 LFG (Rec: 05/05/25 16:13 LFG [id number]) OP-PT Subjective Patient Comments Patient Comments Could be better, back has been bothersome for some time now. PT-OP-D Balance Start: 04/28/25 12:16 Freq: Status: Active Protocol: Document 04/28/25 10:45 DCW (Rec: 04/28/25 12:20 DCW [id number]) Stoddard Balance Assessment Evaluation Sitting to Standing Independent w/Hands Ability Unsupported Stance Safely- 2 minutes Sitting Unsupported, Safely- 2 minutes Feet on Floor Standing to Sitting Assist, Control w/Hands Ability Transfer Ability Safely, Hand Use Unsupported Stance- Supervision, 10 seconds Eyes Closed Unsupported Stance- Supervision to maintain Eyes Open Reaching Forward Safely, 5 inches Standing Pick- Up Object From Supervision Floor Look Behind Shoulder Shifts Weight Well - Standing Turning 360 Degrees Turns slowly, but safely Unsupported Stance, (I)- 8 Steps in > 20 secs Alternating Feet on Stair Unsupported Tandem Holds Tandem- 30 seconds Stance Unilateral Leg Lifts Leg/Unable to Hold Stance Total Score Stoddard Total Score ( 42 out of 56 points) PT-OP-E Functional Tests Start: 04/28/25 12:16 Freq: Status: Active Protocol: Document 04/28/25 10:45 DCW (Rec: 04/28/25 12:20 DCW [id number]) Functional Tests Five Times Sit to Stand Test Score 22.17 Comments required occasional multiple attempts Timed Up and Go (TUG) Score 17.24 Comments Three-trial average (20.27, 15.81, 15.64) PT-OP-M Strength Start: 04/28/25 12:16 Freq: Status: Active Protocol: Document 04/28/25 10:45 DCW (Rec: 04/28/25 14:43 DCW [id number]) Hip Strength Hip Manual Muscle Testing Right Flexion (L2) 3+ Fair+ Abduction 4+ Good+ Adduction 4+ Good+ External Rotation 3 Fair Internal Rotation 4 Good Left Flexion (L2) 4 Good Abduction 4+ Good+ Adduction 4+ Good+ External Rotation 4 Good Internal Rotation 4- Good- Knee Strength Knee Manual Muscle Testing Right Flexion (S2) 4+ Good+ Extension (L3) 4+ Good+ Left Flexion (S2) 4+ Good+ Extension (L3) 4+ Good+ Ankle/Foot Strength Ankle and Foot Manual Muscle Testing Right Dorsiflexion (L4) 3+ Fair+ Left Dorsiflexion (L4) 4 Good PT-OP-Q Treatments Start: 04/28/25 12:16 Freq: Status: Active Protocol: Document 05/05/25 15:15 LFG (Rec: 05/05/25 16:13 LFG [id number]) Therapeutic Exercises Supine Exercises Nilo stretch Supine Exercise Name modified nilo stretch Side bilateral Equipment Used SPT pushed on leg to point of pt comfort Reps/Minutes 10 breaths Comments cues for deep breath work Glute bridge Supine Exercise Name glute bridge Reps/Minutes 2x15 Comments cues to lift up hips/squeeze glutes Sidelying Exercises Clamshells Sidelying Exercise clamshells Name Side bilateral Equipment Used SPT held hips in place Reps/Minutes 2x15 Comments cues to keep hips in place Open books Sidelying Exercise Open books - holds Name Side bilateral Equipment Used SPT held down knees Reps/Minutes x10 Comments cues to rotate with head/eyes/neck, following hand, breath work Standing Exercises Resisted stepping Standing Exercise F/B/L Name Side bilateral Resistance L1 Equipment Used // bars, held on bilateral UE entire time Reps/Minutes x2 Comments SBA, cues for feet forward, upright posture Neuro Re-Education Treatment Balance Activities Tandem stance Details Tandem stance hold Surface solid Equipment // bars Comments SBA, scaled down from using both UE for support to none , cues for upright posture PT-OP-T Assessment and Plan Start: 04/28/25 12:16 Freq: Status: Active Protocol: Document 05/05/25 15:15 LFG (Rec: 05/05/25 16:13 LFG [id number]) Physical Therapy Assessment Rehab Potential Rehabilitation Fair Potential Evaluation Complexity Number of Personal 3 or More Factors/ Comorbidities Number of Body 4 or More Systems Impaired Clinical Unstable Presentation at Evaluation Impairments Impairments Activity Tolerance,Balance,Functional Activities, Functional Mobility,Gait,Pain,Strength,Tone Goals Three Impairment Pt scores a 17.24 on the TUG Snf Goal (LTG) Pt to improve TUG score by at least 5.25 seconds to <12 seconds in order to demonstrate improved activity tolerance LTG Duration 07/29/25 Two Impairment Stoddard Balance score (42/56) indicates increased falls risk Supervisor [employer] Goal (LTG) Pt to improve Stoddard Balance score by at least four points to 46/56 in order to demonstrate decrease in falls risk LTG Duration 07/29/25 One Impairment Pt does not have an appropriate home exercise program Snf Goal (LTG) Pt to be independent and compliant LTG Duration 06/29/25 Assessment Summary Assessment Patient tolerated todays session well, expressing tiredness and fatigue from therapeutic exercise. Bilateral hip flexor tightness L>R. Pt reported back sxs feeling significantly better at the end of the session. Patient was challenged with tandem stance holds but was able to progress to not using UE help for support. Recommend a continued focus on balance, gait, LE strength, functional mobility, lumbar/core strengthening, and pain management. Physical Therapy Plan Frequency and Duration Frequency of 2x/Week Treatment Plan of Care Start 04/28/25 Date Plan of Care End 06/29/25 Date Therapeutic Interventions Therapeutic Balance Training,Home Exercise Program,Joint Interventions Mobilizations,Manual Therapy,Neuromuscular Re-education ,Patient/Caregiver Education,Self-Care/Home Management, Soft Tissue Mobilization,Therapeutic Activities, Therapeutic Exercises Next Visit Focus/Plan Next Note Type Treatment Note Next Visit Plan LE Strengthening, balance and gait training, low back/ core strengthening
--- NOTE | 2025-05-07 16:22 | PT.OTN ---
Addendum entered and electronically signed by Andrew Drew, PT 05/07/25 16:25: PT direct supervision and direction to student PT Jacoby Tompkins throughout session Original Note: Current Diagnoses Unspecified dementia, moderate, without behavioral disturbance, psychotic disturbance, mood disturbance, and anxiety (05/07/25) (Idiopathic) normal pressure hydrocephalus (05/07/25) Other reduced mobility (05/07/25) Other specified health status (05/07/25) Physical Therapy Treatment Note PT-OP-A Visit Information Start: 04/28/25 12:16 Freq: Status: Active Protocol: Document 05/07/25 15:15 LFG (Rec: 05/07/25 16:09 LFG [id number]) Out-Patient Physical Therapy Visit Information Visit Information Visit Type Treatment Note Visit Start Time 15:16 Visit Stop Time 15:59 Visit Number 3 Number of CONCRETE BLOCK MAKER Visits 0 Evaluation Information Evaluation Date 04/28/25 PT-OP-B Current Condition Start: 04/28/25 12:16 Freq: Status: Active Protocol: Document 04/28/25 10:45 DCW (Rec: 04/28/25 15:04 DCW [id number]) Current Condition History of Current Condition Current Complaints Back pain, imbalance History of Current Pt is an 89 year old male presenting with some Condition confusion today. Pt reports his only complaint is that his back hurts. Pt's and pt's referral state that he has been having some difficulty with balance and gait. Pt denies these claims. Pt's notes that she had to wake him up to get in to his appointment today, and that he seems more confused than usual today. Pt was seen in this clinic in November of this year for similar complaints, although pt reports that was a few years ago. Denies AD use. Has no real subjective history of imbalance or falls. Pt's does note that he has been doing better with his balance the past few weeks, but is still ambulating with a slow, cautious gait, and reaching for furniture or brooks. Per prior PT notes, pt was going to be seen down in [place] for potential normal pressure hydrocephalus, pt's reports that testing was performed, and seems to feel everything was okay, because they haven't been contacted further. Personal Factors Other Personal Memory/cognitive impairments, Hx of falls, prior B TKA, Factors That May back pain Effect Therapy/ Recovery PT-OP-C Subjective Start: 04/28/25 12:16 Freq: Status: Active Protocol: Document 05/07/25 15:15 LFG (Rec: 05/07/25 16:09 LFG [id number]) OP-PT Subjective Patient Comments Patient Comments Back is still hurting, giving him trouble walking but not anymore than usual PT-OP-D Balance Start: 04/28/25 12:16 Freq: Status: Active Protocol: Document 04/28/25 10:45 DCW (Rec: 04/28/25 12:20 DCW [id number]) Stoddard Balance Assessment Evaluation Sitting to Standing Independent w/Hands Ability Unsupported Stance Safely- 2 minutes Sitting Unsupported, Safely- 2 minutes Feet on Floor Standing to Sitting Assist, Control w/Hands Ability Transfer Ability Safely, Hand Use Unsupported Stance- Supervision, 10 seconds Eyes Closed Unsupported Stance- Supervision to maintain Eyes Open Reaching Forward Safely, 5 inches Standing Pick- Up Object From Supervision Floor Look Behind Shoulder Shifts Weight Well - Standing Turning 360 Degrees Turns slowly, but safely Unsupported Stance, (I)- 8 Steps in > 20 secs Alternating Feet on Stair Unsupported Tandem Holds Tandem- 30 seconds Stance Unilateral Leg Lifts Leg/Unable to Hold Stance Total Score Stoddard Total Score ( 42 out of 56 points) PT-OP-E Functional Tests Start: 04/28/25 12:16 Freq: Status: Active Protocol: Document 04/28/25 10:45 DCW (Rec: 04/28/25 12:20 DCW [id number]) Functional Tests Five Times Sit to Stand Test Score 22.17 Comments required occasional multiple attempts Timed Up and Go (TUG) Score 17.24 Comments Three-trial average (20.27, 15.81, 15.64) PT-OP-M Strength Start: 04/28/25 12:16 Freq: Status: Active Protocol: Document 04/28/25 10:45 DCW (Rec: 04/28/25 14:43 DCW [id number]) Hip Strength Hip Manual Muscle Testing Right Flexion (L2) 3+ Fair+ Abduction 4+ Good+ Adduction 4+ Good+ External Rotation 3 Fair Internal Rotation 4 Good Left Flexion (L2) 4 Good Abduction 4+ Good+ Adduction 4+ Good+ External Rotation 4 Good Internal Rotation 4- Good- Knee Strength Knee Manual Muscle Testing Right Flexion (S2) 4+ Good+ Extension (L3) 4+ Good+ Left Flexion (S2) 4+ Good+ Extension (L3) 4+ Good+ Ankle/Foot Strength Ankle and Foot Manual Muscle Testing Right Dorsiflexion (L4) 3+ Fair+ Left Dorsiflexion (L4) 4 Good PT-OP-Q Treatments Start: 04/28/25 12:16 Freq: Status: Active Protocol: Document 05/07/25 15:15 LFG (Rec: 05/07/25 16:09 LFG [id number]) Therapeutic Exercises Supine Exercises Low back rotations Supine Exercise Name Low back rotations Reps/Minutes x10 each side Comments feels good on his back Nilo stretch Supine Exercise Name modified nilo stretch Side bilateral Equipment Used SPT pushed on leg to point of pt comfort Reps/Minutes 1 min hold x3 Comments cues for deep breath work Glute bridge Supine Exercise Name glute bridge - standard + staggered stance Side bilateral Reps/Minutes x12 Comments cues to lift up hips/squeeze glutes, back pain with initial lift off today Sidelying Exercises reverse clamshell Sidelying Exercise Reverse clamshell Name Side right Reps/Minutes x10 Clamshells Sidelying Exercise clamshells Name Equipment Used SPT held hips in place Reps/Minutes x10 Comments cues to keep hips in place Open books Sidelying Exercise Open books - holds Name Side bilateral Equipment Used SPT held down knees Reps/Minutes x10 Comments cues to rotate with head/eyes/neck, following hand, breath work PT-OP-T Assessment and Plan Start: 04/28/25 12:16 Freq: Status: Active Protocol: Document 05/07/25 15:15 LFG (Rec: 05/07/25 16:09 LFG [id number]) Physical Therapy Assessment Rehab Potential Rehabilitation Fair Potential Evaluation Complexity Number of Personal 3 or More Factors/ Comorbidities Number of Body 4 or More Systems Impaired Clinical Unstable Presentation at Evaluation Impairments Impairments Activity Tolerance,Balance,Functional Activities, Functional Mobility,Gait,Pain,Strength,Tone Goals Three Impairment Pt scores a 17.24 on the TUG Pathology Laboratory Director Goal (LTG) Pt to improve TUG score by at least 5.25 seconds to <12 seconds in order to demonstrate improved activity tolerance LTG Duration 07/29/25 Two Impairment Stoddard Balance score (42/56) indicates increased falls risk Pathology Laboratory Director Goal (LTG) Pt to improve Stoddard Balance score by at least four points to 46/56 in order to demonstrate decrease in falls risk LTG Duration 07/29/25 One Impairment Pt does not have an appropriate home exercise program Pathology Laboratory Director Goal (LTG) Pt to be independent and compliant LTG Duration 06/29/25 Assessment Summary Assessment Pt tolerated todays session well. Expressed having some back pain when initiating glute bridges today but sxs improved with core stiffness and glute squeeze cues. Patient reported glutes were sore at the end of the session. Recommend a continued focus on balance, gait, LE strength, functional mobility, lumbar/core strengthening, and pain management. Physical Therapy Plan Frequency and Duration Frequency of 2x/Week Treatment Plan of Care Start 04/28/25 Date Plan of Care End 06/29/25 Date Therapeutic Interventions Therapeutic Balance Training,Home Exercise Program,Joint Interventions Mobilizations,Manual Therapy,Neuromuscular Re-education ,Patient/Caregiver Education,Self-Care/Home Management, Soft Tissue Mobilization,Therapeutic Activities, Therapeutic Exercises Next Visit Focus/Plan Next Note Type Treatment Note Next Visit Plan LE Strengthening, balance and gait training, low back/ core strengthening, and pain management.
--- NOTE | 2025-05-12 15:21 | PT.OTN ---
Current Diagnoses Unspecified dementia, moderate, without behavioral disturbance, psychotic disturbance, mood disturbance, and anxiety (05/12/25) (Idiopathic) normal pressure hydrocephalus (05/12/25) Other reduced mobility (05/12/25) Other specified health status (05/12/25) Physical Therapy Treatment Note PT-OP-A Visit Information Start: 04/28/25 12:16 Freq: Status: Active Protocol: Document 05/12/25 14:35 DCW (Rec: 05/12/25 15:21 DCW [id number]) Out-Patient Physical Therapy Visit Information Visit Information Visit Type Treatment Note Visit Start Time 14:35 Visit Stop Time 15:15 Visit Number 4 Number of JIG INSPECTOR Visits 0 Evaluation Information Evaluation Date 04/28/25 PT-OP-B Current Condition Start: 04/28/25 12:16 Freq: Status: Active Protocol: Document 04/28/25 10:45 DCW (Rec: 04/28/25 15:04 DCW [id number]) Current Condition History of Current Condition Current Complaints Back pain, imbalance History of Current Pt is an 89 year old male presenting with some Condition confusion today. Pt reports his only complaint is that his back hurts. Pt's and pt's referral state that he has been having some difficulty with balance and gait. Pt denies these claims. Pt's notes that she had to wake him up to get in to his appointment today, and that he seems more confused than usual today. Pt was seen in this clinic in November of this year for similar complaints, although pt reports that was a few years ago. Denies AD use. Has no real subjective history of imbalance or falls. Pt's does note that he has been doing better with his balance the past few weeks, but is still ambulating with a slow, cautious gait, and reaching for furniture or brooks. Per prior PT notes, pt was going to be seen down in [place] for potential normal pressure hydrocephalus, pt's reports that testing was performed, and seems to feel everything was okay, because they haven't been contacted further. Personal Factors Other Personal Memory/cognitive impairments, Hx of falls, prior B TKA, Factors That May back pain Effect Therapy/ Recovery PT-OP-C Subjective Start: 04/28/25 12:16 Freq: Status: Active Protocol: Document 05/12/25 14:35 DCW (Rec: 05/12/25 15:21 DCW [id number]) OP-PT Subjective Patient Comments Patient Comments Back has been worse today, notes he is having a rough time. PT-OP-D Balance Start: 04/28/25 12:16 Freq: Status: Active Protocol: Document 04/28/25 10:45 DCW (Rec: 04/28/25 12:20 DCW [id number]) Stoddard Balance Assessment Evaluation Sitting to Standing Independent w/Hands Ability Unsupported Stance Safely- 2 minutes Sitting Unsupported, Safely- 2 minutes Feet on Floor Standing to Sitting Assist, Control w/Hands Ability Transfer Ability Safely, Hand Use Unsupported Stance- Supervision, 10 seconds Eyes Closed Unsupported Stance- Supervision to maintain Eyes Open Reaching Forward Safely, 5 inches Standing Pick- Up Object From Supervision Floor Look Behind Shoulder Shifts Weight Well - Standing Turning 360 Degrees Turns slowly, but safely Unsupported Stance, (I)- 8 Steps in > 20 secs Alternating Feet on Stair Unsupported Tandem Holds Tandem- 30 seconds Stance Unilateral Leg Lifts Leg/Unable to Hold Stance Total Score Stoddard Total Score ( 42 out of 56 points) PT-OP-E Functional Tests Start: 04/28/25 12:16 Freq: Status: Active Protocol: Document 04/28/25 10:45 DCW (Rec: 04/28/25 12:20 DCW [id number]) Functional Tests Five Times Sit to Stand Test Score 22.17 Comments required occasional multiple attempts Timed Up and Go (TUG) Score 17.24 Comments Three-trial average (20.27, 15.81, 15.64) PT-OP-M Strength Start: 04/28/25 12:16 Freq: Status: Active Protocol: Document 04/28/25 10:45 DCW (Rec: 04/28/25 14:43 DCW [id number]) Hip Strength Hip Manual Muscle Testing Right Flexion (L2) 3+ Fair+ Abduction 4+ Good+ Adduction 4+ Good+ External Rotation 3 Fair Internal Rotation 4 Good Left Flexion (L2) 4 Good Abduction 4+ Good+ Adduction 4+ Good+ External Rotation 4 Good Internal Rotation 4- Good- Knee Strength Knee Manual Muscle Testing Right Flexion (S2) 4+ Good+ Extension (L3) 4+ Good+ Left Flexion (S2) 4+ Good+ Extension (L3) 4+ Good+ Ankle/Foot Strength Ankle and Foot Manual Muscle Testing Right Dorsiflexion (L4) 3+ Fair+ Left Dorsiflexion (L4) 4 Good PT-OP-Q Treatments Start: 04/28/25 12:16 Freq: Status: Active Protocol: Document 05/12/25 14:35 DCW (Rec: 05/12/25 15:21 DCW [id number]) Therapeutic Exercises Sidelying Exercises reverse clamshell Sidelying Exercise Reverse clamshell Name Side right Reps/Minutes x10 Clamshells Sidelying Exercise clamshells Name Equipment Used SPT held hips in place Reps/Minutes x10 Comments cues to keep hips in place Open books Sidelying Exercise Open books - holds Name Side bilateral Equipment Used SPT held down knees Reps/Minutes x10 Comments cues to rotate with head/eyes/neck, following hand, breath work Neuro Re-Education Treatment Balance Activities Foam Details Head turns Equipment // bars SLS Details SLS Equipment // bars Tandem stance Details Tandem stance hold Surface solid Equipment // bars PT-OP-T Assessment and Plan Start: 04/28/25 12:16 Freq: Status: Active Protocol: Document 05/12/25 14:35 DCW (Rec: 05/12/25 15:21 DCW [id number]) Physical Therapy Assessment Impairments Impairments Activity Tolerance,Balance,Functional Activities, Functional Mobility,Gait,Pain,Strength,Tone Goals Three Impairment Pt scores a 17.24 on the TUG [facility] Goal (LTG) Pt to improve TUG score by at least 5.25 seconds to <12 seconds in order to demonstrate improved activity tolerance LTG Duration 07/29/25 Two Impairment Stoddard Balance score (42/56) indicates increased falls risk Medical Field Representative Goal (LTG) Pt to improve Stoddard Balance score by at least four points to 46/56 in order to demonstrate decrease in falls risk LTG Duration 07/29/25 One Impairment Pt does not have an appropriate home exercise program Medical Field Representative Goal (LTG) Pt to be independent and compliant LTG Duration 06/29/25 Assessment Summary Assessment Pt tolerated well, agreeable to work harder on getting HEP done. Provided with handouts today. By end of session, pt noting his back was not bothering him much. Physical Therapy Plan Frequency and Duration Frequency of 2x/Week Treatment Plan of Care Start 04/28/25 Date Plan of Care End 06/29/25 Date Therapeutic Interventions Therapeutic Balance Training,Home Exercise Program,Joint Interventions Mobilizations,Manual Therapy,Neuromuscular Re-education ,Patient/Caregiver Education,Self-Care/Home Management, Soft Tissue Mobilization,Therapeutic Activities, Therapeutic Exercises Next Visit Focus/Plan Next Note Type Treatment Note Next Visit Plan LE Strengthening, balance and gait training, low back/ core strengthening, and pain management.
--- NOTE | 2025-05-14 16:04 | PT.OTN ---
Addendum entered and electronically signed by Andrew Drew, PT 05/14/25 16:06: PT direct supervision and direction to student PT Jacoby Tompkins throughout session Original Note: Current Diagnoses Unspecified dementia, moderate, without behavioral disturbance, psychotic disturbance, mood disturbance, and anxiety (05/14/25) (Idiopathic) normal pressure hydrocephalus (05/14/25) Other reduced mobility (05/14/25) Other specified health status (05/14/25) Physical Therapy Treatment Note PT-OP-A Visit Information Start: 04/28/25 12:16 Freq: Status: Active Protocol: Document 05/14/25 14:30 LFG (Rec: 05/14/25 15:32 LFG [id number]) Out-Patient Physical Therapy Visit Information Visit Information Visit Type Treatment Note Visit Start Time 14:30 Visit Stop Time 15:15 Visit Number 5 Number of LMFT Visits 0 Evaluation Information Evaluation Date 04/28/25 PT-OP-B Current Condition Start: 04/28/25 12:16 Freq: Status: Active Protocol: Document 04/28/25 10:45 DCW (Rec: 04/28/25 15:04 DCW [id number]) Current Condition History of Current Condition Current Complaints Back pain, imbalance History of Current Pt is an 89 year old male presenting with some Condition confusion today. Pt reports his only complaint is that his back hurts. Pt's and pt's referral state that he has been having some difficulty with balance and gait. Pt denies these claims. Pt's notes that she had to wake him up to get in to his appointment today, and that he seems more confused than usual today. Pt was seen in this clinic in November of this year for similar complaints, although pt reports that was a few years ago. Denies AD use. Has no real subjective history of imbalance or falls. Pt's does note that he has been doing better with his balance the past few weeks, but is still ambulating with a slow, cautious gait, and reaching for furniture or brooks. Per prior PT notes, pt was going to be seen down in [place] for potential normal pressure hydrocephalus, pt's reports that testing was performed, and seems to feel everything was okay, because they haven't been contacted further. Personal Factors Other Personal Memory/cognitive impairments, Hx of falls, prior B TKA, Factors That May back pain Effect Therapy/ Recovery PT-OP-C Subjective Start: 04/28/25 12:16 Freq: Status: Active Protocol: Document 05/14/25 14:30 LFG (Rec: 05/14/25 15:32 LFG [id number]) OP-PT Subjective Patient Comments Patient Comments Back hasn't been bothersome today but has had bilateral anterior thigh pain R>L described as overall pain since last night. Going to [place] for 2 weeks. PT-OP-D Balance Start: 04/28/25 12:16 Freq: Status: Active Protocol: Document 04/28/25 10:45 DCW (Rec: 04/28/25 12:20 DCW [id number]) Stoddard Balance Assessment Evaluation Sitting to Standing Independent w/Hands Ability Unsupported Stance Safely- 2 minutes Sitting Unsupported, Safely- 2 minutes Feet on Floor Standing to Sitting Assist, Control w/Hands Ability Transfer Ability Safely, Hand Use Unsupported Stance- Supervision, 10 seconds Eyes Closed Unsupported Stance- Supervision to maintain Eyes Open Reaching Forward Safely, 5 inches Standing Pick- Up Object From Supervision Floor Look Behind Shoulder Shifts Weight Well - Standing Turning 360 Degrees Turns slowly, but safely Unsupported Stance, (I)- 8 Steps in > 20 secs Alternating Feet on Stair Unsupported Tandem Holds Tandem- 30 seconds Stance Unilateral Leg Lifts Leg/Unable to Hold Stance Total Score Stoddard Total Score ( 42 out of 56 points) PT-OP-E Functional Tests Start: 04/28/25 12:16 Freq: Status: Active Protocol: Document 04/28/25 10:45 DCW (Rec: 04/28/25 12:20 DCW [id number]) Functional Tests Five Times Sit to Stand Test Score 22.17 Comments required occasional multiple attempts Timed Up and Go (TUG) Score 17.24 Comments Three-trial average (20.27, 15.81, 15.64) PT-OP-M Strength Start: 04/28/25 12:16 Freq: Status: Active Protocol: Document 04/28/25 10:45 DCW (Rec: 04/28/25 14:43 DCW [id number]) Hip Strength Hip Manual Muscle Testing Right Flexion (L2) 3+ Fair+ Abduction 4+ Good+ Adduction 4+ Good+ External Rotation 3 Fair Internal Rotation 4 Good Left Flexion (L2) 4 Good Abduction 4+ Good+ Adduction 4+ Good+ External Rotation 4 Good Internal Rotation 4- Good- Knee Strength Knee Manual Muscle Testing Right Flexion (S2) 4+ Good+ Extension (L3) 4+ Good+ Left Flexion (S2) 4+ Good+ Extension (L3) 4+ Good+ Ankle/Foot Strength Ankle and Foot Manual Muscle Testing Right Dorsiflexion (L4) 3+ Fair+ Left Dorsiflexion (L4) 4 Good PT-OP-Q Treatments Start: 04/28/25 12:16 Freq: Status: Active Protocol: Document 05/14/25 14:30 LFG (Rec: 05/14/25 15:32 LFG [id number]) Therapeutic Exercises Supine Exercises Pevlic tilts Supine Exercise Name A+P Comments cues to flatten/unflatten back Low back rotations Supine Exercise Name Low back rotations Reps/Minutes x10 each side Comments feels good on his back Nilo stretch Supine Exercise Name modified nilo stretch Side bilateral Equipment Used SPT pushed on leg to point of pt comfort Reps/Minutes 1 min hold x3 Comments stopped early due to pt reporting back R pain during stretch Glute bridge Supine Exercise Name glute bridge - standard + staggered stance Side bilateral Reps/Minutes x12 Comments cues to lift up hips/squeeze glutes, back pain with initial lift off today Sidelying Exercises hip abductions Sidelying Exercise hip abd Name Side bilateral Reps/Minutes x8 Comments cues for hip fwd Clamshells Sidelying Exercise clamshells Name Equipment Used SPT held hips in place Reps/Minutes x10 Comments cues to keep hips in place Open books Sidelying Exercise Open books - holds Name Side bilateral Equipment Used SPT held down knees Reps/Minutes x10 Comments cues to rotate with head/eyes/neck, following hand, breath work Standing Exercises STS Standing Exercise STS Name Comments cues for full extension Neuro Re-Education Treatment Balance Activities Tandem stance Details Tandem stance hold + ambulation Surface solid Equipment // bars Comments cues for upright posture PT-OP-T Assessment and Plan Start: 04/28/25 12:16 Freq: Status: Active Protocol: Document 05/14/25 14:30 LFG (Rec: 05/14/25 15:32 LFG [id number]) Physical Therapy Assessment Rehab Potential Rehabilitation Fair Potential Evaluation Complexity Number of Personal 3 or More Factors/ Comorbidities Number of Body 4 or More Systems Impaired Clinical Unstable Presentation at Evaluation Impairments Impairments Activity Tolerance,Balance,Functional Activities, Functional Mobility,Gait,Pain,Strength,Tone Goals Three Impairment Pt scores a 17.24 on the TUG [facility] Goal (LTG) Pt to improve TUG score by at least 5.25 seconds to <12 seconds in order to demonstrate improved activity tolerance LTG Duration 07/29/25 Two Impairment Stoddard Balance score (42/56) indicates increased falls risk [facility] Goal (LTG) Pt to improve Stoddard Balance score by at least four points to 46/56 in order to demonstrate decrease in falls risk LTG Duration 07/29/25 One Impairment Pt does not have an appropriate home exercise program [facility] Goal (LTG) Pt to be independent and compliant LTG Duration 06/29/25 Assessment Summary Assessment Pt came in with no reported back pain but reports of bilateral leg pain. Reviewed exercises done before, pt continues to exhibit low activity tolerance and weakness. Began to report more low back/glute pain after STS and pt ambulated towards parallel bars. Recommend continuing to focus on balance, gait, LE strength, functional mobility, lumbar/core strengthening, and pain management and HEP compliancy reminders. Physical Therapy Plan Frequency and Duration Frequency of 2x/Week Treatment Plan of Care Start 04/28/25 Date Plan of Care End 06/29/25 Date Therapeutic Interventions Therapeutic Balance Training,Home Exercise Program,Joint Interventions Mobilizations,Manual Therapy,Neuromuscular Re-education ,Patient/Caregiver Education,Self-Care/Home Management, Soft Tissue Mobilization,Therapeutic Activities, Therapeutic Exercises Next Visit Focus/Plan Next Note Type Treatment Note Next Visit Plan LE Strengthening, balance and gait training, low back/ core strengthening, and pain management.
--- NOTE | 2025-05-26 15:18 | PT.OTN ---
Current Diagnoses Unspecified dementia, moderate, without behavioral disturbance, psychotic disturbance, mood disturbance, and anxiety (05/26/25) (Idiopathic) normal pressure hydrocephalus (05/26/25) Other reduced mobility (05/26/25) Other specified health status (05/26/25) Physical Therapy Treatment Note PT-OP-A Visit Information Start: 04/28/25 12:16 Freq: Status: Active Protocol: Document 05/26/25 14:38 SP (Rec: 05/26/25 15:15 SP [id number]) Out-Patient Physical Therapy Visit Information Visit Information Visit Type Treatment Note Visit Start Time 14:38 Visit Stop Time 15:18 Visit Number 6 (PN by 05/29/25) Number of FENCE REPAIRMAN Visits 1 PT-OP-B Current Condition Start: 04/28/25 12:16 Freq: Status: Active Protocol: Document 04/28/25 10:45 DCW (Rec: 04/28/25 15:04 DCW [id number]) Current Condition History of Current Condition Current Complaints Back pain, imbalance History of Current Pt is an 89 year old male presenting with some Condition confusion today. Pt reports his only complaint is that his back hurts. Pt's and pt's referral state that he has been having some difficulty with balance and gait. Pt denies these claims. Pt's notes that she had to wake him up to get in to his appointment today, and that he seems more confused than usual today. Pt was seen in this clinic in November of this year for similar complaints, although pt reports that was a few years ago. Denies AD use. Has no real subjective history of imbalance or falls. Pt's does note that he has been doing better with his balance the past few weeks, but is still ambulating with a slow, cautious gait, and reaching for furniture or brooks. Per prior PT notes, pt was going to be seen down in [place] for potential normal pressure hydrocephalus, pt's reports that testing was performed, and seems to feel everything was okay, because they haven't been contacted further. Personal Factors Other Personal Memory/cognitive impairments, Hx of falls, prior B TKA, Factors That May back pain Effect Therapy/ Recovery PT-OP-C Subjective Start: 04/28/25 12:16 Freq: Status: Active Protocol: Document 05/26/25 14:38 SP (Rec: 05/26/25 15:15 SP [id number]) OP-PT Subjective Patient Comments Patient Comments Pt reports feels good after previouse tx. attends but stay in waiting room and states if any needs to help pt at home, let her know before leave. PT-OP-D Balance Start: 04/28/25 12:16 Freq: Status: Active Protocol: Document 04/28/25 10:45 DCW (Rec: 04/28/25 12:20 DCW [id number]) Stoddard Balance Assessment Evaluation Sitting to Standing Independent w/Hands Ability Unsupported Stance Safely- 2 minutes Sitting Unsupported, Safely- 2 minutes Feet on Floor Standing to Sitting Assist, Control w/Hands Ability Transfer Ability Safely, Hand Use Unsupported Stance- Supervision, 10 seconds Eyes Closed Unsupported Stance- Supervision to maintain Eyes Open Reaching Forward Safely, 5 inches Standing Pick- Up Object From Supervision Floor Look Behind Shoulder Shifts Weight Well - Standing Turning 360 Degrees Turns slowly, but safely Unsupported Stance, (I)- 8 Steps in > 20 secs Alternating Feet on Stair Unsupported Tandem Holds Tandem- 30 seconds Stance Unilateral Leg Lifts Leg/Unable to Hold Stance Total Score Stoddard Total Score ( 42 out of 56 points) PT-OP-E Functional Tests Start: 04/28/25 12:16 Freq: Status: Active Protocol: Document 04/28/25 10:45 DCW (Rec: 04/28/25 12:20 DCW [id number]) Functional Tests Five Times Sit to Stand Test Score 22.17 Comments required occasional multiple attempts Timed Up and Go (TUG) Score 17.24 Comments Three-trial average (20.27, 15.81, 15.64) PT-OP-M Strength Start: 04/28/25 12:16 Freq: Status: Active Protocol: Document 04/28/25 10:45 DCW (Rec: 04/28/25 14:43 DCW [id number]) Hip Strength Hip Manual Muscle Testing Right Flexion (L2) 3+ Fair+ Abduction 4+ Good+ Adduction 4+ Good+ External Rotation 3 Fair Internal Rotation 4 Good Left Flexion (L2) 4 Good Abduction 4+ Good+ Adduction 4+ Good+ External Rotation 4 Good Internal Rotation 4- Good- Knee Strength Knee Manual Muscle Testing Right Flexion (S2) 4+ Good+ Extension (L3) 4+ Good+ Left Flexion (S2) 4+ Good+ Extension (L3) 4+ Good+ Ankle/Foot Strength Ankle and Foot Manual Muscle Testing Right Dorsiflexion (L4) 3+ Fair+ Left Dorsiflexion (L4) 4 Good PT-OP-Q Treatments Start: 04/28/25 12:16 Freq: Status: Active Protocol: Document 05/26/25 14:38 SP (Rec: 05/26/25 15:15 SP [id number]) Cardio Equipment Recumbent Stepper (Sci-Fit) Duration (Minutes) 6 Resistance 3 Seat Position 10>12 Other BUEs/BLEs, 48 RPM, 0.80 miles Therapeutic Exercises Sitting Exercises LAQ Sitting Exercise added to HEp with HO Name Side bilateral Resistance AROM Reps/Minutes 5 SH x10 reps each LE Comments provided HO Hip Abduction Sitting Exercise added to HEP (clamshell) with HO Name Side bilateral Resistance TB #3 iqugmiut green (held around thighs) Reps/Minutes 60 sec hold then 15 reps Standing Exercises STS Standing Exercise STS- added to HEP with HO Name Resistance 1 UE support Reps/Minutes 10 reps- discussed performing 3x day (BLD) Comments cues for full extension stand (TKE and glut) Resisted stepping Standing Exercise F/B/L Name Side bilateral Resistance L1 Equipment Used Rail 1 UE support Reps/Minutes 15 ft 2 laps each directions Comments SBA, cues for feet forward, upright posture Neuro Re-Education Treatment Balance Activities Dynamic stepping Details Head turns Reps/Duration hallway 50 ft x2 laps Comments cues for elongated posture, larger step length, knee height SLS Details SLS Equipment // bars Tandem stance Details Tandem stance hold + ambulation Surface solid/floor Equipment PRN rail Comments Semitandem: R ft fwd 6 sec no UE, LLE fwd 11 sec -cues for upright posture, COG fwd over front even BLE Self-Care/Home Management Treatment Education Patient Education Body Mechanics,Home Exercise Program Caregiver Education Pt and instruction set up and proper form HEP with HO: LAQ, isometric HIp abd, STS. PT-OP-T Assessment and Plan Start: 04/28/25 12:16 Freq: Status: Active Protocol: Document 05/26/25 14:38 SP (Rec: 05/26/25 15:15 SP [id number]) Physical Therapy Assessment Goals Three Impairment Pt scores a 17.24 on the TUG [facility] Goal (LTG) Pt to improve TUG score by at least 5.25 seconds to <12 seconds in order to demonstrate improved activity tolerance LTG Duration 07/29/25 Two Impairment Stoddard Balance score (42/56) indicates increased falls risk [facility] Goal (LTG) Pt to improve Stoddard Balance score by at least four points to 46/56 in order to demonstrate decrease in falls risk LTG Duration 07/29/25 One Impairment Pt does not have an appropriate home exercise program [facility] Goal (LTG) Pt to be independent and compliant LTG Duration 06/29/25 Assessment Summary Assessment Pt had good tolerance to ther ex today. Cues for corrected upright posture, increase stride and foot clearance (knee height). Initiated HEP with provided Tb , instructed for cued support for carryover home dueto pt decreased recall set up and direction performance. Pt requires 1 UE support today vs 2 during STS with no reports of back discomfort. Provided HOs for 3 exercises home HEP LAQ, STS, hip abd isometric and resisted ROM. Physical Therapy Plan Frequency and Duration Frequency of 2x/Week Treatment Plan of Care Start 04/28/25 Date Plan of Care End 06/29/25 Date Therapeutic Interventions Therapeutic Balance Training,Home Exercise Program,Joint Interventions Mobilizations,Manual Therapy,Neuromuscular Re-education ,Patient/Caregiver Education,Self-Care/Home Management, Soft Tissue Mobilization,Therapeutic Activities, Therapeutic Exercises Next Visit Focus/Plan Next Note Type Treatment Note Next Visit Plan REcheck HEP as needed, progress balance and dynamic stepping started last tx. POC: LE Strengthening, balance and gait training, low back/core strengthening, and pain management.
--- NOTE | 2025-05-31 09:40 | PT.OPDS ---
Current Diagnoses Unspecified dementia, moderate, without behavioral disturbance, psychotic disturbance, mood disturbance, and anxiety (05/26/25) (Idiopathic) normal pressure hydrocephalus (05/26/25) Other reduced mobility (05/26/25) Other specified health status (05/26/25) Visit Care Team Role Provider Type Lashonda Phelps MD Family Provider Physician Specialty: Cardiology Address: [address] [place] [address], [address], [place], [address] Email: [email or web address] Ulices Wallace MD Attending Provider Physician Primary Care Provider Referring Provider Specialty: Family Practice Address: [address] [place] [address], [id number] Email: [email or web address] Visit Number Visit Number 6 (PN by 05/29/25) Discharge Summary PT-OP-B Current Condition Start: 04/28/25 12:16 Freq: Status: Active Protocol: Document 04/28/25 10:45 DCW (Rec: 04/28/25 15:04 DCW [id number]) Current Condition History of Current Condition Current Complaints Back pain, imbalance History of Current Pt is an 89 year old male presenting with some Condition confusion today. Pt reports his only complaint is that his back hurts. Pt's and pt's referral state that he has been having some difficulty with balance and gait. Pt denies these claims. Pt's notes that she had to wake him up to get in to his appointment today, and that he seems more confused than usual today. Pt was seen in this clinic in November of this year for similar complaints, although pt reports that was a few years ago. Denies AD use. Has no real subjective history of imbalance or falls. Pt's does note that he has been doing better with his balance the past few weeks, but is still ambulating with a slow, cautious gait, and reaching for furniture or brooks. Per prior PT notes, pt was going to be seen down in [place] for potential normal pressure hydrocephalus, pt's reports that testing was performed, and seems to feel everything was okay, because they haven't been contacted further. Personal Factors Other Personal Memory/cognitive impairments, Hx of falls, prior B TKA, Factors That May back pain Effect Therapy/ Recovery PT-OP-C Subjective Start: 04/28/25 12:16 Freq: Status: Active Protocol: Document 05/26/25 14:38 SP (Rec: 05/26/25 15:15 SP [id number]) OP-PT Subjective Patient Comments Patient Comments Pt reports feels good after previouse tx. attends but stay in waiting room and states if any needs to help pt at home, let her know before leave. PT-OP-D Balance Start: 04/28/25 12:16 Freq: Status: Active Protocol: Document 04/28/25 10:45 DCW (Rec: 04/28/25 12:20 DCW [id number]) St[place]ard Balance Assessment Evaluation Sitting to Standing Independent w/Hands Ability Unsupported Stance Safely- 2 minutes Sitting Unsupported, Safely- 2 minutes Feet on Floor Standing to Sitting Assist, Control w/Hands Ability Transfer Ability Safely, Hand Use Unsupported Stance- Supervision, 10 seconds Eyes Closed Unsupported Stance- Supervision to maintain Eyes Open Reaching Forward Safely, 5 inches Standing Pick- Up Object From Supervision Floor Look Behind Shoulder Shifts Weight Well - Standing Turning 360 Degrees Turns slowly, but safely Unsupported Stance, (I)- 8 Steps in > 20 secs Alternating Feet on Stair Unsupported Tandem Holds Tandem- 30 seconds Stance Unilateral Leg Lifts Leg/Unable to Hold Stance Total Score St[place]ard Total Score ( 42 out of 56 points) PT-OP-E Functional Tests Start: 04/28/25 12:16 Freq: Status: Active Protocol: Document 04/28/25 10:45 DCW (Rec: 04/28/25 12:20 DCW [id number]) Functional Tests Five Times Sit to Stand Test Score 22.17 Comments required occasional multiple attempts Timed Up and Go (TUG) Score 17.24 Comments Three-trial average (20.27, 15.81, 15.64) PT-OP-M Strength Start: 04/28/25 12:16 Freq: Status: Active Protocol: Document 04/28/25 10:45 DCW (Rec: 04/28/25 14:43 DCW [id number]) Hip Strength Hip Manual Muscle Testing Right Flexion (L2) 3+ Fair+ Abduction 4+ Good+ Adduction 4+ Good+ External Rotation 3 Fair Internal Rotation 4 Good Left Flexion (L2) 4 Good Abduction 4+ Good+ Adduction 4+ Good+ External Rotation 4 Good Internal Rotation 4- Good- Knee Strength Knee Manual Muscle Testing Right Flexion (S2) 4+ Good+ Extension (L3) 4+ Good+ Left Flexion (S2) 4+ Good+ Extension (L3) 4+ Good+ Ankle/Foot Strength Ankle and Foot Manual Muscle Testing Right Dorsiflexion (L4) 3+ Fair+ Left Dorsiflexion (L4) 4 Good PT-OP-T Assessment and Plan Start: 04/28/25 12:16 Freq: Status: Active Protocol: Document 05/31/25 09:38 DCW (Rec: 05/31/25 09:40 DCW [id number]) Physical Therapy Assessment Goals Three Impairment Pt scores a 17.24 on the TUG Detention Goal (LTG) Pt to improve TUG score by at least 5.25 seconds to <12 seconds in order to demonstrate improved activity tolerance LTG Duration 07/29/25 Two Impairment Stoddard Balance score (42/56) indicates increased falls risk [employer]ing Center Manager Goal (LTG) Pt to improve Stoddard Balance score by at least four points to 46/56 in order to demonstrate decrease in falls risk LTG Duration 07/29/25 One Impairment Pt does not have an appropriate home exercise program Banking Center Manager Goal (LTG) Pt to be independent and compliant LTG Duration 06/29/25 Assessment Summary Assessment Pt's phoned clinic to cancel remaining appointments and request discharge. Reports pt's health has unfortunately deteriorated secondary to dementia, and he is unable to appropriately participate in physical therapy at this time. Pt will be discharged from skilled PT. Physical Therapy Plan Discharge Physical Therapy Discharge Reasons Change in Medical Status
== END 2025-06-02 12:36 | disposition home or self-care (01) ==
LOC: PHYS 14:30
PROVIDERS: Family Provider Internal Medicine Cardiovascular Disease; PCP Family Medicine; Referring Provider Family Medicine; Visit Provider Family Medicine
DX: Z74.09 Other reduced mobility (principal); Z78.9 Other specified health status; F03.B0 Unspecified dementia, moderate, without behavioral disturbance, psychotic disturbance, mood disturbance, and anxiety; G91.2 (Idiopathic) normal pressure hydrocephalus
CPT/HCPCS: 97110; 97112; 97163

== ENCOUNTER → 2025-07-23 07:12 | Outpatient (CLI) | payer MEDICARE, SELFPAY ==
[2024-08-04 14:04] VITALS: BMI 27.2
--- NOTE | 2025-07-23 07:13 | DI.US.S_ITS ---
PROCEDURE: US ART LOW EXT BILAT W/IRENE INDICATIONS: Prov requires, arterial calcifications in XR TECHNIQUE: Color and pulse Doppler interrogation was performed of both lower extremity arterial systems, with image documentation. COMPARISON: None. FINDINGS: Right lower extremity: Common femoral artery: 106 cm/sec, with biphasic flow. Deep femoral artery: 85 cm/sec, with biphasic flow. Proximal superficial femoral artery: 137 cm/sec, with biphasic flow. Mid superficial femoral artery: 82 cm/sec, with biphasic flow. Distal superficial femoral artery: 84 cm/sec, with biphasic flow. Popliteal artery: 145 cm/sec, with biphasic flow. Posterior tibial artery: 60 cm/sec, with biphasic flow. Anterior tibial artery/dorsalis pedis: 48 cm/sec, with biphasic flow. Vo-scale imaging description: Scattered plaque IRENE: 0.85 Left lower extremity: Common femoral artery: 82 cm/sec, with biphasic flow. Deep femoral artery: 75 cm/sec, with biphasic flow. Proximal superficial femoral artery: 117 cm/sec, with biphasic flow. Mid superficial femoral artery: 114 cm/sec, with biphasic flow. Distal superficial femoral artery: 83 cm/sec, with biphasic flow. Popliteal artery: 65 cm/sec, with biphasic flow. Posterior tibial artery: 113 cm/sec, with biphasic flow. Anterior tibial artery/dorsalis pedis: 63 cm/sec, with biphasic flow. Vo-scale imaging description: Scattered calcifications. IRENE: 1.06 IMPRESSION: No hemodynamically significant stenosis. IRENE on the left is within the range of mild peripheral arterial disease. Dictated by: Indira Serra M.D. on 07/23/2025 at 12:37 Approved by: Indira Serra M.D. on 07/23/2025 at 12:40
== END ==
PROVIDERS: Family Provider Internal Medicine Cardiovascular Disease; PCP Family Medicine; Referring Provider Family Medicine; Visit Provider Family Medicine
DX: I99.8 Other disorder of circulatory system (principal); M25.551 Pain in right hip
CPT/HCPCS: 93922; 93925

== ENCOUNTER → 2025-09-02 11:35 | Outpatient (CLI) | payer MEDICARE, SELFPAY ==
[2024-08-04 14:04] VITALS: BMI 27.2
[2025-09-02 12:41] LABS: Hematocrit 50.6 % (41-53); Hemoglobin 17.4 g/dL (13.5-17.5); Mean Corpuscular HGB Conc 34.4 % (30-36); Mean Corpuscular Hemoglobin 31.5 PG (26-34); Mean Corpuscular Volume 91.6 fL (80-100); Platelet Count 182 X10^3/uL (150-400)
[2025-09-02 13:10] LABS: Blood Urea Nitrogen 25 mg/dL (9-20); Calcium 9.6 mg/dL (8.4-10.2); Carbon Dioxide 25 mmol/L (22-32); Chloride 107 mmol/L (98-107); Cholesterol 255 mg/dL (140-199); Estimated Glomerular Filt Rate > 60 mL/min (>60); Glucose 92 mg/dL (70-99); HDL Cholesterol 37 mg/dL (40-60); HEMOLYSIS < 15 (0-50); Potassium 4.5 mmol/L (3.4-5.1); Sodium 141 mmol/L (137-145); Triglycerides 239 mg/dL (35-150)
== END ==
PROVIDERS: PCP Family Medicine; Referring Provider Internal Medicine Cardiovascular Disease; Visit Provider Internal Medicine Cardiovascular Disease
DX: E78.5 Hyperlipidemia, unspecified (principal); I25.10 Atherosclerotic heart disease of native coronary artery without angina pectoris
CPT/HCPCS: 36415; 80048; 80061; 85027

== ENCOUNTER 2025-09-08 10:38 | Emergency (ER) | payer MEDICARE, SELFPAY ==
[2024-08-04 14:04] VITALS: BMI 27.2
[2025-09-08] VITALS (7 sets, daily range): BP systolic 172–176; BP diastolic 76–84; PULSE 72–78; RESP 18–20; TEMP 37.2; O2SAT 94–95; BMI 28.7
--- NOTE | 2025-09-08 10:47 | DI.RAD.S_ITS ---
PROCEDURE: XR CHEST 1V INDICATIONS: coughing fit TECHNIQUE: One view of the chest was acquired. COMPARISON: [facility], CR, XR CHEST 1V, 10/17/2024, 14:53. [facility], CR, XR CHEST 1V, 10/20/2024, 20:39. [facility], CR, XR CHEST 1V, 07/31/2025, 8:54. FINDINGS: Surgical changes and devices: Lower neck postoperative clips are seen. Lungs and pleura: An incomplete inspiratory result is noted, causing a crowded appearance to the lung markings. No focal infiltrates are seen. No pneumothorax or significant pleural effusions are seen. Mediastinum: The cardiac contours are within normal limits. The aorta demonstrates calcification and tortuosity. Bones and chest wall: No suspicious bony lesions. Age-appropriate bony degenerative changes are seen. Overlying soft tissues appear unremarkable. IMPRESSION: Low lung volumes, without an acute abnormality seen by plain film. No focal infiltrates are seen. Postoperative and degenerative changes are seen. Dictated by: Carlos Mauricio M.D. on 09/08/2025 at 10:24 Approved by: Carlos Mauricio M.D. on 09/08/2025 at 10:24
--- NOTE | 2025-09-08 10:51 | ED.SOB ---
HPI - SOB/Dyspnea General Chief Complaint: Upper Respiratory Symptoms Stated Complaint: Coughing fit Time Seen by Provider: 09/08/25 10:47 Source: patient, EMS, RN notes reviewed and old records reviewed Mode of arrival: EMS Limitations: no limitations History of Present Illness HPI Narrative: 89-year-old male comes in with a complaint of a coughing fit that is started about an hour prior to arrival. Patient states he did cough up 1 large yellow hunk of phlegm but has otherwise been dry. He denies chest pain. He denies any fevers or chills. No nasal congestion no recent URI symptoms. Patient does not feel short of breath. He states he had 1 kind of prior episode remotely in the past but has not had any coughing issues. He states this just started while he was doing normal activities. He has not had anything to eat recently. He denies any swelling in his tongue or airway. No sudden changes to voice. Denies chest pain or pressure. Does not feel short of breath. He denies any nausea or vomiting. No hemoptysis. No other GI or urinary symptoms no new swelling in extremities. Patient notes he does have a cardiac history takes medication for hypertension dyslipidemia does not take an aspirin daily. No prior cardiac interventions. Patient states he smoked briefly a long time ago, no asthma or history of airway issues, no recreational drugs. Dr. Wallace is his primary care physician. Related Data Home Medications ?Medication ?Instructions ?Recorded ?Confirmed amlodipine 10 mg tablet 5 mg PO BEDTIME 05/05/24 09/03/25 metoprolol tartrate 25 mg tablet 25 mg PO BID 05/05/24 09/03/25 Previous Rx's ?Medication ?Instructions ?Recorded Disabled Parking Permit #1 ea 09/01/24 levothyroxine 112 mcg tablet 112 mcg PO DAILY #90 tabs 02/15/25 quetiapine 25 mg tablet (Seroquel) 12.5 mg (1/2 x 25 mg) PO BEDTIME 08/19/25 #45 tabs rosuvastatin 40 mg tablet 40 mg PO BEDTIME #90 tabs 09/03/25 albuterol sulfate 90 mcg/actuation 2 puff inhalation Q4-6H PRN 09/08/25 aerosol inhaler shortness of breath or wheezing #8.5 grams prednisone 20 mg tablet 20 mg PO DAILY #3 tabs 09/08/25 Allergies Allergy/AdvReac Type Severity Reaction Status Date / Time No Known Drug Allergies Allergy Verified 09/08/25 10:39 Review of Systems Review of Systems ROS Unobtainable: All systems reviewed & are unremarkable except as noted in HPI and below Patient History Medical History Closed fracture head of femur Normal pressure hydrocephalus SDH (subdural hematoma) Dementia Carotid artery stenosis Chronic back pain (~1958) Thyroid nodule Thyroid cancer (~1964) BPH without obstruction/lower urinary tract symptoms Subconjunctival hemorrhage of left eye Coronary artery disease LAFB (left anterior fascicular block) RBBB Hyperlipidemia, unspecified (01/29/12) Hypothyroidism Hypertension Surgical History Status post total knee replacement, right History of right hip hemiarthroplasty Anesthesia S/P coronary artery stent placement (~05/2020) History of vasectomy History of thyroidectomy (~1964) Status post laminectomy Status post tonsillectomy and adenoidectomy History of knee replacement Status post appendectomy (~1969) Family History Father Family history of SD (myocardial infarction) Hypertension Mother Family history of cerebrovascular accident (CVA) History of heart disease Hypertension Social History marital status: number of children: 2 household members: spouse occupational status: previously employed alcohol intake: current caffeine: No alcohol intake frequency: 0-2 drinks per day Alcohol type: hard liquor Exam Narrative Exam Narrative: GEN: well nourished, well appearing may, alert and oriented x [default value], patient appears to be in mild distress. HEENT: Atraumatic, pupils are equal round reactive to light, extraocular movements are intact, nares are clear, there is no conjunctival pallor. Throat is clear without any exudates, erythema, tonsillar enlargement or uvular deviation, no hoarseness no stridor. HEART: Regular rate and rhythm without murmur, clicks, rubs. LUNGS:Lungs are decreased bilaterally, no tachypnea no wheezes, rales, crackles, chest moves symmetrically, patient has a intermittent but persistent dry cough. No tachypnea. ABD:bowel sounds normal, soft, non-tender, no guarding, rebound, rigidity, no masses noted, no hepatosplenomegaly MSCL: Non-tender, no muscle atrophy, muscles strength 5/5 upper and lower extremities, full range of motion, normal gait NEURO:CN 2-12 intact, sensation normal Initial Vital Signs Initial Vital Signs: Vital Signs Temperature 98.9 F 09/08/25 10:45 Pulse Rate 78 09/08/25 10:45 Respiratory Rate 20 09/08/25 10:45 Blood Pressure 176/84 H 09/08/25 10:45 Pulse Oximetry 95 09/08/25 10:45 Oxygen Delivery Method Room Air 09/08/25 10:45 Course Orders Ordered: ED Orders 09/08/25 10:47 XR chest 1V Stat Covid-19 + FLU A/B + RSV - PCR Stat EKG-12 Lead Stat 09/08/25 11:09 Complete Blood Count AUTO DIFF Stat Comprehensive Metabolic Panel Stat Lipase Stat Magnesium Stat NT-proBNP (BNP-Adult 18+) Stat Troponin I Stat Discontinued Medications Albuterol/Ipratropium (Albuterol/Ipratropium 3 Ml Ampul) 3 ml INH NOW ONE Stop: 09/08/25 10:48 Last Admin: 09/08/25 10:59 Dose: 3 ml Documented By: SAT Dexamethasone (Dexamethasone 10 Mg/Ml Vial) 10 mg IV NOW ONE Stop: 09/08/25 10:48 Last Admin: 09/08/25 11:19 Dose: 10 mg Documented By: JAYE Vital Signs Vital signs: Vital Signs - 8 hr 09/08/25 10:45 09/08/25 10:50 09/08/25 10:59 Temperature 98.9 F Pulse Rate 78 78 74 Respiratory Rate 20 18 Blood Pressure 176/84 H Pulse Oximetry 95 94 94 Oxygen Delivery Method Room Air Room Air Oxygen Flow Rate 0 09/08/25 11:00 09/08/25 11:30 09/08/25 12:00 Temperature Pulse Rate 78 73 72 Respiratory Rate Blood Pressure Pulse Oximetry 94 94 94 Oxygen Delivery Method Oxygen Flow Rate 09/08/25 12:05 09/08/25 12:05 Temperature Pulse Rate 74 Respiratory Rate Blood Pressure 172/76 H Pulse Oximetry Oxygen Delivery Method Oxygen Flow Rate MDM - SOB/Dyspnea Lab Data 09/08/25 11:09 09/08/25 11:09 Labs: Lab Results 09/08/25 09/08/25 Range/Units 10:47 11:09 WBC 8.3 (4.5-11.0) X10^3/uL RBC 5.31 (4.5-5.9) X10^6/uL Hgb 16.6 (13.5-17.5) g/dL Hct 48.1 (41-53) % MCV 90.5 (80-100) fL MCH 31.2 (26-34) PG MCHC 34.4 (30-36) % RDW 14.2 (11.6-14.8) % Plt Count 147 L (150-400) X10^3/uL Neut % (Auto) 79.8 H (50-75) % Lymph % (Auto) 9.9 L (25-40) % [place] % (Auto) 6.1 (3-14) % Eos % (Auto) 3.7 (2-4) % Baso % (Auto) 0.5 (0-2) % Neut # (Auto) 6600 (1501-2105) /uL Lymph # (Auto) 800 L (1403-1429) /uL [place] # (Auto) 500 (0-900) /uL Eos # (Auto) 300 (0-450) /uL Baso # (Auto) 0 (0-100) /uL Sodium 141 (137-145) mmol/L Potassium 4.1 (3.4-5.1) mmol/L Chloride 110 H (98-107) mmol/L Carbon Dioxide 20 L (22-32) mmol/L BUN 25 H (9-20) mg/dL Creatinine 0.86 (0.66-1.25) mg/dL Estimated GFR > 60 (>60) mL/min BUN/Creatinine Ratio 29.1 H (6-22) Glucose 103 H (70-99) mg/dL Calcium 9.1 (8.4-10.2) mg/dL Magnesium 1.7 (1.6-2.3) mg/dL Total Bilirubin 1.0 (0.2-1.3) mg/dL AST 27 (17-59) IU/L ALT 17 (<50) IU/L Alkaline Phosphatase 90 (38-126) U/L Troponin I < 0.012 (0.01-0.034) ng/mL NT-Pro-B Natriuret Pep 189 (<450) pg/mL Total Protein 7.2 (6.3-8.2) g/dL Albumin 4.2 (3.5-5.0) g/dL Globulin 3.0 (1.7-4.1) g/dL Albumin/Globulin Ratio 1.4 (1.0-2.8) Lipase 30 (23-300) U/L SARS-CoV-2 (PCR) Negative (Negative) Influenza A (RT-PCR) Flu a negative (NEGATIVE) Influenza B (RT-PCR) Flu b negative (NEGATIVE) RSV (PCR) Negative (Negative) MDM Narrative Medical decision making narrative: Chest x-ray, low lung volumes without acute abnormality seen by plain film no focal infiltrates. Postoperative and degenerative changes seen. Labs normal white count, hemoglobin platelets are 147 patient was 145 in July, chemistries show chloride of 110 CO2 of 20 BUN 25 creatinine 0.86 glucose is 103 LFTs are otherwise normal troponins less than 0.012 with a BNP of 189. COVID/influenza/RSV is negative Patient received DuoNeb and steroids. On recheck patient is feeling much better. States cough is mostly gone. We will provide patient with albuterol inhaler short course of steroids as needed discussed return precautions. Discharge Plan Departure Patient Disposition: Home Clinical Impression: Cough Instructions: Cough Activity Restrictions/Additional Instructions: Follow up as needed. If you are having persistent cough you can use the albuterol 2-4 puffs every 4 hours as needed. You can also take steroids once daily x3 days to see if this improves your symptoms if the cough is persisting. Prescription sent to [facility] in [place]. Please return if you develop new chest pain, new shortness of breath, coughing up blood, fevers, new swelling of your extremities or other new or concerning changes. Prescriptions: New prednisone 20 mg tablet 20 mg PO DAILY Qty: 3 0RF albuterol sulfate 90 mcg/actuation HFA aerosol inhaler 2 puff inhalation Q4-6H PRN (Reason: shortness of breath or wheezing) Qty: 8.5 0RF No Action levothyroxine 112 mcg tablet 112 mcg PO DAILY Qty: 90 3RF quetiapine [Seroquel] 25 mg tablet 12.5 mg PO BEDTIME Qty: 45 1RF metoprolol tartrate 25 mg tablet 25 mg PO BID Patient Comments: Takes at 0900 and 1500 amlodipine 10 mg tablet 5 mg PO BEDTIME (DME) Disabled Parking Permit See Rx Instructions .ROUTE .MEDSUPPLY Qty: 1 0RF Rx Instructions: I find this patient to be medically disabled and qualified for Disabled Parking as indicated and signed on the accompanying Disabled Parking Application for Individuals. rosuvastatin 40 mg tablet 40 mg PO BEDTIME Qty: 90 3RF Referrals: Ulices Wallace MD [Primary Care Provider, Family Practice] Stand Alone Forms: Patient Portal/API
[2025-09-08] MEDS: ALBUTEROL/IPRATROPIUM 3 ML AMPUL INH (10:59)
[2025-09-08 11:15] LABS: Add Manual Diff / Slide Review NO; Hematocrit 48.1 % (41-53); Hemoglobin 16.6 g/dL (13.5-17.5); Lymphocytes Absolute Auto 800 /uL (1100-4500); Mean Corpuscular HGB Conc 34.4 % (30-36); Mean Corpuscular Hemoglobin 31.2 PG (26-34); Mean Corpuscular Volume 90.5 fL (80-100); Platelet Count 147 X10^3/uL (150-400)
[2025-09-08 11:33] LABS: Alanine Aminotransferase 17 IU/L (<50); Albumin 4.2 g/dL (3.5-5.0); Albumin Globulin Ratio 1.4 (1.0-2.8); Alkaline Phosphatase 90 U/L (38-126); Blood Urea Nitrogen 25 mg/dL (9-20); Calcium 9.1 mg/dL (8.4-10.2); Carbon Dioxide 20 mmol/L (22-32); Chloride 110 mmol/L (98-107); Estimated Glomerular Filt Rate > 60 mL/min (>60); Globulin 3.0 g/dL (1.7-4.1); Glucose 103 mg/dL (70-99); HEMOLYSIS 47 (0-50); Lipase 30 U/L (23-300); Magnesium 1.7 mg/dL (1.6-2.3); Potassium 4.1 mmol/L (3.4-5.1); Sodium 141 mmol/L (137-145); Total Protein 7.2 g/dL (6.3-8.2)
[2025-09-08 11:35] LABS: Influenza A - CEPHEID Flu A NEGATIVE (NEGATIVE); Influenza B - CEPHEID Flu B NEGATIVE (NEGATIVE)
[2025-09-08 11:41] LABS: COVID-19 CEPHEID 4-PLEX PCR Negative (Negative)
[2025-09-08 11:45] LABS: NT-proBNP (BNP-Adult 18+) 189 pg/mL (<450); Troponin I < 0.012 ng/mL (0.01-0.034)
--- NOTE | 2025-09-08 11:50 | EKG_ITS ---
[facility] [address] [place] [address] Test Date: 2025-09-08 Pat Name: Adolfo Masters Department: [facility] Room: Gender: Male [employer]obile [employer]er: : 1935 Requested By: Order Number: [id number] Reading MD: Carlos Quintana MD Measurements Intervals [place] Rate: 75 P: 48 ND: 198 QRS: -65 QRSD: 142 T: 27 QT: 424 QTc: 473 Interpretive Statements Sinus rhythm with occasional premature ventricular complexes Right bundle branch block Left anterior fascicular block Bifascicular block NO SIGNIFICANT CHANGE FROM PRIOR TRACING Electronically Signed On 09-08-2025 15:15:58 PST by Carlos Quintana MD
== END 2025-09-08 12:15 | disposition home or self-care (01) ==
PROVIDERS: Emergency Provider Emergency Medicine; PCP Family Medicine
DX: R05.9 Cough, unspecified (principal)
CPT/HCPCS: 36415; 71045; 80053; 83690; 83735; 83880; 84484; 85025; 87637; 93005; 94640; 96374; 99284; J1100